=== PATIENT | female | born 1960 | race Caucasian/White ===

== ENCOUNTER → 2018-02-21 10:48 | Outpatient (CLI) | payer BC, SELFPAY ==
--- NOTE | 2018-02-21 10:53 | US_ITS ---
STUDY: THYROID ULTRASOUND REASON FOR EXAM: Female, 57 years old. Left neck lumps TECHNIQUE: Ultrasound evaluation of the thyroid was performed with real-time and static holly-scale imaging. COMPARISON: None. FINDINGS: RIGHT LOBE: The right lobe of the thyroid gland measures 4.9 x 1.8 x 1.2 cm. There is a homogeneous echotexture. There are 2 solid/cystic 4 mm nodules LEFT LOBE: The left lobe of the thyroid gland measures 4.6 x 1.8 x 1.0 cm. There is a homogeneous echotexture. There are multiple well-defined complex 3 mm nodules. ISTHMUS: The isthmus measures 2 mm. The regional lymph nodes are normal. The areas of the palpable lumps show a 2.6 x 2.4 x 1.2 cm well-defined homogeneous mass likely representing the parotid gland as it is just inferior to the left ear. There are 2 likely lymph nodes in the left jugular chain the larger measures 2.8 x 1.6 x 1.0 cm, the smaller 1.1 x 0.9 x 0.5 cm US/Thyroid IMPRESSION: Normal sized homogeneous thyroid gland with bilateral complex solid/cystic nodules all measuring less than 5 mm in size. Recommend 6 month follow-up to assure stability Likely jugular chain lymphadenopathy Likely enlarged parotid gland extending inferior to the left ear Electronically Signed: Raz Goetz MD at 15:09 EDT , Service support ,
== END ==
PROVIDERS: Family Provider Family Medicine; PCP Family Medicine; Visit Provider Family Medicine
DX: R59.0 Localized enlarged lymph nodes (principal)
CPT/HCPCS: 76536

== ENCOUNTER 2018-03-07 05:57 | Day surgery (SDC) | payer BC, SELFPAY ==
--- NOTE | 2018-03-07 | LYMN_PTH ---
PATIENT: SYLVAIN STALLINGS LOC: [facility] – [place] U#:[id number] AGE/SX: 57/F ROOM: RE03/07/[address]: Dr. Som Andre MD : 1960 BED: DIS: 03/07/2018 SPEC #: [id number] RECD: 03/07/18 08:06 STATUS: SERGIO REBrady #: [id number] CAMILA: 03/07/18 00:[address]: Som Andre DEPT: SURGICAL PATHOLOGY RECD BY: Svetlana Mason ENTERED: 03/07/18 08:54 SP TYPE: LYMPH NODE OTHR DR: Dr. Cara Stephens DO Tissues: Lymph node of neck, NOS Procedures: Frozen Section (charge) Surgery Specimen Level IV Diff Quik Stain (control) Frozen (no charge) H & E (control) HEADER OPERATION: Excision, biopsy left lymph node, deep open cervical node, frozen section PRE-OP DIAGNOSIS: Left cervical lymphadenopathy TISSUE SUBMITTED: Left posterior cervical lymph node FROZEN SECTION DIAGNOSIS Left posterior cervical lymph node, biopsy: Consistent with involvement by lymphoma. 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 See comment. Flow cytometry study from [facility] shows involvement by a B-cell lymphoproliferative disorder. The complete report is viewable in patient?s EMR. SJ:africa 03/10/18 COMMENT Immunohistochemistry ([id number]) supports the above diagnosis. This case has been reviewed in consultation with Dr. Landaverde who concurs with the above diagnosis. IDC:AM MICROSCOPIC DESCRIPTION Slides are reviewed. The specimen shows lymph node tissue with effacement of normal architecture and replaced by multiple follicles. These follicles comprise predominantly small cleaved lymphocytes. A few atypical large lymphocytes are also noted between 6 to 15 per high power field. Areas of necrosis or fibrosis are not seen. GROSS DESCRIPTION Received fresh for frozen section diagnosis labeled with the patient's name is a specimen designated left posterior cervical lymph node. The specimen consists of an ovoid piece of matson-pink soft tissue measuring 2.5 x 1.3 x 0.5 cm. The specimen is bisected and reveals flesh, cut surfaces. A section is submitted for frozen section diagnosis. A section is also submitted for flow cytometry studies. Four touch imprints are prepared (stained with Diff-Quick and two stained with H & E). The entire specimen is submitted in two cassettes as follows: 1 ? frozen section, 2 ? rest of the specimen. / SJ:rg 03/07/18 TC:0 [facility]: [id number] ADDENDUM ADDENDUM ADDENDUM ADDENDUM ADDENDUM ADDENDUM ADDENDUM ADDENDUM ADDENDUM ADDENDUM 09/22/2018 11:02 ADDENDUM 09/22/2018 11:02 ADDENDUM 09/22/2018 11:02 ADDENDUM 09/22/2018 11:02 ADDENDUM 09/22/2018 11:02 This addendum is added to incorporate an outside pathology consultation report. The case was examined at [facility] (#[id number]) and the following diagnosis was rendered. Left posterior cervical lymph node, biopsy: Follicular lymphoma, grade 1-2 of 3, predominantly follicular. Please see complete above mentioned consultation report in EMR
--- NOTE | 2018-03-07 | IMM_PTH ---
PATIENT: SYLVAIN STALLINGS LOC: [facility] – [place] U#:[id number] AGE/SX: 57/F ROOM: RE03/07/[address]: Dr. Som Andre MD : 1960 BED: DIS: 03/07/2018 SPEC #: [id number] RECD: 03/10/18 13:03 STATUS: SERGIO REQ #: [id number] CAMILA: 03/07/18 00:[address]: Som Andre DEPT: IMMUNOHISTOCHEMISTRY RECD BY: Svetlana Mason ENTERED: 03/10/18 13:06 SP TYPE: IMMUNO OTHR DR: Dr. Cara Stephens, DO Tissues: Lymph node of neck, NOS Procedures: BCL-2 (add) BCL-6 (add) CD10 (add) CD20 (add) CD23 (add) CD3 (add) CD30 (add) CD43 (add) CD45 (add) CD5 (add) CD79A (add) CK8 (add) CYCLIN (add) KI-67 (add) MUM1 (add) C-MYC (add) Pankeratin (initial) PHYSICIAN & [place] [id number] SPECIMEN INFORMATION: Tissue Source: Left posterior cervical lymph node biopsy Clinical Info: Left cervical lymphadenopathy Specimen Number: [id number] #2 CPT code: 43752, 18003 x16 METHODOLOGY: Deparaffinized sections of prefer/formalin-fixed tissue or PAP/DQ stained slides are incubated with monoclonal/polyclonal antibodies/oligonucleotide probes. Localization is made via biotin free immunoperoxidase method. Appropriate controls are performed and reacted as expected. Results on target cell population are indicated in the following table: RESULTS: ANTIBODY / CLONE RESULT Block 2 AE1-3 (AE1/AE3/PCK26) negative CK8 (27peasP29) negative CD3 (PS1) negative CD5 (SP10) negative CD20 (L26) positive CD43 (L60) negative CD45 (RP2/18) positive CD79a (11E3) positive CD10 (56C6) positive CD23 (1B12) positive CD30 (Philip-H2) negative BCL-2 (bcl-2/100/D5) positive BCL-6 (YB328I/A8) positive Cyclin D1/BCL-1 (SP4) negative MUM1 (MRQ-43) negative C-MYC (Y69) negative Ki-67 (30-9) positive, low to moderate These tests were developed and their performance characteristics determined by [facility]. They may not have been cleared or approved by the U.S. Food and Drug Administration. The FDA has determined that such clearance or approval is not necessary. INTERPRETATION: Left posterior cervical lymph node, biopsy: Consistent with involvement by non-Hodgkin B-cell follicular lymphoma. SJ:africa 03/11/18 Case has been reviewed in consultation with Dr. Landaverde who concurs with the above diagnosis. IDC:AM
[2018-03-07 06:19] VITALS: BP 112/76; PULSE 66; RESP 14; TEMP 36.5; O2SAT 97; BMI 25.1
[2018-03-07] MEDS: Bacitracin 500 UNITS/GM PACKET (08:07)
--- NOTE | 2018-03-07 08:16 | PCM.OPRPT ---
Problem List (1) Cervical lymphadenopathy Status: Chronic Report of Operation Date of Procedure: 03/07/18 Pre-Operative Diagnosis: Left posterior cervical lymphadenopathy Post-Operative Diagnosis: lymphoma Surgery/Procedure Performed:: Left deep cervical lymph node biopsy Description of Surgical Findings:: Maricarmen is a 57-year-old female presents with persistent left posterior cervical lymphadenopathy. This is failed to regress despite observation and no site of origin of malignant process was identified however given their size and persistence as well as the presence of some small thyroid nodules on ultrasound evaluation open biopsy for determine definitive evaluation was offered and she was eager to proceed. The risks, alternatives, potential benefits, and complications were discussed at length and any questions answered to the patient and/or caregiver's satisfaction. Witnessed informed consent was obtained in the office, and the patient and/or caregiver was agreeable to proceed. The patient was identified in the preoperative holding brought to the operating room where she is placed on the operative table and comfortably positioned. The planned left cervical operative site was then injected with 1% lidocaine with 100,000 epinephrine for a total of 3 cc and the site prepped and draped in usual sterile fashion. Using a 15 blade scalpel a 2 cm incision was then made along the midpoint of the trapezius where a large palpable lymph node was encountered by palpation. The skin and subcutaneous tissues were then dissected and medial to the trapezius muscle was found a large 1.5 x 3.0 cm enlarged lymph node which was then bluntly dissected from the surrounding capsule and the vascular pedicle cauterized with bipolar cautery. This was sent for pathologic evaluation which consistent with a diagnosis of lymphoma with taping pending further evaluation. The wound was then closed deeply with interrupted interrupted 3-0 Vicryl suture followed by running 5-0 Monocryl suture to the skin. Bacitracin ointment was then applied completing the procedure. Type of Anesthesia:: Local Anesthesiologist: none Special Medications: none Specimen's removed: left deep cervical lymph node Drains: none Estimated Blood Loss (mL): 0 mL Fluids Replaced: 0 mL - Complications none - Admit VTE Documentation VTE Present on Admission: No VTE Mechan Device Prophylaxis: None VTE Pharm Prophylaxis ordered?: No
--- NOTE | 2018-03-07 08:28 | DCINST_ITS ---
- Discharge Diagnoses Current Active Problems: Current Active and Chronic Problems Cervical lymphadenopathy (Chronic) You will use the following diet at home:: No restrictions Discharge Activity: Return to Normal Activity Call your doctor if your incision/area has: Increased Pain/ Swelling, Increased Redness, Swelling at the incision site Call your doctor if you observe: Fever of 101 or Higher, Uncontrolled pain Allergies/Adverse Reactions: Allergies barium sulfate Allergy (Verified 03/07/18 06:17) Hives guaifenesin [From Mucinex] Allergy (Verified 03/07/18 06:17) Hives JAILYN Inhibitors Adverse Reaction (Verified 03/07/18 06:17) Other Penicillins Adverse Reaction (Verified 03/07/18 06:17) Unknown Medications to take at Discharge Valsartan [Diovan] 160 mg PO DAILY 11/01/13 Cholecalciferol (Vitamin D3) [Vitamin D3] 5,000 unit PO DAILY 03/03/18 Primary Care Physician: Cara Stephens DO [Primary Care Provider] - Test Results: Test results from this visit will be discussed in further detail at your follow- up appointment, if applicable.
[2018-03-07 08:35] VITALS: BP 112/76; BP 121/71; PULSE 89; RESP 18; TEMP 37.2; O2SAT 96
[2018-03-07 08:42] VITALS: BP 112/76
== END 2018-03-07 08:45 | disposition home or self-care (01) ==
LOC: SDC 05:58 → AC 05:59
PROVIDERS: Family Provider Family Medicine; PCP Family Medicine; Visit Provider Otolaryngology
PROC: (CPT 38510; principal; 2018-03-07 07:15)
DX: C85.91 Non-Hodgkin lymphoma, unspecified, lymph nodes of head, face, and neck (principal)
CPT/HCPCS: 38510; 88305; 88331; 88341; 88342; J7120

== ENCOUNTER → 2018-03-17 14:02 | Outpatient (CLI) | payer BC, SELFPAY ==
--- NOTE | 2018-03-17 14:06 | CT_ITS ---
STUDY: CT ABDOMEN AND PELVIS WITH CONTRAST REASON FOR EXAM: Female, 57 years old. Newly diagnosed non-Hodgkin's lymphoma B-cell. History of kidney stones. RADIATION DOSAGE (If Supplied By Facility): CTDIvol = ( 14.48 ) mGy, DLP = ( 1530.05 ) mGycm TECHNIQUE: Transaxial images were obtained from the dome of the diaphragm to the symphysis pubis with oral contrast. 100 ml of Isovue 300 contrast was administered. Sagittal and coronal images were reconstructed. Individualized dose optimization techniques were used for this CT. COMPARISON: November 26, 2016. FINDINGS: The visualized lung bases are unremarkable. The visualized portions of the heart are within normal limits. Normal liver. Normal gallbladder and extrahepatic biliary system. Normal spleen. Normal pancreas. Normal bilateral adrenal glands. Bilateral renal simple cyst the largest in the midpole left kidney measuring 1.9 cm. Stable left superior pole nonobstructing 0.6 cm renal calculus. Stable 2 mm nonobstructing left midpole renal calculus. Renal parapelvic cysts. No ureteral stones. Normal visualized stomach. Normal small intestine. Normal colon. The appendix is well visualized and appears normal. No intra-abdominal free air. Normal abdominal aorta. Normal inferior vena cava. Small periaortic lymph nodes unchanged at the level of the crura of the right hemidiaphragm measuring 0.5 cm, below the level of the left renal artery measuring 1.2 cm and 1.0 cm, retroaortic measuring 1.1 cm, also at this level aorta caval measuring 0.7 cm, left external iliac measuring 0.9 cm Normal urinary bladder. Uterus grossly normal. No adnexal mass is seen. No pelvic sidewall lymphadenopathy. Normal abdominal wall. Disc space narrowing with marginal osteophytes L3-4 and L4-5. CT/Abdomen/Pelvis WITH Contrast IMPRESSION: No acute findings in the abdomen or pelvis. Scattered small abdominal and left-sided pelvic lymph nodes the largest measuring 1.2 cm. Stable nonobstructing left renal calculi. Bilateral renal cysts unchanged. Electronically Signed: Jesus Bae MD at 7:50 EDT , Service support ,
--- NOTE | 2018-03-17 14:06 | CT_ITS ---
STUDY: CT CHEST WITH CONTRAST REASON FOR EXAM: Female, 57 years old. There is a new diagnosis of non-Hodgkin's lymphoma. RADIATION DOSAGE (If Supplied By Facility): CTDIvol = ( 14.48 ) mGy, DLP = ( 1530.05 ) mGycm TECHNIQUE: Transaxial imaging was performed following intravenous administration of 100 ml of Isovue 300 contrast material. Coronal and sagittal 2-D MPR. Individualized dose optimization techniques were used for this CT. COMPARISON: CT neck, CT abdomen and pelvis same date. CT abdomen and pelvis 11/26/2016 and 08/31/2015 and 11/01/2013. FINDINGS: Supraclavicular: Several tiny lymph nodes are present supraclavicular bilateral, slightly more numerous on the right, not pathologically enlarged but conspicuous in number. The largest has a short axis dimension of approximately 6.8 mm. Normal thyroid. Thoracic body wall soft tissues: No acute process. No axillary lymphadenopathy. Upper abdomen: Please see dictation of CT abdomen and pelvis for details. Mediastinum: The proximal and distal esophagus appear normal. The middle 3rd of the esophagus is displaced by an apparent masslike process within the mediastinum. This masslike process likely represents confluent lymphadenopathy. It lies to the right of the descending aorta, posterior to the left atrium, beginning at the level of the alexx and extending downward approximately 9.2 cm, with a greatest transverse dimension of 5.4 cm and a greatest anterior-posterior dimension of 2.8 cm. A few small nodes are present in the superior mediastinum. Cardiovascular: Normal heart, aorta, central pulmonary arteries, inferior and superior vena cava. Lungs: Clear and normal right lung. Hyperdense partially calcified pulmonary nodule in the left upper lobe measuring 6.7 mm, benign features. CT/Chest WITH Contrast IMPRESSION: Mediastinal mass, likely composed of confluent enlarged lymph nodes. Concordant with a diagnosis of lymphoma. Electronically Signed: Royce Ceedno, at 11:48 EDT Tel , Service support ,
--- NOTE | 2018-03-17 14:07 | CT_ITS ---
STUDY: CT SOFT TISSUE NECK WITH CONTRAST REASON FOR EXAM: Female, 57 years old. New diagnosis of non-Hodgkin's lymphoma. Hypertension. RADIATION DOSAGE (If Supplied By Facility): CTDIvol = ( 14.48 ) mGy, DLP = ( 1530.05 ) mGycm TECHNIQUE: The patient was scanned in a multi-detector CT scanner. High resolution transaxial imaging was performed following intravenous administration of 100 ml of Isovue 300 contrast material. Sagittal and coronal images were reconstructed. Individualized dose optimization techniques were used for this CT. COMPARISON: CT chest, CT abdomen and pelvis same date. CT abdomen and pelvis 11/26/2016, 08/31/2015, 11/01/2013. FINDINGS: Apical lungs clear. A few small lymph nodes of the superior mediastinum, prevascular chain mildly enlarged lymph nodes in the AP window and paratracheal. Prominent multilevel cervical degenerative disc disease between C3 and T1, with uncovertebral joint hypertrophy and facet hypertrophy contributing to foraminal narrowing at multiple levels most severe at C4-C5, C5-C6 and C6-C7. Craniofacial osseous structures unremarkable. Paranasal sinuses, mastoid air cells and middle ear cavities clear. Superficial facial soft tissues including orbital contents are normal. Normal parotid glands. Normal submandibular glands. A few tiny lymph nodes submandibular. Several tiny lymph nodes in the cervical and jugulodigastric chains with no acute lymphadenopathy. No supraclavicular lymphadenopathy. There are multiple tiny lymph nodes scattered and supraclavicular region, none of which are pathologically enlarged. Somewhat conspicuous in number. Normal thyroid. Unremarkable vascular structures. CT/Soft Tissue Neck WITH Contrast IMPRESSION: There are small and borderline enlarged lymph nodes of the mediastinum. There are small numerous lymph nodes supraclavicular. There are a few shotty cervical lymph nodes bilaterally, not pathologically enlarged. Overall there is no princess lymphadenopathy. No other acute cervical soft tissue process. Prominent multilevel cervical spondylosis with stenosis. Correlate for any symptoms of cervical radiculopathy that may be tip presence of nerve impingement. Electronically Signed: Royce Cedeno, at 11:44 EDT Tel , Service support ,
[2018-03-17 14:31] LABS: CREATININE FINGERSTICK < 0.6 mg/dL (0.55-1.02); EGFR FINGERSTICK > 60.0000 mL/min (>60)
== END ==
PROVIDERS: Family Provider Family Medicine; PCP Family Medicine; Visit Provider Otolaryngology
DX: C85.91 Non-Hodgkin lymphoma, unspecified, lymph nodes of head, face, and neck (principal)
CPT/HCPCS: 70491; 71260; 74177

== ENCOUNTER → 2018-03-31 08:16 | Outpatient (CLI) | payer BC, SELFPAY | PROVIDERS: Family Provider Family Medicine; PCP Family Medicine; Visit Provider Internal Medicine Hematology & Oncology | DX: C82.91 Follicular lymphoma, unspecified, lymph nodes of head, face, and neck (principal) | CPT/HCPCS: 78815; A9552; A4216 ==

== ENCOUNTER → 2018-07-29 16:57 | Outpatient (CLI) | payer BC, SELFPAY ==
[2018-07-10 14:29] VITALS: BMI 25.5
--- NOTE | 2018-07-29 17:00 | CT_ITS ---
STUDY: CT SOFT TISSUE NECK WITH CONTRAST REASON FOR EXAM: Female, 58 years old. Follow-up lymphoma. RADIATION DOSAGE (If Supplied By Facility): CTDIvol = ( 11.74 ) mGy, DLP = ( 1289.59 ) mGycm TECHNIQUE: The patient was scanned in a multi-detector CT scanner. High resolution transaxial imaging was performed following intravenous administration of 100 ml of Isovue 300 contrast material. Sagittal and coronal images were reconstructed. Individualized dose optimization techniques were used for this CT. COMPARISON: Previous CT of the neck 03/17/2018, and PET scan 03/31/2018. FINDINGS: There is a subtle area slightly hyperdense mass in the posterior left neck, most consistent with an enlarged lymph node or possibly a metastatic positive lymphoma currently within a muscle bundle. It can best be seen on sagittal images 62-66. It showed FDG hyperactivity on the PET scan. It was present on the previous CT of the neck although not noticed or described. It has increased in size. Greatest craniocaudal dimension is now 4.4 cm versus 3 cm previously, in greatest front to back dimension is 2.5 cm versus 1.9 cm previously. There has also been a slight increase in size of a left scalene lymph node seen on axial image 39) measuring 1.5 cm greatest dimension, versus 1 cm previously, and it showed FDG hyperactivity on the PET scan. No other definite abnormalities. No other significant adenopathy. Normal bilateral parotid glands. Normal bilateral chain puller spaces. Normal bilateral parapharyngeal spaces. Normal bilateral carotid spaces. Normal bilateral sublingual and submandibular glands and spaces. Normal visualized nasopharynx. Normal retropharyngeal space. Normal perivertebral space. Normal visualized bilateral faucial tonsils. The visualized tongue, tongue base and oropharynx are normal. The visualized cervical lymph nodes (levels I-) are within normal size limits, and maintain normal morphology. Normal epiglottis, bilateral vallecula and hypopharynx. The pre-epiglottic and paraglottic adipose spaces are normal. Normal visualized bilateral piriform sinuses, aryepiglottic folds, vocal cords, and arytenoid-cricoid articulations. Normal subglottic trachea. Normal bilateral lobes of the thyroid gland. Normal visualized pulmonary apices. Normal visualized paranasal sinuses. There is multilevel degenerative changes of the cervical spine. CT/Soft Tissue Neck WITH Contrast IMPRESSION: Increasing size of a subtle, slightly hyperdense left posterior neck mass that was shown to be FDG avid and is consistent with active lymphoma. Slight increased size of a small left scalene lymph node. Electronically Signed: Tarun Malone MD at 23:24 EST , Service support ,
--- NOTE | 2018-07-29 17:00 | CT_ITS ---
STUDY: CT ABDOMEN AND PELVIS WITH CONTRAST REASON FOR EXAM: Female, 58 years old. Follow-up lymphoma. RADIATION DOSAGE (If Supplied By Facility): CTDIvol = ( 11.74 ) mGy, DLP = ( 1289.59 ) mGycm TECHNIQUE: Transaxial images were obtained from the dome of the diaphragm to the symphysis pubis without oral contrast. 100 ml of Isovue 300 contrast was administered. Sagittal and coronal images were reconstructed. Individualized dose optimization techniques were used for this CT. COMPARISON: CT scan 03/17/2018, PET scan 03/31/2018. FINDINGS: The visualized lung bases are unremarkable. The visualized portions of the heart are within normal limits. Stable tiny right retrocrural lymph node. Normal liver. Normal gallbladder and extrahepatic biliary system. Normal spleen. Normal pancreas. Normal bilateral adrenal glands. No acute abnormalities of the kidneys. Stable bilateral small cysts. Stable bilateral nonobstructing stones, most pronounced in the left upper pole where there is a stone measuring as much as 9 mm. No hydronephrosis on either side. Evaluation of the GI tract is limited by absence of oral contrast. Cannot exclude stomach wall thickening. No dilated loops of bowel or evidence for obstruction. Cannot exclude segmental thickening of the clemente of the small or large bowel. Cannot exclude enteritis or colitis. Moderate diffuse fecal retention. Diverticulosis without definite diverticulitis. Appendix within normal limits. Normal abdominal aorta. Normal inferior vena cava. Grossly stable retroperitoneal adenopathy. Enlarged lymph nodes are mostly on the left side of the aorta. Largest is at the level of the left renal hilum and measures 1.9 cm stable. This can be seen on axial image 47. Additional enlarged lymph nodes extend down to the level of the aortic bifurcation. At the level of the left common iliac artery there is an adjacent enlarged lymph node measuring 1.6 cm, stable since previous exam, seen on axial image 65. Stable small left external iliac lymph nodes are seen. At the level of the right acetabulum, there are 2 pelvic wall masses on either side of the external iliac vein and artery. These can be seen on axial images 83-97 and these have increased in size. As example, the more medial mass measures 3.7 cm on axial image 89, versus 3.4 cm previously, and the mass just inside the left inguinal ligament measures 3.2 cm greatest dimension, versus 2.9 cm previously. A small soft tissue mass in the left retroperitoneum lateral to the left psoas muscle on axial image 64 measures 8 mm versus 7 mm previously. Normal urinary bladder. Normal visualized uterus. Normal abdominal wall. There are diffuse degenerative changes of the visualized lumbar spine. CT/Abdomen/Pelvis W IV Cont ONLY IMPRESSION: Mild retroperitoneal adenopathy, grossly stable. Right pelvic adenopathy, increased in size since previous study. No other changes. Electronically Signed: Tarun Malone MD at 23:37 EST , Service support ,
--- NOTE | 2018-07-29 17:00 | CT_ITS ---
STUDY: CT CHEST WITH CONTRAST REASON FOR EXAM: Female, 58 years old. Follow-up non-Hodgkin's lymphoma. RADIATION DOSAGE (If Supplied By Facility): CTDIvol = ( 11.74 ) mGy, DLP = ( 1289.59 ) mGycm TECHNIQUE: Transaxial imaging was performed following intravenous administration of 100 ml of Isovue 300 contrast material. Individualized dose optimization techniques were used for this CT. COMPARISON: CT scan 03/17/2018, PET scan 03/31/2018. FINDINGS: Normal lung volumes. No focal infiltrates. No effusions. 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 Essentially stable appearance of confluent soft tissue density behind the mid mediastinum, beginning at the level of the alexx and extending anterior to the vertebral column, surrounding much of the aorta and esophagus, extending behind the left atrium, and terminating above the diaphragmatic hiatus. This is consistent with adenopathy, and this area showed increased FDG hyperactivity on PET scan. The size of the mass is similar to prior exam with a greatest craniocaudal dimension of approximately 10.5 cm on coronal images, the greatest [id number] dimension of 5.6 cm on coronal images, in greatest front to back dimension of 4.5 cm on sagittal images. Note that CT scan cannot differentiate active neoplasm from posttherapeutic fibrosis. Also stable is a small area of soft tissue density behind the sternum and anterior to the ascending aorta, with greatest cross-sectional dimension of 2 cm on axial image 43. No definite or significant thoracic inlet adenopathy or axillary adenopathy. Normal heart and pericardium. Normal enhanced pulmonary arteries. Normal aorta arch and descending thoracic aorta. Normal osseous structures. See separate report for CT of the abdomen and pelvis. CT/Chest WITH Contrast IMPRESSION: No definite change. Again seen is confluent adenopathy behind the mid mediastinum as described above. Electronically Signed: Tarun Malone MD at 23:16 EST , Service support ,
--- OUTSIDE RECORDS SUMMARY | 2018-10-31 05:34 | XMS RPT_ITS ---
:1960 Author Organization OHIP Support Name Relationship Address Phone CARLA BANK Unavailable [address] + [address] [place] [address] [place] Unavailable Unavailable + MCKENZIE, STEVE Unavailable [address] + [place] [address] CARLA BANK Unavailable [address] + [address] [place] [address] [place] Unavailable Unavailable + MCKENZIE, STEVE Unavailable [address] + [place] [address] CARLA BANK Unavailable [address] + [address] [place] [address] [place] Unavailable Unavailable + MCKENZIE, STEVE Unavailable [address] + [place] [address] [place] Unavailable Unavailable Unavailable MCKENZIE, STEVE Unavailable Unavailable Unavailable HAYLIESYLVAIN Unavailable Unavailable Unavailable [place] Unavailable Unavailable Unavailable MCKENZIE, STEVE Unavailable Unavailable Unavailable SYLVAIN STALLINGS Unavailable Unavailable Unavailable CARLA BANK Unavailable [address] + [address] [place] [address] [place] Unavailable Unavailable + MCKENZIE, STEVE Unavailable Unavailable + CARLA BANK Unavailable [address] + [address] [place] [address] [place] Unavailable Unavailable + MCKENZIE, STEVE Unavailable Unavailable + CARLA BANK Unavailable [address] + [address] [place] [address] [place] Unavailable Unavailable + STEVE MCKENZIE Unavailable Unavailable + [employer]LA INS[employer] Unavailable [address] + [address] [place] [address] [place] Unavailable Unavailable + STEVE MCKENZIE Unavailable Unavailable + [employer]LA [employer] Unavailable [address] + [address] [place] [address] MATT LA Unavailable [address] + [place] [address] [place] Unavailable Unavailable + [place] [address] [employer]LA [employer] Unavailable [address] + [address] [place] [address] MATT LA Unavailable [address] + [place] [address] [place] Unavailable Unavailable + [place] [address] [employer]LA [employer] Unavailable [address] + [address] [place] [address] [place] Unavailable [address] + [place] [address] [place](CALL Unavailable . + [place] [address] Care Team Providers Name Role Phone DARNELLPPAN, SABARISH R Attending Unavailable AYYAPPAN, SABARISH R Referring Unavailable AYYAPPAN, SABARISH R Attending Unavailable AYYAPPAN, SABARISH R Referring Unavailable AYYAPPAN, SABARISH R Attending Unavailable AYYAPPAN, SABARISH R Referring Unavailable AYYAPPAN, SABARISH R Attending Unavailable AYYAPPAN, SABARISH R Referring Unavailable AYYAPPAN, SABARISH R Attending Unavailable AYYAPPAN, SABARISH R Referring Unavailable AYYAPPAN, SABARISH R Referring Unavailable AYYAPPAN, SABARISH R Attending Unavailable SELF, SELF Referring Unavailable CARA STEPHENS Primary Care Unavailable LAKISHA PARRA Attending Unavailable NEYHART GARCIA, HEBERT Referring Unavailable WISWELL, ZONIA Attending Unavailable Isckarus, Mansour Attending Unavailable Isckarus, Mansour Referring Unavailable Malys, Cara Primary Care Unavailable Isckarus, Mansour Attending Unavailable Andre, Som Referring Unavailable Malys, Cara Primary Care Unavailable Isckarus, Mansour Consulting Unavailable Miedel, Mary Attending Unavailable Malys, Cara Primary Care Unavailable Andre, Som Attending Unavailable Andre, Som Referring Unavailable Malys, Cara Primary Care Unavailable Andre, Som Attending Unavailable Andre, Som Referring Unavailable Malys, Cara Primary Care Unavailable Isckarus, Mansour Attending Unavailable Andre, Som Referring Unavailable Malys, Cara Primary Care Unavailable Isckarus, Mansour Attending Unavailable Andre, Som Referring Unavailable Malys, Cara Primary Care Unavailable Isckarus, Mansour Consulting Unavailable Isckarus, Mansour Attending Unavailable Malys, Cara Primary Care Unavailable Isckarus, Mansour Attending Unavailable Andre, Som Referring Unavailable Malys, Cara Primary Care Unavailable Isckarus, Mansour Consulting Unavailable Isckarus, Mansour Attending Unavailable Andre, Som Referring Unavailable Malys, Cara Primary Care Unavailable Isckarus, Mansour Consulting Unavailable PROBLEMS PROBLEMS DATE TYPE CONDITION / CODE ATTENDING STATUS SOURCE 07/31/2018 Unknown C82.90 - Isckarus, Active [place] Follicular [facility] lymphoma, [facility] unspecified, Repository unspecified site / C82.90(ICD-10) 07/17/2018 Admitting New Patient / AYYAPPAN, Active [place] [facility] diagnosis [id number]() [facility] Repository 05/05/2018 Active Encounter for NA Active [facility] screening [place] mammogram for Repository malignant neoplasm of breast / Z12.31(ICD-10) 03/21/2018 Unknown D50.9 - Iron Isckarus, 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 [address] OFFICE VISIT Date of Service: 07/31/18 1523 MR#: [id number] Acct: [id number] Name: SYLVAIN STALLINGS Rep #: [id number] : 1960 From: Anum Greene MD Age/Sex: 58/F Location: OMD Status: Signed - Problem List (1) Follicular lymphoma Status: Chronic - Date of Service Date of Service:: 07/31/18 - Chief Complaint Lymphoma follow-up - History of Present Illness Patient is a 58-year-old female who presented with painless enlargement of lymph nodes in the left neck was first noted in the late spring 2017 and did not improve after a course of antibiotics and therefore was referred to who performed an excision biopsy of the left neck lymph node and ordered a CAT scan of the neck chest and abdomen Findings were: March 07, 2018 Left posterior cervical lymph node, biopsy: Consistent with involvement by non-Hodgkin B-cell follicular lymphoma, grade 2. March 17, 2018 CT neck: There are small and borderline enlarged lymph nodes of the mediastinum. There are small numerous lymph nodes supraclavicular. There are a few shotty cervical lymph nodes bilaterally, not pathologically enlarged. March 17, 2018 CT chest: Supraclavicular: Several tiny lymph nodes are present supraclavicular bilateral, slightly more numerous on the right, not pathologically enlarged but conspicuous in number. The largest has a short axis dimension of approximately 6.8 mm. Normal thyroid. Thoracic body wall soft tissues: No acute process. No axillary lymphadenopathy. Mediastinum: The proximal and distal esophagus appear normal. The middle 3rd of the esophagus is displaced by an apparent masslike process within the mediastinum. This masslike process likely represents confluent lymphadenopathy. It lies to the right of the descending aorta, posterior to the left atrium, beginning at the level of the alexx and extending downward approximately 9.2 cm, with a greatest transverse dimension of 5.4 cm and a greatest anterior-posterior dimension of 2.8 cm. A few small nodes are present in the superior mediastinum. Cardiovascular: Normal heart, aorta, central pulmonary arteries, inferior and superior vena cava. Lungs: Clear and normal right lung. Hyperdense partially calcified pulmonary nodule in the left upper lobe measuring 6.7 mm, benign features. IMPRESSION: Mediastinal mass, likely composed of confluent enlarged lymph nodes. Concordant with a diagnosis of lymphoma. March 17, 2018 CT abdomen and pelvis: IMPRESSION: No acute findings in the abdomen or pelvis. Scattered small abdominal and left-sided pelvic lymph nodes the largest measuring 1.2 cm. Stable nonobstructing left renal calculi. Bilateral renal cysts unchanged. PET/CT March 2018: MPRESSION: 1. ABNORMAL EXAMINATION INDICATIVE OF MALIGNANT VIABLE NEOPLASM. 2. Increased glucose concentration noted in the bilateral- lateral neck, right-left axillary regions fulfills quantitative criteria for viable neoplasm. 3. Mediastinal hypermetabolic abnormalities fulfill quantitative criteria for viable neoplasm. (Adonay et al, Journal of Clinical Oncology 16:2142, 1997). 4. The increase in FDG concentration noted in the bilateral hemipelvis and inguinal regions fulfills quantitative criteria for viable neoplasm. 5. Osseous skeletal hypermetabolic foci fulfill quantitative criteria for viable osseous neoplasm. (King, Clinical Nuclear Medicine 29:161, 2004). Patient has had no B symptoms and is unaware of any enlarged lymph nodes apart from those noted by her in the left neck. - Past Medical/Social History Past Medical History Cancer: Lymphoma Social History Social History: No changes Smoking Status Never smoker Review of Systems Constitutional:: Reports: Appetite change - I eat a lot my weight fluctuates within a few pounds. Denies: Fever, Sweats, Weight loss, Chills Cardiovascular:: Denies: Chest pain, Palpitations, Dyspnea on exertion, Orthopnea, PND, Shortness of breath Respiratory: Denies: Cough, Hemoptysis, Shortness of Breath, Wheezing Gastrointestinal:: Denies: Abdominal pain, Nausea, Vomiting, Diarrhea, Constipation, Hematochezia Genitourinary: Denies: Dysuria, Hematuria, 15, Flank pain Musculoskeletal:: Denies: Back pain, Myalgia, Arthralgia Skin: Denies: Rash, Skin Changes, Wounds Neurological:: Denies: Headache, Dizziness, Visual changes, Tinnitus, Hearing loss Psychiatric: Denies: Anxiety, Depression, Homicidal Ideations, Suicidal Ideations Vital Signs Height 5 ft 4 in Weight: 63.594 kg Weight in Pounds 140.2 lbs Pulse Ox 98 - Physical Exam General: Alert, Oriented x3, No apparent distress, - - ECOG 0 Psychiatric:: Anxious Laboratory Data: Reviewed in EMR Diagnostic Data: CT scans neck chest abdomen and pelvis July 2018 reviewed in EMR Assessment and Plan 58-year-old female with clinical stage ANN MARIE grade 2 follicular lymphoma presenting with generalized lymphadenopathy and abnormal bone/bone marrow on PET CT March 2018. FLIPI score 2 (for stage and more than 4 negro areas involved), intermediate risk group. Patients in this risk group have a 94% 2-year overall survival, 72% 2-year progression free survival and a median progression free survival of 70 months. She does not fulfill the GELF criteria for high tumor burden yet as of July 2018. Apart from the awareness of the enlarged lymph node first noted in the left neck patient is asymptomatic. She has a stable weight although she reports I am eating a lot. CT scans were done in follow-up of her lymphoma July 2018 and in comparison to initial studies of March 2018 overall the disease remains stable and if any slight worsening in the subtle enlargement of the lymph nodes in the neck. Follicular lymphoma is a second most common lymphoma in the [place] and [place], often presenting in middle age Caucasians with painless peripheral adenopathy which may wax and wane. Widespread disseminated disease is usually present at baseline and patients are typically asymptomatic aside from that her lymphadenopathy. Molecular genetics can confirm the diagnosis but they are not specific for follicular lymphoma (immunoglobulin gene rearrangement and t(14;18). Although the course of follicular lymphoma is quite variable many patients will have a waxing and waning course for years without therapy. Patient's was disseminated disease and rapid tumor growth are candidates for active treatment. Small subset of patients will undergo transformation to a more aggressive lymphoma in those patients will have a worse prognosis and require aggressive therapy. Plan: 1. I advise continued watchful expectancy, follow-up in 3 months. She was seen in June 2018 for a second opinion at [facility]. Final consultation report not received yet but to the patient's understanding watchful expectancy was felt to be a reasonable option. She was not interested in enrolling in a clinical trial. 2. A bone marrow biopsy will be deferred until when treatment is felt indicated. Impression and plan discussed with patient . Primary Care Provider: Cara Stephens DO Referring Provider: Som Andre MD 07/31/18 2904 <Electronically signed by Anum Greene MD> Date [facility] Greene [facility] Signature: Date (if applicable) CC: Som Andre MD; Cara Stephens DO CHEST WITH CONTRAST Observed: 07/29/2018 Status: F Source: [place] 5:00 PM [facility] REPOSITORY [facility] Imaging Services [address] [place] [address] Chest WITH Contrast MR#: [id number] Acct: [id number] Name: SYLVAIN STALLINGS Rep #: [id number] : 1960 F 58 From: Tarun Malone MD PCP: Cara Stephens DO Status: REG CLI Study: Chest WITH Contrast Date of Exam: 07/29/18 Exam# [id number] Ordering Dr: Anum Greene MD STUDY: CT CHEST WITH CONTRAST REASON FOR EXAM: Female, 58 years old. Follow-up non-Hodgkin's lymphoma. RADIATION DOSAGE (If Supplied By Facility): CTDIvol = ( 11.74 ) mGy, DLP = ( 1289.59 ) mGycm TECHNIQUE: Transaxial imaging was performed following intravenous administration of 100 ml of Isovue 300 contrast material. Individualized dose optimization techniques were used for this CT. COMPARISON: CT scan 03/17/2018, PET scan 03/31/2018. FINDINGS: Normal lung volumes. No focal infiltrates. No effusions. 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 Essentially stable appearance of confluent soft tissue density behind the mid mediastinum, beginning at the level of the alexx and extending anterior to the vertebral column, surrounding much of the aorta and esophagus, extending behind the left atrium, and terminating above the diaphragmatic hiatus. This is consistent with adenopathy, and this area showed increased FDG hyperactivity on PET scan. The size of the mass is similar to prior exam with a greatest craniocaudal dimension of approximately 10.5 cm on coronal images, the greatest [id number] dimension of 5.6 cm on coronal images, in greatest front to back dimension of 4.5 cm on sagittal images. Note that CT scan cannot differentiate active neoplasm from posttherapeutic fibrosis. Also stable is a small area of soft tissue density behind the sternum and anterior to the ascending aorta, with greatest cross-sectional dimension of 2 cm on axial image 43. No definite or significant thoracic inlet adenopathy or axillary adenopathy. Normal heart and pericardium. Normal enhanced pulmonary arteries. Normal aorta arch and descending thoracic aorta. Normal osseous structures. See separate report for CT of the abdomen and pelvis. CT/Chest WITH Contrast IMPRESSION: No definite change. Again seen is confluent adenopathy behind the mid mediastinum as described above. Electronically Signed: Tarun Malone MD at 23:16 EST , Service support , CC: Cara Stephens DO; Anum Greene MD Scheduling Assistant: Signed SOFT TISSUE NECK WITH Observed: 07/29/2018 Status: F Source: [place] CONTRAST 5:00 PM [facility] REPOSITORY [facility] Imaging Services [address] [place] [address] Soft Tissue Neck WITH Contrast MR#: [id number] Acct: [id number] Name: SYLVAIN STALLINGS Rep #: [id number] : 1960 F 58 From: Tarun Malone MD PCP: Cara Stephens DO Status: REG CLI Study: Soft Tissue Neck WITH Contrast Date of Exam: 07/29/18 Exam# [id number] Ordering Dr: Anum Greene MD STUDY: CT SOFT TISSUE NECK WITH CONTRAST REASON FOR EXAM: Female, 58 years old. Follow-up lymphoma. RADIATION DOSAGE (If Supplied By Facility): CTDIvol = ( 11.74 ) mGy, DLP = ( 1289.59 ) mGycm TECHNIQUE: The patient was scanned in a multi-detector CT scanner. High resolution transaxial imaging was performed following intravenous administration of 100 ml of Isovue 300 contrast material. Sagittal and coronal images were reconstructed. Individualized dose optimization techniques were used for this CT. COMPARISON: Previous CT of the neck 03/17/2018, and PET scan 03/31/2018. FINDINGS: There is a subtle area slightly hyperdense mass in the posterior left neck, most consistent with an enlarged lymph node or possibly a metastatic positive lymphoma currently within a muscle bundle. It can best be seen on sagittal images 62-66. It showed FDG hyperactivity on the PET scan. It was present on the previous CT of the neck although not noticed or described. It has increased in size. Greatest craniocaudal dimension is now 4.4 cm versus 3 cm previously, in greatest front to back dimension is 2.5 cm versus 1.9 cm previously. There has also been a slight increase in size of a left scalene lymph node seen on axial image 39) measuring 1.5 cm greatest dimension, versus 1 cm previously, and it showed FDG hyperactivity on the PET scan. No other definite abnormalities. No other significant adenopathy. Normal bilateral parotid glands. Normal bilateral wardrobe technician spaces. Normal bilateral parapharyngeal spaces. Normal bilateral carotid spaces. Normal bilateral sublingual and submandibular glands and spaces. Normal visualized nasopharynx. Normal retropharyngeal space. Normal perivertebral space. Normal visualized bilateral faucial tonsils. The visualized tongue, tongue base and oropharynx are normal. The visualized cervical lymph nodes (levels I-) are within normal size limits, and maintain normal morphology. Normal epiglottis, bilateral vallecula and hypopharynx. The pre-epiglottic and paraglottic adipose spaces are normal. Normal visualized bilateral piriform sinuses, aryepiglottic folds, vocal cords, and arytenoid-cricoid articulations. Normal subglottic trachea. Normal bilateral lobes of the thyroid gland. Normal visualized pulmonary apices. Normal visualized paranasal sinuses. There is multilevel degenerative changes of the cervical spine. CT/Soft Tissue Neck WITH Contrast IMPRESSION: Increasing size of a subtle, slightly hyperdense left posterior neck mass that was shown to be FDG avid and is consistent with active lymphoma. Slight increased size of a small left scalene lymph node. Electronically Signed: Tarun Malone MD at 23:24 EST , Service support , CC: Cara Stephens DO; Anum Greene MD Scheduling Assistant: Signed ABDOMEN/PELVIS W IV CONT Observed: 07/29/2018 Status: F Source: [place] ONLY 5:00 PM [facility] REPOSITORY [facility] Imaging Services [address] [place] [address] Abdomen/Pelvis W IV Cont ONLY MR#: [id number] Acct: [id number] Name: SYLVAIN STALLINGS Rep #: [id number] : 1960 F 58 From: Tarun Malone MD PCP: Cara Stephens DO Status: REG CLI Study: Abdomen/Pelvis W IV Cont ONLY Date of Exam: 07/29/18 Exam# [id number] Ordering Dr: Anum Greene MD STUDY: CT ABDOMEN AND PELVIS WITH CONTRAST REASON FOR EXAM: Female, 58 years old. Follow-up lymphoma. RADIATION DOSAGE (If Supplied By Facility): CTDIvol = ( 11.74 ) mGy, DLP = ( 1289.59 ) mGycm TECHNIQUE: Transaxial images were obtained from the dome of the diaphragm to the symphysis pubis without oral contrast. 100 ml of Isovue 300 contrast was administered. Sagittal and coronal images were reconstructed. Individualized dose optimization techniques were used for this CT. COMPARISON: CT scan 03/17/2018, PET scan 03/31/2018. FINDINGS: The visualized lung bases are unremarkable. The visualized portions of the heart are within normal limits. Stable tiny right retrocrural lymph node. Normal liver. Normal gallbladder and extrahepatic biliary system. Normal spleen. Normal pancreas. Normal bilateral adrenal glands. No acute abnormalities of the kidneys. Stable bilateral small cysts. Stable bilateral nonobstructing stones, most pronounced in the left upper pole where there is a stone measuring as much as 9 mm. No hydronephrosis on either side. Evaluation of the GI tract is limited by absence of oral contrast. Cannot exclude stomach wall thickening. No dilated loops of bowel or evidence for obstruction. Cannot exclude segmental thickening of the clemente of the small or large bowel. Cannot exclude enteritis or colitis. Moderate diffuse fecal retention. Diverticulosis without definite diverticulitis. Appendix within normal limits. Normal abdominal aorta. Normal inferior vena cava. Grossly stable retroperitoneal adenopathy. Enlarged lymph nodes are mostly on the left side of the aorta. Largest is at the level of the left renal hilum and measures 1.9 cm stable. This can be seen on axial image 47. Additional enlarged lymph nodes extend down to the level of the aortic bifurcation. At the level of the left common iliac artery there is an adjacent enlarged lymph node measuring 1.6 cm, stable since previous exam, seen on axial image 65. Stable small left external iliac lymph nodes are seen. At the level of the right acetabulum, there are 2 pelvic wall masses on either side of the external iliac vein and artery. These can be seen on axial images 83-97 and these have increased in size. As example, the more medial mass measures 3.7 cm on axial image 89, versus 3.4 cm previously, and the mass just inside the left inguinal ligament measures 3.2 cm greatest dimension, versus 2.9 cm previously. A small soft tissue mass in the left retroperitoneum lateral to the left psoas muscle on axial image 64 measures 8 mm versus 7 mm previously. Normal urinary bladder. Normal visualized uterus. Normal abdominal wall. There are diffuse degenerative changes of the visualized lumbar spine. CT/Abdomen/Pelvis W IV Cont ONLY IMPRESSION: Mild retroperitoneal adenopathy, grossly stable. Right pelvic adenopathy, increased in size since previous study. No other changes. Electronically Signed: Tarun Malone MD at 23:37 EST , Service support , CC: Cara Stephens DO; Anum Greene MD Scheduling Assistant: Signed CBC WITH DIFF AILEEN Collected: 07/17/2018 Status: F Source: [facility] 2:11 PM [facility] REPOSITORY TYPE CODE TESTS RESULT OUT OF REFERENCE UNITS RANGE LAB WBC 3.99-11.19 K/uL WBC Count 6.16 LAB RBC 3.91-5.04 M/uL RBC Count 4.57 LAB HGB 11.4-15.2 g/dL Hemoglobin 14.5 LAB HCT 34.9-44.3 % Hematocrit 42.2 LAB MCV 79.6-97.7 fL Mean Cell 92.3 Volume LAB MCH 25.9-33.9 pg Mean Cell 31.7 Hgb LAB MCHC 31.4-35.9 g/dL Mean Cell 34.4 Hgb Conc LAB RDW 10.8-14.9 % RBC 12.0 Distribution LAB PLT 150-393 K/uL Platelet 218 Count LAB MPV 8.5-12.2 fL Mean 10.5 Platelet Volume LAB NRBC 0.0-0.2 /100 WBC NUCLEATED 0.0 RBC LAB DTYPE Electronic DIFFERENTIAL TYPE Differential LAB IGRE % IMMATURE 0.2 GRANS % LAB SEGS % NEUTROPHIL 74.3 SEGMENTED LAB LYM % LYMPHOCYTE 15.4 % LAB MON % MONOCYTE % 7.6 LAB EOS % *EOSINOPHIL 1.9 % LAB BASO % BASOPHIL % 0.6 LAB IGABS 0.00-0.08 K/uL IMMATURE <0.04 GRANS ABSOLUTE LAB SBANS 1.64-7.28 K/uL SEGS + 4.57 Bands,Absolute LAB ALYM 1.16-3.51 K/uL Abs Lymph 0.95 Low LAB AMONO 0.22-0.87 K/uL Abs [place] 0.47 LAB AEOS 0.00-0.42 K/uL Abs Eos 0.12 LAB ABASO 0.00-0.15 K/uL Abs Baso 0.04 Performed By: #### CBCDFJ #### [facility]en [facility], [facility] [address] [place], [place] [address] #### B2M #### [facility] [address] [place] [address] [address] [facility] [address] [place] [id number] METABOLIC PANEL - CHRI Collected: 07/17/2018 Status: F Source: [facility] 2:11 PM [facility] REPOSITORY TYPE CODE TESTS RESULT OUT OF REFERENCE UNITS RANGE LAB NA 133-143 mmol/L Sodium 139 LAB K 3.5-5.0 mmol/L Potassium 4.1 LAB CL 98-108 mmol/L Chloride 102 LAB BUN 7-22 mg/dL BUN 19 LAB CREA 0.50-1.20 mg/dL Creatinine 0.66 LAB GLUC 70-99 mg/dL Glucose 88 LAB CA 8.6-10.5 mg/dL Calcium 9.9 LAB ALP 32-126 U/L Alkaline Phosphatase 76 LAB AST 14-40 U/L AST 24 LAB TP 6.4-8.3 g/dL Total Protein 7.0 LAB ALB 3.5-5.0 g/dL Albumin 4.1 LAB BILT <1.5 mg/dL Bilirubin Total 0.5 LAB CO2 22-30 mmol/L Carbon High Dioxide 31 LAB GAP 7-17 mmol/L Anion Gap 10 LAB ALT 9-48 U/L ALT 16 LAB GFR >60 mL/min/1.7 3sqM Est GFR,non >60 LAB GFRA >60 mL/min/1.7 3sqM Est GFR, >60 LAB OSMC 278-305 mOsm/kg Osmolality (Calc) 293 Performed By: #### CBCDFJ #### [facility] [address] [place], [place] [address] #### B2M #### [facility] [address] [place] [address] [address] [place] [id number] LD - CHRI Collected: 07/17/2018 Status: F Source: [facility] 2:11 PM [facility] REPOSITORY TYPE CODE TESTS RESULT OUT OF RANGE REFERENCE UNITS LAB LD 100-190 U/L LD Total 157 Performed By: #### CBCDFJ #### [facility] [address] [place] [address] #### B2M #### [facility] [address] [place] [address] [address] [place] [phone] URIC ACID - CHRI Collected: 07/17/2018 Status: F Source: [facility] 2:11 PM [facility] REPOSITORY TYPE CODE TESTS RESULT OUT OF RANGE REFERENCE UNITS LAB URIC 2.8-6.0 mg/dL Uric Acid 3.4 Performed By: #### CBCDFJ #### [facility]en [facility], [facility] [address] [place] [address] #### B2M #### [facility] [address] [place] [id number] [place] [address] [address] [place] [id number] TSH, HIGH SENSITIVITY - Collected: 07/17/2018 Status: F Source: [facility] CHRI 2:11 PM [facility] REPOSITORY TYPE CODE TESTS RESULT OUT OF REFERENCE UNITS RANGE LAB TSH 0.550-4.780 uIU/mL TSH, High Sensitivity 1.689 Performed By: #### CBCDFJ #### Aileen [facility], [facility] [address] [place] [address] #### B2M #### [facility] [address] [place] [address] [facility] [address] [place] [address] BETA 2 MICROGLOBULIN Collected: 07/17/2018 Status: F Source: [facility] 2:11 PM [facility] REPOSITORY TYPE CODE TESTS RESULT OUT OF REFERENCE UNITS RANGE LAB B2M 0.60-2.11 mg/L Beta 2 Microglobulin 1.7 Performed By: #### CBCDFJ #### [facility], [facility] [address] [place] [id number] #### B2M #### [facility] [address] [place] [address] [id number] [facility] [address] [place] [address] SURGICAL PATHOLOGY Observed: 07/11/2018 Status: F Source: [facility] 10:06 AM [facility] REPOSITORY Surgical Pathology Report Patient Name: SYLVAIN STALLINGS Med. Rec #: [id number] Submitting Physician: STAN JORGE --- Clinical History --- Outside review slides Follicular lymphoma. Pre-op Diagnosis: Left cervical lymphadenopathy. ---Final Pathologic Diagnosis--- Outside Slides: [id number] (03/07/2018) A. 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 --Ancillary Studies-- Flow cytometry: Per report, flow cytometric analysis demonstrates a kappa restricted B cell population (65% of events) expressing CD19, CD20 dim, CD10 dim, CD23, FMC-7 dim and CD38 dim with dim surface immunoglobulin expression. Molecular studies: Not performed Special stains: Not performed Immunohistochemistry (IHC)/in situ hybridization (CIARA): Neoplastic cells are positive for: Ki67 (10-15%), CD20, CD79a, CD10, Bcl-6, Bcl-2, CD45, CD23 Neoplastic cells are negative for: CD3, CD5, CD30, MUM-1, C-MYC, CD43, Cyclin D1, Pankeratin, CK8 Comment: The findings are consistent with a follicular lymphoma, grade 1-2 of 3. No evidence of diffuse large B cell lymphoma is identified in the sections examined. Ki67 proliferation index is determined by manual quantification of Ki67 positivity. The above synoptic report complies, in slightly modified form, with the guidelines of the [employer] for the reporting of cancer specimens. Lymphoid neoplasms are classified according to DARCIE Ramirez et al. (Eds.). (2017) WHO Classification of Tumours of Haematopoietic and Lymphoid Tissue (revised 4th edition). Hicks, Teresita: International Agency for Research on Cancer. ac/AYS:07/16/2018 Electronically Signed By Janina Jane MD 07/16/2018 21:03:05 Professional Interpretation performed at location: [address] [place] [phone] ---SPECIMEN(S) RECEIVED:--- LESLIE A: 2nd opinion consultation, 1 case ---SLIDE/BLOCK DESCRIPTION:--- The following material(s) are received from [facility], [facility] [place] [address], with an identifying surgical pathology report:3 H&E slide(s), 19 non-H&E slide(s), labeled [id number]. Outside materials are returned in sixty (60) days under separate cover with our number recorded on them. Performed By: #### SURGP #### [facility] [address] [place] [address] [address] [place] [address] ONCOLOGY VISIT REPORT Observed: 07/10/2018 Status: F Source: [place] 2:48 PM [facility] REPOSITORY [facility] [address] [place] [id number] OFFICE VISIT Date of Service: 07/10/18 1424 MR#: [id number] Acct: [id number] Name: SYLVAIN STALLINGS Chadd Rep #: [id number] : 1960 From: Anum Greene MD Age/Sex: 58/F Location: OMD Status: Signed - Problem List (1) Follicular lymphoma Status: Chronic - Date of Service Date of Service:: 07/10/18 - Chief Complaint Lymphoma follow-up - History of Present Illness Patient is a 58-year-old female who presented with painless enlargement of lymph nodes in the left neck was first noted in the late spring 2017 and did not improve after a course of antibiotics and therefore was referred to who performed an excision biopsy of the left neck lymph node and ordered a CAT scan of the neck chest and abdomen Findings were: March 07, 2018 Left posterior cervical lymph node, biopsy: Consistent with involvement by non-Hodgkin B-cell follicular lymphoma, grade 2. March 17, 2018 CT neck: There are small and borderline enlarged lymph nodes of the mediastinum. There are small numerous lymph nodes supraclavicular. There are a few shotty cervical lymph nodes bilaterally, not pathologically enlarged. March 17, 2018 CT chest: Supraclavicular: Several tiny lymph nodes are present supraclavicular bilateral, slightly more numerous on the right, not pathologically enlarged but conspicuous in number. The largest has a short axis dimension of approximately 6.8 mm. Normal thyroid. Thoracic body wall soft tissues: No acute process. No axillary lymphadenopathy. Mediastinum: The proximal and distal esophagus appear normal. The middle 3rd of the esophagus is displaced by an apparent masslike process within the mediastinum. This masslike process likely represents confluent lymphadenopathy. It lies to the right of the descending aorta, posterior to the left atrium, beginning at the level of the alexx and extending downward approximately 9.2 cm, with a greatest transverse dimension of 5.4 cm and a greatest anterior-posterior dimension of 2.8 cm. A few small nodes are present in the superior mediastinum. Cardiovascular: Normal heart, aorta, central pulmonary arteries, inferior and superior vena cava. Lungs: Clear and normal right lung. Hyperdense partially calcified pulmonary nodule in the left upper lobe measuring 6.7 mm, benign features. IMPRESSION: Mediastinal mass, likely composed of confluent enlarged lymph nodes. Concordant with a diagnosis of lymphoma. March 17, 2018 CT abdomen and pelvis: IMPRESSION: No acute findings in the abdomen or pelvis. Scattered small abdominal and left-sided pelvic lymph nodes the largest measuring 1.2 cm. Stable nonobstructing left renal calculi. Bilateral renal cysts unchanged. PET/CT March 2018: MPRESSION: 1. ABNORMAL EXAMINATION INDICATIVE OF MALIGNANT VIABLE NEOPLASM. 2. Increased glucose concentration noted in the bilateral- lateral neck, right-left axillary regions fulfills quantitative criteria for viable neoplasm. 3. Mediastinal hypermetabolic abnormalities fulfill quantitative criteria for viable neoplasm. (Adonay et al, Journal of Clinical Oncology 16:2142, 1998). 4. The increase in FDG concentration noted in the bilateral hemipelvis and inguinal regions fulfills quantitative criteria for viable neoplasm. 5. Osseous skeletal hypermetabolic foci fulfill quantitative criteria for viable osseous neoplasm. (Porfirio et al, Clinical Nuclear Medicine 29:161, 2004). Patient has had no B symptoms and is unaware of any enlarged lymph nodes apart from those noted by her in the left neck. - Past Medical/Social History Past Medical History Cancer: Lymphoma Social History Social History: No changes Smoking Status Never smoker Review of Systems Constitutional:: Denies: Fever, Sweats, Weight loss, Appetite change, Chills Cardiovascular:: Denies: Chest pain, Palpitations, Dyspnea on exertion, Orthopnea, PND, Shortness of breath Respiratory: Denies: Cough, Hemoptysis, Shortness of Breath, Wheezing Gastrointestinal:: Denies: Abdominal pain, Nausea, Vomiting, Diarrhea, Constipation, Hematochezia Genitourinary: Denies: Dysuria, Hematuria, 15, Flank pain Musculoskeletal:: Denies: Back pain, Myalgia, Arthralgia Skin: Denies: Rash, Skin Changes, Wounds Neurological:: Denies: Headache, Dizziness, Visual changes, Tinnitus, Hearing loss Psychiatric: Denies: Anxiety, Depression, Homicidal Ideations, Suicidal Ideations Comment: Aware of painless enlargement of lymph nodes in the neck, no appreciable change in size Vital Signs Height 5 ft 4 in Weight: 63.866 kg Weight in Pounds 140.8 lbs Pulse Ox 96 - Physical Exam General: Alert, Oriented x3, No apparent distress, - - ECOG 0 HEENT: Atraumatic, PERRLA, EOMI, Normocephalic Oropharynx:: Dry mucosa Neck:: Supple, Trachea midline. Negative for: JVD, bilateral Cardiac:: Regular rate, Regular rhythm, Normal S1, Normal S2. Negative for: Murmur Lungs: Clear to auscultation, Excusion symmetrical. Negative for: Rhonchi, Wheezes Abdomen:: Bowel sounds x 4, Soft, Non-tender, Non-distended. Negative for: Hepatosplenomegaly Extremities:: Negative for: Cyanosis, Edema Neurological: Neuro grossly intact Skin:: Negative for: Lesions, Rash, Petechiae, Ecchymosis Psychiatric:: Appropriate affect, Euthymic Lymphatics:: Cervical lymphadenopathy, Axillary lymphadenopathy, Inguinal lymphadenopathy, - - Generalized 1-2 cm lymph nodes. Negative for: Supraclavicular lymphadenopathy Laboratory Data: CBC, CMP reviewed in EMR LDH not elevated. Assessment and Plan 58-year-old female with clinical stage ANN MARIE grade 2 follicular lymphoma presenting with generalized lymphadenopathy and abnormal bone/bone marrow on PET CT March 2018. FLIPI score 2 (for stage and more than 4 negro areas involved), intermediate risk group. Patients in this risk group have a 94% 2-year overall survival, 72% 2-year progression free survival and a median progression free survival of 70 months. She does not fulfill the GELF criteria for high tumor burden. Apart from the awareness of the enlarged lymph node first noted in the left neck patient is asymptomatic. Follicular lymphoma is a second most common lymphoma in the [place] and [place], often presenting in middle age Caucasians with painless peripheral adenopathy which may wax and wane. Widespread disseminated disease is usually present at baseline and patients are typically asymptomatic aside from that her lymphadenopathy. Molecular genetics can confirm the diagnosis but they are not specific for follicular lymphoma (immunoglobulin gene rearrangement and t(14;18). Although the course of follicular lymphoma is quite variable many patients will have a waxing and waning course for years without therapy. Patient's was disseminated disease and rapid tumor growth are candidates for active treatment. Small subset of patients will undergo transformation to a more aggressive lymphoma in those patients will have a worse prognosis and require aggressive therapy. Plan: 1. Watchful expectancy, follow-up in [address] scans with next visit. 2. A bone marrow biopsy will be deferred until when treatment is felt indicated. Impression and plan discussed with patient . Primary Care Provider: Cara Stephens DO Referring Provider: Som Andre MD 07/10/18 1448 <Electronically signed by Anum Greene MD> Date Anum Greene MD Cosigner Signature: Date (if applicable) CC: Cara Stephens DO CBC W/DIFF, AUTOMATED Collected: 07/07/2018 Status: F Source: [place] 11:34 AM [facility] REPOSITORY Order Comment: Reason for Laboratory Test . TYPE CODE TESTS RESULT OUT OF RANGE REFERENCE UNITS LAB L100.1000 4.4-11.0 K/mm3 Normal WBC 5.9 LAB L100.1200 4.2-5.4 M/mm3 Normal RBC 4.84 LAB L100.1300 12.0-15.0 g/dl High HGB 15.4 LAB L100.1400 37-47 % Normal HCT 45.0 LAB L100.1500 81-99 fL Normal MCV 93.0 LAB L100.1600 27.0-32.0 pg Normal MCH 31.8 LAB L100.1700 32-36 g/gl Normal MCHC 34.2 LAB L100.1810 11.6-14.6 % Normal RDW CV 12.6 LAB L100.1820 35.1-43.9 fl Normal RDW SD 42.8 LAB L100.1900 150-450 K/mm3 Normal PLT 231 LAB L100.2000 6.2-12.0 fl Normal MPV 10.1 LAB L100.2100 47-70 % Normal NEUT% 69.6 LAB L100.2200 19-41 % Normal LY% 19.3 LAB L100.2300 0-10 % Normal MONO% 8.9 LAB L100.2400 0-5 % Normal EO% 2.0 LAB L100.2500 0-1 % Normal BASO% 0.2 LAB L100.2550 0.0-0.9 % Normal IM GRAN % 0.000 Result Comment: IG% - Immature Granulocytes (promyelocytes, myelocytes and metamyelocytes) > 1% indicates that a LEFT SHIFT is Present. LAB L100.2620 2.0-7.7 X10 3/uL Normal Absolute Neut 4.1 LAB L100.2720 0.83-4.51 X10 3/ul Normal Absolute Lymph 1.13 Performed By: #### L100.0100 #### [facility] [address] [place], [place], [address] COMPREHENSIVE METABOLIC Collected: 07/07/2018 Status: F Source: [place] 11:34 AM [facility] REPOSITORY Order Comment: Reason for Laboratory Test . Serial Specimen #1, #2 or #3? 1 TYPE CODE TESTS RESULT OUT OF RANGE REFERENCE UNITS LAB L501.0100 74-106 mg/dL Normal GLU 101 Result Comment: Fasting Glucose result from 100 to 125 mg/dL suggests IMPAIRED HOMEOSTASIS per A.D.A. criteria. Please note revised GLUCOSE reference range effective 2017. LAB L501.1000 7-18 mg/dL Normal BUN 13 LAB L501.1100 0.55-1.02 mg/dL Normal CREAT,SERUM 0.68 Result Comment: The validity of the calculated GFR AND GFRAA in patients over 70 years has not been determined. Clinical correlation is essential. LAB L501.1110 >60 mL/min Normal EST GFR 94 Result Comment: Non- GFR Calc LAB L501.1115 >60 mL/min Normal EST GFR - AA 114 Result Comment: GFR Calc LAB L501.1255 ml/min Normal Estimated CRCL 78.82 LAB L501.1300 10-20 RATIO Normal BUN/CRE 19.0 LAB L501.1500 6.4-8. g/dL Normal 2 T PROT 7.9 LAB L501.1800 3.2-5. g/dL Normal 0 ALB 3.9 LAB L501.1950 2.2-4. g/dL Normal 2 GLOB 4.0 LAB L501.2000 0.9-2. RATIO Normal 4 A/G 1.0 LAB L501.2200 8.5-10 mg/dL Normal .1 CA 9.3 LAB L501.4100 15-37 U/L Normal AST 22 LAB L501.4305 45-117 U/L Normal ALK P 102 LAB L501.4405 13-56 U/L Normal ALT 31 LAB L501.4600 0.20-1 mg/dL Normal .00 T BILI 0.50 LAB L501.5300 136-14 mmol/L Normal 5 NA 137 LAB L501.5600 3.5-5. mmol/L Normal 1 K 3.9 LAB L501.5900 98-107 mmol/L Normal CL 104 LAB L501.6100 21.0-3 mmol/L Normal 2.0 CO2 31.0 LAB L501.6200 5-15 Low GAP 2 Performed By: #### L500.4050, L504.2610 #### [facility] [address] [facility]. [place], [place], [address] LDH Collected: 07/07/2018 Status: F Source: [place] 11:34 AM [facility] REPOSITORY Order Comment: Reason for Laboratory Test . Serial Specimen #1, #2 or #3? 1 TYPE CODE TESTS RESULT OUT OF RANGE REFERENCE UNITS LAB L504.2610 84-246 U/L Normal LDH 199 Performed By: #### L500.4050, L504.2610 #### [facility] [address] [facility] [place], [address] PROGRESS Observed: 05/14/2018 Status: COMPLETED Source: [place] 2:31 PM [facility] REPOSITORY HNO ID: [id number] Author: Nasra Spangler Service: (none) Author Type: (none) Type: Progress Notes Filed: 05/14/2018 2:31 PM Note Text: Pap logged and normal pap letter sent to patient. Nasra Spangler CYTOLOGY Observed: 05/05/2018 Status: F Source: [place] 3:47 PM [facility] REPOSITORY Specimen originated from [facility] Specimen #: [id number] Submitting Physician: LALA TUBBS SPECIMEN SUBMITTED A: CERVICAL, SCREENING, FLUID FINAL DIAGNOSIS A. CERVICAL, SCREENING, FLUID Satisfactory for interpretation. No endocervical component. Negative for intraepithelial lesion or malignancy. This specimen has been analyzed by the ThinPrep Imaging System, an automated imaging and review system, which assists the laboratory in evaluating cells on ThinPrep Pap tests. Following automated imaging, selected brown from every slide are reviewed by a inbound ingredient logistics specialist. LUPE Garcia(ASCP) (Electronic Signature) CLINICAL DATA ROUTINE EXAM, HPV Testing: Yes, Reflex HPV for ASCUS Date of Last Menstrual Period: 12/24/12 Menstrual History: Post-Menopausal STAINS A: CERVICAL, SCREENING, FLUID THIN PREP SPRINKLER REPAIR TECHNICIAN Susan Mtz M.D., [place] Date of Report: 05/14/2018 Date of Procedure: 05/05/2018 Date of Receipt: 05/07/2018 Submitted by: LALA TUBBS Location: [facility] Diagnostic interpretation performed at [facility], [address] [place] [address]. The Pap Smear is a screening test for cervical cancer. False negative results occur with all screening tests, emphasizing the need for rescreening at recommended intervals, and clinical correlation. CNOV Observed: 05/05/2018 Status: COMPLETED Source: [place] 2:45 PM [facility] [place] REPOSITORY Office Visit (WOOB) SYLVAIN STALLINGS ([id number]) 1960 F Date Time Provider Department 05/05/18 2:45 PM LALA TUBBS (OBSERVATORY DIRECTOR) WOOB During your visit today, we recorded the following information about you: Blood pressure Weight Height 90/62 62.1 kg 1.626 m Lala Tubbs APRN.CNP 05/05/2018 3:48 PM Signed Sylvain Stallings is a 58 year old who presents for her annual gynecologic exam without complaints. Postmenopausal: Yes HRT use: No. Last Pap: 2014 normal HPV: 2014 negative History of abnormal pap: Yes Last mammogram: 2018 pending History of abnormal mammogram: Yes benign Sexually active: Yes Pain with intercourse: Yes Postcoital bleeding: No Hot flashes: No Night sweats: No Vaginal dryness: Yes Obstetric History T0 L0 SAB0 TAB0 Ectopic0 Multiple0 Live Births0 PAST MEDICAL HISTORY Diagnosis Date - Degeneration of intervertebral disc, site unspecified - Frozen shoulder left shoulder - Hypertension - Kidney stones - Lymph node enlargement - Renal cyst, acquired, left 12/20/2011 PAST SURGICAL HISTORY Procedure Laterality Date - EGD - ROTATOR CUFF REPAIR 01/08/2014 Left shoulder FAMILY HISTORY Problem Relation Age of Onset - Cancer Father from bladder cancer - Hypertension Mother - Lipids Mother - Hypertension Maternal Grandmother - Breast Cancer Maternal Grandmother - Diabetes Paternal Grandmother - Stroke Paternal Grandfather - Arthritis Sister - Arthritis Brother SOCIAL HISTORY Social History Substance Use Topics - Smoking status: Never Smoker - Smokeless tobacco: Never Used - Alcohol use Yes Comment: Socially REVIEW OF SYSTEMS Abdomen: No abdominal pain, nausea, vomiting, diarrhea, or constipation. No bloating, early satiety, indigestion, or increased flatulence. Bladder: No dysuria, gross hematuria, urinary frequency, urinary urgency, or incontinence Breast: No breast lumps, nipple d/c, overlying skin changes, redness or skin retraction Allergies and current medication updated:Yes EXAM: LMP 12/24/2012 GENERAL: pleasant, female in no apparent distress HEENT: Normocephalic, atraumatic, mucus membranes moist and no lesions NECK: Supple, full range of motion, no adenopathy and thyroid normal DERMATOLOGY: Normal, without lesions, non-icteric and non-hirsute BREAST: soft, non-tender, symmetric, no dominant mass, normal nipple-areolar complex, no lymphadenopathy and no nipple discharge CHEST: Normal inspiratory effort ABDOMEN: soft, non-tender and no masses PELVIC: external genitalia normal, normal Bartholin's glands, urethra, [place]'s glands, no vulvar lesions, no cervical lesions, good vaginal support, physiologic discharge present, normal appearing perineal body and perianal region BIMANUAL: uterus normal size, shape and consistency, no adnexal masses, non-tender and no cervical motion tenderness RECTOVAGINAL: deferred. NEURO: alert and oriented x3,exam grossly non-focal EXTREMITIES: normal ASSESSMENT/PLAN: 1) Health maintenance: Pap done with HPV. Mammogram up to date Nutrition, exercise and routine health maintenance exams reviewed. Calcium/Vitamin D supplementation information provided. 2) Follow up one year or sooner as needed MD Nasra Ornelas 05/14/2018 2:31 PM Signed Pap logged and normal pap letter sent to patient. Nasra Spangler Referring Provider: SELF [[id number]] Allergies As of Date: 05/05/2018 Noted Allergy Reaction JAILYN INHIBITORS 11/17/2010 14 - Other: See Comments Comments: Coughing and Choking BARIUM SULFATE 09/26/2009 4 - Hives MUCINEX (GUAIFENESIN) 08/07/2013 4 - Hives PENICILLINS 10/30/2005 2 - Rash Comments: ? SHELLFISH 10/30/2005 4 - Hives Comments: kayce de jesus Date Reviewed: 05/05/2018 Reviewed by: [facility] [place] - Fully Assessed Reason for Visit: Well Woman [1463] Primary Visit Diagnosis:Encounter for gynecological examination (general) (routine) without abnormal findings [Z01.419] Other Visit Diagnoses:Visit for screening mammogram [Z12.31] Encounter for screening for human papillomavirus (HPV) [Z11.51] Pap smear for cervical cancer screening [Z12.4] Order(s):DWAYNE SCREENING [[id number]] Order #: [id number] FUTURE PAP FLUID CERVICAL SCREENING [[id number]] Order #: [id number] #[id number] Prescriptions as of 05/05/2018 Sig: CALCIUM CARBONATE-VITAMIN D3 * Take 1 tablet by mouth once d* ASCORBIC ACID (VITAMIN C) 1,0* Take 1,000 mg by mouth once d* DIOVAN HCT 160 MG-12.5 MG TAB* Take one(1) tablet daily. NAPROSYN 500 MG TABLET Take one(1) tablet twice leilani* VITAMIN D-3 ORAL Take by mouth. Problem List As Of Date 05/05/2018 Noted Resolved Degeneration of intervertebral disc, site unspe*INVALID FOR* Chronic low back pain [M54.5, G89.29] INVALID FOR* Renal cyst, acquired, left [N28.1] INVALID FOR* Breast hypertrophy in female [N62] INVALID FOR* Hypermetropia - Both Eyes [H52.00] INVALID FOR* Presbyopia - Both Eyes [H52.4] INVALID FOR* Vitreous floaters of both eyes [H43.393] INVALID FOR* Open angle with borderline findings, low risk -*INVALID FOR* Screening breast examination [Z12.31] INVALID FOR* Cortical senile cataract of both eyes [H25.013] INVALID FOR* Disposition: Return in 1 year (on 05/05/2019) for Annual Exam. Follow-up and Disposition History Recorded Letter Text Lala Tubbs CNP [facility] [address] [place], [place] [address] Sylvain Stallings [address] [facility] [address] 05/14/2018 [facility]: [id number] Dear Sylvain, We are pleased to inform you that your recent Pap Test was within normal limits. Because Pap tests are so effective in the early detection of cervical cancer, you are encouraged to continue having the test at regular intervals. You will be due for a 1 year Gynecological Exam after this date 05/05/2019. If you have any questions regarding the above information, do not hesitate to call our office at between the hours of 8:00 a.m. and 5:00 p.m. Sincerely, Lala Tubbs CNP Encounter Status:Closed by LALA TUBBS on 05/05/18 CNCO Observed: 05/05/2018 Status: COMPLETED Source: [place] 2:43 PM [facility] [place] REPOSITORY HNO ID: [id number] Author: Mammography Coordinator Service: (none) Author Type: Physician Type: Letter Filed: 05/06/2018 11:32 PM Note Text: May 05, 2018 PID: [id number] Sylvain Stallings [address] [place] [address] Dear Ms. Stallings, We are pleased to inform you that the results of your recent breast imaging exam on 05/05/2018 are normal. Early detection of cancer is very important. We also understand recommendations regarding breast cancer screening are controversial. Please discuss with your primary care provider which strategy is best for you and whether a mammogram is right for you. Your imaging studies and report will be kept on file at [facility] as part of your permanent medical record and are available for your continuing care. Thank you for allowing us to help in meeting your health care needs. Sincerely, Dr. San Interpreting Radiologist [facility] (Normal over 40) PROGRESS Observed: 05/05/2018 Status: COMPLETED Source: [place] 2:11 PM [facility] REPOSITORY HNO ID: [id number] Author: Lala Tubbs Service: (none) Author Type: Nurse Practitioner Type: Progress Notes Filed: 05/05/2018 3:48 PM Note Text: Sylvain Stallings is a 58 year old who presents for her annual gynecologic exam without complaints. Postmenopausal: Yes HRT use: No. Last Pap: 2014 normal HPV: 2014 negative History of abnormal pap: Yes Last mammogram: 2018 pending History of abnormal mammogram: Yes benign Sexually active: Yes Pain with intercourse: Yes Postcoital bleeding: No Hot flashes: No Night sweats: No Vaginal dryness: Yes Obstetric History T0 L0 SAB0 TAB0 Ectopic0 Multiple0 Live Births0 PAST MEDICAL HISTORY Diagnosis Date - Degeneration of intervertebral disc, site unspecified - Frozen shoulder left shoulder - Hypertension - Kidney stones - Lymph node enlargement - Renal cyst, acquired, left 12/20/2011 PAST SURGICAL HISTORY Procedure Laterality Date - EGD - ROTATOR CUFF REPAIR 01/08/2014 Left shoulder FAMILY HISTORY Problem Relation Age of Onset - Cancer Father from bladder cancer - Hypertension Mother - Lipids Mother - Hypertension Maternal Grandmother - Breast Cancer Maternal Grandmother - Diabetes Paternal Grandmother - Stroke Paternal Grandfather - Arthritis Sister - Arthritis Brother SOCIAL HISTORY Social History Substance Use Topics - Smoking status: Never Smoker - Smokeless tobacco: Never Used - Alcohol use Yes Comment: Socially REVIEW OF SYSTEMS Abdomen: No abdominal pain, nausea, vomiting, diarrhea, or constipation. No bloating, early satiety, indigestion, or increased flatulence. Bladder: No dysuria, gross hematuria, urinary frequency, urinary urgency, or incontinence Breast: No breast lumps, nipple d/c, overlying skin changes, redness or skin retraction Allergies and current medication updated:Yes EXAM: LMP 12/24/2012 GENERAL: pleasant, female in no apparent distress HEENT: Normocephalic, atraumatic, mucus membranes moist and no lesions NECK: Supple, full range of motion, no adenopathy and thyroid normal DERMATOLOGY: Normal, without lesions, non-icteric and non-hirsute BREAST: soft, non-tender, symmetric, no dominant mass, normal nipple-areolar complex, no lymphadenopathy and no nipple discharge CHEST: Normal inspiratory effort ABDOMEN: soft, non-tender and no masses PELVIC: external genitalia normal, normal Bartholin's glands, urethra, [place]'s glands, no vulvar lesions, no cervical lesions, good vaginal support, physiologic discharge present, normal appearing perineal body and perianal region BIMANUAL: uterus normal size, shape and consistency, no adnexal masses, non-tender and no cervical motion tenderness RECTOVAGINAL: deferred. NEURO: alert and oriented x3,exam grossly non-focal EXTREMITIES: normal ASSESSMENT/PLAN: 1) Health maintenance: Pap done with HPV. Mammogram up to date Nutrition, exercise and routine health maintenance exams reviewed. Calcium/Vitamin D supplementation information provided. 2) Follow up one year or sooner as needed Zonia Hamilton MD [facility] SCREENING Observed: 05/05/2018 Status: F Source: [place] 2:00 PM [facility] REPOSITORY * * *Final Report* * * DATE OF EXAM: May 05 2018 2:00PM WOW [id number] - [facility] SCREENING / PROCEDURE REASON: Encounter for screening mammogram for malignant neoplasm of breast * * * * Physician Interpretation * * * * RESULT: #[id number] - [facility] SCREENING BILATERAL DIGITAL SCREENING MAMMOGRAM WITH CAD: 05/05/2018 HISTORY: Encounter For Screening Mammogram For Malignant Neoplasm Of Breast /Screening Mammogram - patient reports NO breast symptoms /Priors available for comparison. RESULT: TECHNIQUE: The study was acquired using full field digital technology and interpreted from soft copy. Current study was also evaluated with a Computer Aided Detection (CAD). Comparison is made to exams dated: 05/01/2017 mammogram, 02/09/2016 mammogram, 08/07/2013 mammogram, and 09/27/2014 mammogram - [facility]. There are scattered fibroglandular elements in both breasts. No significant masses, calcifications, or other findings are seen in either breast. There has been no significant interval change. IMPRESSION: NEGATIVE There is no mammographic evidence of malignancy. A 1 year screening mammogram is recommended. Kiersten barrow/john:05/05/2018 14:43:03 Char Belt Operator: Juanita BOJORQUEZ(Nasima)(Ochoa), [facility] letter sent: Normal over 40 Mammogram BI-RADS: 1 Negative Multiple national specialty organizations have released breast cancer screening guidelines for women at average risk for developing breast cancer - guidelines that are based on both evidence and opinion, yet differ on when to start and how often to screen for breast cancer. With representation from Breast Imaging, Internal Medicine, Women's Health, Family Medicine, and Medical/Surgical Oncology, the [facility] has carefully reviewed the data and reached the following consensus: 1) All women should engage in shared decision-making with their providers to decide when to start and how often to screen; 2) All women should have the opportunity to start screening mammography at age 40; 3) For women ages 45-55, we recommend annual screening mammograms; 4) For women ages 55 and over, we support both the transition from an annual to a biennial interval if this aligns more with patient's values and preferences, or continuation with annual screening; 5) All women should discuss with their providers when to stop screening mammograms. Scheduling Assistant: John Transcribe Date/Time: May 05 2018 2:00P Dictated by: KIERSTEN SAN MD This examination was interpreted and the report reviewed and electronically signed by: KIERSTEN SAN MD on May 05 2018 2:43PM EST [id number] ONCOLOGY VISIT REPORT Observed: 04/03/2018 Status: F Source: [place] 3:05 PM [facility] REPOSITORY [facility] [place] [address] OFFICE VISIT Date of Service: 04/03/18 1418 MR#: [id number] Acct: [id number] Name: SYLVAIN STALLINGS Rep #: [id number] : 1960 From: Anum Greene MD Age/Sex: 58/F Location: OMD Status: Signed - Problem List (1) Follicular lymphoma Status: Chronic - Date of Service Date of Service:: 04/03/18 - Chief Complaint Lymphoma follow-up - History of Present Illness Patient is a 58-year-old female who presented with painless enlargement of lymph nodes in the left neck was first noted in the late spring 2017 and did not improve after a course of antibiotics and therefore was referred to who performed an excision biopsy of the left neck lymph node and ordered a CAT scan of the neck chest and abdomen Findings were: March 07, 2018 Left posterior cervical lymph node, biopsy: Consistent with involvement by non-Hodgkin B-cell follicular lymphoma, grade 2. March 17, 2018 CT neck: There are small and borderline enlarged lymph nodes of the mediastinum. There are small numerous lymph nodes supraclavicular. There are a few shotty cervical lymph nodes bilaterally, not pathologically enlarged. March 17, 2018 CT chest: Supraclavicular: Several tiny lymph nodes are present supraclavicular bilateral, slightly more numerous on the right, not pathologically enlarged but conspicuous in number. The largest has a short axis dimension of approximately 6.8 mm. Normal thyroid. Thoracic body wall soft tissues: No acute process. No axillary lymphadenopathy. Mediastinum: The proximal and distal esophagus appear normal. The middle 3rd of the esophagus is displaced by an apparent masslike process within the mediastinum. This masslike process likely represents confluent lymphadenopathy. It lies to the right of the descending aorta, posterior to the left atrium, beginning at the level of the alexx and extending downward approximately 9.2 cm, with a greatest transverse dimension of 5.4 cm and a greatest anterior-posterior dimension of 2.8 cm. A few small nodes are present in the superior mediastinum. Cardiovascular: Normal heart, aorta, central pulmonary arteries, inferior and superior vena cava. Lungs: Clear and normal right lung. Hyperdense partially calcified pulmonary nodule in the left upper lobe measuring 6.7 mm, benign features. IMPRESSION: Mediastinal mass, likely composed of confluent enlarged lymph nodes. Concordant with a diagnosis of lymphoma. March 17, 2018 CT abdomen and pelvis: IMPRESSION: No acute findings in the abdomen or pelvis. Scattered small abdominal and left-sided pelvic lymph nodes the largest measuring 1.2 cm. Stable nonobstructing left renal calculi. Bilateral renal cysts unchanged. PET/CT March 2018: MPRESSION: 1. ABNORMAL EXAMINATION INDICATIVE OF MALIGNANT VIABLE NEOPLASM. 2. Increased glucose concentration noted in the bilateral- lateral neck, right-left axillary regions fulfills quantitative criteria for viable neoplasm. 3. Mediastinal hypermetabolic abnormalities fulfill quantitative criteria for viable neoplasm. (Adonay et al, Journal of Clinical Oncology 16:2142, 1998). 4. The increase in FDG concentration noted in the bilateral hemipelvis and inguinal regions fulfills quantitative criteria for viable neoplasm. 5. Osseous skeletal hypermetabolic foci fulfill quantitative criteria for viable osseous neoplasm. (Porfirio et al, Clinical Nuclear Medicine 29:161, 2004). Patient has had no B symptoms and is unaware of any enlarged lymph nodes apart from those noted by her in the left neck. - Past Medical/Social History Past Medical History Cancer: Lymphoma Social History Smoking Status Never smoker Review of Systems Comment: Change from March 21, 2018 Vital Signs Height 5 ft 4 in Weight: 64.501 kg Weight in Pounds 142.2 lbs Pulse Ox 97 - Physical Exam General: Alert, Oriented x3, No apparent distress, - - For full exam please see my consult of March 21, 2018 Laboratory Data: Laboratory Tests WBC 5.0 Hgb 15.7 H Hct 47.4 H Plt Count 238 Lactate Dehydrogenase 194 Hep Bs Antigen Negative Hep Bs Antibody Non Reactive Diagnostic Data: PET/CT reviewed images and report with patient and her significant other and summarized in HPI Assessment and Plan 58-year-old female with clinical stage ANN MARIE grade 2 follicular lymphoma presenting with generalized lymphadenopathy and abnormal bone/bone marrow on PET CT March 2018. FLIPI score 2 for stage and more than 4 negro areas involved, intermediate risk group. Patients in this risk group have a 94% 2-year overall survival, 72% 2-year progression free survival and a median progression free survival of 70 months. Apart from the awareness of the enlarged lymph node first noted in the left neck patient is asymptomatic. Follicular lymphoma is a second most common lymphoma in the [place] and [place], often presenting in middle age Caucasians with painless peripheral adenopathy which may wax and wane. Widespread disseminated disease is usually present at baseline and patients are typically asymptomatic aside from that her lymphadenopathy. Molecular genetics can confirm the diagnosis but they are not specific for follicular lymphoma (immunoglobulin gene rearrangement and t(14;18). Although the course of follicular lymphoma is quite variable many patients will have a waxing and waning course for years without therapy. Patient's was disseminated disease and rapid tumor growth are candidates for active treatment. Small subset of patients will undergo transformation to a more aggressive lymphoma in those patients will have a worse prognosis and require aggressive therapy. Plan: 1. Watchful expectancy, follow-up in 3 months. 2. A bone marrow biopsy will be deferred until when treatment is felt indicated. Impression and plan discussed with patient and significant other. Primary Care Provider: Cara Stephens DO Referring Provider: Som Andre MD 04/03/18 0245 <Electronically signed by Anum Greene MD> Date Anum Greene MD Cosigner Signature: Date (if applicable) CC: Som Andre MD; Cara Stephens DO PET/CT TUMOR BASE Observed: 03/31/2018 Status: F Source: [place] -[place] 5:39 AM [facility] REPOSITORY [facility] Imaging Services [address] [place] [id number] PET/CT Tumor Base -Thigh Init MR#: [id number] Acct: [id number] Name: SYLVAIN STALLINGS Rep #: [id number] : 1960 F 58 From: Royce Calvin DO PCP: Cara Stephens DO Status: REG CLI Study: PET/CT Tumor Base -Thigh Init Date of Exam: 03/31/18 Exam# [id number] Ordering Dr: Anum Greene MD EXAMINATION: FDG PET CT INDICATIONS: A 58-year-old female with history of lymphoma presenting for initial staging examination. COMPARISON EXAMINATION: CT of the neck, chest, abdomen and pelvis reports dated 03/17/18. INDEX LESION SUV LUGANO SCORE SUV INTERPRETATION Bilateral-lateral neck, axillary regions 14.2 mm x 20.0 mm largest (frame 241) 5 6.2 (max) Fulfills quantitative criteria for viable neoplasm Anterior-posterior mediastinal structures 43.0 mm x 26.9 mm largest (frame 174) 5 8.3 (max) Fulfills quantitative criteria for viable neoplasm Bilateral hemipelvis, bilateral inguinal regions 21.2 mm x 40.5 mm largest (frame 54) 5 9.6 (max) Fulfills quantitative criteria for viable neoplasm Appendicular, axial skeletal structures 5 5.8 (max) Fulfills quantitative criteria for viable neoplasm TECHNIQUE: Following the intravenous administration of 14.05 mCi of F-18 deoxyglucose via the right antecubital fossa, multiplanar image acquisitions of the neck, chest, abdomen and pelvis to level of mid thigh, obtained at one hour post radiopharmaceutical administration contemporaneously interpreted with the current CT of the neck, chest, abdomen and pelvis to level of mid thigh, dated 04/01/[address] of the neck, chest, abdomen and pelvis reports dated 03/17/18 reveal: SERUM GLUCOSE LEVEL: 78 mg/dl. HEIGHT: 64 inches. WEIGHT: 138 lbs. FINDINGS: 1. There is increased glucose concentration observed in the left lateral neck involving level V A, right axilla with several additional foci noted in the bilateral lower lateral neck and axillary regions. The calculated maximum standard uptake value is 6.2. The Lugano-Deauville score is 5. The maximal axial diameter of the largest, most conspicuous metabolic, morphologic abnormality on review of CT of the neck dated 03/31/18 is 14.2 mm (transverse) x 21.0 mm (AP). 2. Multiple foci of increased glucose concentration defined in the pre-subcarinal anterior and posterior mediastinum rendering a calculated maximum standard uptake value of 8.3. The Lugano-Deauville score is 5. The maximal axial diameter of the largest metabolic abnormality partially encases the descending thoracic aorta and noted to be 43.0 mm (transverse) x 26.9 mm (AP). 3. Enhanced glucose concentration is demonstrated in the bilateral upper and right lower pelvic mesentery, the bilateral inguinal regions generating a calculated maximum standard uptake value of 9.6. The Lugano-Deauville score is 5. The maximal axial diameter of the largest individual hypermetabolic soft tissue density on review of CT of the pelvis dated 03/31/18 is 21.2 mm (transverse) x 40.5 mm (AP). 4. There are multiple foci of increased glucose concentration demonstrated in the appendicular and axial skeletal structures to include the proximal sternum, the right acetabulum, bilateral proximal humeral metaphyses, the left posterior ilium and the eleventh-twelfth thoracic and first lumbar vertebrae generating a calculated maximum standard uptake value of 5.8. The Lugano-Deauville score is 5. 5. Normal physiologic distribution of the radiopharmaceutical is apparent in the hepatic (2.3) and splenic parenchyma, both renal units, bladder and visualized intestinal tract. There is uniform distribution of the radiopharmaceutical concentration defined in the visualized cerebellar hemispheres and cerebral cortical structures.? Diffuse intestinal tract activity is noted throughout all four quadrants of the abdominal-pelvic retroperitoneum, mesentery consistent with normal physiologic distribution of the radiopharmaceutical. Pertinent CT findings are as follows. CHEST: Atherosclerotic calcification is defined in the thoracic aorta without evidence of dilatation, aneurysm formation. There are no parenchymal densities-nodules noted in the right-left hemithorax demonstrating discernible increased glucose metabolism. A calcified parenchymal density noted in the left mid posterior lung field, left lower lobe is non-glucose avid. Scattered subcentimeter mediastinal, as well as right-left axillary soft tissue densities demonstrate no evidence of increased glucose avidity. ABDOMEN AND PELVIS: Atherosclerotic calcification is defined in the abdominal aorta without evidence of dilatation, aneurysm formation. Calcification is defined in both kidneys. Colonic diverticulosis is demonstrated. SKELETAL: Degenerative changes defined in the cervical, thoracic and lumbar spine demonstrate no evidence for glucose hypermetabolism. PET/PET/CT Tumor Base -Thigh Init IMPRESSION: 1. ABNORMAL EXAMINATION INDICATIVE OF MALIGNANT VIABLE NEOPLASM. 2. Increased glucose concentration noted in the bilateral- lateral neck, right-left axillary regions fulfills quantitative criteria for viable neoplasm. 3. Mediastinal hypermetabolic abnormalities fulfill quantitative criteria for viable neoplasm. (Adonay adams al, Journal of Clinical Oncology 16:2142, 1998). 4. The increase in FDG concentration noted in the bilateral hemipelvis and inguinal regions fulfills quantitative criteria for viable neoplasm. 5. Osseous skeletal hypermetabolic foci fulfill quantitative criteria for viable osseous neoplasm. (King, Clinical Nuclear Medicine 29:161, 2004). Electronic Signature Royce Calvin D.O. Electronically Signed: Royce Calvin DO at 21:39 EDT Tel , Service support , CC: Cara Stephens DO; Anum Greene MD Scheduling Assistant: Signed ONCOLOGY VISIT REPORT Observed: 03/21/2018 Status: F Source: [place] 2:08 PM [facility] REPOSITORY [facility] [address] [place] [id number] OFFICE VISIT Date of Service: 03/21/18 1138 MR#: [id number] Acct: [id number] Name: SYLVAIN STALLINGS Rep #: [id number] : 1960 From: Anum Greene MD Age/Sex: 58/F Location: OMD Status: Signed - Problem List (1) Follicular lymphoma Status: Chronic - Date of Service Date of Service:: 03/21/18 - Chief Complaint Enlarged lymph node, lymphoma - History of Present Illness Patient is a 58-year-old female who presented with painless enlargement of lymph nodes in the left neck was first noted in the late spring 2017 and did not improve after a course of antibiotics and therefore was referred to who performed an excision biopsy of the left neck lymph node and ordered a CAT scan of the neck chest and abdomen Findings were: March 07, 2018 Left posterior cervical lymph node, biopsy: Consistent with involvement by non-Hodgkin B-cell follicular lymphoma, grade 2. March 17, 2018 CT neck: There are small and borderline enlarged lymph nodes of the mediastinum. There are small numerous lymph nodes supraclavicular. There are a few shotty cervical lymph nodes bilaterally, not pathologically enlarged. March 17, 2018 CT chest: Supraclavicular: Several tiny lymph nodes are present supraclavicular bilateral, slightly more numerous on the right, not pathologically enlarged but conspicuous in number. The largest has a short axis dimension of approximately 6.8 mm. Normal thyroid. Thoracic body wall soft tissues: No acute process. No axillary lymphadenopathy. Mediastinum: The proximal and distal esophagus appear normal. The middle 3rd of the esophagus is displaced by an apparent masslike process within the mediastinum. This masslike process likely represents confluent lymphadenopathy. It lies to the right of the descending aorta, posterior to the left atrium, beginning at the level of the alexx and extending downward approximately 9.2 cm, with a greatest transverse dimension of 5.4 cm and a greatest anterior-posterior dimension of 2.8 cm. A few small nodes are present in the superior mediastinum. Cardiovascular: Normal heart, aorta, central pulmonary arteries, inferior and superior vena cava. Lungs: Clear and normal right lung. Hyperdense partially calcified pulmonary nodule in the left upper lobe measuring 6.7 mm, benign features. IMPRESSION: Mediastinal mass, likely composed of confluent enlarged lymph nodes. Concordant with a diagnosis of lymphoma. March 17, 2018 CT abdomen and pelvis: IMPRESSION: No acute findings in the abdomen or pelvis. Scattered small abdominal and left-sided pelvic lymph nodes the largest measuring 1.2 cm. Stable nonobstructing left renal calculi. Bilateral renal cysts unchanged. Patient has had no B symptoms and is unaware of any enlarged lymph nodes apart from those noted by her in the left neck. - Past Medical/Social History Past Medical History Cancer: Lymphoma Social History Smoking Status Never smoker Review of Systems Constitutional:: Reports: Weight loss - She has actively lost weight the course of the past year through diet and exercise. Denies: Fever, Sweats, Appetite change, Chills Cardiovascular:: Denies: Chest pain, Palpitations, Dyspnea on exertion, Orthopnea, PND, Shortness of breath Respiratory: Denies: Cough, Hemoptysis, Shortness of Breath, Wheezing Gastrointestinal:: Denies: Abdominal pain, Nausea, Vomiting, Diarrhea, Constipation, Hematochezia Genitourinary: Denies: Dysuria, Hematuria, 15, Flank pain Musculoskeletal:: Reports: Back pain - Chronic neck and back pain unchanged. Denies: Myalgia, Arthralgia Skin: Denies: Rash, Skin Changes, Wounds Neurological:: Denies: Headache, Dizziness, Visual changes, Tinnitus, Hearing loss Psychiatric: Denies: Anxiety, Depression, Homicidal Ideations, Suicidal Ideations Vital Signs Height 5 ft 4 in Weight: 64.501 kg Weight in Pounds 142.2 lbs Pulse Ox 97 - Physical Exam General: Alert, Oriented x3, No apparent distress, - - ECOG 0 HEENT: Atraumatic, PERRLA, EOMI, Normocephalic Oropharynx:: Dry mucosa Neck:: Supple, Trachea midline, - - Scar on the left side of the neck from recent lymph node biopsy healed well. Negative for: JVD, bilateral Cardiac:: Regular rate, Regular rhythm, Normal S1, Normal S2. Negative for: Murmur Lungs: Clear to auscultation, Excusion symmetrical. Negative for: Rhonchi, Wheezes Abdomen:: Soft, Non-tender, Non-distended. Negative for: Hepatosplenomegaly Extremities:: Negative for: Cyanosis, Edema Neurological: Neuro grossly intact Skin:: Negative for: Lesions, Rash, Petechiae, Ecchymosis Psychiatric:: Appropriate affect, Euthymic Lymphatics:: Cervical lymphadenopathy, Supraclavicular lymphadenopathy, Axillary lymphadenopathy, - - She has subtle 1-2 cm generalized lymph node enlargement Diagnostic Data: I personally reviewed patient's recent CT images and concur with the report Assessment and Plan 58-year-old female with at least stage IIIA grade 2 follicular lymphoma presenting with generalized lymphadenopathy above and below the diaphragm. Apart from the awareness of the enlarged lymph node first noted in the left neck patient is asymptomatic. Follicular lymphoma is a second most common lymphoma in the [place] and [place], often presenting in middle age Caucasians with painless peripheral adenopathy which may wax and wane. Widespread disseminated disease is usually present at baseline and patients are typically asymptomatic aside from that her lymphadenopathy. Molecular genetics can confirm the diagnosis but they are not specific for follicular lymphoma (immunoglobulin gene rearrangement and t(14;18). Although the course of follicular lymphoma is quite variable many patients will have a waxing and waning course for years without therapy. Patient's was disseminated disease and rapid tumor growth are candidates for active treatment. Small subset of patients will undergo transformation to a more aggressive lymphoma in those patients will have a worse prognosis and require aggressive therapy. Plan: 1. PET/CT for a baseline assessment of extent of adenopathy and rule out any areas that may appear suspicious for an aggressive transformation. 2. Update baseline CBC, CMP, LDH, hepatitis virus serologies. 3. A bone marrow biopsy may be indicated if and when treatment is felt indicated. A baseline bone marrow at this time would be only of academic interest if the patient is not a candidate for active treatment. Impression and plan discussed with patient she will be seen after her imaging studies Primary Care Provider: Cara Stephens DO Referring Provider: Som Andre MD 03/21/18 1400 <Electronically signed by Anum Greene MD> Date Anum Greene MD Cosigner Signature: Date (if applicable) CC: Som Andre MD; Cara Stephens DO CBC W/DIFF, AUTOMATED Collected: 03/21/2018 Status: F Source: [facility] 11:57 AM [facility] REPOSITORY Order Comment: Reason for Laboratory Test . TYPE CODE TESTS RESULT OUT OF RANGE REFERENCE UNITS LAB L100.1000 4.4-11.0 K/mm3 Normal WBC 5.0 LAB L100.1200 4.2-5.4 M/mm3 Normal RBC 5.09 LAB L100.1300 12.0-15.0 g/dl High HGB 15.7 LAB L100.1400 37-47 % High HCT 47.4 LAB L100.1500 81-99 fL Normal MCV 93.1 LAB L100.1600 27.0-32.0 pg Normal MCH 30.8 LAB L100.1700 32-36 g/gl Normal MCHC 33.1 LAB L100.1810 11.6-14.6 % Normal RDW CV 12.9 LAB L100.1820 35.1-43.9 fl Normal RDW SD 43.9 LAB L100.1900 150-450 K/mm3 Normal PLT 238 LAB L100.2000 6.2-12.0 fl Normal MPV 11.3 LAB L100.2100 47-70 % Normal NEUT% 68.6 LAB L100.2200 19-41 % Low LY% 17.9 LAB L100.2300 0-10 % Normal MONO% 8.9 LAB L100.2400 0-5 % Normal EO% 3.8 LAB L100.2500 0-1 % Normal BASO% 0.6 LAB L100.2550 0.0-0.9 % Normal IM GRAN % 0.200 Result Comment: IG% - Immature Granulocytes (promyelocytes, myelocytes and metamyelocytes) > 1% indicates that a LEFT SHIFT is Present. LAB L100.2620 2.0-7.7 X10 3/uL Normal Absolute Neut 3.4 LAB L100.2720 0.83-4.51 X10 3/ul Normal Absolute Lymph 0.89 Performed By: #### L100.0100, L500.4050, L504.2610 #### [facility] [address] [place], [address] COMPREHENSIVE METABOLIC Collected: 03/21/2018 Status: F Source: [facility] 11:57 AM [facility] REPOSITORY Order Comment: Reason for Laboratory Test . Serial Specimen #1, #2 or #3? 1 TYPE CODE TESTS RESULT OUT OF RANGE REFERENCE UNITS LAB L501.0100 74-106 mg/dL Normal GLU 90 Result Comment: Please note revised GLUCOSE reference range effective 2017. LAB L501.1000 7-18 mg/dL Normal BUN 12 LAB L501.1100 0.55-1.02 mg/dL Normal CREAT,SERUM 0.77 Result Comment: The validity of the calculated GFR AND GFRAA in patients over 70 years has not been determined. Clinical correlation is essential. LAB L501.1110 >60 mL/min Normal EST GFR 82 Result Comment: Non- GFR Calc LAB L501.1115 >60 mL/min Normal EST GFR - AA 99 Result Comment: GFR Calc LAB L501.1255 ml/min Normal Estimated CRCL 69.61 LAB L501.1300 10-20 RATIO Normal BUN/CRE 15.6 LAB L501.1500 6.4-8. g/dL Normal 2 T PROT 8.1 LAB L501.1800 3.2-5. g/dL Normal 0 ALB 4.0 LAB L501.1950 2.2-4. g/dL Normal 2 GLOB 4.1 LAB L501.2000 0.9-2. RATIO Normal 4 A/G 1.0 LAB L501.2200 8.5-10 mg/dL Normal .1 CA 9.5 LAB L501.4100 15-37 U/L Normal AST 22 LAB L501.4305 45-117 U/L Normal ALK P 93 LAB L501.4405 13-56 U/L Normal ALT 25 LAB L501.4600 0.20-1 mg/dL Normal .00 T BILI 0.50 LAB L501.5300 136-14 mmol/L Normal 5 NA 140 LAB L501.5600 3.5-5. mmol/L Normal 1 K 4.6 LAB L501.5900 98-107 mmol/L Normal CL 104 LAB L501.6100 21.0-3 mmol/L Normal 2.0 CO2 32.0 LAB L501.6200 5-15 Low GAP 4 Performed By: #### L100.0100, L500.4050, L504.2610 #### [facility] [address] [place], [place], [id number] LDH Collected: 03/21/2018 Status: F Source: [place] 11:57 AM [facility] REPOSITORY Order Comment: Reason for Laboratory Test . Serial Specimen #1, #2 or #3? 1 TYPE CODE TESTS RESULT OUT OF RANGE REFERENCE UNITS LAB L504.2610 84-246 U/L Normal LDH 194 Performed By: #### L100.0100, L500.4050, L504.2610 #### [facility] [address] [place], [place], [address] HEPATITIS B/C PROFILE Collected: 03/21/2018 Status: F Source: [facility] 11:57 AM [facility] REPOSITORY Order Comment: Reason for Laboratory Test . TYPE CODE TESTS RESULT OUT OF RANGE REFERENCE UNITS LAB L3100.0400 Negative Normal HB Negative SURF AG LAB L3100.0420 Negative Normal HEP Negative Be AG 6619 LAB L3100.0440 Negative Normal HB Negative CORE [id number] LAB L3100.0460 Negative Normal HEP B Negative CORE,TOT LAB L3100.0480 Negative Normal HEP Negative Be Ab 6635 LAB L3100.0528 . Normal Hep B Non Reactive Alex AB Result Comment: Non Reactive: Inconsistent with immunity, less than 10 mIU/mL Reactive: Consistent with immunity, greater than 9.9 mIU/mL LAB L3100.0750 0.0-0.9 s/co ratio Normal HCV Ab 0.2 LAB L3100.0765 . Normal COMMENT Comment Result Comment: Non reactive HCV antibody screen is consistent with no HCV infection, unless recent infection is suspected or other evidence exists to indicate HCV infection. Performed at: - [facility] [address] [id number] Prenatal Teacher: Cr Olsen PhD, Phone: [phone] Performed By: #### L3000.0800 #### [facility] (refer to report for specific site) refer to report for address and phone number CREATININE FINGERSTICK Collected: 03/17/2018 Status: F Source: [place] 2:27 PM [facility] REPOSITORY TYPE CODE TESTS RESULT OUT OF RANGE REFERENCE UNITS LAB L9100.0210 0.55-1.02 mg/dL Normal CREATININE WB < 0.6 LAB L9100.0220 >60 mL/min EGFR WB Normal > 60.0000 Performed By: #### L9100.0200 #### [facility] Point of Care [address] [facility] [place] [address] ABDOMEN/PELVIS WITH Observed: 03/17/2018 Status: F Source: [place] CONTRAST 2:08 PM [facility] REPOSITORY [facility] Imaging Services [address] [place] [address] Abdomen/Pelvis WITH Contrast MR#: [id number] Acct: [id number] Name: STALLINGSSYLVAIN Rep #: [id number] : 1960 F 57 From: Jesus Bae PCP: Cara Stephens DO Status: REG CLI Study: Abdomen/Pelvis WITH Contrast Date of Exam: 03/17/18 Exam# [id number] Ordering Dr: Som Andre MD STUDY: CT ABDOMEN AND PELVIS WITH CONTRAST REASON FOR EXAM: Female, 57 years old. Newly diagnosed non-Hodgkin's lymphoma B-cell. History of kidney stones. RADIATION DOSAGE (If Supplied By Facility): CTDIvol = ( 14.48 ) mGy, DLP = ( 1530.05 ) mGycm TECHNIQUE: Transaxial images were obtained from the dome of the diaphragm to the symphysis pubis with oral contrast. 100 ml of Isovue 300 contrast was administered. Sagittal and coronal images were reconstructed. Individualized dose optimization techniques were used for this CT. COMPARISON: November 26, 2016. FINDINGS: The visualized lung bases are unremarkable. The visualized portions of the heart are within normal limits. Normal liver. Normal gallbladder and extrahepatic biliary system. Normal spleen. Normal pancreas. Normal bilateral adrenal glands. Bilateral renal simple cyst the largest in the midpole left kidney measuring 1.9 cm. Stable left superior pole nonobstructing 0.6 cm renal calculus. Stable 2 mm nonobstructing left midpole renal calculus. Renal parapelvic cysts. No ureteral stones. Normal visualized stomach. Normal small intestine. Normal colon. The appendix is well visualized and appears normal. No intra- abdominal free air. Normal abdominal aorta. Normal inferior vena cava. Small periaortic lymph nodes unchanged at the level of the crura of the right hemidiaphragm measuring 0.5 cm, below the level of the left renal artery measuring 1.2 cm and 1.0 cm, retroaortic measuring 1.1 cm, also at this level aorta caval measuring 0.7 cm, left external iliac measuring 0.9 cm Normal urinary bladder. Uterus grossly normal. No adnexal mass is seen. No pelvic sidewall lymphadenopathy. Normal abdominal wall. Disc space narrowing with marginal osteophytes L3-4 and L4-5. CT/Abdomen/Pelvis WITH Contrast IMPRESSION: No acute findings in the abdomen or pelvis. Scattered small abdominal and left-sided pelvic lymph nodes the largest measuring 1.2 cm. Stable nonobstructing left renal calculi. Bilateral renal cysts unchanged. Electronically Signed: Jesus Bae MD at 7:50 EDT , Service support , CC: Som Andre MD; Cara Stephens DO Scheduling Assistant: Signed SOFT TISSUE NECK WITH Observed: 03/17/2018 Status: F Source: [place] CONTRAST 2:08 PM [facility] REPOSITORY [facility] Imaging Services [address] [place] [address] Soft Tissue Neck WITH Contrast MR#: [id number] Acct: [id number] Name: SYLVAIN STALLINGS Rep #: [id number] : 1960 F 57 From: Royce Cedeno MD PCP: Cara Stephens DO Status: REG CLI Study: Soft Tissue Neck WITH Contrast Date of Exam: 03/17/18 Exam# [id number] Ordering Dr: Som Andre MD STUDY: CT SOFT TISSUE NECK WITH CONTRAST REASON FOR EXAM: Female, 57 years old. New diagnosis of non-Hodgkin's lymphoma. Hypertension. RADIATION DOSAGE (If Supplied By Facility): CTDIvol = ( 14.48 ) mGy, DLP = ( 1530.05 ) mGycm TECHNIQUE: The patient was scanned in a multi-detector CT scanner. High resolution transaxial imaging was performed following intravenous administration of 100 ml of Isovue 300 contrast material. Sagittal and coronal images were reconstructed. Individualized dose optimization techniques were used for this CT. COMPARISON: CT chest, CT abdomen and pelvis same date. CT abdomen and pelvis 11/26/2016, 08/31/2015, 11/01/2013. FINDINGS: Apical lungs clear. A few small lymph nodes of the superior mediastinum, prevascular chain mildly enlarged lymph nodes in the AP window and paratracheal. Prominent multilevel cervical degenerative disc disease between C3 and T1, with uncovertebral joint hypertrophy and facet hypertrophy contributing to foraminal narrowing at multiple levels most severe at C4-C5, C5-C6 and C6-C7. Craniofacial osseous structures unremarkable. Paranasal sinuses, mastoid air cells and middle ear cavities clear. Superficial facial soft tissues including orbital contents are normal. Normal parotid glands. Normal submandibular glands. A few tiny lymph nodes submandibular. Several tiny lymph nodes in the cervical and jugulodigastric chains with no acute lymphadenopathy. No supraclavicular lymphadenopathy. There are multiple tiny lymph nodes scattered and supraclavicular region, none of which are pathologically enlarged. Somewhat conspicuous in number. Normal thyroid. Unremarkable vascular structures. CT/Soft Tissue Neck WITH Contrast IMPRESSION: There are small and borderline enlarged lymph nodes of the mediastinum. There are small numerous lymph nodes supraclavicular. There are a few shotty cervical lymph nodes bilaterally, not pathologically enlarged. Overall there is no princess lymphadenopathy. No other acute cervical soft tissue process. Prominent multilevel cervical spondylosis with stenosis. Correlate for any symptoms of cervical radiculopathy that may be tip presence of nerve impingement. Electronically Signed: Royce Cedeno, at 11:44 EDT Tel , Service support , CC: Som Andre MD; Cara Stephens DO Scheduling Assistant: Signed CHEST WITH CONTRAST Observed: 03/17/2018 Status: F Source: [place] 2:08 PM [facility] REPOSITORY [facility] Imaging Services [address] [place] [address] Chest WITH Contrast MR#: [id number] Acct: [id number] Name: SYLVAIN STALLINGS Rep #: [id number] : 1960 F 57 From: Royce Cedeno MD PCP: Cara Stephens DO Status: REG CLI Study: Chest WITH Contrast Date of Exam: 03/17/18 Exam# [id number] Ordering Dr: Som Andre MD STUDY: CT CHEST WITH CONTRAST REASON FOR EXAM: Female, 57 years old. There is a new diagnosis of non-Hodgkin's lymphoma. RADIATION DOSAGE (If Supplied By Facility): CTDIvol = ( 14.48 ) mGy, DLP = ( 1530.05 ) mGycm TECHNIQUE: Transaxial imaging was performed following intravenous administration of 100 ml of Isovue 300 contrast material. Coronal and sagittal 2-D MPR. Individualized dose optimization techniques were used for this CT. COMPARISON: CT neck, CT abdomen and pelvis same date. CT abdomen and pelvis 11/26/2016 and 08/31/2015 and 11/01/2013. FINDINGS: Supraclavicular: Several tiny lymph nodes are present supraclavicular bilateral, slightly more numerous on the right, not pathologically enlarged but conspicuous in number. The largest has a short axis dimension of approximately 6.8 mm. Normal thyroid. Thoracic body wall soft tissues: No acute process. No axillary lymphadenopathy. Upper abdomen: Please see dictation of CT abdomen and pelvis for details. Mediastinum: The proximal and distal esophagus appear normal. The middle 3rd of the esophagus is displaced by an apparent masslike process within the mediastinum. This masslike process likely represents confluent lymphadenopathy. It lies to the right of the descending aorta, posterior to the left atrium, beginning at the level of the alexx and extending downward approximately 9.2 cm, with a greatest transverse dimension of 5.4 cm and a greatest anterior-posterior dimension of 2.8 cm. A few small nodes are present in the superior mediastinum. Cardiovascular: Normal heart, aorta, central pulmonary arteries, inferior and superior vena cava. Lungs: Clear and normal right lung. Hyperdense partially calcified pulmonary nodule in the left upper lobe measuring 6.7 mm, benign features. CT/Chest WITH Contrast IMPRESSION: Mediastinal mass, likely composed of confluent enlarged lymph nodes. Concordant with a diagnosis of lymphoma. Electronically Signed: Royce Cedeno, at 11:48 EDT Tel , Service support , CC: Som Andre MD; Cara Stephens DO Scheduling Assistant: Signed OPERATIVE REPORT Observed: 03/07/2018 Status: F Source: [facility] 12:39 PM [facility] Medical Records Department [address] [place] [address] Operative Report 03/07/18 0816 MR#: [id number] Acct: [id number] Name: SYLAVIN STALLINGS Rep #: [id number] : 1960 57 From: Som Andre MD PCP: Cara Stephens DO Status: [place] [facility] [place] [facility] [place] List (1) Cervical lymphadenopathy Status: Chronic Report of Operation Date of Procedure: 03/07/18 Pre-Operative Diagnosis: Left posterior cervical lymphadenopathy Post-Operative Diagnosis: lymphoma Surgery/Procedure Performed:: Left deep cervical lymph node biopsy Description of Surgical Findings:: Maricarmen is a 57-year-old female presents with persistent left posterior cervical lymphadenopathy. This is failed to regress despite observation and no site of origin of malignant process was identified however given their size and persistence as well as the presence of some small thyroid nodules on ultrasound evaluation open biopsy for determine definitive evaluation was offered and she was eager to proceed. The risks, alternatives, potential benefits, and complications were discussed at length and any questions answered to the patient and/or caregiver's satisfaction. Witnessed informed consent was obtained in the office, and the patient and/or caregiver was agreeable to proceed. The patient was identified in the preoperative holding brought to the operating room where she is placed on the operative table and comfortably positioned. The planned left cervical operative site was then injected with 1% lidocaine with 100,000 epinephrine for a total of 3 cc and the site prepped and draped in usual sterile fashion. Using a 15 blade scalpel a 2 cm incision was then made along the midpoint of the trapezius where a large palpable lymph node was encountered by palpation. The skin and subcutaneous tissues were then dissected and medial to the trapezius muscle was found a large 1.5 x 3.0 cm enlarged lymph node which was then bluntly dissected from the surrounding capsule and the vascular pedicle cauterized with bipolar cautery. This was sent for pathologic evaluation which consistent with a diagnosis of lymphoma with taping pending further evaluation. The wound was then closed deeply with interrupted interrupted 3-0 Vicryl suture followed by running 5-0 Monocryl suture to the skin. Bacitracin ointment was then applied completing the procedure. Type of Anesthesia:: Local Anesthesiologist: none Special Medications: none Specimen's removed: left deep cervical lymph node Drains: none Estimated Blood Loss (mL): 0 mL Fluids Replaced: 0 mL - Complications none - Admit VTE Documentation VTE Present on Admission: No VTE Mechan Device Prophylaxis: None VTE Pharm Prophylaxis ordered?: No 03/07/18824 <Electronically signed by Som Andre MD> Date Som Andre MD CC: Som Andre MD; Cara Stephens DO Signed DISCHARGE INSTRUCTION Observed: 03/07/2018 Status: F Source: [place] 12:39 PM [facility] REPOSITORY [facility] Medical Records Department [address] [place] [address] Instructions for Home/Discharge Instructions 03/07/18825 MR#: [id number] Acct: [id number] Name: SYLVAIN STALLINGS Rep #: [id number] : 1960 57 From: Som Andre MD PCP: Cara Stephens DO Status: DEP SDC - Discharge Diagnoses Current Active Problems: Current Active and Chronic Problems Cervical lymphadenopathy (Chronic) You will use the following diet at home:: No restrictions Discharge Activity: Return to Normal Activity Call your doctor if your incision/area has: Increased Pain/ Swelling, Increased Redness, Swelling at the incision site Call your doctor if you observe: Fever of 101 or Higher, Uncontrolled pain Allergies/Adverse Reactions: Allergies barium sulfate Allergy (Verified 03/07/18 06:17) Hives guaifenesin [From Mucinex] Allergy (Verified 03/07/18 06:17) Hives JAILYN Inhibitors Adverse Reaction (Verified 03/07/18 06:17) Other Penicillins Adverse Reaction (Verified 03/07/18 06:17) Unknown Medications to take at Discharge Valsartan [Diovan] 160 mg PO DAILY 11/01/13 Cholecalciferol (Vitamin D3) [Vitamin D3] 5,000 unit PO DAILY 03/03/18 Primary Care Physician: Cara Stephens DO [Primary Care Provider] - Test Results: Test results from this visit will be discussed in further detail at your follow-up appointment, if applicable. 03/07/18 0828 <Electronically signed by Som Andre MD> Date Som Andre MD CC: Cara Stephens DO LYMPH NODE BIOPSY Observed: 03/07/2018 Status: F Source: [place] 12:00 AM [facility] REPOSITORY Patient: SYLVAIN STALLINGS : 1960 (57/F) Acct Num: [id number] Phys: Som Andre MD Unit Num: [id number] [place] [facility] [place] Specimen: [id number] Received: 03/07/18805 Spec Type: LYMPH NODE TISSUES TISSUES: Lymph node of neck, NOS COMMENT Immunohistochemistry ([id number]) supports the above diagnosis. This case has been reviewed in consultation with Dr. Landaverde who concurs with the above diagnosis. IDC:AM FROZEN SECTION DIAGNOSIS Left posterior cervical lymph node, biopsy: Consistent with involvement by lymphoma. SJ:africa 03/07/18 GROSS DESCRIPTION Received fresh for frozen section diagnosis labeled with the patient's name is a specimen designated left posterior cervical lymph node. The specimen consists of an ovoid piece of matson-pink soft tissue measuring 2.5 x 1.3 x 0.5 cm. The specimen is bisected and reveals flesh, cut surfaces. A section is submitted for frozen section diagnosis. A section is also submitted for flow cytometry studies. Four touch imprints are prepared (stained with Diff- Quick and two stained with H AND E). The entire specimen is submitted in two cassettes as follows: 1 frozen section, 2 rest of the specimen. / MIRIAM:africa 03/07/18 TC:0 CPT: 83136, 16670 HEADER OPERATION: Excision, biopsy left lymph node, deep open cervical node, frozen section PRE-OP DIAGNOSIS: Left cervical lymphadenopathy TISSUE SUBMITTED: Left posterior cervical lymph node MICROSCOPIC DESCRIPTION Slides are reviewed. The specimen shows lymph node tissue with effacement of normal architecture and replaced by multiple follicles. These follicles comprise predominantly small cleaved lymphocytes. A few atypical large lymphocytes are also noted between 6 to 15 per high power field. Areas of necrosis or fibrosis are not seen. 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 See comment. Flow cytometry study from [facility] shows involvement by a B-cell lymphoproliferative disorder. The complete report is viewable in patient s EMR. SJ:africa 03/10/18 Signed Donavon Finch 03/11/18 <signature on file> Performed By: #### PLYMN #### [facility] [address] [place], [address] IMMUNOHISTOCHEMISTRY Observed: 03/07/2018 Status: F Source: [place] 12:00 AM [facility] REPOSITORY Patient: SYLVAIN STALLINGS : 1960 (57/F) Acct Num: [id number] Phys: Som Andre MD Unit Num: [id number] [place] [facility] [place] Specimen: [id number] Received: 03/10/18 - 1303 Spec Type: IMMUNO TISSUES TISSUES: Lymph node of neck, NOS - 2 SPECIMEN INFORMATION: Tissue Source: Left posterior cervical lymph node biopsy Clinical Info: Left cervical lymphadenopathy Specimen Number: [id number] #2 CPT code: 18897, 43244 x16 METHODOLOGY: Deparaffinized sections of prefer/formalin-fixed tissue or PAP/DQ stained slides are incubated with monoclonal/polyclonal antibodies/oligonucleotide probes. Localization is made via biotin free immunoperoxidase method. Appropriate controls are performed and reacted as expected. Results on target cell population are indicated in the following table: RESULTS: ANTIBODY / CLONE RESULT Block 2 AE1-3 (AE1/AE3/PCK26) negative CK8 (37xicwC08) negative CD3 (PS1) negative CD5 (SP10) negative CD20 (L26) positive CD43 (L60) negative CD45 (RP2/18) positive CD79a (11E3) positive CD10 (56C6) positive CD23 (1B12) positive CD30 (Philip-H2) negative BCL-2 (bcl-2/100/D5) positive BCL-6 (YH897D/A8) positive Cyclin D1/BCL-1 (SP4) negative MUM1 (MRQ-43) negative C-MYC (Y69) negative Ki-67 (30-9) positive, low to moderate These tests were developed and their performance characteristics determined by [facility]. They may not have been cleared or approved by the U.S. Food and Drug Administration. The FDA has determined that such clearance or approval is not necessary. INTERPRETATION: Left posterior cervical lymph node, biopsy: Consistent with involvement by non- Hodgkin B-cell follicular lymphoma. SJ:africa 03/11/18 Case has been reviewed in consultation with Dr. Landaverde who concurs with the above diagnosis. IDC:AM PHYSICIAN AND INSTITUTION [facility] [address] [place], [place] [id number] Signed Donavon Finch 03/11/18 <signature on file> Performed By: #### PIMM #### [facility] [address] [place] [address]. [place], [address] THYROID Observed: 02/21/2018 Status: F Source: [place] 10:53 [facility] REPOSITORY [facility] Imaging Services [address] [place] [address] Thyroid MR#: [id number] Acct: [id number] Name: SYLVAIN STALLINGS Rep #: [id number] : 1960 F 57 From: Connor Goetz MD PCP: Cara Stephens DO Status: REG CLI Study: Thyroid Date of Exam: 02/21/18 Exam# [id number] Ordering Dr: Mary Ohara MD STUDY: THYROID ULTRASOUND REASON FOR EXAM: Female, 57 years old. Left neck lumps TECHNIQUE: Ultrasound evaluation of the thyroid was performed with real-time and static holly-scale imaging. COMPARISON: None. FINDINGS: RIGHT LOBE: The right lobe of the thyroid gland measures 4.9 x 1.8 x 1.2 cm. There is a homogeneous echotexture. There are 2 solid/cystic 4 mm nodules LEFT LOBE: The left lobe of the thyroid gland measures 4.6 x 1.8 x 1.0 cm. There is a homogeneous echotexture. There are multiple well-defined complex 3 mm nodules. ISTHMUS: The isthmus measures 2 mm. The regional lymph nodes are normal. The areas of the palpable lumps show a 2.6 x 2.4 x 1.2 cm well-defined homogeneous mass likely representing the parotid gland as it is just inferior to the left ear. There are 2 likely lymph nodes in the left jugular chain the larger measures 2.8 x 1.6 x 1.0 cm, the smaller 1.1 x 0.9 x 0.5 cm US/Thyroid IMPRESSION: Normal sized homogeneous thyroid gland with bilateral complex solid/cystic nodules all measuring less than 5 mm in size. Recommend 6 month follow-up to assure stability Likely jugular chain lymphadenopathy Likely enlarged parotid gland extending inferior to the left ear Electronically Signed: Raz Goetz MD at 15:09 EDT , Service support , CC: Mary Ohara MD; Cara Stephens DO Scheduling Assistant: Signed PROGRESS Observed: 02/03/2018 Status: COMPLETED Source: [place] 4:21 PM [facility] REPOSITORY HNO ID: [id number] Author: Lakisha Parra Service: (none) Author Type: DRIFTMAN Type: Progress Notes Filed: 02/03/2018 4:25 PM Note Text: ASSESSMENT/PLAN: 1. Hypermetropia of both eyes - ICD9: 367.0, ICD10: H52.03 (primary diagnosis) 2. Presbyopia - Both Eyes - ICD9: 367.4, ICD10: H52.4 Continue to wear her correction as desired. Discussed trying her previous lenses to compare vision with the power of her new prescripton. 3. Cortical senile cataract of both eyes - ICD9: 366.15, ICD10: H25.013 Mild cataract in both eyes. Well tolerated at this time. Discussed possible future affect on daily activities to watch for. Monitor as instructed. 4. Vitreous floaters of both eyes - ICD9: 379.24, ICD10: H43.393 Vitreal floaters stable both eyes. Retinas flat and intact with no apparent retinal tear or traction. Discussed symptoms of retinal tear/detachment and if seen patient will return to clinic without delay. Recommended yearly exams Lakisha Parra, OD The documentation recorded by the scribe accurately reflects the service I personally performed and the decisions made by me. I have confirmed and edited as necessary the relevant ophthalmic history, ROS, and the neuro exam findings as obtained by others. I have seen and examined Sylvain Stallings. I also have reviewed and agree with the assessment and plan as stated above and agree with all of its relevant components. ALLERGIES ALLERGIES DATE TYPE / CODE NAME / CODE REACTION SEVERITY SOURCE 07/31/2018 Drug JAILYN Other [place] Allergy/416 Inhibitors/[id number] Formerly [facility] 063294([address]) Repository 07/31/2018 Drug Penicillins/X32498 Unknown [place] Allergy/416 0476(RXNORM) Formerly [facility] 264610([facility] ED CT) Repository 07/31/2018 Drug guaifenesin/T00217 Hives [place] Allergy/416 0724(RXNORM) Formerly [facility] 032581([facility] ED CT) Repository 07/31/2018 Drug barium Hives [place] Allergy/416 sulfate/[id number] Formerly [facility] 457574([facility]) Repository 08/07/2013 DRUG GUAIFENESIN HIVES [facility] INGREDI/[address] [place] 285462(SNOM Repository ED CT) 11/17/2010 Drug JAILYN INHIBITORS OTHER: SEE C [facility] Class/86225 [address] [place] 1003(SNOMED Repository CT) 09/26/2009 DRUG BARIUM SULFATE HIVES [facility] INGREDI/[address] [place] 042519(SNOM Repository ED CT) 10/30/2005 Drug PENICILLINS RASH [facility] Class/78698 [address] [place] 1003(SNOMED Repository CT) 10/30/2005 Food/587734 SHELLFISH HIVES [facility] [address] [place] [facility] Repository ENCOUNTERS ENCOUNTERS ADMIT/DISCHARGE ACCOUNT NUMBER ADMITTING ENCOUNTER LOCATION SOURCE CLASS 07/31/2018 [id number] Ambulatory BMSBuilding: [place] BMS.CF.WMO Formerly [facility] Repository 07/31/2018 [id number] Ambulatory [facility] ding:OMD Repository 07/29/2018 [id number] Ambulatory [facility] ding:CT Repository 07/17/2018 [id number] Ambulatory Building:CT5 [facility] Repository 07/11/2018 [id number] Ambulatory Building:[facility] Repository 07/10/2018 [id number] Ambulatory BMSBuilding: [place] BMS.CF.[facility] Hospital Repository 05/05/2018/05/06/20 [id number] Ambulatory [address] Repository 05/05/2018/05/05/20 [id number] Ambulatory [address] Repository 04/03/2018 [id number] Ambulatory BMSBuilding: [place] BMS.CF.[facility] Hospital Repository 03/31/2018 [id number] Ambulatory Building:[facility] Repository 03/31/2018 [id number] Ambulatory [facility] ding:ONC Repository 03/21/2018 [id number] Ambulatory BMSBuilding: [place] BMS.CF.[facility] Hospital Repository 03/17/2018 [id number] Ambulatory [facility] ding:CT Repository 03/17/2018 [id number] Ambulatory Building:[facility] Repository 03/17/2018 [id number] Ambulatory Building:[facility] Repository 03/17/2018 [id number] Ambulatory Building:[facility] Repository 03/07/2018/03/07/20 [id number] Ambulatory [address] ding:SDCRoom Repository : AC01 02/21/2018 [id number] Ambulatory [facility] ding:OPUS Repository 02/21/2018 [id number] Ambulatory Building:[facility] Repository 02/07/2018/02/11/20 [id number] Ambulatory [address] Repository 02/03/2018/02/05/[id number] Repository PAYERS PAYERS ENCOUNTER GUARANTOR PAYER SUBSCRIBER SOURCE 07/31/2018 SYLVAIN J Primary SYLVAIN J [place] [id number] Insurance:ANTHEMPolic WEBERDOB: [facility] y Number: [id number] [id number] Repository 31886Hxb: 330) Date:9651-01-16ID [phone] () [id number] [place] [address] 21969JC: 07/31/2018 Secondary NOT GIVENUNK [place] Insurance:SELF PAY [facility] Number: Effective Repository Date:2018-07-31 07/31/2018 SYLVAIN J Primary SYLVAIN J [place] [id number] Insurance:ANTHEMPolic WEBERDOB: [facility] Number: [id number] [place] [id number] Repository [address]Oyf: ([phone]) Date:3582-06-68PF [phone] () 275757FTMZSJT, [place] [address]IE: 07/31/2018 Secondary NOT GIVENUNK [place] Insurance:SELF PAY [facility] Number: Effective Repository Date:2018-03-10 07/29/2018 SYLVAIN J Primary SYLVAIN J [place] [id number] Insurance:ANTHEMPolic WEBERDOB: [facility] Number: [id number] [place] [id number] Repository 46[address]Bsz: (330) Date:0244-00-98IB [phone] () [id number], [place] [address]EU: 07/29/2018 Secondary NOT GIVENUNK [place] Insurance:SELF PAY [facility] Number: Effective Repository Date:2018-07-22 07/17/2018 SYLVAIN J Primary SYLVAIN J [facility] WEBERDOB: Insurance:ANTHEM O WEBERDOB: [place] O POSPolicy Number: [id number] [facility] [id number] 2 [place], [place] Date:9181-03-58Uvqa [place], [place] Repository [address]Cso: [phone]) Name:MANAGED CARE [id number]: (HP) [phone] () 07/11/2018 SYLVAIN WEBERDOB: Primary SYLVAIN WEBERDOB: [facility] Insurance:ANTHEM O [id number] [facility] POSPolicy Number: 2 [place], [place] [id number] [place], [place] Center [address] Date:5987-59-96Alun [address] Repository Name:MANAGED CARE 07/10/2018 SYLVAIN J Primary SYLVAIN J [place] [id number] Insurance:ANTHEMPolic WEBERDOB: [facility] Number: [id number] [id number] Repository 1948[address]Cbj: ([phone]) Date:8641-60-49NE [phone] () [id number] [place] [address] 64379GO: 07/10/2018 Secondary NOT GIVENUNK [place] Insurance:SELF PAY [facility] Number: Effective Repository Date:2018-07-10 04/03/2018 Sylvain J Primary Sylvain J [place] [id number] Insurance:ANTHEMPolic WeberDOB: [facility] Number: [id number] [id number] Repository 214[address]Qex: ([phone]) Date:7641-68-73BH [phone] () 357673WXEASKX, [place] [address]XC: 04/03/2018 Secondary NOT GIVENUNK [place] Insurance:SELF PAY [facility] Number: Effective Repository Date:2018-04-03 03/31/2018 Sylvain J Primary Sylvain J [place] [id number] Insurance:ANTHEMPolic WeberDOB: [facility] Number: [id number] [place] [id number] Repository [address]Qoe: [phone]) Date:2460-64-65KH [phone] () [id number], [place] [address]KH: 03/31/2018 Secondary NOT GIVENUNK [place] Insurance:SELF PAY [facility] Number: Effective Repository Date:2018-03-28 03/21/2018 Sylvain J Primary Sylvain J [place] [id number] Insurance:ANTHEMPolic WeberDOB: [facility] [place] y Number: [id number] [place] [id number] Repository [address]Dum: ([phone]) Date:3626-53-94VH [phone] () [id number], [place] [address]GB: 03/21/2018 Secondary NOT GIVENUNK [place] Insurance:SELF PAY [facility] Number: Effective Repository Date:2018-03-21 03/17/2018 Sylvain J Primary Sylvain J [place] [id number] Insurance:ANTHEMPolic WeberDOB: [facility] [place] y Number: [id number] [id number] Repository [address]Wak: (330) Date:4027-52-76IJ [phone] () 488338FBJMRDO, [place] [address]RR: 03/17/2018 Secondary NOT GIVENUNK [place] Insurance:SELF PAY [facility] Number: Effective Repository Date:2018-03-13 03/07/2018 Sylvain J Primary Sylvain J [place] [id number] Insurance:ANTHEMPolic WeberDOB: [facility] [place] y Number: [id number], [place] [id number] Repository [address]Cai: ([phone]) Date:0117-01-79BW [phone] () [id number], [place] [address]DL: 03/07/2018 Secondary NOT GIVENUNK [place] Insurance:SELF PAY [facility] Number: Effective Repository Date:2018-02-27 02/21/2018 Sylvain J Primary Sylvain J [place] [id number] Insurance:ANTHEMPolic WeberDOB: [facility] [place] y Number: [id number]. Dan C[facility] Trigg [facility] [place] [id number] Repository [address]Ogx: ([phone]) Date:0552-43-28KB [phone] () [id number], [place] [address]BP: 02/21/2018 Secondary NOT GIVENUNK [place] Insurance:SELF PAY [facility]: Effective Repository Date:2018-02-19
== END ==
PROVIDERS: Family Provider Family Medicine; PCP Family Medicine; Referring Provider Internal Medicine Hematology & Oncology; Visit Provider Internal Medicine Hematology & Oncology
DX: C82.91 Follicular lymphoma, unspecified, lymph nodes of head, face, and neck (principal)
CPT/HCPCS: 70491; 71260; 74177; Q9967

== ENCOUNTER → 2019-01-26 | Outpatient (CLI) | payer BC, SELFPAY ==
[2018-11-06 13:36] VITALS: BMI 23.7
[2019-01-26 17:22] LABS: Absolute Lymphocyte Count 1.09 X10^3/ul (0.83-4.51); Absolute Neutrophil Count 3.4 X10^3/uL (2.0-7.7); Basophil# 0.04 X10^3/uL; Basophil% 0.7 % (0-1); Eosinophil# 0.13 X10^3/uL; Eosinophils% 2.4 % (0-5); Hematocrit 43.7 % (37-47); Hemoglobin 14.9 g/dl (12.0-15.0); Lymphocyte # 1.09 X10^3/ul (4.0); Lymphocyte % 20.3 % (19-41); Mean Corp Hgb Conc 34.1 g/gl (32-36); Mean Corpuscular Hgb 31.7 pg (27.0-32.0); Mean Platelet Vol. 10.4 fl (6.2-12.0); Monocyte# 0.73 X10^3/uL; Monocyte% 13.6 % (0-10); Neutrophil # 3.37 X10^3/uL (2.7-7.7); Neutrophil % 62.8 % (47-70); Platelet Count 220 K/mm3 (150-450); RBC Distribution Width CV 12.2 % (11.6-14.6); RBC Distribution Width SD 41.5 fl (35.1-43.9); White Blood Count 5.4 K/mm3 (4.4-11.0)
[2019-01-26 17:27] LABS: POSITIVE COUNT NO; POSITIVE DIFFERENTIAL NO; POSITIVE MORPHOLOGY NO
--- NOTE | 2019-01-26 17:30 | CT_ITS ---
STUDY: CT SOFT TISSUE NECK WITH CONTRAST REASON FOR EXAM: Female, 58 years old. Follicular lymphoma RADIATION DOSAGE (If Supplied By Facility): CTDIvol = ( 11.3 ) mGy, DLP = ( 1240.26 ) mGycm TECHNIQUE: The patient was scanned in a multi-detector CT scanner. High resolution transaxial imaging was performed following intravenous administration of 100 IV Isovue 370. Sagittal and coronal images were reconstructed. Individualized dose optimization techniques were used for this CT. COMPARISON: 07/29/2018 FINDINGS: Normal bilateral parotid glands. Normal bilateral building rental manager spaces. Normal bilateral parapharyngeal spaces. Normal bilateral carotid spaces. Normal bilateral sublingual and submandibular glands and spaces. Normal visualized nasopharynx. Normal retropharyngeal space. Normal perivertebral space. Normal visualized bilateral faucial tonsils. The visualized tongue, tongue base and oropharynx are normal. Interval enlargement of a pathologic left level 5 node, now measuring 2.0 x 1.1 cm on image 28 of series 3. The previously described mass in the left posterior neck musculature is grossly stable, measuring 3.0 x 1.9 cm on image 52 of series 3. There is no abnormal contrast enhancement. Normal epiglottis, bilateral vallecula and hypopharynx. The pre-epiglottic and paraglottic adipose spaces are normal. Normal visualized bilateral piriform sinuses, aryepiglottic folds, vocal cords, and arytenoid-cricoid articulations. Normal subglottic trachea. Multiple stable indeterminate subcentimeter thyroid nodules. Normal visualized pulmonary apices. Normal visualized paranasal sinuses. There is multilevel degenerative changes of the cervical spine. CT/Soft Tissue Neck WITH Contrast IMPRESSION: The previously described mass in the left posterior neck musculature is stable. Progressing left level 5 neck adenopathy. Multiple stable indeterminate subcentimeter thyroid nodules. Electronically Signed: Aj Chavez MD at 8:31 EDT Tel , Service support ,
--- NOTE | 2019-01-26 17:30 | CT_ITS ---
STUDY: CT ABDOMEN AND PELVIS WITHOUT CONTRAST REASON FOR EXAM: Female, 58 years old. Follicular lymphoma for follow-up. RADIATION DOSAGE (If Supplied By Facility): CTDIvol = ( 11.3 ) mGy, DLP = ( 1240.26 ) mGycm TECHNIQUE: Transaxial images were obtained from the dome of the diaphragm to the symphysis pubis without oral contrast, and without intravenous contrast. Sagittal and coronal images were reconstructed. Individualized dose optimization techniques were used for this CT. COMPARISON: CT abdomen and pelvis July 29, 2018. CT chest January 26, 2019. FINDINGS: The visualized lung bases are unremarkable. The visualized portions of the heart are within normal limits. Normal liver. Normal gallbladder and extrahepatic biliary system. Subcentimeter cyst or hemangioma in the spleen too small to accurately characterize. Normal pancreas. Normal bilateral adrenal glands. No hydronephrosis. Bilateral renal cysts unchanged. Bilateral nonobstructive renal calculi on the right measuring 3 mm and the left 7 mm x 5 mm. Right paraesophageal lymphadenopathy which represents the inferior extent of mediastinal lymphadenopathy best seen on the CT chest and unchanged, axial image 1 series 4. Abdominal and pelvic lymphadenopathy not significantly changed. Multiple small left para-aortic lymph nodes largest measuring 0.7 cm. 4.8 x 4.1 cm mass at the bifurcation of the right common iliac vein axial image 83. 2.2 x 1.8 cm mass anterior right pelvic sidewall at the level of the acetabulum axial image 90. 1.1cm lymph node adjacent to the left common iliac artery, axial image 65. 1 cm lymph node adjacent to the bifurcation of the left common iliac artery axial image 68. Stable 1.5 x 1.0 cm lymph node adjacent to the left common iliac vein axial image 86. Bilateral inguinal lymph nodes on the right measuring 1.3 cm in length 1.6 cm unchanged. Small mass lateral to the left psoas muscle has resolved axial image 61. Normal visualized stomach. Normal small intestine. Normal colon. Normal appendix. Normal abdominal aorta. Normal inferior vena cava. Normal retroperitoneum. No intra-abdominal free air. Normal urinary bladder. Uterus grossly normal. No adnexal masses seen. Normal abdominal wall. Multilevel degenerative changes of the lower thoracic and lumbar spine. CT/Abdomen/Pelvis W IV Cont ONLY IMPRESSION: Aside from resolution of a small nodule lateral to the left psoas muscle, no significant change in abdominal and pelvic lymphadenopathy since July 2018. Small bilateral nonobstructing renal calculi. Subcentimeter low-attenuation splenic lesion unchanged too small to accurately characterize. Stable bilateral renal cysts. Electronically Signed: Jesus Bae MD at 6:00 EDT , Service support ,
--- NOTE | 2019-01-26 17:30 | CT_ITS ---
STUDY: CT CHEST WITH CONTRAST REASON FOR EXAM: Female, 58 years old. Follicular lymphoma RADIATION DOSAGE (If Supplied By Facility): CTDIvol = ( 11.3 ) mGy, DLP = ( 1240.26 ) mGycm TECHNIQUE: Transaxial imaging was performed following intravenous administration of 100 IV Isovue 370. Individualized dose optimization techniques were used for this CT. COMPARISON: 07/29/2018 FINDINGS: When compared to prior study, the extent of a well-defined posterior mediastinal mass has slightly progressed. The lesion now measures 6.7 x 4.5 cm in the transverse plane, as measured on image 72 of series 2. It measures approximately 9 cm craniocaudal. The lesion completely encases the descending thoracic aorta, but no aortic narrowing is seen. The lesion displaces the heart and mediastinum anteriorly. No new mediastinal masses or adenopathy. Incompletely imaged left renal calculus. Left rotator cuff repair. Stable calcified granulomas in the left lower lobe. No new suspicious lung lesions are seen. Stable minimal left lower lobe alveolitis. No destructive osseous lesions are seen. CT/Chest WITH Contrast IMPRESSION: Interval progression of a posterior mediastinal mass as described. Stable minimal left lower lobe alveolitis. Electronically Signed: Aj Chavez MD at 8:44 EDT Tel , Service support ,
[2019-01-26 17:56] LABS: CREATININE FINGERSTICK 0.8 mg/dL (0.55-1.02)
[2019-01-26 18:04] LABS: ALB/GLOB Ratio 0.9 RATIO (0.9-2.4); AST(SGOT) 28 U/L (15-37); Alanine Aminotransfer ALT/SGPT 33 U/L (13-56); Albumin, Serum 3.7 g/dL (3.2-5.0); Alkaline Phosphatase 90 U/L (45-117); Anion Gap 6 (5-15); BUN 13 mg/dL (7-18); BUN/Creat Ratio 21.3 RATIO (10-20); Calcium,Total 9.6 mg/dL (8.5-10.1); Chloride 104 mmol/L (98-107); Creatinine, Serum 0.61 mg/dL (0.55-1.02); EST Glomerular Filtration Rate 107 mL/min (>60); Est Glom Filt Rate - Afr Amer 130 mL/min (>60); Globulin 3.9 g/dL (2.2-4.2); Glucose 85 mg/dL (74-106); LDH 204 U/L (84-246); Potassium 4.9 mmol/L (3.5-5.1); Protein, Total 7.6 g/dL (6.4-8.2); Sodium Level 141 mmol/L (136-145)
== END | disposition home or self-care (01) ==
PROVIDERS: Family Provider Family Medicine; PCP Family Medicine; Referring Provider Internal Medicine Hematology & Oncology; Visit Provider Internal Medicine Hematology & Oncology
DX: R22.1 Localized swelling, mass and lump, neck (principal); C82.90 Follicular lymphoma, unspecified, unspecified site; D50.9 Iron deficiency anemia, unspecified
CPT/HCPCS: 36415; 70491; 71260; 74177; 80053; 83615; 85025; Q9967

== ENCOUNTER 2019-03-18 09:27 | Day surgery (SDC) | payer BC, SELFPAY ==
--- NOTE | 2019-03-09 01:40 | HP_ITS ---
Intake Vital Signs 03/09/19 Body Mass Index (BMI) 23.6 03/09/19 Height 5 ft 4 in 03/09/19 Weight: 138 lb 03/09/19 Body Mass Index (BMI) 23.6 03/09/19 Blood Pressure 147/83 H 03/09/19 Blood Pressure Location Rt brachial 03/09/19 Blood Pressure Position Sitting 03/09/19 Respiratory Rate 16 03/09/19 Pulse Rate 75 Intake Visit Reasons: Port Placement Consult Chief Complaint: Chemotherapy Education- Bendamustine/Rituxan Grounds Worker Required: No Is patient in pain?: No Allergies JAILYN Inhibitors Adverse Reaction (Intermediate, Verified 03/09/19 13:15) Other barium sulfate Adverse Reaction (Intermediate, Verified 03/09/19 13:15) Hives guaifenesin [From Mucinex] Adverse Reaction (Intermediate, Verified 03/09/19 13:15) Hives Penicillins Adverse Reaction (Intermediate, Verified 03/09/19 13:15) Unknown Medications Valsartan [Diovan] 80 mg PO DAILY 11/01/13 [History Confirmed 03/09/19] Cholecalciferol (Vitamin D3) [Vitamin D3] 5,000 unit PO DAILY 03/03/18 [History Confirmed 03/09/19] Lidocaine/Prilocaine [Lidocaine-Prilocaine Cream] 1 applicatio TP DAILY PRN PRN 30 Days #1 tube 02/10/19 [Rx Confirmed 03/09/19] Ondansetron [Ondansetron Odt] 8 mg PO Q8H PRN PRN 10 Days #30 tab.rapdis 02/10/19 [Rx Confirmed 03/09/19] Prochlorperazine Maleate 10 mg PO Q8H PRN PRN 10 Days #30 tab 02/10/19 [Rx Confirmed 03/09/19] PFSH Medical History GERD (gastroesophageal reflux disease) (Acute) Iron deficiency anemia (Acute) Kidney stone (Acute) Neck mass (Acute) Hypertension (Chronic) Surgical History (Updated 03/09/19 @ 13:12 by Radha Peguero) No history of previous surgery (Acute) ORAL SURGERY PROCEDURE (Acute) SHOULDER JOINT SURGERY (Acute) Family History (Updated 03/09/19 @ 13:13 by Radha Peguero) Father Bladder cancer Grandmother Diabetes Sister CAD (coronary artery disease) Mother Hypertension CAD (coronary artery disease) Social History (Updated 03/09/19 @ 14:24 by Keyla Plaza MD) Smoking Status: Never smoker HPI HPI HPI: SYLVAIN STALLINGS, is a 58 F who presents to the office today for HPI HPI Surgical H&P: Yes HPI: SYLVAIN STALLINGS, is a 58 F who presents to the office today for port placement for follicular lymphoma. Patient denies any abdominal pain with this is only notices some enlarged nodes in the posterior cervical area. Patient denies any nausea/vomiting and has regular bowel movements. ROS General General: Yes fatigue; no weight change Gastro Gastrointestinal: No abdominal pain, No nausea or vomiting, No diarrhea, No constipation, No blood in stool, Yes acid reflux (Controlled with diet), No hemorrhoids, No ulcers, No gallbladder problem, No black,tarry stools Exam Const General: cooperative, comfortable, no acute distress Chest Other: Inspection and palpation of upper chest bilaterally normal Resp Effort & Inspection: normal respiratory effort Cardio Rate: regular rate GI Inspection: non-distended Palpation: soft, no guarding, nontender Assessment & Plan Problems 1. Encounter for adjustment or management of vascular access device Z45.2 2. Follicular lymphoma C82.90 Plan I have discussed above with the patient- Port-a-Cath placement. Right IJ, possible left IJ Patient has been counseled as to the risks/benefits of the procedure. I have explained the risks of the surgery, including but not limited to: infection, bleeding, injury to any blood vessels/nerves, injury to lungs (such as pneumothorax or hemothorax and need for chest tube), not having any access, nonfunctioning of port due to thrombosis, infection of port, etc. the patient understands and agrees to proceed. I have answered all the patient's questions to the patient?s satisfaction and the patient has no further questions. Keyla Plaza M.D. Pager: [phone] [facility] [address] [place] [address], [address] [place] [address] Office: [phone] Plan Detail Follow Up We will schedule port placement Coding Level of Care Code Off vis,new,level 3 Diagnoses Encounter for adjustment or management of vascular access device Z45.2 Follicular lymphoma C82.90 ??Follicular lymphoma type: other follicular type 03/09/19 1424 <Electronically signed by Keyla Ocasio am, MD> Date _ Keyla Plaza MD I have re-examined the patient. There are no clinical changes since date of exam.
[2019-03-09 13:16] VITALS: BMI 23.6
[2019-03-18 09:43] VITALS: BP 133/67; PULSE 71; RESP 16; TEMP 36.4; O2SAT 100; BMI 23.5
[2019-03-18] MEDS: Bupivacaine 0.25% 30 ML Vial (11:00)
--- NOTE | 2019-03-18 11:16 | PCM.OPRPT ---
Report of Operation Date of Procedure: 03/18/19 Pre-Operative Diagnosis: z45.2, follicular lymphoma Post-Operative Diagnosis: Same Surgery/Procedure Performed:: 1. Placement right IJ Port-A-Cath. 2. Use of ultrasound. 3. Use of fluoroscopy Type of Anesthesia:: MAC/Supplemental/Local Anesthesiologist: Phil Winters Special Medications: Clindamycin 900 mg IV x1 Specimen's removed: None Estimated Blood Loss (mL): < 5 cc Fluids Replaced: 500 cc Description of Procedure: After informed consent was given, the patient was brought to the operating room and placed in the supine position. Appropriate time out protocol was followed. He was then given IV conscious sedation for anesthesia. The patient's bilateral upper chest and neck were then prepped with a surgical skin preparation and sterile surgical drapes were placed. After proper landmarks were ascertained, the skin at the upper right chest area was then infiltrated with 1:1 mixture of 1% lidocaine with epinephrine and 0.5% maricaine. A needle trocar was then inserted into the right internal jugular vein with ultrasound guidance-multiple vessels were viewed with u/s and the right IJ was chosen-- and there was good aspiration of venous blood. A wire was then threaded into the needle trocar and this was visualized under fluoroscopy to ensure that the wire was in the superior vena cava. Once this was done, then the needle trocar was removed. A small skin jaycob was made with an 11 blade knife at the wire entrance site. The dilator with the introducer sheath attached was then placed over the wire into the right internal jugular vein via the Seldinger technique and this was visualized under fluoroscopy. The dilator and sheath were in proper position as visualized by fluoroscopy. A subcutaneous pocket was then created caudad to the catheter insertion site. A transverse skin incision was made after the skin and subcutaneous tissues were infiltrated with local anesthetic. Blunt dissection was then used to create a space large enough for placement of the subcutaneous port. The catheter was then tunneled into the subcutaneous pocket. The wire and dilator were then removed. The catheter was then threaded into the introducer sheath and was positioned with its tip at the junction of the superior vena cava and the right atrium as visualized under fluoroscopy. The excess catheter was transected. The catheter was then attached to the subcutaneous port using manufacturers guidelines. The catheter was flushed with a heparin saline mixture prior to placement. Hemostasis was carefully controlled with electrocautery. The port was sutured to the subcutaneous fascia using 2-0 Vicryl suture at two sites. The port was then placed in the subcutaneous pocket and the sutures were ligated. The incision were reapproximated with interrupted subdermal 3-0 vicryl sutures. The skin was reapproximated with 3-0 nylon suture in a interrupted fashion. Steristrips were used for reinforcement of the skin closure at IJ insertion site and a sterile opsite dressings were applied. The patient tolerated the procedure well. Implants Used: [employer] PowerPort isp M.R.I. 6Fr Lot [id number] ref [id number] Grafts/Implants Used: [employer] PowerPort isp M.R.[employer]. 6Fr Lot [id number] ref [id number] - Complications None
--- NOTE | 2019-03-18 11:19 | DCINST_ITS ---
Discharge Diet: No Restrictions May shower in (days): 5 - Keep port site clean dry for 5 days okay to lower shower and upper sponge bath or okay to taper off the port site with a Ziploc bag and tape at the edges. Okay to keep OpSite on for 2 to 3 days at a time. Lifting Restrictions: No lifting greater than 15 pounds with the right arm x1 week Call your doctor if your incision/area has: Continuous Slow Oozing, Sudden Increased Bleeding, Increased Pain/ Swelling, Increased Redness, Foul Smelling Discharge, Swelling at the incision site Call your doctor if you observe: Fever of 101 or Higher Remove Dressing in (days):: 3 Allergies/Adverse Reactions: Allergies barium sulfate Allergy (Intermediate, Verified 03/18/19 09:37) Hives guaifenesin [From Mucinex] Allergy (Intermediate, Verified 03/18/19 09:37) Hives JAILYN Inhibitors Adverse Reaction (Intermediate, Verified 03/18/19 09:37) Other COUGHING Penicillins Adverse Reaction (Intermediate, Verified 03/18/19 09:37) Unknown Medications to take at Discharge Valsartan [Diovan] 80 mg PO DAILY 11/01/13 Cholecalciferol (Vitamin D3) [Vitamin D3] 5,000 unit PO DAILY 03/03/18 Primary Care Physician: Cara Stephens DO [Primary Care Provider] - Test Results: Test results from this visit will be discussed in further detail at your follow- up appointment, if applicable. Please Follow Up With: Keyla Plaza MD - After 5 PM/weekends call [phone] with any concerns When: Call the office for a follow-up appointment in 10 days for suture removal. Proposed Discharge Date: 03/18/19
[2019-03-18 11:21] VITALS: BP 101/59; BP 133/67; PULSE 73; RESP 16; TEMP 36.1; O2SAT 100
[2019-03-18 11:25] VITALS: BP 103/65; BP 133/67; PULSE 70; RESP 16; O2SAT 100
--- NOTE | 2019-03-18 11:25 | RAD_ITS ---
STUDY: X-RAY CHEST REASON FOR EXAM: Female, 58 years old. Port placement. TECHNIQUE: Single AP portable view of the chest. COMPARISON: None. FINDINGS: A right-sided portacatheter is in place. The tip is in the right atrium. There is a 7.3 mm nodule in the left upper lobe. There is no demonstrated pleural abnormality. Normal size heart. Soft tissue prominence along the left side of the spinal region. Normal visualized pulmonary arteries. There is atherosclerotic tortuosity of the aortic arch and descending thoracic aorta. Normal visualized thoracic spine. Normal visualized ribs, clavicles, and shoulders. There is no demonstrated abnormality of the visualized soft tissue structures of the upper abdomen. RAD/CXR for Line Placement IMPRESSION: The tip of the right-sided portacatheter is in the right atrium. The seventh of a 7.3 mm nodule in the left upper lobe. Electronically Signed: Satnam Kowalski, at 12:00 EDT , Service support ,
[2019-03-18 11:31] VITALS: BP 101/75; BP 133/67; PULSE 72; RESP 16; O2SAT 99
[2019-03-18 11:35] VITALS: BP 103/75; BP 133/67; PULSE 70; RESP 16; O2SAT 99
[2019-03-18 12:15] VITALS: BP 133/67
== END 2019-03-18 12:17 | disposition home or self-care (01) ==
LOC: SDC 09:28 → AC 09:30
PROVIDERS: Family Provider Family Medicine; PCP Family Medicine; Referring Provider Surgery; Visit Provider Surgery
PROC: (CPT 36561; principal; 2019-03-18 10:45)
DX: Z45.2 Encounter for adjustment and management of vascular access device (principal); C82.90 Follicular lymphoma, unspecified, unspecified site; K21.9 Gastro-esophageal reflux disease without esophagitis; D50.9 Iron deficiency anemia, unspecified; I10 Essential (primary) hypertension; Z79.899 Other long term (current) drug therapy
CPT/HCPCS: 00532; 36561; 71045; 77001; J7120

== ENCOUNTER → 2019-06-10 16:01 | Outpatient (CLI) | payer BC, OTHER, SELFPAY ==
[2019-05-18 08:57] VITALS: BMI 24.3
[2019-06-01 08:24] VITALS: BMI 24.7
--- NOTE | 2019-06-10 16:05 | CT_ITS ---
STUDY: CT CHEST WITH CONTRAST REASON FOR EXAM: Female, 59 years old. Follow-up treatment of follicular lymphoma. RADIATION DOSAGE (If Supplied By Facility): CTDIvol = ( 13.03 ) mGy, DLP = ( 1674.72 ) mGycm TECHNIQUE: Transaxial imaging was performed following intravenous administration of IV Isovue 370 100ml. Multiplanar coronal and sagittal images were reformatted. Individualized dose optimization techniques were used for this CT. COMPARISON: Prior chest CT exam January 26, 2019 FINDINGS: Stable, calcified granuloma of the left upper lobe. There is no demonstrated pleural abnormality. Normal heart and pericardium. The ill-defined soft tissue mass of the posterior mediastinum which extends from approximately the level of the alexx to the lower chest has diminished substantially in size and continues to partially surround the aorta. At its widest point where it was measured on the prior exam the density now measures 3.7 x 2.1 cm, prior measurement at this level 6.7 x 4.5 cm. There is no invasion or occlusion of the adjacent arteries or veins. Normal enhanced pulmonary arteries. Minimal plaque and mild elongation of the thoracic aorta. Negative for other mediastinal or axillary adenopathy. Normal osseous structures. CT/Chest WITH Contrast IMPRESSION: Substantial decrease in the ill-defined soft tissue mass of the posterior mediastinum which partially surrounds the aorta. A relative mid level measurements demonstrates a 3.7 x 2.1 cm compared to a prior measurement of 6.7 x 4.5 cm. Negative for any substantial compression or invasion of regional arteries or veins. No additional substantial adenopathy of the mediastinum or axillary areas. No acute pulmonary findings or changes. Stable granuloma of the left upper lobe. Electronically Signed: Brunilda Coffman MD at 23:45 EDT , Service support ,
--- NOTE | 2019-06-10 16:05 | CT_ITS ---
STUDY: CT ABDOMEN AND PELVIS WITHOUT CONTRAST REASON FOR EXAM: Female, 59 years old. Follow-up to treatment of follicular lymphoma. RADIATION DOSAGE (If Supplied By Facility): CTDIvol = ( 13.03 ) mGy, DLP = ( 1674.72 ) mGycm TECHNIQUE: Transaxial images were obtained from the dome of the diaphragm to the symphysis pubis without oral contrast, and without intravenous contrast. Sagittal and coronal images were reconstructed. Individualized dose optimization techniques were used for this CT. COMPARISON: Prior abdomen and pelvic CT exam of January 26, 2019 FINDINGS: The visualized lung bases are unremarkable. The prior mediastinal mass of the chest is reduced in length and size. Normal liver. Normal gallbladder and extrahepatic biliary system. Subcentimeter lesion of the spleen remains unchanged. Normal pancreas. Normal bilateral adrenal glands. Subcentimeter cysts of the right kidney are unchanged. 3 mm nonobstructing stone in the lower pole of the right kidney. 2 1 mm nonobstructing stones in the upper pole. No hydronephrosis or ureteral stones. Normal size of the left kidney. Stable 1.5 cm cyst in the midpole of the right kidney. Additional subcentimeter upper pole cysts. A previously nonobstructing upper pole cyst now has moved into the central renal pelvis and measures 5 x 7 mm. There is an additional 3 mm stone remaining unchanged in the upper pole of the left kidney. A left central renal pelvis is slightly more distended than on the prior exam the ureter is nondistended and there are no additional left renal stones. Normal visualized stomach. Nondistended small bowel. Normal colon. The appendix is visualized and appears normal. Normal abdominal aorta. Normal inferior vena cava. Small periaortic lymph nodes are slightly reduced or are unchanged. Right iliac adenopathy and the right psoas muscle are markedly diminished in size. The mass juxtaposed to the psoas muscle is now just a ill-defined density. Decreased left iliac adenopathy now an ill-defined smudge-like density. Minimal subcentimeter inguinal lymph nodes decreased in size from prior exam. Normal urinary bladder. Small fibroids of the uterus. Negative for other pelvic mass or free fluid of the pelvis. Normal abdominal wall. There are diffuse degenerative changes of the visualized lumbar spine. CT/Abdomen/Pelvis W IV Cont ONLY IMPRESSION: Substantial reduction in the right so as possible mass and right iliac adenopathy. Decreased left iliac adenopathy. Minimal subcentimeter inguinal lymph nodes decreased in size from prior exam. Minimal periaortic lymph nodes similar to or decreased from the prior exam. No change in the right kidney. Simple renal cysts and 1 mm nonobstructing stones in the upper pole and a 3 mm nonobstructing stone in the lower pole. In the lower pole without hydronephrosis or ureteral stones. Within the left kidney, a 5.7 mm stone which was formerly in the upper pole has now moved into a lower midpole position in the central collecting system. The renal pelvis appears to be slightly more distended than on the prior exam suggesting that the stone may, on occasion fall into the renal pelvis and causes intermittent episodes of obstruction. Currently nonobstructed. An additional 3 mm nonobstructing stone remains in the upper pole. Stable simple cysts of the left kidney. Stable subcentimeter low-density lesion of the spine are seen. Unremarkable liver and a nondistended gallbladder. Unremarkable pancreas. No acute bowel related findings. Negative for hemorrhage, hematoma or mass density. Electronically Signed: Brunilda Coffman MD at 0:08 EDT , Service support ,
--- NOTE | 2019-06-10 16:05 | CT_ITS ---
STUDY: CT SOFT TISSUE NECK WITH CONTRAST REASON FOR EXAM: Female, 59 years old. Follow-up treatment of follicular lymphoma. RADIATION DOSAGE (If Supplied By Facility): CTDIvol = ( 13.03 ) mGy, DLP = ( 1674.72 ) mGycm TECHNIQUE: The patient was scanned in a multi-detector CT scanner. High resolution transaxial imaging was performed following intravenous administration of IV 100mL Isovue-370 100ML. Sagittal and coronal images were reconstructed. Individualized dose optimization techniques were used for this CT. COMPARISON: Prior neck CT exam of January 26, 2019 FINDINGS: Normal bilateral parotid glands. Normal bilateral coke still cleaner spaces. Normal bilateral parapharyngeal spaces. Normal bilateral carotid spaces. Normal bilateral sublingual and submandibular glands and spaces. Normal visualized nasopharynx. Normal retropharyngeal space. Normal perivertebral space. Normal visualized bilateral faucial tonsils. The visualized tongue, tongue base and oropharynx are normal. The prior enlarged pathologic lymph node on the left, level 5 node with a previous measurement of 2.0 x 1.1 cm has completely resolved. The muscular mass on the left located deep to the posterior edge of the sternocleidomastoid and confluent with the splenius capitis muscle and levator scapula muscle has dramatically decreased in size now with only slight enlargement of the lateral edge of the splenius capitis muscle compared to the right side. Normal epiglottis, bilateral vallecula and hypopharynx. The pre-epiglottic and paraglottic adipose spaces are normal. Normal visualized bilateral piriform sinuses, aryepiglottic folds, vocal cords, and arytenoid-cricoid articulations. Normal subglottic trachea. Stable tiny thyroid nodules on the left. Normal visualized pulmonary apices. Normal visualized paranasal sinuses. Stable degenerative changes of the cervical spine. CT/Soft Tissue Neck WITH Contrast IMPRESSION: The left cervical level 5 enlarged lymph node on the prior examination has completely resolved. Marked decrease in the size of the mass of the left posterior neck musculature. Now the density is an indistinct slight enlargement of the lateral border of the left splenius capitis muscle. No additional untoward findings since the prior examination. Electronically Signed: Brunilda Coffman MD at 20:48 EDT , Service support ,
== END ==
PROVIDERS: Family Provider Family Medicine; PCP Family Medicine; Referring Provider Internal Medicine Hematology & Oncology; Visit Provider Internal Medicine Hematology & Oncology
DX: C82.90 Follicular lymphoma, unspecified, unspecified site (principal); R22.1 Localized swelling, mass and lump, neck
CPT/HCPCS: 70491; 71260; 74177; Q9967; A4216

== ENCOUNTER → 2020-03-14 07:42 | Outpatient (CLI) | payer BC, SELFPAY ==
[2020-01-25 09:29] VITALS: BMI 23.6
--- NOTE | 2020-03-14 07:43 | CT_ITS ---
STUDY: CT SOFT TISSUE NECK WITH CONTRAST REASON FOR EXAM: Female, 59 years old. RESPONSE TO TREATMENT, NHL, LYMPH NODE REMOVED FROM LT SIDE OF NECK RADIATION DOSAGE (If Supplied By Facility): CTDIvol = ( 9.59 ) mGy, DLP = ( 600.67 ) mGycm TECHNIQUE: The patient was scanned in a multi-detector CT scanner. High resolution transaxial imaging was performed following intravenous administration of IV 100mL Isovue-300. Sagittal and coronal images were reconstructed. Individualized dose optimization techniques were used for this CT. COMPARISON: Comparison is made with prior examination dated 06/10/2019. FINDINGS: A right-sided portacatheter is seen with the tip in the superior vena cava. Normal bilateral parotid glands. Normal bilateral pulmonary disease specialist spaces. Normal bilateral parapharyngeal spaces. Normal bilateral carotid spaces. Normal bilateral sublingual and submandibular glands and spaces. Normal visualized nasopharynx. Normal retropharyngeal space. Normal perivertebral space. Normal visualized bilateral faucial tonsils. The visualized tongue, tongue base and oropharynx are normal. The visualized cervical lymph nodes (levels I-) are within normal size limits, and maintain normal morphology. There is no demonstrated solid or cystic mass lesion. There is no abnormal contrast enhancement. Normal epiglottis, bilateral vallecula and hypopharynx. The pre-epiglottic and paraglottic adipose spaces are normal. Normal visualized bilateral piriform sinuses, aryepiglottic folds, vocal cords, and arytenoid-cricoid articulations. Normal subglottic trachea. Normal bilateral lobes of the thyroid gland. Normal visualized pulmonary apices. Normal visualized paranasal sinuses. There is multilevel degenerative changes of the cervical spine. There is loss of the normal cervical lordosis. CT/Soft Tissue Neck WITH Contrast IMPRESSION: The previously seen left level 5 lymph node has cleared. The previously seen muscular mass in the left deep posterior sternocleidomastoid muscle is not present. Electronically Signed: Satnam Kowalski, at 10:32 EDT , Service support ,
--- NOTE | 2020-03-14 07:43 | CT_ITS ---
STUDY: CT CHEST WITH CONTRAST REASON FOR EXAM: Female, 59 years old. RESPONSE TO TREATMENT, NHL, LYMPH NODE REMOVED FROM LT SIDE OF NECK RADIATION DOSAGE (If Supplied By Facility): CTDIvol = ( 9.59 ) mGy, DLP = ( 600.67 ) mGycm TECHNIQUE: Transaxial imaging was performed following intravenous administration of IV 100mL Isovue-300. Multiplanar coronal and sagittal images were reformatted. Individualized dose optimization techniques were used for this CT. COMPARISON: Comparison is made with prior study dated 06/10/2019. FINDINGS: A right-sided portacatheter is seen with the tip in the superior vena cava. Stable calcified 7.3 mm granuloma in the lateral aspect of the posterior left upper lobe. There is no demonstrated pleural abnormality. Normal heart and pericardium. Soft tissue prominence persists from the level of the alexx inferiorly surrounding the posterior mediastinum and medial aspect of the aorta. This is essentially unchanged. Normal hilar regions. Normal enhanced pulmonary arteries. There is atherosclerotic calcification of the aortic arch with tortuosity and elongation of the aortic arch and descending thoracic aorta. There are multi-level degenerative changes of the thoracic spine. There is no demonstrated abnormality of the visualized upper abdomen. CT/Chest WITH Contrast IMPRESSION: Stable examination. Electronically Signed: Satnam Kowalski, at 10:38 EDT , Service support ,
--- NOTE | 2020-03-14 07:43 | CT_ITS ---
STUDY: CT ABDOMEN AND PELVIS WITH CONTRAST REASON FOR EXAM: Female, 59 years old. RESPONSE TO TREATMENT, NHL, LYMPH NODE REMOVED FROM LT SIDE OF NECK RADIATION DOSAGE (If Supplied By Facility): CTDIvol = ( 9.59 ) mGy, DLP = ( 313980 ) mGycm TECHNIQUE: Transaxial images were obtained from the dome of the diaphragm to the symphysis pubis without oral contrast. IV 100mL Isovue-300 was administered. Sagittal and coronal images were reconstructed. Individualized dose optimization techniques were used for this CT. COMPARISON: Comparison is made with prior study dated 06/10/2019. FINDINGS: The visualized lung bases are unremarkable. The visualized portions of the heart are within normal limits. Normal liver. Normal gallbladder and extrahepatic biliary system. Normal spleen. Normal pancreas. There is a small, circumscribed, smooth, low attenuation left adrenal mass, consistent with an adrenal adenoma. This measures 1.4 cm. Normal right adrenal gland. Stable subcentimeter cysts in the right kidney. Stable 2.1 mm nonobstructive calculus in the lower pole calyx of the right kidney. Stable 1.6 cm cyst in the midportion of the left kidney. Stable 2.1 mm nonobstructive calculus in the upper pole of the left kidney. There is evidence of a 6.1 mm calculus in the left renal pelvis causing a mild degree of the left hydronephrosis. Normal visualized stomach. Normal small intestine. Normal colon. The appendix is visualized and appears normal. Normal abdominal aorta. Normal inferior vena cava. Normal retroperitoneum. Normal urinary bladder. Normal abdominal wall. There are diffuse degenerative changes of the visualized lumbar spine. CT/Abdomen/Pelvis W IV Cont ONLY IMPRESSION: Stable examination except for a 6.1 mm calculus in the left renal pelvis causing mild degree of left hydronephrosis. Electronically Signed: Satnam Kowalski, at 10:36 EDT , Service support ,
[2020-03-14 07:56] LABS: CREATININE FINGERSTICK 0.6 mg/dL (0.55-1.02); EGFR FINGERSTICK > 60.0000 mL/min (>60)
[2020-03-14] MEDS: 0.9% Saline Lock 10 ML Syringe IV (08:14)
== END ==
LOC: CT 07:43 → ONC 03-21 09:50
PROVIDERS: PCP Family Medicine; Referring Provider Internal Medicine Hematology & Oncology; Visit Provider Internal Medicine Hematology & Oncology
DX: C82.90 Follicular lymphoma, unspecified, unspecified site (principal)
CPT/HCPCS: 70491; 71260; 74177; Q9967; A4216

== ENCOUNTER 2020-04-08 09:45 | Day surgery (SDC) | payer BC, SELFPAY ==
[2020-03-21 09:21] VITALS: BMI 24.1
--- NOTE | 2020-04-08 09:45 | RAD_ITS ---
STUDY: X-RAY - ABDOMEN/PELVIS REASON FOR EXAM: Female, 60 years old. Preop left kidney stone, also has a right kidney stone. TECHNIQUE: Single AP view of the abdomen / pelvis. COMPARISON: None. FINDINGS: Elevation of the right hemidiaphragm. The lungs are clear. There is a moderate amount of colonic fecal material. The visualized liver, spleen and kidneys are grossly normal in size and morphology. Normal soft tissue structures. There are diffuse degenerative changes of the visualized lumbar spine. RAD/Abdomen Single View IMPRESSION: Moderate amount of fecal material is seen in the colon. Electronically Signed: Satnam Kowalski, at 12:40 EDT , Service support ,
[2020-04-08 10:15] VITALS: BP 127/73; PULSE 93; RESP 15; TEMP 37.1; O2SAT 97; BMI 23.6
[2020-04-08] MEDS: Lactated Ringers 1,000 ML 100 ML IV (10:32)
[2020-04-08] MEDS: Cefazolin 2 GM in 0.9% Normal Saline 100 ML IV (11:46)
--- NOTE | 2020-04-08 11:57 | PCM.DC.URO ---
Discharge Diet: Light diet - advance as tolerated Discharge Activity: May not drive while taking narcotic pain medications. Instructions: Shock Wave Lithotripsy Allergies/Adverse Reactions: Allergies JAILYN Inhibitors Adverse Reaction (Intermediate, Verified 04/08/20 10:14) Other COUGHING barium sulfate Adverse Reaction (Intermediate, Verified 04/08/20 10:14) Hives guaifenesin [From Mucinex] Adverse Reaction (Intermediate, Verified 04/08/20 10:14) Hives Penicillins Adverse Reaction (Intermediate, Verified 04/08/20 10:14) Unknown Medications to take at Discharge Valsartan [Diovan] 80 mg PO DAILY 11/01/13 Cholecalciferol (Vitamin D3) [Vitamin D3] 5,000 unit PO DAILY 03/03/18 Acyclovir [Zovirax] 400 mg PO BID #60 tab 03/19/19 Smz/Tmp Ds [Bactrim Ds] 1 tab PO MOWEFR 03/30/20 Ciprofloxacin [Cipro] 500 mg PO BID #6 tab 04/08/20 Hydrocodone/Acetaminophen [[place] 5-325 Tablet] 1 each PO Q4H PRN PRN 5 Days #14 tablet 04/08/20 The following prescriptions were given: Ciprofloxacin [Cipro] 500 mg PO BID #6 tab Transmission Status: Pending to [id number] Hydrocodone/Acetaminophen [[place] 5-325 Tablet] 1 each PO Q4H PRN PRN 5 Days #14 tablet PRN Reason: Pain Score 1-10/10 Transmission Status: Received by [id number] Orders to be completed after discharge: Abdomen Single View [RAD] Time Frame: 04/08/20, Facility: [facility], Location: [facility] Primary Care Physician: Cara Stephens DO [Primary Care Provider] - Test Results: Test results from this visit will be discussed in further detail at your follow-up appointment, if applicable. Please Follow Up With: Paul Alfred MD When: please call to make an appointment.
--- NOTE | 2020-04-08 11:58 | PCM.HP.STD ---
History of Present Illness Date of Admission: 04/08/20 Chief Complaint: Left renal calculi The patient is a 60 year old female with a stone in the left renal pelvis today plan to proceed with shockwave lithotripsy possible stent placement Past Medical History Past Medical History (Chronic Problems): Chronic Problems (Last Reviewed 03/21/20 @ 09:20 by Zena Salgado) Follicular lymphoma (Chronic) Medical History: Medical History (Last Reviewed 03/21/20 @ 09:20 by Zena Salgado) Follicular lymphoma C82.90 GERD (gastroesophageal reflux disease) K21.9 acid reflux Iron deficiency anemia D50.9 Kidney stone N20.0 Neck mass R22.1 neck pain Hypertension I10 Allergies JAILYN Inhibitors Adverse Reaction (Intermediate, Verified 04/08/20 10:14) Other COUGHING barium sulfate Adverse Reaction (Intermediate, Verified 04/08/20 10:14) Hives guaifenesin [From Mucinex] Adverse Reaction (Intermediate, Verified 04/08/20 10:14) Hives Penicillins Adverse Reaction (Intermediate, Verified 04/08/20 10:14) Unknown Home Medications: Ambulatory Orders Medication Instructions Recorded Valsartan [Diovan] 80 mg PO DAILY 11/01/13 Cholecalciferol (Vitamin D3) 5,000 unit PO DAILY 03/03/18 [Vitamin D3] Acyclovir [Zovirax] 400 mg PO BID #60 tab 03/19/19 Smz/Tmp Ds [Bactrim Ds] 1 tab PO MOWEFR 03/30/20 Ciprofloxacin [Cipro] 500 mg PO BID #6 tab 04/08/20 Hydrocodone/Acetaminophen [[place] 1 each PO Q4H PRN PRN 5 Days #14 04/08/20 5-325 Tablet] tablet Surgical History: Surgical History (Last Reviewed 03/21/20 @ 09:20 by Zena Salgado) ORAL SURGERY PROCEDURE SHOULDER JOINT SURGERY s/p port placement Onset Date: ~03/18/19 Surgical History: no surgical history Smoking Status: Never smoker Tobacco Use: Non-smoker Review of Systems Constitutional: Denies: Chills, Fever, Weight Change HEENT: Denies: Head Aches, Sinus Congestion, Sinus Drainage Cardiovascular: Denies: Chest Pain, Palpitations Respiratory: Denies: Cough, Shortness of breath at rest, Sputum production Gastrointestinal: Denies: Abdominal Pain, Nausea, Vomiting Genitourinary: Denies: Dysuria Musculoskeletal: Denies: Joint Pain, Joint Tenderness Skin: Denies: Rash, Wounds Neurological: Denies: Numbness, Tingling, Focal weakness Psychiatric: Denies: Anxiety, Depression, Homicidal Ideations, Suicidal Ideations Hematologic/ Lymphatic: Denies: Easy Bruising, Easy Bleeding VTE Information - Inpt Only VTE Present on Admission: No - Physical Exam Vitals/I&O's: Vital Signs Temp Pulse Resp BP Pulse Ox 98.8 F 93 15 127/73 H 97 04/08/20 10:15 04/08/20 10:15 04/08/20 10:15 04/08/20 10:15 04/08/20 10:15 Oxygen Delivery Method Room Air Weight: 62.4 kg Body Mass Index (BMI) 23.6 General: Alert, Oriented x3, Cooperative HEENT: Atraumatic, PERRLA, EOMI, Normocephalic Neck: Supple, No JVD, Negative Carotid Bruits Lungs: Clear to auscultation, Normal air movement Cardiovascular: Regular rate, No murmurs Abdomen: Bowel Sounds Present, Soft, Non Tender Extremities: No edema, Capillary Refill Less than 3 Seconds Skin: No rashes, No breakdown Musculoskeletal: No Tenderness to Palpation of Joints or Extremities Neurological: Cranial nerves II-XII grossly intact Psych/Mental Status: Normal Affect, Appropriate Current Medications Cefazolin Sodium 2 gm/ Sodium (Chloride) 110 mls @ 150 mls/hr IV PREOP ONE Stop: 04/08/20 14:58 Lactated Ringer's () 1,000 mls @ 100 mls/hr IV .Q10H KEISHA Last Admin: 04/08/20 10:32 Dose: 100 mls/hr Documented by: Assessment/Plan All Active Problems (Last Reviewed 03/21/20 @ 09:20 by Zena Salgado) Oral candidiasis (Resolved) Fatigue (Acute) Chemotherapy management, encounter for (Acute) Encounter for education (Acute) 60-year-old female plan to treat the left kidney stone with shockwave lithotripsy possible to place a stent.
--- NOTE | 2020-04-08 12:38 | PCM.OPRPT ---
Report of Operation Date of Procedure: 04/08/20 Pre-Operative Diagnosis: Left renal calculi Post-Operative Diagnosis: Same Surgery/Procedure Performed:: Left extracorporeal shockwave lithotripsy Description of Surgical Findings:: 60-year-old female taken back to the operating room at the smooth induction of general anesthesia she was placed supine on the lithotripter table we identified the stone in the left kidney using fluoroscopy and triangulation technique with saw the stone and then we placed the stone in the F2 focal point of the lithotripter. Proceeded with shockwave lithotripsy and delivered a total of 3000 shockwaves to the stone at a rate of 90/min power between 5 to 7 kV. At the end of the treatment cycle the stone it broken up really well tiny fragments could still be seen but very small so at this point decided not to leave a stent and will see if she can pass the stones fragments on her own she will be given pain medicine and instructions to push fluids and I can see her back in a few weeks with an x-ray. She was reversed from anesthesia and taken the PACU in good condition. Type of Anesthesia:: General Drains: none - Admit VTE Documentation VTE Present on Admission: No
[2020-04-08 12:42] VITALS: BP 127/73; BP 143/79; PULSE 70; RESP 16; TEMP 36.3; O2SAT 99
[2020-04-08 12:45] VITALS: BP 127/73; BP 135/76; PULSE 75; RESP 16; O2SAT 99
[2020-04-08 13:00] VITALS: BP 127/73; BP 131/79; PULSE 67; RESP 16; O2SAT 100
[2020-04-08 13:15] VITALS: BP 127/73; BP 140/72; PULSE 66; RESP 16; TEMP 36.5; O2SAT 100
[2020-04-08 14:30] VITALS: BP 127/73; BP 136/76; PULSE 68; RESP 16; TEMP 36.7; O2SAT 100
== END 2020-04-08 14:30 | disposition home or self-care (01) ==
LOC: SDC 09:45 → AC 09:48
PROVIDERS: Anesthesiology; PCP Family Medicine; Referring Provider Urology; Visit Provider Urology
PROC: (CPT 50590; principal; 2020-04-08 12:30)
DX: N20.0 Calculus of kidney (principal); Z11.59 Encounter for screening for other viral diseases; I10 Essential (primary) hypertension; K21.9 Gastro-esophageal reflux disease without esophagitis; D50.9 Iron deficiency anemia, unspecified; C82.90 Follicular lymphoma, unspecified, unspecified site; Z79.899 Other long term (current) drug therapy; Z87.442 Personal history of urinary calculi
CPT/HCPCS: 00872; 50590; 74018; 87635; 94799; J7120; A4216; J2405; U0003

== ENCOUNTER → 2020-04-28 14:07 | Outpatient (CLI) | payer BC, SELFPAY ==
[2020-04-08 10:15] VITALS: BMI 23.6
--- NOTE | 2020-04-28 14:12 | RAD_ITS ---
STUDY: X-RAY - ABDOMEN/PELVIS REASON FOR EXAM: Female, 60 years old. LEFT SIDE KIDNEY STONE, RECENT SURGERY TECHNIQUE: Single AP view of the abdomen / pelvis. COMPARISON: Comparison is made with prior examination dated 04/08/2020. FINDINGS: There is an abundance of fecal material throughout the colon. Findings suggestive of a 2.3 mm calculus in the lower pole calyx of the right kidney. Normal soft tissue structures. There are diffuse degenerative changes of the visualized lumbar spine. RAD/Abdomen Single View IMPRESSION: Findings suggestive of a 2.3 mm calculus in the lower pole calyx of the right kidney. Electronically Signed: Satnam Kowalski, at 15:38 EDT , Service support ,
== END ==
PROVIDERS: PCP Family Medicine; Referring Provider Urology; Visit Provider Urology
DX: N20.0 Calculus of kidney (principal)
CPT/HCPCS: 74018

== ENCOUNTER 2020-10-25 08:47 | Outpatient (RCR) | payer BC, SELFPAY ==
[2020-07-11 10:03] VITALS: BMI 25.2
[2020-10-25] MEDS: COVID-19 VACC, MRNA(PFIZER)/PF 30 MCG/0.3 ML SYRINGE IM (17:51)
[2020-11-15] MEDS: COVID-19 VACC, MRNA(PFIZER)/PF 30 MCG/0.3 ML SYRINGE IM (17:23)
== END 2020-10-25 23:59 ==
LOC: IMMUN 08:47
PROVIDERS: PCP Family Medicine; Visit Provider Family Medicine
DX: Z23 Encounter for immunization (principal)
CPT/HCPCS: 0001A; 0002A; 91300

== ENCOUNTER → 2021-05-08 09:36 | Outpatient (CLI) | payer BC, SELFPAY ==
--- NOTE | 2021-05-08 09:45 | RAD_ITS ---
STUDY: X-RAY - ABDOMEN/PELVIS REASON FOR EXAM: Female, 61 years old. CALCULUS OF KIDNEY TECHNIQUE: Single AP view of the abdomen / pelvis. COMPARISON: Comparison is made with prior study dated 04/28/2020. FINDINGS: There is an unremarkable bowel gas pattern. There is a 3.6 mm calcification overlying the lower pole calyx of the right kidney. Normal soft tissue structures. There are diffuse degenerative changes of the visualized lumbar spine. RAD/Abdomen Single View IMPRESSION: 3.6 mm calculus overlying the lower pole calyx of the right kidney. Electronically Signed: Satnam Kowalski MD at 12:51 EDT , Service support ,
== END ==
PROVIDERS: PCP Family Medicine; Referring Provider Urology; Visit Provider Urology
DX: N20.0 Calculus of kidney (principal)
CPT/HCPCS: 74018

== ENCOUNTER → 2021-05-26 06:21 | Outpatient (CLI) | payer BC, SELFPAY ==
[2021-05-26 07:56] LABS: Absolute Lymphocyte Count 0.89 X10^3/uL (0.83-4.51); Absolute Neutrophil Count 2.2 X10^3/uL (2.0-7.7); Basophil# 0.04 X10^3/uL; Basophil% 1.1 % (0-1); Eosinophil# 0.09 X10^3/uL; Eosinophils% 2.5 % (0-5); Hematocrit 41.1 % (37-47); Hemoglobin 13.9 g/dL (12.0-15.0); Lymphocyte # 0.89 X10^3/ul (0.83-4.51); Lymphocyte % 24.5 % (19-41); Mean Corp Hgb Conc 33.8 g/dL (32-36); Mean Corpuscular Hgb 32.6 pg (27.0-32.0); Mean Corpuscular Volume 96.3 fL (81-99); Mean Platelet Vol. 10.3 fl (6.2-12.0); NRBC Flagged by Analyzer 0 % (0-5); Neutrophil # 2.19 X10^3/uL (2.7-7.7); Neutrophil % 60.3 % (47-70); Platelet Count 216 K/mm3 (150-450); RBC Distribution Width CV 11.5 % (11.6-14.6); RBC Distribution Width SD 40.4 fl (35.1-43.9); Red Blood Count 4.27 M/mm3 (4.2-5.4); White Blood Count 3.6 K/mm3 (4.4-11.0)
[2021-05-26 08:23] LABS: ALB/GLOB Ratio 0.9 RATIO (0.9-2.4); AST(SGOT) 22 U/L (15-37); Alanine Aminotransfer ALT/SGPT 32 U/L (13-56); Albumin, Serum 3.5 g/dL (3.2-5.0); Alkaline Phosphatase 88 U/L (45-117); Anion Gap 2 (5-15); BUN 13 mg/dL (7-18); BUN/Creat Ratio 19.4 RATIO (10-20); Calcium,Total 9.3 mg/dL (8.5-10.1); Chloride 106 mmol/L (98-107); Cholesterol 220 mg/dL (200); Creatinine, Serum 0.67 mg/dL (0.55-1.02); EST Glomerular Filtration Rate 95 mL/min (>60); Est Glom Filt Rate - Afr Amer 115 mL/min (>60); Globulin 3.7 g/dL (2.2-4.2); Glucose 99 mg/dL (74-106); High Density Lipoprotein 73 mg/dL; Potassium 3.9 mmol/L (3.5-5.1); Protein, Total 7.2 g/dL (6.4-8.2); Sodium Level 139 mmol/L (136-145); Triglycerides 116 mg/dL; Very Low Density Lipoprotein 23 mg/dL (5-40)
== END ==
PROVIDERS: PCP Family Medicine; Referring Provider Family Medicine; Visit Provider Family Medicine
DX: Z00.00 Encounter for general adult medical examination without abnormal findings (principal); Z51.81 Encounter for therapeutic drug level monitoring
CPT/HCPCS: 36415; 80053; 80061; 85025

== ENCOUNTER → 2021-08-07 06:57 | Outpatient (CLI) | payer BC, SELFPAY ==
--- NOTE | 2021-08-07 06:59 | CT_ITS ---
INDICATION: F/U LYMPHOMA RESPONSE TO TREATMENT EXAMINATION: CT CHEST, ABDOMEN AND PELVIS WITH CONTRAST - CT Chest Abdomen And Pelvis W/ Contrast Injection TECHNIQUE: Helically acquired images were obtained of the chest, abdomen, and pelvis following IV contrast. CTA protocol with 3D reformats were performed. A radiation dose optimization technique was used for this scan. IV Contrast dosage and agent: 100 mL of ISOVUE-370. Oral contrast: None. COMPARISON: PET scan report dated 10/25/2020.. FINDINGS: CHEST: LUNGS, PLEURA AND LARGE AIRWAYS: A 1.1 cm subpleural calcified granulomas visualized in the superior segment of the left upper lobe. Otherwise no evidence of parenchymal lung masses is seen. The bronchovascular interstitial lung markings unremarkable, no evidence of infiltrate or consolidation. No evidence of pneumothorax or pleural effusion is seen. HEART AND PERICARDIUM: Heart size is normal. No pericardial effusion. VESSELS: Thoracic aorta is not dilated. No aortic dissection. No obvious central pulmonary embolism although this study was not performed with the pulmonary embolism protocol. MEDIASTINUM AND TRACEE: No mediastinal or hilar adenopathy. Esophagus is unremarkable. No hiatal hernia. BONES: No suspicious lytic or blastic abnormality. ABDOMEN/PELVIS: LIVER: Homogeneous. No focal mass. GALLBLADDER AND BILIARY TREE: No calcified gallstones. No gallbladder distension or wall edema. No intra- or extrahepatic biliary ductal dilation. PANCREAS: No focal cystic or solid mass. SPLEEN: Normal size without focal cystic or solid mass. ADRENAL GLANDS: No nodules. KIDNEYS AND URETERS: Normal renal size and position. No hydronephrosis. Multiple cysts visualized in bilateral kidneys, the largest of which is a 1.6 cm cortical cyst visualized in the lateral aspect of the left kidney. PERITONEUM: No ascites or free air. No other fluid collection. BOWEL: Stomach is unremarkable. The visualized small bowel loops are unremarkable. The appendix is visualized and is unremarkable. Abundance of stool is visualized in the large bowel. No stomach or bowel distension. No focal inflammatory change. LYMPH NODES: No enlarged mesenteric or retroperitoneal lymph nodes. VESSELS: Aorta is non-dilated. URINARY BLADDER: Unremarkable. REPRODUCTIVE ORGANS: Lobulations visualized in the fundus of the uterus suggestive of a fibroids Physicians calcified. ABDOMINAL WALL: No discrete abdominal or pelvic wall hernia. BONES: Degenerative bone changes visualized most prominent at the L4-L5. No lytic or blastic abnormality. CT/CT Chest, Abd, Pel w/Contrast IMPRESSION: Negative Contrast-enhanced CT of the Chest, Abdomen, and Pelvis. Electronically Signed: Mahin Dowd MD at 10:17 EST Tel , Service support ,
--- NOTE | 2021-08-07 06:59 | CT_ITS ---
INDICATION: F/U LYMPHOMA RESPONSE TO TREATMENT EXAMINATION: CT NECK WITH CONTRAST - CT Soft Tissue Neck W/ Contrast Injection TECHNIQUE: Helically acquired images were obtained of the neck following IV contrast. A radiation dose optimization technique was used for this scan. IV Contrast dosage and agent: COMPARISON: None. FINDINGS: NASOPHARYNX: Unremarkable. SUPRAHYOID NECK: Unremarkable oropharynx, oral cavity, parapharyngeal space, and retropharyngeal space. INFRAHYOID NECK: Unremarkable larynx, hypopharynx, and supraglottis. THYROID: No focal lesions. SALIVARY GLANDS: Unremarkable. LYMPH NODES: No cervical or supraclavicular lymphadenopathy. VASCULAR STRUCTURES: Unremarkable. VISUALIZED PORTIONS OF THE ORBITS, PARANASAL SINUSES, MASTOID AIR CELLS AND SKULL BASE: Unremarkable. BONES: Degenerative bone changes, multilevel degenerative disc osteophyte complex, uncovertebral disease and hypertrophic changes in the facet joints is visualized with narrowing of the spinal canal and neural foramina visualized most prominent at C5-C6, C4-C5 andC6-C7. THORACIC INLET: Clear lung apices. CT/Soft Tissue Neck WITH Contrast IMPRESSION: Negative CT Neck with contrast. Electronically Signed: Mahin Dowd MD at 10:05 EST Tel , Service support ,
[2021-08-07 07:30] LABS: CREATININE FINGERSTICK < 0.6 mg/dL (0.55-1.02); EGFR FINGERSTICK > 60.0000 mL/min (>60)
[2021-08-07] MEDS: 0.9% Saline Lock 10 ML Syringe IV (07:45)
== END ==
PROVIDERS: PCP Family Medicine; Referring Provider Internal Medicine Hematology & Oncology; Visit Provider Internal Medicine Hematology & Oncology
DX: C82.98 Follicular lymphoma, unspecified, lymph nodes of multiple sites (principal)
CPT/HCPCS: 70491; 71260; 74177; Q9967; A4216

== ENCOUNTER 2021-11-06 08:11 | Outpatient (CLI) | payer BC, SELFPAY ==
--- NOTE | 2021-11-06 08:12 | CT_ITS ---
STUDY: CT CHEST, ABDOMEN T PELVIS WITH CONTRAST REASON FOR EXAM: Female, 61 years old. Follow-up examination for non-Hodgkin''s lymphoma following chemotherapy and immunotherapy. RADIATION DOSAGE (If Supplied By Facility): CTDIvol = ( 10.08 ) mGy, DLP = ( 16924.78 ) mGycm TECHNIQUE: Transaxial imaging was performed following intravenous administration of IV 75mL Isovue-300. Individualized dose optimization techniques were used for this CT. COMPARISON: Comparison is made with prior examination of 08/07/2021. FINDINGS: A right-sided oscar catheter seen with the tip in the superior vena cava. CHEST Stable partially calcified 1.1 cm pleural-based nodule in the superior segment of the left lower lobe infiltrate with a calcifying granuloma. There is no demonstrated pleural abnormality. Normal heart and pericardium. Normal mediastinum. Normal hilar regions. Normal unenhanced pulmonary arteries. Normal aorta arch and descending thoracic aorta. There are multi-level degenerative changes of the thoracic spine. ABDOMEN Normal liver. Normal gallbladder and extrahepatic biliary system. Normal spleen. Normal pancreas. Normal bilateral adrenal glands. Normal right kidney. Stable 1.5 cm cyst in the lateral midpole of the left kidney. Normal visualized stomach. Normal small intestine. Normal colon. The appendix is visualized and appears normal. Normal abdominal aorta. Normal inferior vena cava. Normal retroperitoneum. Normal abdominal wall. PELVIS Normal urinary bladder. Findings suggestive of a focal fibroid in the fundal portion of the uterus. There is no pelvic fluid. There is no pelvic lymphadenopathy or mass lesion. Normal visualized pelvic arteries. Normal abdominal wall. There are degenerative changes of the visualized lumbar spine. CT/CT Chest, Abd, Pel w/Contrast IMPRESSION: Stable examination. Electronically Signed: Satnam Kowalski MD at 15:24 EDT ,
--- NOTE | 2021-11-06 08:12 | CT_ITS ---
STUDY: CT SOFT TISSUE NECK WITH CONTRAST REASON FOR EXAM: Female, 61 years old. Follow-up for non-Hodgkin''s lymphoma following chemotherapy and immunotherapy. RADIATION DOSAGE (If Supplied By Facility): CTDIvol = ( 10.08 ) mGy, DLP = ( 1289.78 ) mGycm TECHNIQUE: The patient was scanned in a multi-detector CT scanner. High resolution transaxial imaging was performed following intravenous administration of IV 75mL Isovue-300. Sagittal and coronal images were reconstructed. Individualized dose optimization techniques were used for this CT. COMPARISON: Comparison is made with prior examination of 08/07/2021. FINDINGS: A right-sided portacatheter is seen. There is atherosclerotic plaque calcification of the aortic arch. Normal bilateral parotid glands. Normal bilateral dirt contractor spaces. Normal bilateral parapharyngeal spaces. Normal bilateral carotid spaces. Normal bilateral sublingual and submandibular glands and spaces. Normal visualized nasopharynx. Normal retropharyngeal space. Normal perivertebral space. Normal visualized bilateral faucial tonsils. The visualized tongue, tongue base and oropharynx are normal. The visualized cervical lymph nodes (levels I-) are within normal size limits, and maintain normal morphology. There is no demonstrated solid or cystic mass lesion. There is no abnormal contrast enhancement. Normal epiglottis, bilateral vallecula and hypopharynx. The pre-epiglottic and paraglottic adipose spaces are normal. Normal visualized bilateral piriform sinuses, aryepiglottic folds, vocal cords, and arytenoid-cricoid articulations. Normal subglottic trachea. Normal bilateral lobes of the thyroid gland. Normal visualized pulmonary apices. Normal visualized paranasal sinuses. There is multilevel degenerative changes of the cervical spine. CT/Soft Tissue Neck WITH Contrast IMPRESSION: Stable examination. No acute abnormality is seen. Electronically Signed: Satnam Kowalski MD at 15:27 EDT ,
[2021-11-06 08:26] LABS: CREATININE FINGERSTICK 0.7 mg/dL (0.55-1.02); EGFR FINGERSTICK > 60.0000 mL/min (>60)
[2021-11-06] MEDS: 0.9% Saline Lock 10 ML Syringe IV (08:40)
[2021-11-06 08:54] LABS: Absolute Lymphocyte Count 1.06 X10^3/uL (0.83-4.51); Absolute Neutrophil Count 1.9 X10^3/uL (2.0-7.7); Basophil# 0.04 X10^3/uL; Basophil% 1.1 % (0-1); Eosinophil# 0.06 X10^3/uL; Eosinophils% 1.7 % (0-5); Hemoglobin 15.2 g/dL (12.0-15.0); Lymphocyte # 1.06 X10^3/ul (0.83-4.51); Lymphocyte % 29.9 % (19-41); Mean Corp Hgb Conc 36.2 g/dL (32-36); Mean Corpuscular Hgb 33.5 pg (27.0-32.0); Mean Corpuscular Volume 92.5 fL (81-99); Mean Platelet Vol. 10.3 fl (6.2-12.0); Monocyte# 0.45 X10^3/uL; Monocyte% 12.7 % (0-10); NRBC Flagged by Analyzer 0 % (0-5); Neutrophil # 1.93 X10^3/uL (2.7-7.7); Neutrophil % 54.3 % (47-70); Platelet Count 203 K/mm3 (150-450); RBC Distribution Width CV 11.2 % (11.6-14.6); RBC Distribution Width SD 38.3 fl (35.1-43.9); Red Blood Count 4.54 M/mm3 (4.2-5.4); White Blood Count 3.6 K/mm3 (4.4-11.0)
[2021-11-06 09:12] LABS: ALB/GLOB Ratio 1.1 RATIO (0.9-2.4); AST(SGOT) 18 U/L (15-37); Alanine Aminotransfer ALT/SGPT 24 U/L (13-56); Albumin, Serum 3.8 g/dL (3.2-5.0); Alkaline Phosphatase 82 U/L (45-117); Anion Gap 5 (5-15); BUN 10 mg/dL (7-18); BUN/Creat Ratio 14.9 RATIO (10-20); Calcium,Total 9.3 mg/dL (8.5-10.1); Chloride 105 mmol/L (98-107); Creatinine, Serum 0.67 mg/dL (0.55-1.02); EST Glomerular Filtration Rate 95 mL/min (>60); Est Glom Filt Rate - Afr Amer 115 mL/min (>60); Globulin 3.4 g/dL (2.2-4.2); Glucose 106 mg/dL (74-106); LDH 146 U/L (84-246); Potassium 3.8 mmol/L (3.5-5.1); Protein, Total 7.2 g/dL (6.4-8.2); Sodium Level 140 mmol/L (136-145)
== END 2021-11-06 23:59 | disposition home or self-care (01) ==
LOC: CT 08:11
PROVIDERS: PCP Family Medicine; Referring Provider Internal Medicine Hematology & Oncology; Visit Provider Internal Medicine Hematology & Oncology
DX: C82.98 Follicular lymphoma, unspecified, lymph nodes of multiple sites (principal)
CPT/HCPCS: 70491; 71260; 74177; 80053; 83615; 85025; Q9967; A4216

== ENCOUNTER → 2022-05-10 | Outpatient (CLI) | payer BC, SELFPAY ==
--- NOTE | 2022-05-10 06:49 | CT_ITS ---
EXAM: CT CHEST, ABDOMEN AND PELVIS WITH INTRAVENOUS CONTRAST CLINICAL INDICATION: F/U LYMPHOMA TECHNIQUE: Helically acquired images were obtained of the chest, abdomen and pelvis with intravenous contrast. This CT exam was performed using one or more of the following dose reduction techniques: automated exposure control, adjustment of the mA and/or kV according to patient size, and/or use of iterative reconstruction technique. This report was created using [employer] report generation technology. CONTRAST: IV 100mL Isovue-370 COMPARISON: CT Chest Abdomen Pelvis dated 11/06/2021 FINDINGS: CHEST: LUNGS AND PLEURAL SPACES: Calcified nodule within the superior segment of the left lower lobe again noted. Lungs are otherwise clear. No pleural effusion or thickening. No pneumothorax. HEART: Normal. Heart size is normal. No pericardial effusion. MEDIASTINUM: Normal. No mediastinal or hilar adenopathy. Esophagus is unremarkable. No hiatal hernia. THYROID: Normal. No thyroid lesions. ABDOMEN: LIVER: Normal. Homogeneous. No focal mass. GALLBLADDER AND BILE DUCTS: Normal. No calcified gallstones. No gallbladder distention or wall edema. No intra- or extrahepatic biliary ductal dilation. PANCREAS: Normal. No focal cystic or solid mass. SPLEEN: Normal. Normal size without focal cystic or solid mass. ADRENALS: Normal. No nodules. KIDNEYS AND URETERS: Stable bilateral renal cysts. Normal renal size and position. No hydronephrosis. STOMACH AND BOWEL: Normal. No bowel obstruction or ileus. No focal inflammatory change. PELVIS: APPENDIX: Appendix is visualized and normal in appearance. BLADDER: Normal. REPRODUCTIVE: Unremarkable as visualized. No mass. CHEST, ABDOMEN and PELVIS: INTRAPERITONEAL SPACE: Normal. No ascites or other fluid collection. No free air. BONES/JOINTS: Normal. No suspicious lytic or blastic abnormality. SOFT TISSUES: Normal. No discrete abdominal or pelvic wall hernia. VASCULATURE: Normal. Aorta is non-dilated. No aortic dissection. No obvious central pulmonary embolism although this study was not performed with the pulmonary embolism protocol. LYMPH NODES: Normal. No enlarged lymph nodes. TUBES, LINES AND DEVICES: Right IJ infusion catheter tip remains within the right atrium. CT/CT Chest, Abd, Pel w/Contrast IMPRESSION: 1. No acute abnormality. 2. No evidence of lymphadenopathy within the chest, abdomen and pelvis. 3. No interval change. Electronically Signed: Kun Link MD at 8:21 EDT ,
--- NOTE | 2022-05-10 06:49 | CT_ITS ---
EXAM: CT NECK WITH INTRAVENOUS CONTRAST CLINICAL INDICATION: F/U LYMPHOMA TECHNIQUE: Helically acquired images were obtained of the neck with intravenous contrast. This CT exam was performed using one or more of the following dose reduction techniques: automated exposure control, adjustment of the mA and/or kV according to patient size, and/or use of iterative reconstruction technique. This report was created using [employer] report [employer] technology. CONTRAST: IV 100mL Isovue-370 COMPARISON: November 06, 2021. FINDINGS: NASOPHARYNX: Normal. SUPRAHYOID NECK: Normal. Oropharynx, oral cavity, parapharyngeal space and retropharyngeal space are unremarkable. INFRAHYOID NECK: Normal. The larynx, hypopharynx and supraglottis are unremarkable. SUBMANDIBULAR/PAROTID GLANDS: Normal. Glands are normal in size. THYROID: Normal. No enlarged or calcified nodules. SINUSES: Mucosal thickening of the paranasal sinuses noted. BONES/JOINTS: No acute fracture. SOFT TISSUES: Normal. VASCULATURE: No acute findings. LYMPH NODES: No cervical lymphadenopathy. LUNG APICES: Unremarkable as visualized. TUBES, LINES AND DEVICES: Right IJ infusion catheter extends into the superior vena cava. CT/Soft Tissue Neck WITH Contrast IMPRESSION: No evidence of cervical lymphadenopathy. Electronically Signed: Kun Link MD at 7:58 EDT ,
[2022-05-10] MEDS: 0.9% Saline Lock 10 ML Syringe IV (07:25)
[2022-05-10 07:29] LABS: Absolute Lymphocyte Count 0.93 X10^3/uL (0.83-4.51); Basophil# 0.01 X10^3/uL; Basophil% 0.3 % (0-1); Eosinophil# 0.07 X10^3/uL; Hematocrit 36.2 % (37-47); Hemoglobin 12.5 g/dL (12.0-15.0); Lymphocyte # 0.93 X10^3/ul (0.83-4.51); Mean Corp Hgb Conc 34.5 g/dL (32-36); Mean Corpuscular Hgb 32.1 pg (27.0-32.0); Mean Corpuscular Volume 92.8 fL (81-99); Monocyte# 0.48 X10^3/uL; Monocyte% 13.9 % (0-10); NRBC Flagged by Analyzer 0 % (0-5); Neutrophil # 1.95 X10^3/uL (2.7-7.7); Neutrophil % 56.5 % (47-70); Platelet Count 176 K/mm3 (150-450); RBC Distribution Width CV 11.5 % (11.6-14.6); RBC Distribution Width SD 38.9 fl (35.1-43.9); White Blood Count 3.5 K/mm3 (4.4-11.0)
[2022-05-10 07:30] LABS: CREATININE FINGERSTICK < 0.9 mg/dL (0.55-1.02); EGFR FINGERSTICK > 60.0000 mL/min (>60)
[2022-05-10 07:45] LABS: AST(SGOT) 14 U/L (15-37); Alanine Aminotransfer ALT/SGPT 22 U/L (13-56); Albumin, Serum 2.9 g/dL (3.2-5.0); Alkaline Phosphatase 64 U/L (45-117); Anion Gap 7 (5-15); BUN 13 mg/dL (7-18); BUN/Creat Ratio 20.6 RATIO (10-20); Calcium,Total 8.1 mg/dL (8.5-10.1); Chloride 101 mmol/L (98-107); Creatinine, Serum 0.63 mg/dL (0.55-1.02); EST Glomerular Filtration Rate 102 mL/min (>60); Est Glom Filt Rate - Afr Amer 123 mL/min (>60); Glucose 106 mg/dL (74-106); LDH 121 U/L (84-246); Potassium 3.5 mmol/L (3.5-5.1); Protein, Total 5.9 g/dL (6.4-8.2); Sodium Level 135 mmol/L (136-145)
== END | disposition home or self-care (01) ==
LOC: CT 06:47
PROVIDERS: PCP Family Medicine; Referring Provider Internal Medicine Hematology & Oncology; Visit Provider Internal Medicine Hematology & Oncology
DX: C82.90 Follicular lymphoma, unspecified, unspecified site (principal)
CPT/HCPCS: 70491; 71260; 74177; 80053; 83615; 85025; Q9967; A4216

== ENCOUNTER 2022-05-25 03:01 | Emergency (ER) | payer BC, SELFPAY ==
[2022-05-25 03:02] VITALS: BP 161/79; PULSE 87; RESP 15; TEMP 36.3; O2SAT 99; BMI 25.7
[2022-05-25 03:04] VITALS: BP 161/79; PULSE 87; RESP 15; TEMP 36.3; O2SAT 99
[2022-05-25 03:05] VITALS: O2SAT 99
--- NOTE | 2022-05-25 03:16 | CT_ITS ---
EXAM: CT ANGIOGRAPHY CHEST WITHOUT AND WITH INTRAVENOUS CONTRAST CLINICAL INDICATION: sob . History of recent Covid infection and lymphoma. TECHNIQUE: Helically acquired angiography images were obtained of the chest without and with intravenous contrast. This CT exam was performed using one or more of the following dose reduction techniques: automated exposure control, adjustment of the mA and/or kV according to patient size, and/or use of iterative reconstruction technique. This report was created using [employer] report generation technology. MIP reconstructed images were created and reviewed. RADIATION DOSE: CTDIvol = 11.34 mGy, DLP = 362.82 mGy-cmContrast: IV 75mL Isovue-370 COMPARISON: Oldest CT of chest with contrast June 10, 2019. August 07, 2021, May 10, 2022. FINDINGS: PULMONARY ARTERIES: Unremarkable. Normal in caliber. No evidence of pulmonary embolism. AORTA: Unremarkable. Normal in caliber. No evidence of dissection. GREAT VESSELS OF AORTIC ARCH: Unremarkable. Normal in caliber. No evidence of dissection. LUNGS AND PLEURAL SPACES: There is a mild increased rim of soft tissue density around prominent calcified granuloma in the superior segment of the left lower lobe, overall size 1.5 cm x 1.3 cm. It is unchanged from last month. Similar small band of linear atelectasis or scarring medial to the nodule.. No infiltrates, new nodules or effusions. No pneumothorax. HEART: Unremarkable. Heart size is normal. No pericardial effusion. No signs of right heart strain, ratio of right ventricle to left ventricle measures less than 1. MEDIASTINUM: Slight fluid in the superior pericardial recesses, no mediastinal or hilar adenopathy. Esophagus is unremarkable. No hiatal hernia. THYROID: Unremarkable. No thyroid lesions. BONES/JOINTS: Postoperative change of the left humeral head. No suspicious lytic or blastic abnormality. LYMPH NODES: Stable upper abdomen. No evidence of adenopathy or suspicious organ lesion. CT/CTA Chest W/WO Contrast IMPRESSION: Stable chest. No PE or aortic aneurysm or dissection. Similar centrally calcified nodule in the left lung. [id number] catheter. No significant infiltrates or effusions. Electronically Signed: Yas Woods MD at 4:38 EDT ,
--- NOTE | 2022-05-25 03:17 | EKG12_ITS ---
Test Reason : SOB Blood Pressure : / mmHG Vent. Rate : 080 BPM Atrial Rate : 080 BPM P-R Int : 164 ms QRS Dur : 082 ms QT Int : 354 ms P-R-T Axes : 068 043 030 degrees QTc Int : 408 ms Sinus rhythm with occasional Premature ventricular complexes Otherwise normal ECG Confirmed by GERBER CASTILLO, GORDON ([id number]), slot editor KAT MUNGUIA ([id number]) on 05/28/2022 10:10:41 AM Referred By: Confirmed By:DALE MAYES MD
--- NOTE | 2022-05-25 03:18 | EX.ED.DYSGE1 ---
HPI History of Present Illness Chief Complaint: Shortness of Breath Informant: patient Onset/Context/Timing Onset: Yesterday Context: Gradual Onset Current Severity: Mild Maximum Severity: Moderate Narrative Narrative: Patient presents secondary to shortness of breath, cough, congestion. She was diagnosed with COVID on May 06. She states she was pretty well over that infection and tested negative a week and a half ago. Last evening she started to get head congestion with cough. She woke from sleep with difficulty breathing. She denies fever. No chest pain. [facility] Medical History COVID Follicular lymphoma GERD (gastroesophageal reflux disease) Hypertension Iron deficiency anemia Kidney stone Neck mass Home Medications valsartan 160 mg tablet 80 mg PO DAILY 11/01/13 [History Last Taken 04/08/20 06:30] cholecalciferol (vitamin D3) 125 mcg (5,000 unit) capsule 5,000 unit PO DAILY 03/03/18 [History Last Taken Unknown] sulfamethoxazole 800 mg-trimethoprim 160 mg tablet 1 tab PO MOWEFR #24 tabs 06/28/21 [Rx Last Taken Unknown] acyclovir 400 mg tablet 400 mg PO BID 30 days #60 tabs 09/20/21 [Rx Last Taken Unknown] Allergy/AdvReac Type Severity Reaction Status Date / Time JAILYN Inhibitors AdvReac Intermediate Other Verified 05/25/22 03:02 barium sulfate AdvReac Intermediate Hives Verified 05/25/22 03:02 guaifenesin [From Mucinex] AdvReac Intermediate Hives Verified 05/25/22 03:02 Penicillins AdvReac Intermediate Unknown Verified 05/25/22 03:02 Family History Father Bladder cancer Grandmother Diabetes Sister CAD (coronary artery disease) Mother Hypertension CAD (coronary artery disease) Surgical History ORAL SURGERY PROCEDURE s/p port placement (~03/18/19) SHOULDER JOINT SURGERY Status post laser lithotripsy of ureteral calculus (~03/28/20) Social History Smoking Status: Never smoker second hand exposure: No details: OCCASIONALLY substance use type: does not use diet: Weight Watchers caffeine: Yes Type: coffee Number of servings: 3 frequency: 1-2 times per week duration: 15-30 minutes/day seatbelt use: always do you feel safe at home: Yes ROS ROS ED Constitutional Constitutional ED: Denies chills or fever(s) Eyes Eyes: Denies change in vision or discharge from eye(s) ENT ENT ED: Reports other Details: Congestion ; Denies discharge from eye(s), rhinorrhea or sore throat Cardiovascular Cardiovascular: Denies chest pain or palpitations Respiratory/Chest Respiratory/Chest: Reports cough and dyspnea Gastrointestinal Gastrointestinal: Denies abdominal pain, diarrhea, nausea or vomiting Genitourinary Genitourinary ED: Denies difficulty urinating or dysuria Musculoskeletal Musculoskeletal: Denies back pain or extremity pain Integumentary Denies Abrasions or rash Neurologic Neurologic: Denies headache(s) or weakness Psychiatric Psychiatric: Denies anxiety or depression Allergic/Immunologic Allergic/Immunologic ED: Denies lip swelling or urticaria EXAM Physical Exam Const Vital Signs: 05/25/22 03:02 05/25/22 03:04 05/25/22 03:05 Temperature 97.4 F L 97.4 F L Temperature Source Temporal Temporal Pulse Rate 87 87 Respiratory Rate 15 15 Respiratory Effort Normal Non-Labored Respiratory Depth Normal Respiratory Pattern Normal Blood Pressure 161/79 H 161/79 H Blood Pressure Mean 106 106 Pulse Ox 99 99 Oxygen Delivery Method Room Air Room Air Room Air 05/25/22 03:45 Temperature Temperature Source Pulse Rate 81 Respiratory Rate Respiratory Effort Respiratory Depth Respiratory Pattern Blood Pressure Blood Pressure Mean Pulse Ox Oxygen Delivery Method Positive well nourished and well developed General Appearance ED: well developed HEENT Reports normocephalic and head/scalp atraumatic Eyes PERRL and EOMs intact bilaterally Neck supple Chest Wall inspection of chest normal and palpation of chest normal Resp normal respiratory effort and clear to auscultation bilaterally Cardio regular rate and regular rhythm GI normal to inspection, nondistended, normoactive bowel sounds Palpation: soft Back/Spine no CVA tenderness Extremity normal to inspection Neuro oriented x3 and no sensory deficits noted Sensorium / Orientation: alert Motor Exam: strength 5/5 throughout Psych mental status grossly normal Skin no rashes or lesions noted MDM MDM MDM Narrative Medical decision making narrative: Patient placed on wood planer. EKG and lab work obtained. CTA of the chest ordered given her symptomatology, recent COVID, lymphoma history. Lab Data Attestation: I reviewed the patient's lab results. Labs: Laboratory Results - last 24 hr 05/25/22 05/25/22 03:36 03:36 WBC 7.8 RBC 4.32 Hgb 14.0 Hct 40.7 MCV 94.2 MCH 32.4 H MCHC 34.4 RDW Std Deviation 40.0 RDW Coeff of Taras 11.6 Plt Count 195 MPV 9.9 Immature Gran % (Auto) 0.500 Neut % (Auto) 78.2 H Lymph % (Auto) 11.4 L [place] % (Auto) 8.0 Eos % (Auto) 1.3 Baso % (Auto) 0.6 Absolute Neuts (auto) 6.1 Absolute Lymphs (auto) 0.89 Nucleated RBC % 0 Sodium 142 Potassium 3.9 Chloride 108 H Carbon Dioxide 27.0 Anion Gap 7 BUN 12 Creatinine 0.63 Estim Creat Clear Calc 80.98 Est GFR (MDRD) Af Amer 123 Est GFR (MDRD) Non-Af 102 BUN/Creatinine Ratio 19.0 Glucose 113 H Calcium 9.4 Troponin I High Sens 5 Radiography Diagnostic Testing: Clinical Impression(s) from Imaging Studies Chest CTA 05/25/22 03:16 IMPRESSION: Stable chest. No PE or aortic aneurysm or dissection. Similar centrally calcified nodule in the left lung. [id number] catheter. No significant infiltrates or effusions. Electronically Signed: Yas Woods MD at 4:38 EDT , EKG Initial EKG: Attestation: I personally reviewed and interpreted this EKG as follows: Interpretation: Sinus Rhythm (Sinus at 80 bpm with PVC noted. No acute ischemia.) Treatment and Re-Evaluation Narrative: On repeat evaluation patient resting back in the bed more comfortably. Test results discussed with patient and spouse at bedside. EKG reveals no ischemia. Lab work unremarkable with normal troponin. CTA of the chest reveals no evidence of PE, infiltrate, or pericardial effusion. Patient is reassured with these findings. I will give her a dose of Afrin here to help dry up the head congestion. She will continue her Claritin at home. Return instructions provided. Discharge Plan Triage Chief Complaint: Shortness of Breath ED Provider: Susan Alvarez Dx/Rx/DC Orders Clinical Impression: Dyspnea, URI (upper respiratory infection) Instructions: ED Dyspnea, ED URI, Viral, No Abx (Adult) Prescriptions: No Action valsartan 160 MG tablet 80 mg PO DAILY Label Comments: TAKE 1 TABLET BY MOUTH ONCE DAILY cholecalciferol (vitamin D3) 5,000 UNIT capsule 5,000 unit PO DAILY sulfamethoxazole-trimethoprim 800-160 mg tablet 1 tab PO MOWEFR Qty: 24 3RF Rx Instructions: Take 1 tablet on Mondays, Wednesdays, and Fridays starting March 30, 2019 until instructed to stop acyclovir 400 mg tablet 400 mg PO BID 30 Days Qty: 60 3RF Primary Care Provider: Cara Stephens Referrals: Cara Stephens DO [Primary Care Provider] - 1 Week if not improving Disposition Disposition: Home, Self Care
[2022-05-25 03:40] LABS: Absolute Lymphocyte Count 0.89 X10^3/uL (0.83-4.51); Absolute Neutrophil Count 6.1 X10^3/uL (2.0-7.7); Basophil# 0.05 X10^3/uL; Basophil% 0.6 % (0-1); Eosinophils% 1.3 % (0-5); Hematocrit 40.7 % (37-47); Lymphocyte # 0.89 X10^3/ul (0.83-4.51); Lymphocyte % 11.4 % (19-41); Mean Corp Hgb Conc 34.4 g/dL (32-36); Mean Corpuscular Hgb 32.4 pg (27.0-32.0); Mean Corpuscular Volume 94.2 fL (81-99); Mean Platelet Vol. 9.9 fl (6.2-12.0); Monocyte# 0.62 X10^3/uL; NRBC Flagged by Analyzer 0 % (0-5); Neutrophil # 6.09 X10^3/uL (2.7-7.7); Neutrophil % 78.2 % (47-70); Platelet Count 195 K/mm3 (150-450); RBC Distribution Width CV 11.6 % (11.6-14.6); Red Blood Count 4.32 M/mm3 (4.2-5.4); White Blood Count 7.8 K/mm3 (4.4-11.0)
[2022-05-25 03:45] VITALS: PULSE 81
[2022-05-25 04:02] LABS: Anion Gap 7 (5-15); BUN 12 mg/dL (7-18); Calcium,Total 9.4 mg/dL (8.5-10.1); Chloride 108 mmol/L (98-107); Creatinine, Serum 0.63 mg/dL (0.55-1.02); EST Glomerular Filtration Rate 102 mL/min (>60); Est Glom Filt Rate - Afr Amer 123 mL/min (>60); Estimated Creatinine Clearance 80.98 ml/min; Glucose 113 mg/dL (74-106); Potassium 3.9 mmol/L (3.5-5.1); Sodium Level 142 mmol/L (136-145); Troponin-I HS 5 pg/mL (3.0-54.0)
[2022-05-25] MEDS: Oxymetazoline 0.05% 1 SPRAY SPRAY.BTL NASAL (04:51)
[2022-05-25 04:58] VITALS: BP 124/77; PULSE 89; RESP 18; O2SAT 97
== END 2022-05-25 05:00 | disposition home or self-care (01) ==
PROVIDERS: Emergency Provider Emergency Medicine; PCP Family Medicine; Visit Provider Emergency Medicine
DX: R06.00 Dyspnea, unspecified (principal); J06.9 Acute upper respiratory infection, unspecified; Z86.16 Personal history of COVID-19
CPT/HCPCS: 36591; 71275; 80048; 84484; 85025; 93005; 99285; Q9967; A4216

== ENCOUNTER 2022-09-26 07:13 | Day surgery (SDC) | payer BC, SELFPAY ==
--- NOTE | 2022-09-26 07:27 | PCM.HP.STD ---
[facility] - General General Date of Admission: 09/26/22 Date of Service: 09/26/22 Chief Complaint: Screening colonoscopy HPI Narrative SYLVAIN STALLINGS, is a 62 F who presents today for screening colonoscopy. She had a colonoscopy approximately 11 years ago. There were no abnormalities found on that colonoscopy. She is not having abdominal pain. She did not have any nausea, vomiting or diarrhea. She does have family history of adenomatous polyps but no colon cancer. [facility] Medical History (Updated 09/20/22 @ 14:46 by Kimberly Cisneros) Arthritis Back pain COVID Easy bruising Excessive bleeding Follicular lymphoma Gastric reflux GERD (gastroesophageal reflux disease) History of hiatal hernia History of leukemia Hypertension Injury of head and neck Iron deficiency anemia Kidney stone Leg cramps Neck mass Post-menopausal Wears glasses Home Medications valsartan 160 mg tablet 80 mg PO DAILY 11/01/13 [History Last Taken 04/08/20 06:30] cholecalciferol (vitamin D3) 125 mcg (5,000 unit) capsule 5,000 unit PO DAILY 03/03/18 [History Last Taken Unknown] Allergy/AdvReac Type Severity Reaction Status Date / Time shellfish derived Allergy Hives Verified 09/20/22 14:33 JAILYN Inhibitors AdvReac Intermediate Other Verified 09/20/22 14:30 barium sulfate AdvReac Intermediate Hives Verified 09/20/22 14:30 guaifenesin [From Mucinex] AdvReac Intermediate Hives Verified 09/20/22 14:30 Penicillins AdvReac Intermediate Unknown Verified 09/20/22 14:30 adhesive AdvReac Rash, Welts Verified 09/20/22 14:30 CRUSTACEAN Allergy Hives Uncoded 09/20/22 14:33 Family History (Updated 09/05/22 @ 08:58 by Dang Castaneda) Father Bladder cancer Grandmother Diabetes Sister CAD (coronary artery disease) Adenomatous colon polyp Mother Hypertension CAD (coronary artery disease) Surgical History (Updated 09/20/22 @ 14:46 by Kimberly Cisneros) History of colonoscopy Hx of cystoscopy ORAL SURGERY PROCEDURE s/p port placement (~03/18/19) SHOULDER JOINT SURGERY Status post laser lithotripsy of ureteral calculus (~03/28/20) Social History Smoking Status: Never smoker second hand exposure: No details: OCCASIONALLY substance use type: does not use diet: Weight Watchers caffeine: Yes Type: coffee Number of servings: 3 frequency: 1-2 times per week duration: 15-30 minutes/day seatbelt use: always do you feel safe at home: Yes ROS Constitutional Constitutional: Reports systems reviewed and no addt'l complaints, except as documented; Denies fatigue, fever(s) or weight loss Eyes Eyes: Reports systems reviewed and no addt'l complaints, except as documented ENT HEENT: Reports systems reviewed and no addt'l complaints, except as documented; Denies headache(s) Cardiovascular Cardiovascular: Reports systems reviewed and no addt'l complaints, except as documented; Denies chest pain with activity or edema Respiratory/Chest Respiratory/Chest: Reports systems reviewed and no addt'l complaints, except as documented; Denies cough or dyspnea on exertion Gastrointestinal Gastrointestinal: Reports systems reviewed and no addt'l complaints, except as documented; Denies change in bowel habits, hematochezia, melena or nausea Genitourinary Genitourinary: Reports systems reviewed and no addt'l complaints, except as documented; Denies dysuria or hematuria Musculoskeletal Musculoskeletal: Reports systems reviewed and no addt'l complaints, except as documented; Denies back pain Integumentary Integumentary: Reports systems reviewed and no addt'l complaints, except as documented Neurologic Neurologic: Reports systems reviewed and no addt'l complaints, except as documented, dizziness and other Details: Dizzy spells every few months, chronic unexplained ; Denies focal weakness, headache(s) or syncope Psychiatric Psychiatric: Reports systems reviewed and no addt'l complaints, except as documented Endocrine Endocrinology: Reports systems reviewed and no addt'l complaints, except as documented Hematologic/Lymphatic Hematologic/Lymphatic: Reports systems reviewed and no addt'l complaints, except as documented; Denies easy bleeding, easy bruising or lymphadenopathy Allergic/Immunologic Allergic/Immunologic: Reports systems reviewed and no addt'l complaints, except as documented Physical Exam Narrative ECOG 0 Const alert, oriented x3 and no apparent distress General Appearance: cooperative and comfortable HEENT normocephalic Head and Scalp: normal to inspection Face and Sinus: normal facial exam Mouth: oral and palatal mucosa normal Eyes General Eye: normal appearance of both eyes Conjunctiva: conjunctiva normal Sclera: sclera normal Neck no lymphadenopathy and no JVD Lymph Lymphatic: no lymphadenopathy noted Chest Chest: symmetrical chest wall rise and vascular access Resp normal respiratory effort, normal air movement and clear to auscultation bilaterally Cardio regular rate and regular rhythm Jugular Venous Distention: Negative for JVD GI soft to palpation, non-tender and non-distended; Negative for hepatosplenomegaly no CVA tenderness Back/Spine no thoracic nor lumbar tenderness Extremity no clubbing, cyanosis or edema Skin no rashes or lesions noted Neuro oriented x3, CN's II-XII intact bilaterally and no focal motor deficits Coordination / Balance: uqknyc-[id number]-[id number] test normal Speech: speech normal Gait (Neuro): normal gait Psych mental status grossly normal, thought process normal, cooperative and affect normal Assessment & Plan Assessment/Plan (1) Encounter for screening for malignant neoplasm of colon: PLAN: She will undergo screening colonoscopy. She was explained alternatives, risk, benefits including not withstanding bleeding, infection, sepsis, perforation, need for emergent surgery and . She will have an ASA of 1.
[2022-09-26] MEDS: Lactated Ringers 1,000 ML 15 ML IV (07:55)
[2022-09-26 07:59] VITALS: BP 125/83; PULSE 94; RESP 18; TEMP 36.9; O2SAT 99; BMI 25.3
[2022-09-26 08:34] VITALS: BP 105/62; BP 125/83; PULSE 84; RESP 16; TEMP 37.5; O2SAT 100
--- NOTE | 2022-09-26 08:34 | OP.COLON_ITS ---
Patient Name: Tamiko Law Procedure Date: 09/26/2022 8:00 AM Date of : 1960 Age: 62 Procedure: Colonoscopy Indications: Screening for colorectal malignant neoplasm Providers: Morgan Zuniga DO Medicines: Monitored Anesthesia Care Patient Profile: This is a 62 year old female. Refer to note in patient chart for documentation of history and physical. Last Colonoscopy: more than 10 years ago. Complications: No immediate complications. Procedure: Pre-Anesthesia Assessment: - Prior to the procedure, a History and Physical was performed, and patient medications and allergies were reviewed. The risks and benefits of the procedure and the sedation options and risks were discussed with the patient. All questions were answered and informed consent was obtained. Patient identification and proposed procedure were verified by the physician. Mental Status Examination: normal. Prophylactic Antibiotics: The patient does not require prophylactic antibiotics. Prior Anticoagulants: The patient has taken no previous anticoagulant or antiplatelet agents. ASA Grade Assessment: II - A patient with mild systemic disease. After reviewing the risks and benefits, the patient was deemed in satisfactory condition to undergo the procedure. The anesthesia plan was to use monitored anesthesia care (MAC). Immediately prior to administration of medications, the patient was re-assessed for adequacy to receive sedatives. The heart rate, respiratory rate, oxygen saturations, blood pressure, adequacy of pulmonary ventilation, and response to care were monitored throughout the procedure. The physical status of the patient was re-assessed after the procedure. After I obtained informed consent, the scope was passed under direct vision. Throughout the procedure, the patient's blood pressure, pulse, and oxygen saturations were monitored continuously. The colonoscope was introduced through the anus and advanced to the cecum, identified by appendiceal orifice and ileocecal valve. The colonoscopy was performed without difficulty. The patient tolerated the procedure well. The quality of the bowel preparation was good. Scope In: 8:16:16 AM Scope Withdrawal Time 0 hours 8 minutes 30 seconds Scope Out: 8:27:56 AM Total Procedure Duration Time 0 hours 11 minutes 40 seconds Findings: The perianal and digital rectal examinations were normal. The entire examined colon appeared normal on direct and retroflexion views. Impression: - The entire examined colon is normal on direct and retroflexion views. - No specimens collected. Recommendation: - Discharge patient to home. - Resume previous diet. - Continue present medications. - Repeat colonoscopy in 10 years for screening purposes. Procedure Code(s): --- Professional --- G0121, Colorectal cancer screening; colonoscopy on individual not meeting criteria for high risk CPT copyright 2017 [employer]. All rights reserved. The codes documented in this report are preliminary and upon lead radiation therapist review may be revised to meet current compliance requirements. Morgan Zuniga DO 09/26/2022 8:33:56 AM This report has been signed electronically. Number of Addenda: 0 Note Initiated On: 09/26/2022 8:00 AM
--- NOTE | 2022-09-26 08:35 | OP.CCLET_ITS ---
09/26/2022 Cara Stephens [address] [place] [address] Re : Colonoscopy procedure for Tamiko Law Dear Dr. Stephens This procedure was performed on Monday, September 26, 2022. My impressions and recommendations are as follows: Impressions : - The entire examined colon is normal on direct and retroflexion views. - No specimens collected. Recommendations : - Discharge patient to home. - Resume previous diet. - Continue present medications. - Repeat colonoscopy in 10 years for screening purposes. My findings are described in the full procedure note, which is enclosed. If I can be of further assistance, please feel free to contact me at . Sincerely, Morgan Zuniga, 09/26/2022 8:33:56 AM This report has been signed electronically.
[2022-09-26 08:40] VITALS: BP 108/71; BP 125/83; PULSE 82; RESP 16; O2SAT 97
[2022-09-26 08:45] VITALS: BP 125/83; BP 99/66; PULSE 80; RESP 16; O2SAT 100
[2022-09-26 08:49] VITALS: BP 112/79; BP 125/83; PULSE 75; RESP 16; TEMP 37.1; O2SAT 99
[2022-09-26 09:05] VITALS: BP 125/83
[2022-09-26] MEDS: 0.9% Saline Lock 10 ML Syringe IV (09:08)
== END 2022-09-26 09:18 | disposition home or self-care (01) ==
LOC: EN 07:17 → AC 07:17
PROVIDERS: PCP Family Medicine; Referring Provider Family Medicine; Visit Provider Internal Medicine Gastroenterology
PROC: 0DJD8ZZ Inspection of Lower Intestinal Tract, Via Natural or Artificial Opening Endoscopic (ICD-10-PCS; CPT 45378; principal; 2022-09-26 08:25)
DX: Z12.11 Encounter for screening for malignant neoplasm of colon (principal); I10 Essential (primary) hypertension; Z86.16 Personal history of COVID-19
CPT/HCPCS: 45378; J7120; A4216

== ENCOUNTER → 2022-11-19 | Outpatient (CLI) | payer BC, SELFPAY ==
--- NOTE | 2022-11-19 07:48 | CT_ITS ---
INDICATION: F/U LYMPHOMA IV CONTRAST ONLY EXAMINATION: CT NECK WITH CONTRAST - CT Soft Tissue Neck W/ Contrast Injection TECHNIQUE: Helically acquired images were obtained of the neck following IV contrast. A radiation dose optimization technique was used for this scan. IV Contrast dosage and agent: 100 cc of Isovue-300 RADIATION DOSAGE (If Supplied By Facility): CTDIvol = ( 7.91 ) mGy, DLP = ( 870.27 ) mGycm COMPARISON: 05/10/2022 FINDINGS: NASOPHARYNX: Unremarkable. SUPRAHYOID NECK: Unremarkable oropharynx, oral cavity, parapharyngeal space, and retropharyngeal space. INFRAHYOID NECK: Unremarkable larynx, hypopharynx, and supraglottis. THYROID: No focal lesions. SALIVARY GLANDS: Unremarkable. LYMPH NODES: No cervical or supraclavicular lymphadenopathy. VASCULAR STRUCTURES: Unremarkable. VISUALIZED PORTIONS OF THE ORBITS, PARANASAL SINUSES, MASTOID AIR CELLS AND SKULL BASE: Unremarkable. BONES: Unremarkable. THORACIC INLET: Clear lung apices. CT/Soft Tissue Neck WITH Contrast IMPRESSION: Negative CT Neck with contrast. No cervical lymphadenopathy. Electronically Signed: Adin Aggarwal MD at 10:07 EDT ,
--- NOTE | 2022-11-19 07:48 | CT_ITS ---
STUDY: CT CHEST, ABDOMEN T PELVIS WITH CONTRAST REASON FOR EXAM: Female, 62 years old. Lymphoma RADIATION DOSAGE (If Supplied By Facility): CTDIvol = ( 7.91 ) mGy, DLP = ( 870.27 ) mGycm TECHNIQUE: Transaxial imaging was performed following intravenous administration of IV 100mL Isovue-300. Multiplanar coronal and sagittal images were reformatted. Individualized dose optimization techniques were used for this CT. COMPARISON: 05/10/2022 FINDINGS: There is a right-sided port with its tip in the superior vena cava. There are no pulmonary infiltrates or pleural effusions. There is a stable calcified granuloma in the superior segment of the left lower lobe. There are no new or suspicious pulmonary nodules. There is no pneumothorax. The heart and pericardium are within normal limits. There is no thoracic lymphadenopathy. There is no evidence of thoracic aortic aneurysm. There are no calcified gallstones present. The liver is within normal limits. There are no suspicious hepatic lesions. The spleen is normal in size. The pancreas is within normal limits. The adrenal glands are within normal limits. There are no renal or ureteral stones. There is no hydronephrosis. There are stable simple cysts in the kidneys. Normal visualized stomach. There is no bowel obstruction or inflammation. The appendix is visualized and appears normal. The abdominal aorta is normal in caliber. There is no abdominal or pelvic free air, free fluid, fluid collection or lymphadenopathy. There are no destructive osseous lesions. CT/CT Chest, Abd, Pel w/Contrast IMPRESSION: No lymphadenopathy in the chest, abdomen or pelvis. No acute chest, abdominal or pelvic pathology. Electronically Signed: Adin Aggarwal MD at 10:06 EDT ,
[2022-11-19] MEDS: 0.9% Saline Lock 10 ML Syringe IV (08:12)
[2022-11-19 08:20] LABS: CREATININE FINGERSTICK < 0.9 mg/dL (0.55-1.02); EGFR FINGERSTICK > 60.0000 mL/min (>60)
== END | disposition home or self-care (01) ==
LOC: CT 07:48
PROVIDERS: PCP Family Medicine; Referring Provider Internal Medicine Hematology & Oncology; Visit Provider Internal Medicine Hematology & Oncology
DX: C82.90 Follicular lymphoma, unspecified, unspecified site (principal)
CPT/HCPCS: 70491; 71260; 74177; Q9967; A4216

== ENCOUNTER → 2023-02-08 | Outpatient (CLI) | payer BC, SELFPAY | END | disposition home or self-care (01) | PROVIDERS: PCP Family Medicine; Visit Provider Family Medicine | DX: J02.9 Acute pharyngitis, unspecified (principal) | CPT/HCPCS: 87070 ==

== ENCOUNTER → 2023-07-15 | Outpatient (CLI) | payer BC, SELFPAY ==
--- NOTE | 2023-07-15 08:00 | CT_ITS ---
STUDY: CT SOFT TISSUE NECK WITH CONTRAST REASON FOR EXAM: Female, 63 years old. F/U LYMPHOMA IV CONTRAST ONLY. Chemotherapy. RADIATION DOSAGE (If Supplied By Facility): CTDIvol = ( 12.88 ) mGy, DLP = ( 1322.93 ) mGycm TECHNIQUE: The patient was scanned in a multi-detector CT scanner. High resolution transaxial imaging was performed following intravenous administration of IV 100mL Isovue-300. Sagittal and coronal images were reconstructed. Individualized dose optimization techniques were used for this CT. COMPARISON: Comparison is made with prior study dated November 19, 2022. FINDINGS: A right-sided portacatheter is seen with the tip in the superior vena cava. Normal bilateral parotid glands. Normal bilateral char filter tank tender spaces. Normal bilateral parapharyngeal spaces. Normal bilateral carotid spaces. Normal bilateral sublingual and submandibular glands and spaces. Normal visualized nasopharynx. Normal retropharyngeal space. Normal perivertebral space. Normal visualized bilateral faucial tonsils. The visualized tongue, tongue base and oropharynx are normal. There are small lymph nodes of the neck, with preservation of normal negro architecture, consistent with a reactive lymph hyperplasia. There is no demonstrated solid or cystic mass lesion. There is no abnormal contrast enhancement. Normal epiglottis, bilateral vallecula and hypopharynx. The pre-epiglottic and paraglottic adipose spaces are normal. Normal visualized bilateral piriform sinuses, aryepiglottic folds, vocal cords, and arytenoid-cricoid articulations. Normal subglottic trachea. Normal bilateral lobes of the thyroid gland. Normal visualized pulmonary apices. Normal visualized paranasal sinuses. There is multilevel degenerative changes of the cervical spine. CT/Soft Tissue Neck WITH Contrast IMPRESSION: No significant abnormality is seen. Stable examination. Electronically Signed: Satnam Kowalski MD at 9:26 EST ,
--- NOTE | 2023-07-15 08:00 | CT_ITS ---
STUDY: CT CHEST, ABDOMEN T PELVIS WITH CONTRAST REASON FOR EXAM: Female, 63 years old. F/U LYMPHOMA IV CONTRAST ONLY RADIATION DOSAGE (If Supplied By Facility): CTDIvol = ( 12.88 ) mGy, DLP = ( 1322.93 ) mGycm TECHNIQUE: Transaxial imaging was performed following intravenous administration of IV 100mL Isovue-300. Multiplanar coronal and sagittal images were reformatted. Individualized dose optimization techniques were used for this CT. COMPARISON: Comparison is made with prior study dated November 19, 2022. FINDINGS: CHEST A right-sided portacatheter is seen with the tip in the superior vena cava. Stable calcified granuloma in the peripheral aspect of the left upper lobe. There is no demonstrated pleural abnormality. Normal heart and pericardium. Normal mediastinum. Normal hilar regions. Normal unenhanced pulmonary arteries. Normal aorta arch and descending thoracic aorta. There is demineralization of the thoracic spine. ABDOMEN Normal liver. Normal gallbladder and extrahepatic biliary system. Normal spleen. Normal pancreas. Mild enlargement of the left adrenal gland suggestive of hyperplasia. Stable small bilateral renal cysts. 2 mm nonobstructive calculus in the lower pole calyx of the right kidney. Normal visualized stomach. Normal small intestine. Normal colon. The appendix is visualized and appears normal. Normal abdominal aorta. Normal inferior vena cava. Normal retroperitoneum. Normal abdominal wall. There are degenerative changes of the visualized lumbar spine. PELVIS Normal urinary bladder. There is no pelvic fluid. There is no pelvic lymphadenopathy or mass lesion. Normal visualized pelvic arteries. CT/CT Chest, Abd, Pel w/Contrast IMPRESSION: Stable examination. No acute abnormality is seen. Electronically Signed: Satnam Kowalski MD at 11:04 EST ,
[2023-07-15] MEDS: 0.9 % NaCl (Sterile) Posiflush 10 mL IV (08:05)
[2023-07-15 08:29] LABS: CREATININE FINGERSTICK < 1.0 mg/dL (0.55-1.02); EGFR FINGERSTICK > 60.0000 mL/min (>60)
== END | disposition home or self-care (01) ==
LOC: CT 07:59
PROVIDERS: PCP Family Medicine; Referring Provider Internal Medicine Hematology & Oncology; Visit Provider Internal Medicine Hematology & Oncology
DX: C82.90 Follicular lymphoma, unspecified, unspecified site (principal)
CPT/HCPCS: 70491; 71260; 74177; Q9967; A4216

== ENCOUNTER → 2023-10-17 | Outpatient (CLI) | payer BC, SELFPAY ==
--- NOTE | 2023-10-17 | LES_PTH ---
PATHOLOGY RESULTS PATIENT: SYLVAIN STALLINGS LOC: [facility] U#:[id number] AGE/SX: 63/F ROOM: RE10/17/[address]: Dr. 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 Solar elastosis. Negative for fungal organisms. See comment. AM:[place] 10/18/2023 COMMENT GMS stain with matched control was used in the evaluation of this case. MICROSCOPIC DESCRIPTION Slides are reviewed. GROSS DESCRIPTION Received is one container labeled with the patient's name and not further designated. The specimen consists of a matson-white skin ellipse measuring 1.8 x 1.0 cm and up to 0.5 cm in thickness. The specimen is inked, serially sectioned and submitted entirely in one cassette. / SJ:[place] 10/17/2023 TC:3 CPT: 99077, [id number]
== END | disposition home or self-care (01) ==
PROVIDERS: PCP Family Medicine; Visit Provider Family Medicine
DX: R69 Illness, unspecified (principal)
CPT/HCPCS: 88305; 88312

== ENCOUNTER → 2024-01-27 | Outpatient (CLI) | payer BC, SELFPAY ==
--- NOTE | 2024-01-27 07:56 | CT_ITS ---
STUDY: CT CHEST, ABDOMEN T PELVIS WITH CONTRAST REASON FOR EXAM: Female, 63 years old. F/U LYMPHOMA IV CONTRAST ONLY. History of non-Hodgkin''s lymphoma. RADIATION DOSAGE (If Supplied By Facility): CTDIvol = ( 11.65 ) mGy, DLP = ( 1332.55 ) mGycm TECHNIQUE: Transaxial imaging was performed following intravenous administration of IV 100mL Isovue-300. Multiplanar coronal and sagittal images were reformatted. Individualized dose optimization techniques were used for this CT. COMPARISON: Comparison is made with prior study dated July 15, 2023. FINDINGS: CHEST A right-sided portacatheter is seen with the tip in the superior vena cava. There is a 1.4 cm calcified granuloma in the peripheral aspect of the left upper lobe. There is no demonstrated pleural abnormality. Normal heart and pericardium. No significant coronary artery calcification is seen. Normal mediastinum. Normal hilar regions. Normal unenhanced pulmonary arteries. Normal aorta arch and descending thoracic aorta. There are mild degenerative changes of the thoracic spine. Fatty infiltration of the liver. ABDOMEN There is decreased attenuation of the liver consistent with steatosis. Normal gallbladder and extrahepatic biliary system. Normal spleen. Normal pancreas. Normal bilateral adrenal glands. Small right renal cyst. Nonobstructive 3 mm calculus in the lower pole calyx of the right kidney. 1.3 cm cyst in the lateral aspect of the left kidney. Normal visualized stomach. Normal small intestine. Normal colon. The appendix is visualized and appears normal. Normal abdominal aorta. Normal inferior vena cava. Normal retroperitoneum. Normal abdominal wall. There degenerative changes of the visualized lumbar spine. PELVIS Normal urinary bladder. There is no pelvic fluid. There is no pelvic lymphadenopathy or mass lesion. Normal visualized pelvic arteries. CT/CT Chest, Abd, Pel w/Contrast IMPRESSION: Stable examination. Electronically Signed: Satnam Kowalski MD at 13:34 EDT ,
--- NOTE | 2024-01-27 07:56 | CT_ITS ---
STUDY: CT SOFT TISSUE NECK WITH CONTRAST REASON FOR EXAM: Female, 63 years old. F/U LYMPHOMA -- IV CONTRAST ONLY RADIATION DOSAGE (If Supplied By Facility): CTDIvol = ( 11.65 ) mGy, DLP = ( 1332.55 ) mGycm TECHNIQUE: The patient was scanned in a multi-detector CT scanner. High resolution transaxial imaging was performed following intravenous administration of IV 100mL Isovue-300. Sagittal and coronal images were reconstructed. Individualized dose optimization techniques were used for this CT. COMPARISON: Comparison is made with prior study dated July 15, 2023. FINDINGS: A right-sided portacatheter is seen with the tip in the superior vena cava. Normal bilateral parotid glands. Normal bilateral [employer] spaces. Normal bilateral parapharyngeal spaces. Normal bilateral carotid spaces. Normal bilateral sublingual and submandibular glands and spaces. Normal visualized nasopharynx. Normal retropharyngeal space. Normal perivertebral space. Normal visualized bilateral faucial tonsils. The visualized tongue, tongue base and oropharynx are normal. There are small lymph nodes of the neck, with preservation of normal negro architecture, consistent with a reactive lymph hyperplasia. There is no demonstrated solid or cystic mass lesion. There is no abnormal contrast enhancement. Normal epiglottis, bilateral vallecula and hypopharynx. The pre-epiglottic and paraglottic adipose spaces are normal. Normal visualized bilateral piriform sinuses, aryepiglottic folds, vocal cords, and arytenoid-cricoid articulations. Normal subglottic trachea. Normal bilateral lobes of the thyroid gland. Normal visualized pulmonary apices. Normal visualized paranasal sinuses. There is degenerative changes of the cervical spine. CT/Soft Tissue Neck WITH Contrast IMPRESSION: Stable examination. No acute abnormality is seen. Electronically Signed: Satnam Kowalski MD at 13:52 EDT ,
[2024-01-27] MEDS: 0.9% Saline Lock 10 ML Syringe IV (08:23)
[2024-01-27 08:30] LABS: CREATININE FINGERSTICK < 1.0 mg/dL (0.55-1.02); EGFR FINGERSTICK > 60.0000 mL/min (>60)
== END | disposition home or self-care (01) ==
LOC: CT 07:56
PROVIDERS: PCP Family Medicine; Referring Provider Internal Medicine Hematology & Oncology; Visit Provider Internal Medicine Hematology & Oncology
DX: Z01.812 Encounter for preprocedural laboratory examination (principal); C82.90 Follicular lymphoma, unspecified, unspecified site
CPT/HCPCS: 70491; 71260; 74177; Q9967; A4216

== ENCOUNTER → 2024-07-20 | Outpatient (CLI) | payer BC, SELFPAY ==
--- NOTE | 2024-07-20 06:47 | CT_ITS ---
STUDY: CT SOFT TISSUE NECK WITH CONTRAST REASON FOR EXAM: Female, 64 years old. [place] LYMPHOMA IV CONTRAST RADIATION DOSAGE (If Supplied By Facility): CTDIvol = ( 14 ) mGy, DLP = ( 1621.71 ) mGycm TECHNIQUE: The patient was scanned in a multi-detector CT scanner. High resolution transaxial imaging was performed following intravenous administration of IV 100mL Isovue-370. Sagittal and coronal images were reconstructed. Individualized dose optimization techniques were used for this CT. COMPARISON: Comparison made with prior study dated January 27, 2024 FINDINGS: A right-sided Port-A-Cath is seen with the tip in the superior vena cava. Normal bilateral parotid glands. Normal bilateral airline dispatcher spaces. Normal bilateral parapharyngeal spaces. Normal bilateral carotid spaces. Normal bilateral sublingual and submandibular glands and spaces. Normal visualized nasopharynx. Normal retropharyngeal space. Normal perivertebral space. Normal visualized bilateral faucial tonsils. The visualized tongue, tongue base and oropharynx are normal. The visualized cervical lymph nodes (levels I-) are within normal size limits, and maintain normal morphology. There is no demonstrated solid or cystic mass lesion. There is no abnormal contrast enhancement. Normal epiglottis, bilateral vallecula and hypopharynx. The pre-epiglottic and paraglottic adipose spaces are normal. Normal visualized bilateral piriform sinuses, aryepiglottic folds, vocal cords, and arytenoid-cricoid articulations. Normal subglottic trachea. Normal bilateral lobes of the thyroid gland. Normal visualized pulmonary apices. Normal visualized paranasal sinuses. There is degenerative changes of the cervical spine. CT/Soft Tissue Neck WITH Contrast IMPRESSION: Stable examination. No acute abnormality is seen. Electronically Signed: Satnam Kowalski MD at 11:11 EST ,
--- NOTE | 2024-07-20 06:47 | CT_ITS ---
STUDY: CT CHEST, ABDOMEN T PELVIS WITH CONTRAST REASON FOR EXAM: Female, 64 years old. [place] LYMPHOMA, IV CONTRAST RADIATION DOSAGE (If Supplied By Facility): CTDIvol = ( 14 ) mGy, DLP = ( 1621.71 ) mGycm TECHNIQUE: Transaxial imaging was performed following intravenous administration of IV 100mL Isovue-370. Multiplanar coronal and sagittal images were reformatted. Individualized dose optimization techniques were used for this CT. COMPARISON: Comparison is made with prior study dated January 27, 2024. FINDINGS: CHEST A right-sided oscar catheter seen with the tip in the superior vena cava. Stable 1.4 cm partially calcified granuloma in the peripheral aspect of the left upper lobe. There is no demonstrated pleural abnormality. Normal heart and pericardium. No coronary artery calcification is seen. Normal mediastinum. Normal hilar regions. Normal unenhanced pulmonary arteries. Normal aorta arch and descending thoracic aorta. There are mild degenerative changes of the thoracic spine. Diffuse fatty infiltration of the liver. ABDOMEN There is decreased attenuation of the liver consistent with steatosis. Normal gallbladder and extrahepatic biliary system. Normal spleen. Normal pancreas. Normal bilateral adrenal glands. Stable small bilateral renal cysts. Normal visualized stomach. Normal small intestine. There are scattered colonic diverticula consistent with diverticulosis. The appendix is visualized and appears normal. There is scattered atherosclerotic calcification of the abdominal aorta, without a demonstrated aneurysm. Normal inferior vena cava. Normal retroperitoneum. Normal abdominal wall. There are degenerative changes of the visualized lumbar spine. PELVIS Normal urinary bladder. There is no pelvic fluid. There is no pelvic lymphadenopathy or mass lesion. Normal visualized pelvic arteries. CT/CT Chest, Abd, Pel w/Contrast IMPRESSION: Stable examination. Electronically Signed: Satnam Kowalski MD at 11:09 EST ,
[2024-07-20] MEDS: 0.9 % NaCl (Sterile) Posiflush 10 mL IV (07:06)
[2024-07-20] MEDS: 0.9% Saline Lock 10 ML Syringe IV (07:26)
[2024-07-20 07:34] LABS: CREATININE FINGERSTICK < 1.0 mg/dL (0.55-1.02); EGFR FINGERSTICK > 60.0000 mL/min (>60)
[2024-07-20 07:36] LABS: Absolute Lymphocyte Count 1.22 X10^3/uL (0.83-4.51); Absolute Neutrophil Count 2.5 X10^3/uL (2.0-7.7); Basophil# 0.05 X10^3/uL; Basophil% 1.2 % (0-1); Eosinophil# 0.12 X10^3/uL; Eosinophils% 2.8 % (0-5); Hematocrit 41.7 % (37-47); Hemoglobin 14.4 g/dL (12.0-15.0); Lymphocyte # 1.22 X10^3/ul (0.83-4.51); Lymphocyte % 28.6 % (19-41); Mean Corp Hgb Conc 34.5 g/dL (32-36); Mean Corpuscular Hgb 31.7 pg (27.0-32.0); Mean Corpuscular Volume 91.9 fL (81-99); Mean Platelet Vol. 9.8 fl (6.2-12.0); Monocyte# 0.38 X10^3/uL; Monocyte% 8.9 % (0-10); NRBC Flagged by Analyzer 0 % (0-5); Neutrophil # 2.48 X10^3/uL (2.7-7.7); Neutrophil % 58.3 % (47-70); Platelet Count 192 K/mm3 (150-450); RBC Distribution Width CV 11.6 % (11.6-14.6); RBC Distribution Width SD 39.2 fl (35.1-43.9); Red Blood Count 4.54 M/mm3 (4.2-5.4); White Blood Count 4.3 K/mm3 (4.4-11.0)
[2024-07-20 07:56] LABS: ALB/GLOB Ratio 1.3 RATIO (0.9-2.4); AST(SGOT) 19 U/L (15-37); Alanine Aminotransfer ALT/SGPT 21 U/L (13-56); Albumin, Serum 3.8 g/dL (3.2-5.0); Alkaline Phosphatase 79 U/L (45-117); Anion Gap 3 (5-15); BUN 13 mg/dL (7-18); BUN/Creat Ratio 24.2 RATIO (10-20); Calcium,Total 9.3 mg/dL (8.5-10.1); Chloride 107 mmol/L (98-107); Creatinine, Serum 0.54 mg/dL (0.55-1.02); EST Glomerular Filtration Rate 122 mL/min (>60); Est Glom Filt Rate - Afr Amer 147 mL/min (>60); Glucose 110 mg/dL (74-106); LDH 172 U/L (84-246); Potassium 3.7 mmol/L (3.5-5.1); Protein, Total 6.8 g/dL (6.4-8.2); Sodium Level 141 mmol/L (136-145)
== END | disposition home or self-care (01) ==
PROVIDERS: PCP Family Medicine; Referring Provider Internal Medicine Hematology & Oncology; Visit Provider Internal Medicine Hematology & Oncology
DX: C82.98 Follicular lymphoma, unspecified, lymph nodes of multiple sites (principal)
CPT/HCPCS: 70491; 71260; 74177; 80053; 83615; 85025; Q9967; A4216

== ENCOUNTER → 2024-10-07 | Outpatient (CLI) | payer BC, SELFPAY ==
--- NOTE | 2024-10-07 11:30 | RAD_ITS ---
PROCEDURE: CERV SPINE 4 OR 5 VIEWS REASON FOR EXAM: Cervical pain. Spasms in the right upper extremity. TECHNIQUE: 5 views of the cervical spine including oblique views.. COMPARISON: None. FINDINGS: Normal vertebral body heights. No visible fracture. Multilevel disc space narrowing and spondylosis worse at the C4-C5, C5-C6 and C6-C7 levels. Findings suggestive of right neural foraminal stenosis. Normal alignment. Prevertebral soft tissues are unremarkable. RAD/Cerv Spine 4 or 5 Views IMPRESSION: MODERATE CERVICAL DEGENERATIVE CHANGES. Findings suggestive of right neural foraminal stenosis. Reading Location: [facility]
== END | disposition home or self-care (01) ==
LOC: MTRAD 11:29
PROVIDERS: PCP Family Medicine; Referring Provider Nurse Practitioner Family; Visit Provider Nurse Practitioner Family
DX: M54.2 Cervicalgia (principal)
CPT/HCPCS: 72050

== ENCOUNTER → 2025-02-08 | Outpatient (CLI) | payer BC, SELFPAY ==
--- NOTE | 2025-02-08 06:56 | CT_ITS ---
PROCEDURE: CT of the chest abdomen and pelvis with IV contrast. 02/08/2025 REASON FOR EXAM: F/U NHL TECHNIQUE: Chest, abdomen and pelvis CT with intravenous contrast. Coronal and Sagittal reconstruction series were provided. One or more dose reduction techniques were used (e.g., Automated exposure control, adjustment of the mA and/or kV according to patient size, use of iterative reconstruction technique. PATIENT PREPARATION: Per protocol ORAL CONTRAST TYPE: None. CONTRAST: Isovue 370 VOLUME: 100mL RADIATION DOSE SUMMARY: CTDlvol: 29.9 mGy DLP: 1007.05 mGycm COMPARISON: CT chest abdomen and pelvis with contrast, 07/20/2020. FINDINGS: CT CHEST: Lower neck: The thyroid gland is normal. There is no supraclavicular lymphadenopathy. Lymph nodes: There is no hilar or mediastinal lymphadenopathy. Heart and Vasculature: The heart size is normal. There is no pericardial effusion. There is no calcific vascular disease of the coronary arteries evident. There is minimal calcific vascular disease of the thoracic aorta. Lungs and Airways: There is a benign calcified granuloma in the lower lobe of the left lung. There is no significant interstitial or alveolar lung disease. There are no pleural effusions. Chest wall: There is a chemotherapy port in the right upper chest wall with the tip in the superior vena cava via the right internal jugular vein. There are no significant bony abnormalities of the chest.. CT ABDOMEN/PELVIS: Liver: Normal. Gallbladder: Normal. Spleen: There is a 3 mm splenic cyst. Pancreas: Normal. Adrenals: Normal. Kidneys: There are bilateral renal cortical cysts. There is bilateral nephrolithiasis. Bladder: The urinary bladder has a normal unenhanced appearance. Reproductive Organs: The uterus and ovaries are unremarkable. There is no free fluid in the pelvis. There is no inguinal lymphadenopathy. Bowel: The gastrointestinal tract appears unremarkable. Appendix: There is a normal appendix demonstrated. Lymph nodes: There is no retroperitoneal, mesenteric or pelvic lymphadenopathy. Vasculature: There is minimal calcific vascular disease of the abdominal aorta. The inferior vena cava and portal venous system are normal. Peritoneum / Retroperitoneum: There are no abnormal intra or retroperitoneal masses or fluid collections. There are no abdominal wall defects. Bones: There is multilevel degenerative disc disease of the lower thoracic and lumbar spine most severe at the L3-4 and L4-5 levels. There is mild levoscoliosis of the lumbar spine. CT/CT Chest, Abd, Pel w/Contrast IMPRESSION: 1. There is no significant lymphadenopathy identified in the chest abdomen or pelvis. 2. Bilateral nephrolithiasis not significantly changed. 3. Other findings as noted, not significantly changed. Reading Location: [id number]
--- OUTSIDE RECORDS SUMMARY | 2025-02-08 06:59 | XMS RPT_ITS | CCD ---
Author Organization [facility] Care Team Providers Care Gis Analyst Developer Name Role Phone Unavailable Unavailable Unavailable Anum Greene Unavailable Som Andre Unavailable Dr. Cara Stephens Primary Care Provider Dr. Cara Stephens Referring Provider Dr. Anum Greene Attending Provider Cara Stephens DO Primary Care Provider [phone] Dr. Cara Stephens Primary Care Provider Dr. Cara Stephens Referring Provider Dr. Anum Greene Attending Provider [phone] Cara Stephens DO Primary Care Provider Dr. Cara Stephens Primary Care Provider Dr. Cara Stephens Referring Provider Dr. Anum Greene Attending Provider Dang Castaneda Attending Provider Unavailable Friend, Dr. Mora Attending Provider Friend, Dr. Mora Other Provider Dr. Cara Stephens Primary Care Provider Dr. Cara Stephens Referring Provider Dr. Anum Greene Attending Provider Dr. Cara Stephens Primary Care Provider Dr. Cara Stephens Referring Provider Dr. Anum Greene Attending Provider Kat PARRA, Cara A Primary Care Provider KAT, CARA A Primary Care Unavailable NEYHART GARCIA, MIKAYLA Attending Unavail able NEYHART GARCIA, MIKAYLA Referring Unavail able MALYS, CARA A Primary Care Unavailable NEYHART GARCIA, MIKAYLA Referring Unavail able MALYS, CARA A Primary Care Unavailable LAKISHA PANDYA Attending Unavailabl e SELF Referring Unavailable Kat PARRA, Dr. Marroquin Primary Care Provider [phone] Ramona CASTILLO, Dr. Rowan Attending Provider [phone] Ramona CASTILLO, Dr. Rowan Referring Provider Dr. Cara Stephens DO Referring Provider [phone] Smith LOGISTICS LOSS PREVENTION MANAGER-C, Stella Attending Provider Smith LOGISTICS LOSS PREVENTION MANAGER-C, Stella Referring Provider [phone] Cara Stephens DO Primary Care Provider Valente CASTILLO, Dr. Summers Attending Provider Dr. Cara Stephens DO Referring Provider [phone] Anum Greene MD Attending Provider Ramona CASTILLO, Dr. Rowan Referring Provider [phone] Malys, Cara Primary Care Unavailable Isckarus, Mansour Referring Unavailable Isckarus, Mansour Attending Unavailable Malys, Cara Primary Care Unavailable Smith, Stella Attending Unavailable Smith, Stella Referring Unavailable Isckarus, Anum Referring Unavailable Isckarus, Anum Attending Unavailable Malys, Cara Primary Care Unavailable Malys, Cara Primary Care Unavailable Kristopher Victor Attending Unavailable Isckarus, Clayour Referring Unavailable Isckarus, Anum Attending Unavailable Malys, Cara Primary Care Unavailable Malys, Cara Referring Unavailable Malys, Cara Primary Care Unavailable Isckarus, Anum Attending Unavailable Malys, Cara Primary Care Unavailable Malys, Cara Referring Unavailable Isckarus, Clayour Attending Unavailable Cara Stephens Primary Care Unavailable Cara Stephens Referring Unavailable Anum Greene Attending Unavailable Allergies Allergy Classification Reported Allergen(s) Allergy Type Date of Onset Reaction(s) Facility (17 sources) Angiotensin Converting Enzyme (Jailyn) Inhibitors; Translations: [JAILYN INHIBITORS] Propensity to adverse reactions 1 Other: See Comments [facility] Work Phone: Comment on above: COUGHING (16 sources) Barium Sulfate; Translations: [BARIUM SULFATE] Drug Allergy 0 [facility] Work Phone: (16 sources) guaiFENesin; Translations: [GUAIFENESIN] Drug Allergy 3 [facility] (17 sources) Penicillins; Translations: [PENICILLINS] Propensity to adverse reactions 6 Rash [facility] Work Phone: (8 sources) diphenhydrAMINE ; Translations: [DIPHENHYDRAMIN E] Drug Allergy 2 Other: See Comments [facility] (8 sources) Shellfish; Translations: [SHELLFISH] Propensity to adverse reactions 6 [facility] Work Phone: (6 sources) Adhesive agent; Translations: [adhesive] Propensity to adverse reactions 3 Damon Patel [facility] (6 sources) Shellfish; Translations: [shellfish derived] Allergy to substance 3 [facility] Comment on above: crustacean (1 source) CRUSTACEAN Allergy to substance 3 [facility] (1 source) Barium sulfate Drug allergy (disorder) 5 [facility] (1 source) guaiFENesin Drug Allergy 5 [facility] Medications Current Medications Medication Drug Class(es) Dates Sig (Normalized) Sig (Original) cholecalciferol 0.125 mg oral capsule (11 sources) Vitamin D Start: 03-03-2018 take 1 capsule by mouth once daily Cholecalciferol (Vitamin D3) 5,000 UNIT capsule Active 5000 U PO DAILY March 03, 2018 12:00am tropicamide 10 mg/ml ophthalmic solution (2 sources) Anticholinergic Start: 05-19-2024 End: 05-20-2024 tropicamide 1 % 1 Drop (MYDRIACYL) Start: 04-30-2022 End: 04-30-2022 tropicamide 1 % 1 Drop (MYDR IACYL) valsartan 80 mg oral tablet (15 sources) Angiotensin 2 Receptor Yazan Start: 03-16-2022 take 1 tablet by mouth once daily valsartan (DIOVAN) 80 mg tablet Take 80 mg by mouth once daily. 03/16/2022 Active Start: 11-01-2013 Valsartan 160 MG tablet Active 80 mg PO DAILY November 01, 2013 12:00am Start: 11-01-2013 take 80 mg by mouth once daily Valsartan Active 80 MG PO DAILY November 01, 2013 12:00am Comment on above: Take 80 mg by mouth once daily. Completed/Discontinued Medications Medication Drug Class(es) Dates Sig (Normalized) Sig (Original) acetaminophen 325 mg / HYDROcodone bitartrate 5 mg oral tablet (8 sources) Opioid Agonist Start: 04-08-2020 End: 04-13-2020 Hydrocodone-Acetami nophen 1 EACH tablet Discontinued 1 NMA PO EVERY 4 HOURS NEEDED as needed for Pain Score 1-10/10 14 April 08, 2020 April 12, 2020 12:00am April 13, 2020 12:02am Start: 04-08-2020 End: 04-13-2020 Hydrocodone-Acetaminophen Di scontinued 1 EACH PO EVERY 4 HOURS NEEDED 14 April 08, 2020 April 13, 2020 12:02am acyclovir 400 mg oral tablet (20 sources) Herpesvirus Nucleoside Analog DNA Polymerase Inhibitor, Herpes Simplex Virus Nucleoside Analog DNA Polymerase Inhibitor, Herpes Zoster Virus Nucleoside Analog DNA Polymerase Inhibitor Start: 03-19-2019 End: 07-20-2022 take 1 tablet by mouth twice daily Acyclovir 400 mg tablet Discontinued 400 mg PO TWICE A DAY 60 June 28, 2021 12:43pm September 20, 2021 9:52am Comment on above: TAKE 1 TABLET TWICE DAILY STARTING MARCH 30, 2019 UNTIL INSTRUCTED TO STOP allopurinol 300 mg oral tablet (16 sources) Xanthine Oxidase Inhibitor Start: 03-19-2019 End: 03-28-2019 Allopurinol 300 MG tablet Discontinued 300 mg PO DAILY 7 March 19, 2019 12:00am March 25, 2019 12:00am March 28, 2019 12:07am Take 1 tablet daily for 1 week starting day prior to starting cycle 1 of chemotherapy Start: 02-10-2019 End: 02-22-2019 take 1 tablet by mouth once daily Allopurinol 300 MG tablet Discontinued 300 mg PO DAILY 7 February 10, 2019 12:00am February 16, 2019 12:00am February 22, 2019 12:09am Take one tablet PO daily, starting the day prior to chemotherapy ascorbic acid 1000 mg oral tablet (3 sources) Vitamin C End: 07-20-2022 take 1 tablet by mouth once daily Ascorbic Acid 1,000 mg tablet Take 1,000 mg by mouth once daily. 0 07/20/2022 Discontinued Comment on above: Take 1,000 mg by bridgett th once daily. Calcium Carbonate / vitamin D3 (3 sources) End: 07-20-2022 CALCIUM CARBONATE/VITAMIN D3 (VITAMIN D-3 ORAL) Take by mouth. 0 07/20/2022 Discontinued CALCIUM CARBONAT E/VITAMIN D3 (VITAMIN D-3 ORAL) Take by mouth. 0 Active Comment on above: Take by mouth. erythromycin 0.005 mg/mg ophthalmic ointment (4 sources) Macrolide, Macrolide Antimicrobial Start: End: erythromycin (ROMYCIN) 5 mg/gram (0.5 %) ophthalmic ointment Use 1 application in the left eye daily at bedtime. 05/27/2023 08/24/2024 Discontinued Comment on above: Use 1 application in the left eye daily at bedtime. hydroCHLOROthiazide 12.5 mg / valsartan 160 mg oral tablet (3 sources) Thiazide Diuretic, Angiotensin 2 Receptor Yazan Start: End: Valsartan-Hydrochlo rothiazide (DIOVAN HCT) 160-12.5 mg ORAL Tab Take 80 tablets by mouth. Taking 80 mg daily 0 04/03/2007 07/20/2022 Discontinued Comment on above: Take 80 tablets by m outh. Taking 80 mg daily naproxen 500 mg oral tablet (3 sources) Nonsteroidal Anti-inflammatory Drug Start: End: take 1 tablet by mouth twice daily as needed for pain naproxen (NAPROSYN) 500 mg ORAL Tab Take one(1) tablet twice daily as needed for pain, with food. 0 04/03/2007 07/20/2022 Discontinued Comment on above: Take one(1) tablet t wice daily as needed for pain, with food. nystatin [id number] unt/ml oral suspension (8 sources) Polyene Antifungal Start: End: take 1 mL by mouth four times daily Nystatin 500,000 UNIT/5 ML suspension Discontinued 5 mL PO 4 TIMES DAILY 300 June 01, 2019 12:00am June 14, 2019 12:00am June 21, 2019 1:09am Start: 06-01-2019 End: 06-21-2019 take 1 mL by mouth four times daily Nystatin Discontinued 5 ML PO 4 TIMES DAILY 300 June 01, 2019 12:00am June 21, 2019 1:09am sulfamethoxazole 800 mg / trimethoprim 160 mg oral tablet (20 sources) Dihydrofolate Reductase Inhibitor Antibacterial, Sulfonamide Antimicrobial Start: 03-30-2020 End: 06-28-2021 Sulfamethoxazole-Trimethopri m 1 TABLET tablet Discontinued 1 {tbl} PO MOWEFR May 16, 2020 10:51am June 28, 2021 12:43pm Take 1 tablet on Mondays, Wednesdays, and Fridays starting March 30, 2019 until instructed to stop Start: 03-30-2020 End: 06-28-2021 Sulfamethoxazole-Trimethopri m Discontinued 1 TABLET PO MOWEFR May 16, 2020 10:51am June 28, 2021 12:43pm Take 1 tablet on Mondays, Wednesdays, and Fridays starting March 30, 2019 until instructed to stop Start: 03-19-2019 End: 07-20-2022 sulfamethoxazole-trimethopri m (BACTRIM DS,SEPTRA DS) 800-160 mg per tablet TAKE 1 TABLET ON MONDAYS, WEDNESDAYS, AND FRIDAYS STARTING MAR 30 UNTIL INSTRUCTED TO STOP 3 03/19/2019 07/20/2022 Discontinued Start: 03-19-2019 End: 03-30-2020 take 1 tablet by mouth once daily Sulfamethoxazole-Trimethoprim 1 TABLET t ablet Discontinued 1 {tbl} PO DAILY 50 March 19, 2019 12:00am March 30, 2020 2:25pm Take 1 tablet on Mondays, Wednesdays, and Fridays starting March 30, 2019 until instructed to stop Start: 03-19-2019 End: 03-30-2020 take 1 tablet by mouth once daily Sulfamethoxazole-Trimethoprim Discontinu ed 1 TABLET PO DAILY 50 March 19, 2019 12:00am March 30, 2020 2:25pm Take 1 tablet on Mondays, Wednesdays, and Fridays starting March 30, 2019 until instructed to stop Comment on above: TAKE 1 TABLET ON Sat, WEDNESDAYS, AND FRIDAYS STARTING MAR 30 UNTIL INSTRUCTED TO STOP Problems Active Problems Problem Classification Problem Date Documented Date Episodic/Chronic Administrative/social admission (20 sources) Patient encounter status; Translations: [Counseling, unspecified] Onset: 09-10-2014 Episodic Cataract (7 sources) Bilateral cortical age-related cataract eyes; Translations: [Cortical age-related cataract, bilateral] Onset: 02-03-2018 02-03-2018 Chronic Diverticulosis and diverticulitis (2 sources) Diverticular disease; Translations: [Diverticulosis of intestine, part unspecified, without perforation or abscess without bleeding] 07-27-2024 Chronic Glaucoma (7 sources) Open angle with borderline findings, low risk, unspecified eye; Translations: [Open angle with borderline findings, low risk] Onset: 07-12-2014 07-12-2014 Chronic Maintenance chemotherapy; radiotherapy (16 sources) Patient encounter status; Translations: [Encounter for antineoplastic chemotherapy] Chronic Malaise and fatigue (16 sources) Fatigue; Translations: [Other fatigue] Episodic Mycoses (16 sources) Candidiasis of mouth; Translations: [Candidal stomatitis] Episodic Non-Hodgkin`s lymphoma (20 sources) Follicular non-Hodgkin's lymphoma; Translations: [Follicular lymphoma, unspecified, unspecified site] Onset: 01-11-2025 Chronic Other aftercare (1 source) Encounter for adjustment and management of vascular access device; Translations: [Encounter for adjustment and management of vascular access device] Onset: 01-11-2025 Episodic Other eye disorders (7 sources) Bilateral vitreous floaters; Translations: [Other vitreous opacities, bilateral] Onset: 07-12-2014 07-18-2015 Chronic Other lower respiratory disease (6 sources) Dyspnea; Translations: [Dyspnea, unspecified] 06-02-2022 Episodic Other screening for suspected conditions (not mental disorders or infectious disease) (2 sources) Encounter for screening for malignant neoplasm of colon; Translations: [Special screening for malignant neoplasms of colon] Onset: 08-24-2024 09-26-2022 Episodic Other upper respiratory infections (6 sources) Upper respiratory infection; Translations: [Acute upper respiratory infection, unspecified] 06-02-2022 Episodic Spondylosis; intervertebral disc disorders; other back problems (7 sources) Degeneration of intervertebral disc; Translations: [Degeneration of intervertebral disc, site unspecified] Onset: 11-20-2010 11-20-2010 Chronic Past or Other Problems Problem Classification Problem Date Documented Da te Episodic/Chronic Blindness and vision defects (18 sources) Bilateral hyperopia of eyes; Translations: [Hypermetropia, bilateral] Onset: 07-12-2014 Episodic Nonmalignant breast conditions (7 sources) Hypertrophy of breast; Translations: [Hypertrophy of breast] Onset: 08-07-2013 08-07-2013 Episodic Other diseases of kidney and ureters (7 sources) Acquired renal cystic disease; Translations: [Cyst of kidney, acquired] Onset: 12-20-2011 12-20-2011 Episodic Spondylosis; intervertebral disc disorders; other back problems (8 sources) Chronic low back pain; Translations: [Chronic low back pain] Onset: 11-20-2010 11-20-2010 Episodic Unclassified (7 sources) ORAL SURGERY PROCEDURE 03-08-2022 Unclassified (7 sources) SHOULDER JOINT SURGERY 03-08-2022 Unclassified (7 sources) s/p port placement Onset: 03-12-2019 03-08-2022 Results Test Name Value Interpretation Reference Range Facility Absolute lymphocyte countOrd ered By: Anum Greene on 01-11-2025 Lymphocytes Auto (Unsp spec) [#/Vol] 1.51 10*3/uL 0.83-4.51 [facility] Absolute neutrophil countOrd ered By: Anum Greene on 01-11-2025 Neutrophils (Bld) [#/Vol] 4.3 10*3/uL 2.0-7.7 [facility] Anion gap in Serum or Plasma Ordered By: Anum Greene on 01-11-2025 Anion gap [Moles/Vol] 12 mmol/L 5-15 [facility] Automated lymphocyte count a s percentage of total leukocytesOrdered By: Anum Greene on 01-11-2025 Lymphocytes/100 WBC Auto (Unsp spec) 23.3 % 19-41 [facility] BUN/creatinine ratioOrdered By: Anum Greene on 01-11-2025 Urea nitrogen/Creatinine [Mass ratio] 17.4 mg/mg 10-20 [facility] Basophil percentageOrdered B y: Anum Verduzcobimal on 01-11-2025 Basophils/100 WBC (Bld) 0.8 % 0-1 [facility] Bilirubin, totalOrdered By: Anum Flanagan on 01-11-2025 Bilirubin [Mass/Vol] 0.48 mg/dL 0.00-1.30 [facility] CBC W/Diff, Automatedon Absolute Lymph 1.51 X10 3/uL Normal 0.83-4.51 [facility] Comment on above: Performed By: #### L 100.0100, L504.2610, [id number] ####[facility] [address] [place], [address] Absolute Neut 4.3 X10 3/uL Normal 2.0-7.7 [facility] Comment on above: Performed By: #### L 100.0100, L504.2610, [id number] ####[facility] [address] [place], [address] Basophils/100 WBC (Bld) 0.8 % Normal 0-1 [facility] Comment on above: Performed By: #### L 100.0100, L504.2610, [id number] ####[facility] [address] [place], [address] Eosinophils/100 WBC (Bld) 1.4 % Normal 0-5 [facility] Comment on above: Performed By: #### L 100.0100, L504.2610, [id number] ####[facility] [address] [place], [address] Erythrocyte distribution width (RBC) [Ratio] 11.7 % Normal 11.6-14.6 [facility] Comment on above: Performed By: #### L 100.0100, [id number], [id number] ####[facility] [address] [place], [address] Hematocrit (Bld) [Volume fraction] 44.0 % Normal 37-47 [facility] Comment on above: Performed By: #### L 100.0100, [id number], [id number] ####[facility] [address] [place], [address] Hemoglobin (Bld) [Mass/Vol] 15.3 g/dL High 12.0-15.0 [facility] Comment on above: Performed By: #### L 100.0100, L504.2610, [id number] ####[facility] [address] [place], [address] IG% 0.200 Normal 0.0-0.9 [facility] Comment on above: Result Comment: IG% - Immature Granulocytes (promyelocytes, myelocytes and metamyelocytes) > 1% indicates that a LEFT SHIFT is Present. Performed By: #### L 100.0100, L504.2610, [id number] ####[facility] [address] [place], [address] Lymphocytes/100 WBC (Bld) 23.3 % Normal 19-41 [facility] Comment on above: Performed By: #### L 100.0100, L504.2610, [id number] ####[facility] [address] [place], [address] MCH (RBC) [Entitic mass] 32.6 pg High 27.0-32.0 [facility] Comment on above: Performed By: #### L 100.0100, [id number], [id number] ####[facility] [address] [place], [address] MCHC (RBC) [Mass/Vol] 34.8 g/dL Normal 32-36 [facility] Comment on above: Performed By: #### L 100.0100, [id number], [id number] ####[facility] [address] [place], [address] MCV (RBC) [Entitic vol] 93.6 fL Normal 81-99 [facility] Comment on above: Performed By: #### L 100.0100, [id number], [id number] ####[facility] [address] [place], [address] Monocytes/100 WBC (Bld) 7.9 % Normal 0-10 [facility] Comment on above: Performed By: #### L 100.0100, [id number], [id number] ####[facility] [address] [place], [address] Neutrophils/100 WBC (Bld) 66.4 % Normal 47-70 [facility] Comment on above: Performed By: #### L 100.0100, L504.2610, [id number] ####[facility] [address] [place], [address] Nucleated RBC (Bld) [#/Vol] 0 10*3/uL Normal 0-5 [facility] Comment on above: Performed By: #### L 100.0100, L504.2610, [id number] ####[facility] [address] [place], [address] Platelet mean volume (Bld) [Entitic vol] 10.3 fL Normal 6.2-12.0 [facility] Comment on above: Performed By: #### L 100.0100, L504.2610, [id number] ####[facility] [address] [place], [address] Platelets (Bld) [#/Vol] 240 10*3/uL Normal 150-450 [facility] Comment on above: Performed By: #### L 100.0100, L504.2610, [id number] ####[facility] [address] [place], [address] RBC (Bld) [#/Vol] 4.70 10*6/uL Normal 4.2-5.4 [facility] Comment on above: Performed By: #### L 100.0100, L504.2610, [id number] ####[facility] [address] [place], [address] RDW SD 40.4 fl Normal 35.1-43.9 [facility] Comment on above: Performed By: #### L 100.0100, [id number], [id number] ####[facility] [address] [place], [address] WBC (Bld) [#/Vol] 6.5 10*3/uL Normal 4.4-11.0 [facility] Comment on above: Performed By: #### L 100.0100, L504.2610, [id number] ####[facility] [address] [place], [address] Carbon dioxide, total [Moles /volume] in Central venous bloodOrdered By: Anum Greene on 01-11-2025 CO2 [Moles/Vol] 24.0 mmol/L 21.0-32.0 [facility] Chloride assayOrdered By: Cipriano Greene on 01-11-2025 Chloride [Moles/Vol] 103 mmol/L 98-108 [facility] Comprehensive Metabolic Prof ilon 01-11-2025 Albumin [Mass/Vol] 4.5 g/dL Normal 3.4-4.8 [facility] Comment on above: Performed By: #### L 100.0100, L504.2610, [id number] ####[facility] [address] [place], [address] Albumin/Globulin [Mass ratio] 1.7 {ratio} Normal 0.9-2.4 [facility] Comment on above: Performed By: #### L 100.0100, L504.2610, [id number] ####[facility] [address] [place], [address] ALK PHOS 86 U/L Normal 35-104 [facility] Comment on above: Performed By: #### L 100.0100, L504.2610, [id number] ####[facility] [address] [place], [address] ALT [Catalytic activity/Vol] 29 U/L Normal <=34 [facility] Comment on above: Performed By: #### L 100.0100, L504.2610, [id number] ####[facility] [address] [place], [address] AST [Catalytic activity/Vol] 29 U/L Normal <=31 [facility] Comment on above: Performed By: #### L 100.0100, L504.2610, [id number] ####[facility] [address] [place], [address] Bilirubin [Mass/Vol] 0.48 mg/dL Normal 0.00-1.30 [facility] Comment on above: Performed By: #### L 100.0100, L504.2610, [id number] ####[facility] [address] [place], [address] BUN/CRE 17.4 RATIO Normal 10-20 [facility] Comment on above: Performed By: #### L 100.0100, L504.2610, [id number] ####[facility] [address] [place], [address] Calcium [Mass/Vol] 9.7 mg/dL Normal 7.6-11.0 [facility] Comment on above: Performed By: #### L 100.0100, [id number], [id number] ####[facility] [address] [place], [address] Chloride [Moles/Vol] 103 mmol/L Normal 98-108 [facility] Comment on above: Performed By: #### L 100.0100, [id number], [id number] ####[facility] [address] [place], [address] CO2 [Moles/Vol] 24.0 mmol/L Normal 21.0-32.0 [facility] Comment on above: Performed By: #### L 100.0100, L504.2610, [id number] ####[facility] [address] [place], [address] Creatinine [Mass/Vol] 0.57 mg/dL Low 0.70-1.20 [facility] Comment on above: Performed By: #### L 100.0100, L504.2610, [id number] ####[facility] [address] [place], [address] ECRCL 98.20 ml/min Normal 50-250 [facility] Comment on above: Performed By: #### L 100.0100, L504.2610, [id number] ####[facility] [address] [place], [address] GAP 12 Normal 5-15 [facility] Comment on above: Performed By: #### L 100.0100, [id number], [id number] ####[facility] [address] [place], [address] GFR/1.73 sq M.predicted among non-blacks MDRD (S/P/Bld) [Vol rate/Area] 102 mL/min/{1.73_m2} Normal >60 [facility] Comment on above: Result Comment: mL/m in/1.73m2 CKD-EPI Creatinine Equation (2020) Performed By: #### L 100.0100, L504.2610, [id number] ####[facility] [address] [place], [address] Globulin (S) [Mass/Vol] 2.7 g/dL Normal 2.2-4.2 [facility] Comment on above: Performed By: #### L 100.0100, L504.2610, [id number] ####[facility] [address] [place], [address] Glucose [Mass/Vol] 101 mg/dL High 70-99 [facility] Comment on above: Performed By: #### L 100.0100, L504.2610, [id number] ####[facility] [address] [place], [address] Potassium [Moles/Vol] 3.7 mmol/L Normal 3.3-5.1 [facility] Comment on above: Performed By: #### L 100.0100, L504.2610, [id number] ####[facility] [address] [place], [address] Sodium [Moles/Vol] 138 mmol/L Normal 133-145 [facility] Comment on above: Performed By: #### L 100.0100, [id number], [id number] ####[facility] [address] [place], [address] T PROT 7.1 g/dL Normal 5.9-8.4 [facility] Comment on above: Performed By: #### L 100.0100, L504.2610, [id number] ####[facility] [address] [place], [address] Urea nitrogen [Mass/Vol] 10 mg/dL Normal 4-19 [facility] Comment on above: Performed By: #### L 100.0100, [id number], [id number] ####[facility] [address] [place], [address] Eosinophil percentageOrdered By: Anum Greene on 01-11-2025 Eosinophils/100 WBC (Bld) 1.4 % 0-5 [facility] Erythrocyte distribution wid th ratioOrdered By: [facility] on 01-11-2025 Erythrocyte distribution width (RBC) [Ratio] 11.7 % 11.6-14.6 [facility] Erythrocyte distribution wid th standard deviationOrdered By: [facility] Hospital[facility] Greene on 01-11-2025 Erythrocyte distribution width (RBC) [Ratio] 40.4 fl 35.1-43.9 [facility] Glomerular filtration rate ( GFR) estimation/1.73 sq m using serum, plasma, or whole bOrdered By: Anum Greene on 01-11-2025 GFR/1.73 sq M.predicted among non-blacks MDRD (S/P/Bld) [Vol rate/Area] 102 mL/min/{1.73_m2} >60 [facility] Comment on above: mL/min/1.73m2 CKD-EP I Creatinine Equation (2020) Hematocrit Auto (Bld) [Volum e fraction]Ordered By: [facility] on 01-11-2025 Hematocrit (Bld) [Volume fraction] 44.0 % 37-47 [facility] Hemoglobin measurementOrdere d By: Anum Greene on 01-11-2025 Hemoglobin (Bld) [Mass/Vol] 15.3 g/dL High 12.0-15.0 [facility] Immature granulocytes/100 WB C Auto (Bld)Ordered By: Anum Greene on 01-11-2025 Immature granulocytes/100 WBC (Bld) 0.200 % 0.0-0.9 [facility] Comment on above: IG% - Immature Granu locytes (promyelocytes, myelocytes and metamyelocytes) > 1% indicates that a LEFT SHIFT is Present. LDHon 01-11-2025 LDH 187 U/L Normal 84-246 [facility] Comment on above: Order Comment: 1 Performed By: #### L 100.0100, L504.2610, L500.4050 ####[facility] [address] [place], [address] Laboratory - Chemistry and C hemistry - challengeOrdered By: Anum Greene on 01-11-2025 AST [Catalytic activity/Vol] 29 U/L <32 [facility] Lactate dehydrogenase (LDH) measurementOrdered By: Anum Greene on 01-11-2025 LDH [Catalytic activity/Vol] 187 U/L 84-246 [facility] MCV (mean corpuscular volume ) determinationOrdered By: Anum Greene on 01-11-2025 MCV (RBC) [Entitic vol] 93.6 fL 81-99 [facility] Mean corpuscular hemoglobin (MCH) determinationOrdered By: Anum Greene on 01-11-2025 MCH (RBC) [Entitic mass] 32.6 pg High 27.0-32.0 [facility] Mean corpuscular hemoglobin concentration (MCHC) determinationOrdered By: Anum Greene on 01-11-2025 MCHC (RBC) [Mass/Vol] 34.8 g/dL 32-36 [facility] Mean platelet volume determi nationOrdered By: Anum Greene on 01-11-2025 Platelet mean volume (Bld) [Entitic vol] 10.3 fL 6.2-12.0 [facility] Monocyte percentageOrdered B y: Anum Greene on 01-11-2025 Monocytes/100 WBC (Bld) 7.9 % 0-10 [facility] Neutrophil percentageOrdered By: [facility] Ramona on 01-11-2025 Neutrophils/100 WBC (Bld) 66.4 % 47-70 [facility] Nucleated red blood cell per centageOrdered By: Anum Greene on 01-11-2025 Nucleated RBC/100 WBC (Bld) [Ratio] 0 % 0-5 [facility] Oncology Visit Reporton 06-0 Oncology Visit Report [facility] [address] [place] [address] OFFICE VISIT Date of Service: 01/11/25 1332 MR#: [id number] Acct: [id number] Name: SYLVAIN LAW Rep #: [id number] : 1960 From: Anum Greene MD Age/Sex: 64/F Location: [facility] [place] [facility] Status: Signed HPI Subjective Date of Service 01/11/25 Chief Complaint Lymphoma follow-up History of Present Illness Patient is a 64-year-old female who presented with painless enlargement of lymph nodes in the left neck was first noted in the late spring 2017 and did not improve after a course of antibiotics and therefore was referred to Dr. Andre who performed an excision biopsy of the [...] 2. Increased glucose concentration noted in the bilateral-lateral neck, right-left axillary regions fulfills quantitative criteria [...] et al, Clinical Nuclear Medicine 29:161, 2004). She was placed on watchful expectancy. CT scans January 26, 2019; Neck: IMPRESSION: The previously described mass in the left posterior neck musculature is stable. Progressing left level 5 neck adenopathy. Multiple stable indeterminate subcentimeter thyroid nodules. Chest: FINDINGS: When compared to prior study, the extent of a well-defined posterior mediastinal mass has slightly progressed. The lesion now measures 6.7 x 4.5 cm in the transverse plane, as measured on image 72 of series 2. It measures approximately 9 cm craniocaudal. The lesion completely encases the descending thoracic aorta, but no aortic narrowing is seen. The lesion displaces the heart and mediastinum anteriorly. No new mediastinal masses or adenopathy. Incompletely imaged left renal calculus. Left rotator cuff repair. Stable calcified granulomas in the left lower lobe. No new suspicious lung lesions are seen. Stable minimal left lower lobe alveolitis. No destructive osseous lesions are seen. IMPRESSION: Interval progression of a posterior mediastinal mass as described. Stable minimal left lower lobe alveolitis. Abdomen and pelvis: FINDINGS: The visualized lung bases are unremarkable. The visualized portions of the heart are within normal limits. Normal liver. Normal gallbladder and extrahepatic biliary system. Subcentimeter cyst or hemangioma in the spleen too small to accurately (more content not included)... Normal [facility] Platelet countOrdered By: Cipriano Greene on 01-11-2025 Platelets (Bld) [#/Vol] 240 10*3/uL 150-450 [facility] Potassium measurement (mass/ volume)Ordered By: Anum Greene on 01-11-2025 Potassium (Unsp spec) [Mass/Vol] 3.7 mmol/L 3.3-5.1 [facility] RBC Auto (Bld) [#/Vol]Ordere d By: Anum Greene on 01-11-2025 RBC (Bld) [#/Vol] 4.70 10*6/uL 4.2-5.4 [facility] Serum creatinine measurement (mass/volume)Ordered By: Anum Greene on 01-11-2025 Creatinine [Mass/Vol] 0.57 mg/dL Low 0.70-1.20 [facility] Serum globulin measurementOr dered By: Anum Greene on 01-11-2025 Globulin (S) [Mass/Vol] 2.7 g/dL 2.2-4.2 [facility] Serum glucose measurement (m ass/volume)Ordered By: Anum Greene on 01-11-2025 Glucose [Mass/Vol] 101 mg/dL High 70-99 [facility] Serum or plasma alanine buregr otransferase (ALT) measurementOrdered By: Anum Greene on 01-11-2025 ALT [Catalytic activity/Vol] 29 U/L <35 [facility] Serum or plasma albumin dana urement (mass/volume)Ordered By: Anum Greene on 01-11-2025 Albumin [Mass/Vol] 4.5 g/dL 3.4-4.8 [facility] Serum or plasma albumin/glob ulin mass ratioOrdered By: Anum Greene on 01-11-2025 Albumin/Globulin [Mass ratio] 1.7 {ratio} 0.9-2.4 [facility] Serum or plasma alkaline mike sphatase measurementOrdered By: Anum Greene on 01-11-2025 ALP [Catalytic activity/Vol] 86 U/L 35-104 [facility] Serum or plasma calcium dana urement (mass/volume)Ordered By: Anum Greene on 01-11-2025 Calcium [Mass/Vol] 9.7 mg/dL 7.6-11.0 [facility] Serum or plasma urea nitroge n measurement (mass/volume)Ordered By: Anum Ramona on 01-11-2025 Urea nitrogen [Mass/Vol] 10 mg/dL 4-19 [facility] Sodium levelOrdered By: Clay glover Ramona on 01-11-2025 Sodium [Moles/Vol] 138 mmol/L 133-145 [facility] Total proteinOrdered By: Mniisterio oseguera Ramona on 01-11-2025 Protein [Mass/Vol] 7.1 g/dL 5.9-8.4 [facility] White blood cell (WBC) count Ordered By: Anum Ramona on 01-11-2025 WBC (Bld) [#/Vol] 6.5 10*3/uL 4.4-11.0 [facility] L/S Spine Comp/w Bending Vie wson 12-31-2024 L/S Spine Comp/w Bending Views [facility] [address] [place], [place] [address] L/S Spine Comp/w Bending Views MR#: [id number] Acct: [id number] Name: SYLVAIN LAW Rep #: [id number] : 1960 F 64 From: Doc Olguin MD PCP: Dr. Cara Stephens, DO Status: DEP AMB Study: L/S Spine Comp/w Bending Views Date of Exam: 0 12/31/24 Exam# [id number] Ordering Dr: Torrey Masters MD EXAM: XR Lumbosacral Spine, 4 or 5 Views CLINICAL INDICATION: CHRONIC PAIN TECHNIQUE: Frontal, lateral and bilateral oblique views of the lumbar spine. COMPARISON: No relevant prior studies available. FINDINGS: VERTEBRAE: Degenerative facet arthropathy throughout the lumbar spine, most prominent in the lower lumbar spine. Grade 1 retrolisthesis of L2 over L3 and L3 over L4. No acute fracture or significant dynamic instability. SACRUM/COCCYX: Unremarkable as visualized. No acute fracture. DISC SPACES: Degenerative disc disease throughout the lumbar spine. SOFT TISSUES: Unremarkable. RAD/L/S Spine Comp/w Bending Views IMPRESSION: Degenerative changes lumbar spine as described. Reading Location: [facility] CC: Dr. Torrey Masters MD; Dr. Cara Stephens DO Skull Chopper: Signed Normal [facility] Thoracic Spine 3 Viewson Thoracic Spine 3 Views [facility] [address] [place] [address] Thoracic Spine 3 Views MR#: [id number] Acct: [id number] Name: SYLVAIN LAW Rep #: [id number] : 1960 F 64 From: Basil Chauhan MD PCP: Dr. Cara Stephens DO Status: DEP AMB Study: Thoracic Spine 3 Views Date of Exam: 12/31/24 Exam# [id number] Ordering Dr: Torrey Masters MD PROCEDURE: THORACIC SPINE 3 VIEWS 12/31/2024 REASON FOR EXAM: CHRONIC PAIN TECHNIQUE: Three views of the thoracic spine COMPARISON: None FINDINGS: There is a proximally 25% anterior compression deformity at T11, T12, and L1, age-indeterminate. There is degenerative disc disease throughout the thoracic region. Osteopenia is noted. There is no spondylolisthesis. Suture anchors are noted at the shoulder on the lateral view. There is a central access port on the right with its tip centrally located. RAD/Thoracic Spine 3 Views IMPRESSION: There is a proximally 25% anterior compression deformity at T11, T12, and L1, age-indeterminate. MRI or bone scan could be helpful to determine chronicity if clinically indicated. Reading Location: [facility] CC: Dr. Torrey Masters MD; Dr. Cara Stephens DO Skull Chopper: Signed Normal [facility] Cerv Spine 4 or 5 Viewson Cerv Spine 4 or 5 Views [facility] Services [address] [place], [place] [id number] Cerv Spine 4 or 5 Views MR#: [id number] Acct: [id number] Name: SYLVAIN LAW Rep #: [id number] : 1960 F 64 From: Satnam samuel MD PCP: Dr. Cara Stephens DO Status: REG CLI Study: Cerv Spine 4 or 5 Views Date of Exam: 10/07/24 Exam# [id number] Ordering Dr: Stella Mtz PROCEDURE: CERV SPINE 4 OR 5 VIEWS REASON FOR EXAM: Cervical pain. Spasms in the right upper extremity. TECHNIQUE: 5 views of the cervical spine including oblique views.. COMPARISON: None. FINDINGS: Normal vertebral body heights. No visible fracture. Multilevel disc space narrowing and spondylosis worse at the C4-C5, C5-C6 and C6-C7 levels. Findings suggestive of right neural foraminal stenosis. Normal alignment. Prevertebral soft tissues are unremarkable. RAD/Cerv Spine 4 or 5 Views IMPRESSION: MODERATE CERVICAL DEGENERATIVE CHANGES. Findings suggestive of right neural foraminal stenosis. Reading Location: [facility] CC: LOGISTICS LOSS PREVENTION MANAGER-Coleman Mtz; Dr. Cara Stephens DO Skull Chopper: Signed Normal [facility] CNOVon 08-24-2024 CNOV Office Visit (OBGYWM) ---- SYLVAIN LAW ([id number]) 1960 F Date Time Provider Department 08/24/24 4:00 PM MIKAYLA MICHELLE OBGYWM During your visit today, we recorded the following information about you: Blood pressure Weight Height 104/64 73.9 kg 1.626 m Mikayla Michelle MD 08/24/2024 4:42 PM Signed Cellular Biologist offered: Patient declines. Sylvain is a 64 year old who presents for an annual gynecologic exam without complaints. Postmenopausal: Yes HRT use: No. Contraception: Vasectomy Last pap smear: 2022 History of abnormal pap: No Last mammogram: 2024 pending History of abnormal mammogram: No Sexually active: Yes Pain with intercourse: Yes Postcoital bleeding: No Pain only if not using lubrication. OB History T0 L0 SAB0 IAB0 Ectopic0 Multiple0 Live Births0 Direct Support Staff History LMP: 12/24/2012, Postmenopausal Age at Menarche: Age at First : Age at Menopause: Direct Support Staff History Comments: Sexual Activity: Not Asked; Male; Not asked Contraception: Vasectomy PAST MEDICAL HISTORY Diagnosis Date Degeneration of intervertebral disc, site unspecified Follicular non-Hodgkin's lymphoma (HCC) 2018 Frozen shoulder left shoulder Hypertension Kidney stones Lymph node enlargement Renal cyst, acquired, left 12/20/2011 PAST SURGICAL HISTORY Procedure Laterality Date EGD LYMPH NODE BIOPSY (SPECIFY LOCATION) HX 03/2018 Removed from neck PORT ROTATOR CUFF REPAIR 01/08/2014 Left shoulder SKIN BX, 1 LESION 2023 FAMILY HISTORY Problem Relation Age of Onset Cancer Father from bladder cancer Hypertension Mother Lipids Mother Hypertension Maternal Grandmother Breast Cancer Maternal Grandmother Diabetes Paternal Grandmother Stroke Paternal Grandfather Arthritis Sister Arthritis Brother SOCIAL HISTORY Social History Tobacco Use Smoking status: Never Smokeless tobacco: Never Vaping Use Vaping status: Never Used Substance Use Topics Alcohol use: Not Currently Comment: rarely Drug use: No REVIEW OF SYSTEMS Abdomen: No abdominal pain, nausea, vomiting, diarrhea, or constipation. No bloating, early satiety, indigestion, or increased flatulence. Bladder: No dysuria, gross hematuria, urinary frequency, urinary urgency, or incontinence Breast: No breast lumps, nipple d/c, overlying skin changes, redness or skin retraction Allergies and current medication updated:Yes SENSITIVE EXAM: The sensitive examination was discussed with the Patient or Patient's Authorized Health And Safety Specialist. As applicable, any other physician, advance practice provider, medical student, or other health professional student that will be observing or involved in the sensitive examination for educational or training purposes was discussed with the Patient or Authorized Health And Safety Specialist. The Patient or Authorized Health And Safety Specialist has agreed to proceed with the sensitive examination. (Sensitive examination includes inspection and/or palpation of the breasts, pelvis, prostate and anorectal regions). EXAM: BP 104/64 Ht 5' 4 (1.63m) Wt 163 lb (73.9kg) LMP 12/24/2012 BMI 27.97 kg/(m2). GENERAL: pleasant, female in no apparent distress HEENT: Normocephalic, atraumatic, mucus membranes moist, and no lesions NECK: Supple, full range of motion, no adenopathy, and thyroid normal DERMATOLOGY: Normal, without lesions, non-icteric, and non-hirsute BREAST: soft, non-tender, symmetric, no dominant mass, normal nipple-areolar complex, no lymphadenopathy, and no nipple discharge CHEST: Normal inspiratory effort ABDOMEN: soft, non-tender, and no masses PELVIC: external genitalia normal, normal Bartholin's glands, urethra, Pinopolis's glands, no vulvar lesions, no cervical lesions, good vaginal support, physiologic discharge present, normal appearing perineal body and perianal region BIMANUAL: uterus normal size, shape and consistency, no adnexal masses, and non-tender RECTOVAGINAL: deferred. NEURO: alert and oriented x3,exam grossly non-focal EXTREMITIES: normal ASSESSMENT/PLAN: 1) Health maintenance: Pap/HPV up to date. Nutrition, exercise and routine health maintenance exams reviewed. Calcium/Vitamin D supplementation information provided. Colon cancer screening: up to date with screening BMD: N/A 2) Follow up one year or sooner as needed Mikayla Tom MD Referring Provider: MIKAYLA MICHELLE [[id number]] Allergies As of Date: 08/24/2024 Noted Allergy Reaction JAILYN INHIBITORS 11/17/2010 14 - Other: See Comments Comments: Coughing and Choking BARIUM SULFATE 09/26/2009 4 - Hives BENEDRYL (DIPHENHYDRAMINE) 04/30/2022 14 - Other: See Comments Comments: Trouble swallowing and communicating- IV admin. Benedryl MUCINEX (GUAIFENESIN) 08/07/2013 4 - Hives PENICILLINS 10/30/2005 2 - Rash Comments: ? SHELLFISH (more content not included)... Normal [facility] DWAYNE SCREENING W TOMOon 08-24 DWAYNE SCREENING W ANDRZEJ * * *Final Report* * * DATE OF EXAM: Aug 24 2024 2:50PM [id number] [id number] - DWAYNE SCREENING W ANDRZEJ / PROCEDURE REASON: multiple diagnoses * * * * Physician Interpretation * * * * RESULT: [place] [address] #[id number] - DWAYNE SCREENING W ANDRZEJ HISTORY: Patient is 64 years old and is seen for screening and is asymptomatic in both breasts. The patient has a history of Non Hodgkin's Lymphoma in 2018. COMPARISON STUDIES: The present examination has been compared to prior imaging studies dated 05/05/2018 (mammogram), 06/08/2019 (mammogram), 07/01/2020 (mammogram), 07/03/2021 (mammogram) and 07/20/2022 (mammogram). MAMMOGRAM TECHNIQUE: The study was acquired using full field digital technology and interpreted from soft copy. Digital Breast Tomosynthesis (DBT) images were obtained and used to assist in the interpretation of this examination. Computer-aided detection was utilized by the radiologist in the interpretation of this examination. MAMMOGRAM FINDINGS: There are scattered areas of fibroglandular density. There is a stable low density, oval mass with circumscribed margins in the left breast. No suspicious masses, calcifications or other abnormalities are seen in either breast. IMPRESSION: There is no mammographic evidence of malignancy. Routine screening mammogram is recommended. Annual mammogram will be due in 1 year. BI-RADS Category 2: Benign RISK: Based on the Tyrer-Cuzick (TC) risk assessment model, this patient has a 9.3% lifetime risk of developing breast cancer, meaning they are at average risk for developing breast cancer. However, this is only an estimate based on available history provided on the patient's questionnaire. We encourage all patients to talk with their providers about these results, further recommendations for managing breast health, and appropriate supplemental screening options if the patient has dense breast tissue. Interpreting Radiologist: Lili Smith M.D. FACR, FSBI Electronically signed on: 08/25/2024 Skull Chopper: QUIRINO Transcribe Date/Time: Aug 24 2024 2:23P Dictated by: LILI SMITH MD This examination was interpreted and the report reviewed and electronically signed by: LILI SMITH MD on Aug 25 2024 12:12PM EST [id number] Normal [facility] Oncology Visit Reporton - Oncology Visit Report [facility] [address] [place] [address] OFFICE VISIT Date of Service: 07/27/24 1057 MR#: [id number] Acct: [id number] Name: SYLVAIN LAW Rep #: [id number] : 1960 From: Anum Greene MD Age/Sex: 64/F Location: [facility] [place] [facility] Status: Signed HPI Subjective Date of Service 07/27/24 Chief Complaint Lymphoma follow-up History of Present Illness Patient is a 63-year-old female who presented with painless enlargement of lymph nodes in the left neck was first noted in the late spring 2017 and did not improve after a course of antibiotics and therefore was referred to Dr. Andre who performed an excision biopsy of the [...] 2. Increased glucose concentration noted in the bilateral-lateral neck, right-left axillary regions fulfills quantitative criteria [...] et al, Clinical Nuclear Medicine 29:161, 2004). She was placed on watchful expectancy. CT scans January 26, 2019; Neck: IMPRESSION: The previously described mass in the left posterior neck musculature is stable. Progressing left level 5 neck adenopathy. Multiple stable indeterminate subcentimeter thyroid nodules. Chest: FINDINGS: When compared to prior study, the extent of a well-defined posterior mediastinal mass has slightly progressed. The lesion now measures 6.7 x 4.5 cm in the transverse plane, as measured on image 72 of series 2. It measures approximately 9 cm craniocaudal. The lesion completely encases the descending thoracic aorta, but no aortic narrowing is seen. The lesion displaces the heart and mediastinum anteriorly. No new mediastinal masses or adenopathy. Incompletely imaged left renal calculus. Left rotator cuff repair. Stable calcified granulomas in the left lower lobe. No new suspicious lung lesions are seen. Stable minimal left lower lobe alveolitis. No destructive osseous lesions are seen. IMPRESSION: Interval progression of a posterior mediastinal mass as described. Stable minimal left lower lobe alveolitis. Abdomen and pelvis: FINDINGS: The visualized lung bases are unremarkable. The visualized portions of the heart are within normal limits. Normal liver. Normal gallbladder and extrahepatic biliary system. Subcentimeter cyst or hemangioma in the spleen too small to accurately (more content not included)... Normal [facility] Absolute neutrophil countOrd ered By: Mansadalberto Greene on 07-20-2024 Neutrophils (Bld) [#/Vol] 2.5 10*3/uL 2.0-7.7 [facility] Albumin to globulin ratioOrd ered By: Clayadalberto Greene on 07-20-2024 Albumin/Globulin [Mass ratio] 1.3 {ratio} 0.9-2.4 [facility] Basophil percentageOrdered B y: Anum Greene on 07-20-2024 Basophils/100 WBC (Bld) 1.2 % High 0-1 [facility] Bilirubin, totalOrdered By: Clayadalberto Greene on 07-20-2024 Bilirubin [Mass/Vol] 0.50 mg/dL 0.20-1.00 [facility] Comment on above: For patients on eltr ombopag therapy, use of Dimension [place] TBIL is not recommended. Blood urea nitrogen (BUN)/cr eatinine ratioOrdered By: Anum Greene on 07-20-2024 Urea nitrogen/Creatinine [Mass ratio] 24.2 mg/mg High 10-20 [facility] CBC W/Diff, Automatedon 12-0 Absolute Lymph 1.22 X10 3/uL Normal 0.83-4.51 [facility] Comment on above: Performed By: #### L 504.2610, L500.4050, L100.0100 #### [facility] [address] [place], [address] Absolute Neut 2.5 X10 3/uL Normal 2.0-7.7 [facility] Comment on above: Performed By: #### L 504.2610, L500.4050, L100.0100 #### [facility] [address] [place], [address] Basophils/100 WBC (Bld) 1.2 % High 0-1 [facility] Comment on above: Performed By: #### L 504.2610, L500.4050, L100.0100 #### [facility] [address] [place], [address] Eosinophils/100 WBC (Bld) 2.8 % Normal 0-5 [facility] Comment on above: Performed By: #### L 504.2610, L500.4050, L100.0100 #### [facility] [address] [place], [address] Erythrocyte distribution width (RBC) [Ratio] 11.6 % Normal 11.6-14.6 [facility] Comment on above: Performed By: #### L 504.2610, L500.4050, L100.0100 #### [facility] [address] [place], [address] Hematocrit (Bld) [Volume fraction] 41.7 % Normal 37-47 [facility] Comment on above: Performed By: #### L 504.2610, L500.4050, L100.0100 #### [facility] [address] [place], [address] Hemoglobin (Bld) [Mass/Vol] 14.4 g/dL Normal 12.0-15.0 [facility] Comment on above: Performed By: #### L 504.2610, L500.4050, L100.0100 #### [facility] [address] [place], [address] IG% 0.200 Normal 0.0-0.9 [facility] Comment on above: Result Comment: IG% - Immature Granulocytes (promyelocytes, myelocytes and metamyelocytes) > 1% indicates that a LEFT SHIFT is Present. Performed By: #### L 504.2610, L500.4050, L100.0100 #### [facility] [address] [place], [address] Lymphocytes/100 WBC (Bld) 28.6 % Normal 19-41 [facility] Comment on above: Performed By: #### L 504.2610, L500.4050, L100.0100 #### [facility] [address] [place], [address] MCH (RBC) [Entitic mass] 31.7 pg Normal 27.0-32.0 [facility] Comment on above: Performed By: #### L 504.2610, L500.4050, L100.0100 #### [facility] [address] [place], [address] MCHC (RBC) [Mass/Vol] 34.5 g/dL Normal 32-36 [facility] Comment on above: Performed By: #### L 504.2610, L500.4050, L100.0100 #### [facility] [address] [place], [address] MCV (RBC) [Entitic vol] 91.9 fL Normal 81-99 [facility] Comment on above: Performed By: #### L 504.2610, L500.4050, L100.0100 #### [facility] [address] [place], [address] Monocytes/100 WBC (Bld) 8.9 % Normal 0-10 [facility] Comment on above: Performed By: #### L 504.2610, L500.4050, L100.0100 #### [facility] [address] [place], [address] Neutrophils/100 WBC (Bld) 58.3 % Normal 47-70 [facility] Comment on above: Performed By: #### L 504.2610, L500.4050, L100.0100 #### [facility] [address] [place], [address] Nucleated RBC (Bld) [#/Vol] 0 10*3/uL Normal 0-5 [facility] Comment on above: Performed By: #### L 504.2610, L500.4050, L100.0100 #### [facility] [address] [place], [address] Platelet mean volume (Bld) [Entitic vol] 9.8 fL Normal 6.2-12.0 [facility] Comment on above: Performed By: #### L 504.2610, L500.4050, L100.0100 #### [facility] [address] [place], [address] Platelets (Bld) [#/Vol] 192 10*3/uL Normal 150-450 [facility] Comment on above: Performed By: #### L 504.2610, L500.4050, L100.0100 #### [facility] [address] [place], [address] RBC (Bld) [#/Vol] 4.54 10*6/uL Normal 4.2-5.4 [facility] Comment on above: Performed By: #### L 504.2610, L500.4050, L100.0100 #### [facility] [address] [place], [address] RDW SD 39.2 fl Normal 35.1-43.9 [facility] Comment on above: Performed By: #### L 504.2610, L500.4050, L100.0100 #### [facility] [address] [place], [address] WBC (Bld) [#/Vol] 4.3 10*3/uL Low 4.4-11.0 [facility] Comment on above: Performed By: #### L 504.2610, L500.4050, L100.0100 #### [facility] [address] [place], [address] CREATININE FINGERSTICKon CREATININE WB < 1.0 Normal 0.55-1.02 [facility] Comment on above: Performed By: #### L 9100.0200 ####[facility] [address] [place], [place], [address] EGFR WB > 60.0000 Normal >60 [facility] Comment on above: Performed By: #### L 9100.0200 ####[facility] [address] [place], [place], [address] CT Chest, Abd, Pel w/Contras ton 07-20-2024 CT Chest, Abd, Pel w/Contrast [facility] [address] [place], [place] [address] CT Chest, Abd, Pel w/Contrast MR#: [id number] Acct: [id number] Name: SYLVAIN LAW Rep #: [id number] : 1960 F 64 From: Satnam samuel MD PCP: Dr. Cara Stephens, DO Status: [facility] Study: CT Chest, Abd, Pel w/Contrast Date of Exam: Exam# [id number] Ordering Dr: Anum Greene MD -[id number] STUDY: CT CHEST, ABDOMEN T PELVIS WITH CONTRAST REASON FOR EXAM: Female, 64 years old. [place] LYMPHOMA, IV CONTRAST RADIATION DOSAGE (If Supplied By Facility): CTDIvol = ( 14 ) mGy, DLP = ( 1621.71 ) mGycm TECHNIQUE: Transaxial imaging was performed following intravenous administration of IV 100mL Isovue-370. Multiplanar coronal and sagittal images were reformatted. Individualized dose optimization techniques were used for this CT. COMPARISON: Comparison is made with prior study dated January 27, 2024. FINDINGS: CHEST A right-sided oscar catheter seen with the tip in the superior vena cava. Stable 1.4 cm partially calcified granuloma in the peripheral aspect of the left upper lobe. There is no demonstrated pleural abnormality. Normal heart and pericardium. No coronary artery calcification is seen. Normal mediastinum. Normal hilar regions. Normal unenhanced pulmonary arteries. Normal aorta arch and descending thoracic aorta. There are mild degenerative changes of the thoracic spine. Diffuse fatty infiltration of the liver. ABDOMEN There is decreased attenuation of the liver consistent with steatosis. Normal gallbladder and extrahepatic biliary system. Normal spleen. Normal pancreas. Normal bilateral adrenal glands. Stable small bilateral renal cysts. Normal visualized stomach. Normal small intestine. There are scattered colonic diverticula consistent with diverticulosis. The appendix is visualized and appears normal. There is scattered atherosclerotic calcification of the abdominal aorta, without a demonstrated aneurysm. Normal inferior vena cava. Normal retroperitoneum. Normal abdominal wall. There are degenerative changes of the visualized lumbar spine. PELVIS Normal urinary bladder. There is no pelvic fluid. There is no pelvic lymphadenopathy or mass lesion. Normal visualized pelvic arteries. CT/CT Chest, Abd, Pel w/Contrast IMPRESSION: Stable examination. Electronically Signed: Satnam Kowalski MD at 11:09 EST , CC: Dr. Cara Stephens DO; Dr. Anum Greene MD Skull Chopper: Signed Normal [facility] Carbon dioxide measurementOr dered By: Anum Greene on 07-20-2024 CO2 [Moles/Vol] 30.0 mmol/L 21.0-32.0 [facility] Chloride measurementOrdered By: Anum Greene on 07-20-2024 Chloride [Moles/Vol] 107 mmol/L 98-107 [facility] Comprehensive Metabolic Prof ilon 07-20-2024 Albumin [Mass/Vol] 3.8 g/dL Normal 3.2-5.0 [facility] Comment on above: Order Comment: 1 Performed By: #### L 504.0150, L500.4050, L100.0100 #### [facility] [address] [place], [address] Albumin/Globulin [Mass ratio] 1.3 {ratio} Normal 0.9-2.4 [facility] Comment on above: Order Comment: 1 Performed By: #### L 504.2610, L500.4050, L100.0100 #### [facility] [address] [place], [address] ALK P 79 U/L Normal 45-117 [facility] Comment on above: Order Comment: 1 Performed By: #### L 504.2610, L500.4050, L100.0100 #### [facility] [address] [place], [address] ALT [Catalytic activity/Vol] 21 U/L Normal 13-56 [facility] Comment on above: Order Comment: 1 Performed By: #### L 504.2610, L500.4050, L100.0100 #### [facility] [address] [place], [address] AST [Catalytic activity/Vol] 19 U/L Normal 15-37 [facility] Comment on above: Order Comment: 1 Performed By: #### L 504.2610, L500.4050, L100.0100 #### [facility] [address] [place], [address] Bilirubin [Mass/Vol] 0.50 mg/dL Normal 0.20-1.00 [facility] Comment on above: Order Comment: 1 Result Comment: For patients on eltrombopag therapy, use of Dimension Homer TBIL is not recommended. Performed By: #### L 504.2610, L500.4050, L100.0100 #### [facility] [address] [place], [address] BUN/CRE 24.2 RATIO High 10-20 [facility] Comment on above: Order Comment: 1 Performed By: #### L 504.2610, L500.4050, L100.0100 #### [facility] [address] [place], [address] CA,Total 9.3 mg/dL Normal 8.5-10.1 [facility] Comment on above: Order Comment: 1 Performed By: #### L 504.2610, L500.4050, L100.0100 #### [facility] [address] [place], [address] Chloride [Moles/Vol] 107 mmol/L Normal 98-107 [facility] Comment on above: Order Comment: 1 Performed By: #### L 504.2610, L500.4050, L100.0100 #### [facility] [address] [place], [address] CO2 [Moles/Vol] 30.0 mmol/L Normal 21.0-32.0 [facility] Comment on above: Order Comment: 1 Performed By: #### L 504.2610, L500.4050, L100.0100 #### [facility] [address] [place], [address] Creatinine [Mass/Vol] 0.54 mg/dL Low 0.55-1.02 [facility] Comment on above: Order Comment: 1 Result Comment: The validity of the calculated GFR GFRAA in patients over 70 years has not been determined. Clinical correlation is essential. Performed By: #### L 504.2610, L500.4050, L100.0100 #### [facility] [address] [place], [address] EST GFR - AA 147 mL/min Normal >60 [facility] Comment on above: Order Comment: 1 Result Comment: Afri can Egyptian GFR Calc Performed By: #### L 504.2610, L500.4050, L100.0100 #### [facility] [address] [place], [address] GAP 3 Low 5-15 [facility] Comment on above: Order Comment: 1 Performed By: #### L 504.2610, L500.4050, L100.0100 #### [facility] [address] [place], [address] GFR/1.73 sq M.predicted among non-blacks MDRD (S/P/Bld) [Vol rate/Area] 122 mL/min/{1.73_m2} Normal >60 [facility] Comment on above: Order Comment: 1 Result Comment: Non- GFR Calc Performed By: #### L 504.2610, L500.4050, L100.0100 #### [facility] [address] [place], [address] Globulin (S) [Mass/Vol] 3.0 g/dL Normal 2.2-4.2 [facility] Comment on above: Order Comment: 1 Performed By: #### L 504.2610, L500.4050, L100.0100 #### [facility] [address] [place], [address] Glucose [Mass/Vol] 110 mg/dL High 74-106 [facility] Comment on above: Order Comment: 1 Result Comment: Fast ing Glucose result from 100 to 125 mg/dL suggests IMPAIRED HOMEOSTASIS per A.D.A. criteria. Performed By: #### L 504.2610, L500.4050, L100.0100 #### [facility] [address] [place], [address] Potassium [Moles/Vol] 3.7 mmol/L Normal 3.5-5.1 [facility] Comment on above: Order Comment: 1 Performed By: #### L 504.2610, L500.4050, L100.0100 #### [facility] [address] [place], [address] Sodium [Moles/Vol] 141 mmol/L Normal 136-145 [facility] Comment on above: Order Comment: 1 Performed By: #### L 504.2610, L500.4050, L100.0100 #### [facility] [address] [place], [address] T PROT 6.8 g/dL Normal 6.4-8.2 [facility] Comment on above: Order Comment: 1 Performed By: #### L 504.2610, L500.4050, L100.0100 #### [facility] [address] [place], [address] Urea nitrogen [Mass/Vol] 13 mg/dL Normal 7-18 [facility] Comment on above: Order Comment: 1 Performed By: #### L 504.2610, L500.4050, L100.0100 #### [facility] [address] [place], [address] Creatinine measurement at be dsideOrdered By: Anum Greene on 07-20-2024 Bedside Creatinine < 1.0 mg/dL 0.55-1.02 [facility] EGFROrdered By: nAum rivera on 07-20-2024 Bedside Estimated GFR (eGFR) > 60.0000 mL/min >60 [facility] Eosinophil percentageOrdered By: Anum Greene on 07-20-2024 Eosinophils/100 WBC (Bld) 2.8 % 0-5 [facility] Erythrocyte distribution wid th ratioOrdered By: Anum Greene on 07-20-2024 Erythrocyte distribution width (RBC) [Ratio] 11.6 % 11.6-14.6 [facility] Erythrocyte distribution wid th standard deviationOrdered By: Anum Greene on 07-20-2024 Erythrocyte distribution width (RBC) [Entitic vol] 39.2 fL 35.1-43.9 [facility] Estimated glomerular filtrat ion rate (GFR) AmericanOrdered By: Anum Greene on 07-20-2024 Estimated GFR (MDRD) Amer 147 mL/min >60 [facility] Comment on above: GFR Calc Glomerular filtration rate ( GFR) estimationOrdered By: Anum Greene on 07-20-2024 Estimated GFR (MDRD) Non-Af Amer 122 mL/min >60 [facility] Comment on above: Non- GFR Calc Glucose measurementOrdered B y: Anum Greene on 07-20-2024 Glucose [Mass/Vol] 110 mg/dL High 74-106 [facility] Comment on above: Fasting Glucose resu lt from 100 to 125 mg/dL suggests IMPAIRED HOMEOSTASIS per A.D.A. criteria. Hematocrit Auto (Bld) [Volum e fraction]Ordered By: Anum Greene on 07-20-2024 Hematocrit (Bld) [Volume fraction] 41.7 % 37-47 [facility] Hemoglobin measurementOrdere d By: Anum Greene on 07-20-2024 Hemoglobin (Bld) [Mass/Vol] 14.4 g/dL 12.0-15.0 [facility] Immature granulocytes/100 WB C Auto (Bld)[facility]24 Immature granulocytes/100 WBC (Bld) 0.200 % 0.0-0.9 [facility] Comment on above: IG% - Immature Granu locytes (promyelocytes, myelocytes and metamyelocytes) > 1% indicates that a LEFT SHIFT is Present. LDHon 07-20-2024 LDH 172 U/L Normal 84-246 [facility] Comment on above: Order Comment: 1 Performed By: #### L 504.2610, L500.4050, L100.0100 #### [facility] [address] [place], [address] Laboratory - Chemistry and C hemistry - challengeOrdered By: Anum Greene on 07-20-2024 AST [Catalytic activity/Vol] 19 U/L 15-37 [facility] Lactate dehydrogenase (LDH) measurementOrdered By: [facility] on 07-20-2024 LDH [Catalytic activity/Vol] 172 U/L 84-246 [facility] Lymphocytes Auto (Unsp spec) [#/Vol]Ordered By: Anum Greene on 07-20-2024 Lymphocytes (Bld) [#/Vol] 1.22 10*3/uL 0.83-4.51 [facility] Lymphocytes/100 WBC Auto (Un sp spec)Ordered By: Anum Greene on 07-20-2024 Lymphocytes/100 WBC (Bld) 28.6 % 19-41 [facility] MCV (mean corpuscular volume ) determinationOrdered By: Anum Greene on 07-20-2024 MCV (RBC) [Entitic vol] 91.9 fL 81-99 [facility] Mean corpuscular hemoglobin (MCH) determinationOrdered By: Anum Greene on 07-20-2024 MCH (RBC) [Entitic mass] 31.7 pg 27.0-32.0 [facility] Mean corpuscular hemoglobin concentration (MCHC) determinationOrdered By: Anum Greene on 07-20-2024 MCHC (RBC) [Mass/Vol] 34.5 g/dL 32-36 [facility] Mean platelet volume determi nationOrdered By: Anum Greene on 07-20-2024 Platelet mean volume (Bld) [Entitic vol] 9.8 fL 6.2-12.0 [facility] Monocyte percentageOrdered B y: Anum Greene on 07-20-2024 Monocytes/100 WBC (Bld) 8.9 % 0-10 [facility] Neutrophil percentageOrdered By: Anum Greene on 07-20-2024 Neutrophils/100 WBC (Bld) 58.3 % 47-70 [facility] Nucleated red blood cell per centageOrdered By: Anum Greene on 07-20-2024 Nucleated RBC/100 WBC (Bld) [Ratio] 0 % 0-5 [facility] Platelet countOrdered By: Cipriano Greene on 07-20-2024 Platelets (Bld) [#/Vol] 192 10*3/uL 150-450 [facility] Potassium measurementOrdered By: Anum Greene on 07-20-2024 Potassium [Moles/Vol] 3.7 mmol/L 3.5-5.1 [facility] RBC Auto (Bld) [#/Vol]Ordere d By: Anum Greene on 07-20-2024 RBC (Bld) [#/Vol] 4.54 10*6/uL 4.2-5.4 [facility] Serum anion gap measurementO rdered By: Anum Greene on 07-20-2024 Anion gap [Moles/Vol] 3 mmol/L Low 5-15 [facility] Serum globulin measurementOr dered By: Anum Greene on 07-20-2024 Globulin (S) [Mass/Vol] 3.0 g/dL 2.2-4.2 [facility] Serum or plasma alanine burger otransferase (ALT) measurementOrdered By: Anum Greene on 07-20-2024 ALT [Catalytic activity/Vol] 21 U/L 13-56 [facility] Serum or plasma albumin dana urement (mass/volume)Ordered By: Anum Greene on 07-20-2024 Albumin [Mass/Vol] 3.8 g/dL 3.2-5.0 [facility] Serum or plasma alkaline mike sphatase measurementOrdered By: Anum Greene on 07-20-2024 ALP [Catalytic activity/Vol] 79 U/L 45-117 [facility] Serum or plasma calcium dana urement (mass/volume)Ordered By: Anum Greene on 07-20-2024 Calcium [Mass/Vol] 9.3 mg/dL 8.5-10.1 [facility] Serum or plasma creatinine m easurement (mass/volume)Ordered By: Anum Greene on 07-20-2024 Creatinine [Mass/Vol] 0.54 mg/dL Low 0.55-1.02 [facility] Comment on above: The validity of the calculated GFR & GFRAA in patients over 70 years has not been determined. Clinical correlation is essential. Serum or plasma urea nitroge n measurement (mass/volume)Ordered By: Anum Greene on 07-20-2024 Urea nitrogen [Mass/Vol] 13 mg/dL 7-18 [facility] Sodium levelOrdered By: Clay Greene on 07-20-2024 Sodium [Moles/Vol] 141 mmol/L 136-145 [facility] Soft Tissue Neck WITH Contra ston 07-20-2024 Soft Tissue Neck WITH Contrast [facility] [address] [place] [address] Soft Tissue Neck WITH Contrast MR#: [id number] Acct: [id number] Name: SYLVAIN LAW Rep #: [id number] : 1960 F 64 From: Satnam samuel MD PCP: Dr. Cara Stephens, DO Status: REG CLI Study: Soft Tissue Neck WITH Contrast Date of Exam: 09/20/23 Exam# [id number] Ordering Dr: Anum Greene MD -[id number] STUDY: CT SOFT TISSUE NECK WITH CONTRAST REASON FOR EXAM: Female, 64 years old. [place] LYMPHOMA IV CONTRAST RADIATION DOSAGE (If Supplied By Facility): CTDIvol = ( 14 ) mGy, DLP = ( 1621.71 ) mGycm TECHNIQUE: The patient was scanned in a multi-detector CT scanner. High resolution transaxial imaging was performed following intravenous administration of IV 100mL Isovue-370. Sagittal and coronal images were reconstructed. Individualized dose optimization techniques were used for this CT. COMPARISON: Comparison made with prior study dated January 27, 2024 FINDINGS: A right-sided Port-A-Cath is seen with the tip in the superior vena cava. Normal bilateral parotid glands. 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 Normal bilateral parapharyngeal spaces. Normal bilateral carotid spaces. Normal bilateral sublingual and submandibular glands and spaces. Normal visualized nasopharynx. Normal retropharyngeal space. Normal perivertebral space. Normal visualized bilateral faucial tonsils. The visualized tongue, tongue base and oropharynx are normal. The visualized cervical lymph nodes (levels I-) are within normal size limits, and maintain normal morphology. There is no demonstrated solid or cystic mass lesion. There is no abnormal contrast enhancement. Normal epiglottis, bilateral vallecula and hypopharynx. The pre-epiglottic and paraglottic adipose spaces are normal. Normal visualized bilateral piriform sinuses, aryepiglottic folds, vocal cords, and arytenoid-cricoid articulations. Normal subglottic trachea. Normal bilateral lobes of the thyroid gland. Normal visualized pulmonary apices. Normal visualized paranasal sinuses. There is degenerative changes of the cervical spine. CT/Soft Tissue Neck WITH Contrast IMPRESSION: Stable examination. No acute abnormality is seen. Electronically Signed: Satnam Kowalski MD at 11:11 EST , CC: Dr. Cara Stephens DO; Dr. Anum Greene MD Skull Chopper: Signed Normal [facility] Total proteinOrdered By: Ministerio Greene on 07-20-2024 Protein [Mass/Vol] 6.8 g/dL 6.4-8.2 [facility] White blood cell (WBC) count Ordered By: Anum Greene on 07-20-2024 WBC (Bld) [#/Vol] 4.3 10*3/uL Low 4.4-11.0 [facility] Absolute neutrophil countOrd ered By: Anum Greene on 04-27-2024 Neutrophils (Bld) [#/Vol] 3.6 10*3/uL 2.0-7.7 [facility] Alanine aminotransferase (AL T) assayOrdered By: Anum Greene on 04-27-2024 ALT [Catalytic activity/Vol] 33 U/L 13-56 [facility] Albumin to globulin ratioOrd ered By: Anum Greene on 04-27-2024 Albumin/Globulin [Mass ratio] 1.1 {ratio} 0.9-2.4 [facility] Alkaline phosphataseOrdered By: Anum Greene on 04-27-2024 ALP [Catalytic activity/Vol] 86 U/L 45-117 [facility] Basophil percentageOrdered B y: Anum Greene on 04-27-2024 Basophils/100 WBC (Bld) 0.8 % 0-1 [facility] Bilirubin, totalOrdered By: Anum Greene on 04-27-2024 Bilirubin [Mass/Vol] 0.40 mg/dL 0.20-1.00 [facility] Comment on above: For patients on eltr ombopag therapy, use of Dimension Homer TBIL is not recommended. Blood urea nitrogen (BUN)/cr eatinine ratioOrdered By: Anum Greene on 04-27-2024 Urea nitrogen/Creatinine [Mass ratio] 23.3 mg/mg High 10-20 [facility] CBC W/Diff, Automatedon 04-12 Absolute Lymph 1.63 X10 3/uL Normal 0.83-4.51 [facility] Comment on above: Performed By: #### L 500.4050, L504.2610, L100.0100 #### [facility] [address] [place], [address] Absolute Neut 3.6 X10 3/uL Normal 2.0-7.7 [facility] Comment on above: Performed By: #### L 500.4050, L504.2610, L100.0100 #### [facility] [address] [place], [address] Basophils/100 WBC (Bld) 0.8 % Normal 0-1 [facility] Comment on above: Performed By: #### L 500.4050, L504.2610, L100.0100 #### [facility] [address] [place], [address] Eosinophils/100 WBC (Bld) 2.7 % Normal 0-5 [facility] Comment on above: Performed By: #### L 500.4050, L504.2610, L100.0100 #### [facility] [address] [place], [address] Erythrocyte distribution width (RBC) [Ratio] 12.2 % Normal 11.6-14.6 [facility] Comment on above: Performed By: #### L 500.4050, L504.2610, L100.0100 #### [facility] [address] [place], [address] Hematocrit (Bld) [Volume fraction] 41.1 % Normal 37-47 [facility] Comment on above: Performed By: #### L 500.4050, L504.2610, L100.0100 #### [facility] [address] [place], [address] Hemoglobin (Bld) [Mass/Vol] 13.6 g/dL Normal 12.0-15.0 [facility] Comment on above: Performed By: #### L 500.4050, L504.2610, L100.0100 #### [facility] [address] [place], [address] IG% 0.200 Normal 0.0-0.9 [facility] Comment on above: Result Comment: IG% - Immature Granulocytes (promyelocytes, myelocytes and metamyelocytes) > 1% indicates that a LEFT SHIFT is Present. Performed By: #### L 500.4050, L504.2610, L100.0100 #### [facility] [address] [place], [address] Lymphocytes/100 WBC (Bld) 27.2 % Normal 19-41 [facility] Comment on above: Performed By: #### L 500.4050, L504.2610, L100.0100 #### [facility] [address] [place], [address] MCH (RBC) [Entitic mass] 31.1 pg Normal 27.0-32.0 [facility] Comment on above: Performed By: #### L 500.4050, L504.2610, L100.0100 #### [facility] [address] [place], [address] MCHC (RBC) [Mass/Vol] 33.1 g/dL Normal 32-36 [facility] Comment on above: Performed By: #### L 500.4050, L504.2610, L100.0100 #### [facility] [address] [place], [address] MCV (RBC) [Entitic vol] 93.8 fL Normal 81-99 [facility] Comment on above: Performed By: #### L 500.4050, L504.2610, L100.0100 #### [facility] [address] [place], [address] Monocytes/100 WBC (Bld) 9.7 % Normal 0-10 [facility] Comment on above: Performed By: #### L 500.4050, L504.2610, L100.0100 #### [facility] [address] [place], [address] Neutrophils/100 WBC (Bld) 59.4 % Normal 47-70 [facility] Comment on above: Performed By: #### L 500.4050, L504.2610, L100.0100 #### [facility] [address] [place], [address] Nucleated RBC (Bld) [#/Vol] 0 10*3/uL Normal 0-5 [facility] Comment on above: Performed By: #### L 500.4050, L504.2610, L100.0100 #### [facility] [address] [place], [address] Platelet mean volume (Bld) [Entitic vol] 9.9 fL Normal 6.2-12.0 [facility] Comment on above: Performed By: #### L 500.4050, L504.2610, L100.0100 #### [facility] [address] [place], [address] Platelets (Bld) [#/Vol] 216 10*3/uL Normal 150-450 [facility] Comment on above: Performed By: #### L 500.4050, L504.2610, L100.0100 #### [facility] [address] [place], [address] RBC (Bld) [#/Vol] 4.38 10*6/uL Normal 4.2-5.4 [facility] Comment on above: Performed By: #### L 500.4050, L504.2610, L100.0100 #### [facility] [address] [place], [address] RDW SD 42.8 fl Normal 35.1-43.9 [facility] Comment on above: Performed By: #### L 500.4050, L504.2610, L100.0100 #### [facility] [address] [place], [address] WBC (Bld) [#/Vol] 6.0 10*3/uL Normal 4.4-11.0 [facility] Comment on above: Performed By: #### L 500.4050, L504.2610, L100.0100 #### [facility] [address] [place], [address] Carbon dioxide measurementOr dered By: Anum Greene on 04-27-2024 CO2 [Moles/Vol] 28.0 mmol/L 21.0-32.0 [facility] Chloride measurementOrdered By: Anum Greene on 04-27-2024 Chloride [Moles/Vol] 106 mmol/L 98-107 [facility] Comprehensive Metabolic Prof ilon 04-27-2024 Albumin [Mass/Vol] 3.6 g/dL Normal 3.2-5.0 [facility] Comment on above: Order Comment: 1 Performed By: #### L 500.4050, L504.2610, L100.0100 #### [facility] [address] [place], [address] Albumin/Globulin [Mass ratio] 1.1 {ratio} Normal 0.9-2.4 [facility] Comment on above: Order Comment: 1 Performed By: #### L 500.4050, L504.2610, L100.0100 #### [facility] [address] [place], [address] ALK P 86 U/L Normal 45-117 [facility] Comment on above: Order Comment: 1 Performed By: #### L [id number], L504.2610, L100.0100 #### [facility] [address] [place], [address] ALT [Catalytic activity/Vol] 33 U/L Normal 13-56 [facility] Comment on above: Order Comment: 1 Performed By: #### L [id number], [id number], L100.0100 #### [facility] [address] [place], [address] AST [Catalytic activity/Vol] 29 U/L Normal 15-37 [facility] Comment on above: Order Comment: 1 Performed By: #### L [id number], [id number], L100.0100 #### [facility] [address] [place], [address] Bilirubin [Mass/Vol] 0.40 mg/dL Normal 0.20-1.00 [facility] Comment on above: Order Comment: 1 Result Comment: For patients on eltrombopag therapy, use of Dimension Homer TBIL is not recommended. Performed By: #### L [id number], L504.2610, L100.0100 #### [facility] [address] [place], [address] BUN/CRE 23.3 RATIO High 10-20 [facility] Comment on above: Order Comment: 1 Performed By: #### L [id number], [id number], L100.0100 #### [facility] [address] [place], [address] CA,Total 9.3 mg/dL Normal 8.5-10.1 [facility] Comment on above: Order Comment: 1 Performed By: #### L [id number], [id number], L100.0100 #### [facility] [address] [place], [address] Chloride [Moles/Vol] 106 mmol/L Normal 98-107 [facility] Comment on above: Order Comment: 1 Performed By: #### L [id number], [id number], L100.0100 #### [facility] [address] [place], [address] CO2 [Moles/Vol] 28.0 mmol/L Normal 21.0-32.0 [facility] Comment on above: Order Comment: 1 Performed By: #### L [id number], [id number], L100.0100 #### [facility] [address] [place], [address] Creatinine [Mass/Vol] 0.56 mg/dL Normal 0.55-1.02 [facility] Comment on above: Order Comment: 1 Result Comment: The validity of the calculated GFR GFRAA in patients over 70 years has not been determined. Clinical correlation is essential. Performed By: #### L [id number], L504.2610, L100.0100 #### [facility] [address] [place], [address] ECRCL 100.47 ml/min Normal [facility] Comment on above: Order Comment: 1 Performed By: #### L [id number], [id number], L100.0100 #### [facility] [address] [place], [address] EST GFR - AA 141 mL/min Normal >60 [facility] Comment on above: Order Comment: 1 Result Comment: Afri can Egyptian GFR Calc Performed By: #### L [id number], [id number], L100.0100 #### [facility] [address] [place], [address] GAP 6 Normal 5-15 [facility] Comment on above: Order Comment: 1 Performed By: #### L [id number], [id number], L100.0100 #### [facility] [address] [place], [address] GFR/1.73 sq M.predicted among non-blacks MDRD (S/P/Bld) [Vol rate/Area] 117 mL/min/{1.73_m2} Normal >60 [facility] Comment on above: Order Comment: 1 Result Comment: Non- GFR Calc Performed By: #### L [id number], L504.2610, L100.0100 #### [facility] [address] [place], [address] Globulin (S) [Mass/Vol] 3.2 g/dL Normal 2.2-4.2 [facility] Comment on above: Order Comment: 1 Performed By: #### L [id number], [id number], L100.0100 #### [facility] [address] [place], [address] Glucose [Mass/Vol] 92 mg/dL Normal 74-106 [facility] Comment on above: Order Comment: 1 Performed By: #### L [id number], [id number], L100.0100 #### [facility] [address] [place], [address] Potassium [Moles/Vol] 3.7 mmol/L Normal 3.5-5.1 [facility] Comment on above: Order Comment: 1 Performed By: #### L [id number], [id number], L100.0100 #### [facility] [address] [place], [address] Sodium [Moles/Vol] 140 mmol/L Normal 136-145 [facility] Comment on above: Order Comment: 1 Performed By: #### L [id number], [id number], L100.0100 #### [facility] [address] [place], [address] T PROT 6.8 g/dL Normal 6.4-8.2 [facility] Comment on above: Order Comment: 1 Performed By: #### L [id number], [id number], [id number] #### [facility] [address] [place], [address] Urea nitrogen [Mass/Vol] 13 mg/dL Normal 7-18 [facility] Comment on above: Order Comment: 1 Performed By: #### L [id number], [id number], L100.0100 #### [facility] [address] [place], [address] Eosinophil percentageOrdered By: Anum Greene on 04-27-2024 Eosinophils/100 WBC (Bld) 2.7 % 0-5 [facility] Erythrocyte distribution wid th ratioOrdered By: Anum Greene on 04-27-2024 Erythrocyte distribution width (RBC) [Ratio] 12.2 % 11.6-14.6 [facility] Erythrocyte distribution wid th standard deviationOrdered By: Anum Greene on 04-27-2024 Erythrocyte distribution width (RBC) [Entitic vol] 42.8 fL 35.1-43.9 [facility] Estimated glomerular filtrat ion rate (GFR) AmericanOrdered By: Anum Greene on 04-27-2024 Estimated GFR (MDRD) Amer 141 mL/min >60 [facility] Comment on above: GFR Calc Estimation of creatinine ninoska aranceOrdered By: Anum Greene on 04-27-2024 Estimated Creatinine Clearance Calc 100.47 ml/min [facility] Glomerular filtration rate ( GFR) estimationOrdered By: Anum Greene on 04-27-2024 Estimated GFR (MDRD) Non-Af Amer 117 mL/min >60 [facility] Comment on above: Non- GFR Calc Glucose measurementOrdered B y: Anum Greene on 04-27-2024 Glucose [Mass/Vol] 92 mg/dL 74-106 [facility] Hematocrit Auto (Bld) [Volum e fraction]Ordered By: Anum Greene on 04-27-2024 Hematocrit (Bld) [Volume fraction] 41.1 % 37-47 [facility] Hemoglobin measurementOrdere d By: Anum Greene on 04-27-2024 Hemoglobin (Bld) [Mass/Vol] 13.6 g/dL 12.0-15.0 [facility] Immature granulocytes/100 WB C Auto (Bld)Ordered By: Anum Greene on 04-27-2024 Immature granulocytes/100 WBC (Bld) 0.200 % 0.0-0.9 [facility] Comment on above: IG% - Immature Granu locytes (promyelocytes, myelocytes and metamyelocytes) > 1% indicates that a LEFT SHIFT is Present. LDHon 04-27-2024 LDH 191 U/L Normal 84-246 [facility] Comment on above: Order Comment: 1 Performed By: #### L [id number], [id number], L100.0100 #### [facility] [address] [place], [place], [address] Laboratory - Chemistry and C hemistry - challengeOrdered By: [facility] 04-27-[facility]24 AST [Catalytic activity/Vol] 29 U/L 15-37 [facility] Lactate dehydrogenase (LDH) measurementOrdered By: Anum Greene on 04-27-2024 LDH [Catalytic activity/Vol] 191 U/L 84-246 [facility] Lymphocytes Auto (Unsp spec) [#/Vol]Ordered By: Anum Greene on 04-27-2024 Lymphocytes (Bld) [#/Vol] 1.63 10*3/uL 0.83-4.51 [facility] Lymphocytes/100 WBC Auto (Un sp spec)Ordered By: Anum Greene on 04-27-2024 Lymphocytes/100 WBC (Bld) 27.2 % 19-41 [facility] MCV (mean corpuscular volume ) determinationOrdered By: Anum Greene on 04-27-2024 MCV (RBC) [Entitic vol] 93.8 fL 81-99 [facility] Mean corpuscular hemoglobin (MCH) determinationOrdered By: Anum Greene on 04-27-2024 MCH (RBC) [Entitic mass] 31.1 pg 27.0-32.0 [facility] Mean corpuscular hemoglobin concentration (MCHC) determinationOrdered By: Anum Greene on 04-27-2024 MCHC (RBC) [Mass/Vol] 33.1 g/dL 32-36 [facility] Mean platelet volume determi nationOrdered By: Anum Greene on 04-27-2024 Platelet mean volume (Bld) [Entitic vol] 9.9 fL 6.2-12.0 [facility] Monocyte percentageOrdered B y: Anum Greene on 04-27-2024 Monocytes/100 WBC (Bld) 9.7 % 0-10 [facility] Neutrophil percentageOrdered By: Anum Greene on 04-27-2024 Neutrophils/100 WBC (Bld) 59.4 % 47-70 [facility] Nucleated red blood cell per centageOrdered By: Anum Greene on 04-27-2024 Nucleated RBC/100 WBC (Bld) [Ratio] 0 % 0-5 [facility] Oncology Visit Reporton 04-12 Oncology Visit Report [facility] [place] [facility] [address] [place] [address] OFFICE VISIT Date of Service: 04/27/24 1504 MR#: [id number] Acct: [id number] Name: SYLVAIN LAW Rep #: [id number] : 1960 From: Anum Greene MD Age/Sex: 64/F Location: [facility] Status: Signed HPI Subjective Date of Service 04/27/24 Chief Complaint Lymphoma follow-up History of Present Illness Patient is a 63-year-old female who presented with painless enlargement of lymph nodes in the left neck was first noted in the late spring 2017 and did not improve after a course of antibiotics and therefore was referred to Dr. Andre who performed an excision biopsy of the [...] 2. Increased glucose concentration noted in the bilateral-lateral neck, right-left axillary regions fulfills quantitative criteria [...] et al, Clinical Nuclear Medicine 29:161, 2004). She was placed on watchful expectancy. CT scans January 26, 2019; Neck: IMPRESSION: The previously described mass in the left posterior neck musculature is stable. Progressing left level 5 neck adenopathy. Multiple stable indeterminate subcentimeter thyroid nodules. Chest: FINDINGS: When compared to prior study, the extent of a well-defined posterior mediastinal mass has slightly progressed. The lesion now measures 6.7 x 4.5 cm in the transverse plane, as measured on image 72 of series 2. It measures approximately 9 cm craniocaudal. The lesion completely encases the descending thoracic aorta, but no aortic narrowing is seen. The lesion displaces the heart and mediastinum anteriorly. No new mediastinal masses or adenopathy. Incompletely imaged left renal calculus. Left rotator cuff repair. Stable calcified granulomas in the left lower lobe. No new suspicious lung lesions are seen. Stable minimal left lower lobe alveolitis. No destructive osseous lesions are seen. IMPRESSION: Interval progression of a posterior mediastinal mass as described. Stable minimal left lower lobe alveolitis. Abdomen and pelvis: FINDINGS: The visualized lung bases are unremarkable. The visualized portions of the heart are within normal limits. Normal liver. Normal gallbladder and extrahepatic biliary system. Subcentimeter cyst or hemangioma in the spleen too small to accurately (more content not included)... Normal [facility] Platelet countOrdered By: Cipriano Greene on 04-27-2024 Platelets (Bld) [#/Vol] 216 10*3/uL 150-450 [facility] Potassium measurementOrdered By: Anum Greene on 04-27-2024 Potassium [Moles/Vol] 3.7 mmol/L 3.5-5.1 [facility] RBC Auto (Bld) [#/Vol]Ordere d By: Anum Greene on 04-27-2024 RBC (Bld) [#/Vol] 4.38 10*6/uL 4.2-5.4 [facility] Serum albumin measurementOrd ered By: Anum Greene on 04-27-2024 Albumin [Mass/Vol] 3.6 g/dL 3.2-5.0 [facility] Serum anion gap measurementO rdered By: Anum Greene on 04-27-2024 Anion gap [Moles/Vol] 6 mmol/L 5-15 [facility] Serum globulin measurementOr dered By: Anum Flanaganus on 04-27-2024 Globulin (S) [Mass/Vol] 3.2 g/dL 2.2-4.2 [facility] Serum or plasma calcium dana urement (mass/volume)Ordered By: Anum Greene on 04-27-2024 Calcium [Mass/Vol] 9.3 mg/dL 8.5-10.1 [facility] Serum or plasma creatinine m easurement (mass/volume)Ordered By: Anum Greene on 04-27-2024 Creatinine [Mass/Vol] 0.56 mg/dL 0.55-1.02 [facility] Comment on above: The validity of the calculated GFR & GFRAA in patients over 70 years has not been determined. Clinical correlation is essential. Serum or plasma urea nitroge n measurement (mass/volume)Ordered By: Anum Greene on 04-27-2024 Urea nitrogen [Mass/Vol] 13 mg/dL 7-18 [facility] Sodium levelOrdered By: Clay Greene on 04-27-2024 Sodium [Moles/Vol] 140 mmol/L 136-145 [facility] Total proteinOrdered By: Ministerio oseguera Ramona on 04-27-2024 Protein [Mass/Vol] 6.8 g/dL 6.4-8.2 [facility] White blood cell (WBC) count Ordered By: Anum Greene on 04-27-2024 WBC (Bld) [#/Vol] 6.0 10*3/uL 4.4-11.0 [facility] DWAYNE SCREENING W TOMOon 08-08 [facility] Absolute lymphocyte countOrd ered By: Anum Greene on 07-15-2023 Lymphocytes Auto (Unsp spec) [#/Vol] 1.35 10*3/uL 0.83-4.51 [facility] Basophil percentageOrdered B y: Anum Greene on 07-15-2023 Basophil percentage < 1.0 mg/dL 0.55-1.02 [facility] Basophils/100 WBC (Bld) 1.1 % 0-1 [facility] Bilirubin [Mass/Vol] 0.40 mg/dL 0.20-1.[address] [facility] Comment on above: For patients on eltr ombopag therapy, use of Dimension Homer TBIL is not recommended. Chloride [Moles/Vol] 107 mmol/L 98-107 [facility] Eosinophils/100 WBC (Bld) 2.0 % 0-5 [facility] Glucose [Mass/Vol] 109 mg/dL 74-106 [facility] Comment on above: Fasting Glucose resu lt from 100 to 125 mg/dL suggests IMPAIRED HOMEOSTASIS per A.D.A. criteria. LDH [Catalytic activity/Vol] 169 U/L 84-246 [facility] Neutrophils (Bld) [#/Vol] 2.5 10*3/uL 2.0-7.7 [facility] Neutrophils/100 WBC (Bld) 55.7 % 47-70 [facility] Potassium [Moles/Vol] 3.8 mmol/L 3.5-5.1 [facility] Protein [Mass/Vol] 7.1 g/dL 6.4-8.2 [facility] Sodium [Moles/Vol] 139 mmol/L 136-145 [facility] WBC (Bld) [#/Vol] 4.5 10*3/uL 4.4-11.0 [facility] Blood erythrocytes count (nu mber/volume)Ordered By: Anum Greene on 07-15-2023 RBC (Bld) [#/Vol] 4.47 10*6/uL 4.2-5.4 [facility] Blood hemoglobin measurement (mass/volume)Ordered By: Anum Greene on 07-15-2023 Hemoglobin (Bld) [Mass/Vol] 14.2 g/dL 12.0-15.0 [facility] Blood lymphocytes/100 leukoc ytesOrdered By: Anum Greene on 07-15-2023 Lymphocytes/100 WBC (Bld) 30.1 % 19-41 [facility] Blood monocytes/100 leukocyt esOrdered By: Anum Greene on 07-15-2023 Monocytes/100 WBC (Bld) 10.9 % 0-10 [facility] Blood platelet mean volumeOr dered By: Anum Greene on 07-15-2023 Platelet mean volume (Bld) [Entitic vol] 9.8 fL 6.2-12.0 [facility] Determination of erythrocyte mean corpuscular volume (MCV)Ordered By: Anum Greene on 07-15-2023 MCV (RBC) [Entitic vol] 93.5 fL 81-99 [facility] Hematocrit Auto (Bld) [Volum e fraction]Ordered By: [facility] Ramona on 07-15-2023 Hematocrit (Bld) [Volume fraction] 41.8 % 37-47 [facility] - Chemistry and C hemistry - challengeOrdered By: [facility] on 07-15-2023 ALP [Catalytic activity/Vol] 91 U/L 45-117 [facility] ALT [Catalytic activity/Vol] 23 U/L 13-56 [facility] CO2 [Moles/Vol] 30.0 mmol/L 21.0-32.0 [facility] Globulin (S) [Mass/Vol] 3.6 g/dL 2.2-4.2 [facility] Urea nitrogen/Creatinine [Mass ratio] 25.4 mg/mg 10-20 [facility] - Hematology and Cell countsOrdered By: [facility] Ram[facility] on 07-15-2023 Erythrocyte distribution width (RBC) [Entitic vol] 40.1 fL 35.1-43.9 [facility] Erythrocyte distribution width (RBC) [Ratio] 11.7 % 11.6-14.6 [facility] Immature granulocytes/100 WBC (Bld) 0.200 % 0.0-0.9 [facility] Comment on above: IG% - Immature Granu locytes (promyelocytes, myelocytes and metamyelocytes) > 1% indicates that a LEFT SHIFT is Present. MCH (RBC) [Entitic mass] 31.8 pg 27.0-32.0 [facility] Nucleated RBC/100 WBC (Bld) [Ratio] 0 % 0-5 [facility] MCHC Auto (RBC) [Mass/Vol]Or dered By[facility] on 07-15-2023 MCHC (RBC) [Mass/Vol] 34.0 g/dL 32-36 [facility] No Panel InformationOrdered By: [facility] on 07-15-2023 Bedside Estimated GFR (eGFR) > 60.0000 mL/min >60 [facility] Estimated Creatinine Clearance Calc 79.95 ml/min [facility] Estimated GFR (MDRD) Amer 123 mL/min >60 [facility] Comment on above: GFR Calc Estimated GFR (MDRD) Non-Af Amer 102 mL/min >60 [facility] Comment on above: Non- GFR Calc Platelets bldOrdered By: Ministerio oseguera Ramona on 07-15-2023 Platelets (Bld) [#/Vol] 203 10*3/uL 150-450 [facility] Serum or plasma albumin dana urement (mass/volume)Ordered By: Anum Greene on 07-15-2023 Albumin [Mass/Vol] 3.5 g/dL 3.2-5.0 [facility] Serum or plasma albumin/glob ulin mass ratioOrdered By: Anum Greene on 07-15-2023 Albumin/Globulin [Mass ratio] 1.0 {ratio} 0.9-2.4 [facility] Serum or plasma calcium dana urement (mass/volume)Ordered By: Anum Greene on 07-15-2023 Calcium [Mass/Vol] 8.9 mg/dL 8.5-10.1 [facility] Serum or plasma creatinine m easurement (mass/volume)Ordered By: Anum Greene on 07-15-2023 Creatinine [Mass/Vol] 0.63 mg/dL 0.55-1.02 [facility] Comment on above: The validity of the calculated GFR & GFRAA in patients over 70 years has not been determined. Clinical correlation is essential. Serum or plasma urea nitroge n measurement (mass/volume)Ordered By: Anum Greene on 07-15-2023 Urea nitrogen [Mass/Vol] 16 mg/dL 7-18 [facility] Thin prep Papanicolaou smear with manual screeningOrdered By: Anum Greene on 07-15-2023 Thin prep Papanicolaou smear with manual screening 22 U/L 15-37 [facility] Thin prep Papanicolaou smear with manual screening 2 5-15 [facility] Throat specimen bacteria juan ntification by cultureOrdered By: Doc Bose on 02-08-2023 Bacteria identified Cx Nom (Throat) [facility] Absolute lymphocyte countOrd ered By: Anum Greene on 11-19-2022 Lymphocytes Auto (Unsp spec) [#/Vol] 1.36 10*3/uL 0.83-4.51 [facility] Basophil percentageOrdered B y: Anum Greene on 11-19-2022 Basophil percentage < 0.9 mg/dL 0.55-1.02 [facility] Basophils/100 WBC (Bld) 0.7 % 0-1 [facility] Bilirubin [Mass/Vol] 0.50 mg/dL 0.20-1.00 [facility] Comment on above: For patients on eltr ombopag therapy, use of Dimension Homer TBIL is not recommended. Chloride [Moles/Vol] 105 mmol/L 98-107 [facility] Eosinophils/100 WBC (Bld) 1.5 % 0-5 [facility] Glucose [Mass/Vol] 109 mg/dL 74-106 [facility] Comment on above: Fasting Glucose resu lt from 100 to 125 mg/dL suggests IMPAIRED HOMEOSTASIS per A.D.A. criteria. LDH [Catalytic activity/Vol] 171 U/L 84-246 [facility] Neutrophils (Bld) [#/Vol] 5.2 10*3/uL 2.0-7.7 [facility] Neutrophils/100 WBC (Bld) 70.6 % 47-70 [facility] Potassium [Moles/Vol] 3.9 mmol/L 3.5-5.1 [facility] Protein [Mass/Vol] 7.2 g/dL 6.4-8.2 [facility] Sodium [Moles/Vol] 138 mmol/L 136-145 [facility] WBC (Bld) [#/Vol] 7.3 10*3/uL 4.4-11.0 [facility] Blood erythrocytes count (nu mber/volume)Ordered By: Anum Greene on 11-19-2022 RBC (Bld) [#/Vol] 4.55 10*6/uL 4.2-5.4 [facility] Blood hemoglobin measurement (mass/volume)Ordered By: Anum Greene on 11-19-2022 Hemoglobin (Bld) [Mass/Vol] 14.7 g/dL 12.0-15.0 [facility] Blood lymphocytes/100 leukoc ytesOrdered By: [facility] on 11-19-2022 Lymphocytes/100 WBC (Bld) 18.7 % 19-41 [facility] Blood monocytes/100 leukocyt esOrdered By: [facility] on 11-19-2022 Monocytes/100 WBC (Bld) 8.1 % 0-10 [facility] Blood platelet mean volumeOr dered By: Anum Greene on 11-19-2022 Platelet mean volume (Bld) [Entitic vol] 9.7 fL 6.2-12.0 [facility] Determination of erythrocyte mean corpuscular volume (MCV)Ordered By: [facility] on 11-19-2022 MCV (RBC) [Entitic vol] 94.9 fL 81-99 [facility] Hematocrit Auto (Bld) [Volum e fraction]Ordered By: [facility] on 11-19-2022 Hematocrit (Bld) [Volume fraction] 43.2 % 37-47 [facility] - Chemistry and C hemistry - challengeOrdered By: [facility] on 11-19-2022 ALP [Catalytic activity/Vol] 96 U/L 45-117 [facility] ALT [Catalytic activity/Vol] 48 U/L 13-56 [facility] CO2 [Moles/Vol] 29.0 mmol/L 21.0-32.0 [facility] Globulin (S) [Mass/Vol] 3.6 g/dL 2.2-4.2 [facility] Urea nitrogen/Creatinine [Mass ratio] 21.5 mg/mg 10-20 [facility] - Hematology and Cell countsOrdered By: [facility] on 11-19-2022 Erythrocyte distribution width (RBC) [Entitic vol] 41.3 fL 35.1-43.9 [facility] Erythrocyte distribution width (RBC) [Ratio] 11.9 % 11.6-14.6 [facility] Immature granulocytes/100 WBC (Bld) 0.400 % 0.0-0.9 [facility] Comment on above: IG% - Immature Granu locytes (promyelocytes, myelocytes and metamyelocytes) > 1% indicates that a LEFT SHIFT is Present. MCH (RBC) [Entitic mass] 32.3 pg 27.0-32.0 [facility] Nucleated RBC/100 WBC (Bld) [Ratio] 0 % 0-5 [facility] MCHC Auto (RBC) [Mass/Vol]Or dered By: Anum Greene on 11-19-2022 MCHC (RBC) [Mass/Vol] 34.0 g/dL 32-36 [facility] No Panel InformationOrdered By: Anum Grenee on 11-19-2022 Bedside Estimated GFR (eGFR) > 60.0000 mL/min >60 [facility] Estimated Creatinine Clearance Calc 78.49 ml/min [facility] Estimated GFR (MDRD) Amer 119 mL/min >60 [facility] Comment on above: GFR Calc Estimated GFR (MDRD) Non-Af Amer 98 mL/min >60 [facility] Comment on above: Non- GFR Calc Platelets bldOrdered By: Ministerio Greene on 11-19-2022 Platelets (Bld) [#/Vol] 223 10*3/uL 150-450 [facility] Serum or plasma albumin dana urement (mass/volume)Ordered By: Anum Greene on 11-19-2022 Albumin [Mass/Vol] 3.6 g/dL 3.2-5.0 [facility] Serum or plasma albumin/glob ulin mass ratioOrdered By: Anum Greene on 11-19-2022 Albumin/Globulin [Mass ratio] 1.0 {ratio} 0.9-2.4 [facility] Serum or plasma calcium dana urement (mass/volume)Ordered By: Anum Greene on 11-19-2022 Calcium [Mass/Vol] 9.3 mg/dL 8.5-10.1 [facility] Serum or plasma creatinine m easurement (mass/volume)Ordered By: Anum Greene on 11-19-2022 Creatinine [Mass/Vol] 0.65 mg/dL 0.55-1.02 [facility] Comment on above: The validity of the calculated GFR & GFRAA in patients over 70 years has not been determined. Clinical correlation is essential. Serum or plasma urea nitroge n measurement (mass/volume)Ordered By: Anum Greene on 11-19-2022 Urea nitrogen [Mass/Vol] 14 mg/dL 7-18 [facility] Thin prep Papanicolaou smear with manual screeningOrdered By: Anum Greene on 11-19-2022 Thin prep Papanicolaou smear with manual screening 31 U/L 15-37 [facility] Thin prep Papanicolaou smear with manual screening 4 5-15 [facility] Absolute lymphocyte countOrd ered By: Dr. Greene on 08-27-2022 Lymphocytes Auto (Unsp spec) [#/Vol] 1.23 10*3/uL 0.83-4.51 [facility] Basophil percentageOrdered B y: Dr. Greene on 08-27-2022 Basophils/100 WBC (Bld) 0.6 % 0-1 [facility] Bilirubin [Mass/Vol] 0.40 mg/dL 0.20-1.00 [facility] Comment on above: For patients on eltr ombopag therapy, use of Dimension Homer TBIL is not recommended. Chloride [Moles/Vol] 106 mmol/L 98-107 [facility] Eosinophils/100 WBC (Bld) 2.2 % 0-5 [facility] Glucose [Mass/Vol] 107 mg/dL 74-106 [facility] Comment on above: Fasting Glucose resu lt from 100 to 125 mg/dL suggests IMPAIRED HOMEOSTASIS per A.D.A. criteria. LDH [Catalytic activity/Vol] 158 U/L 84-246 [facility] Neutrophils (Bld) [#/Vol] 4.4 10*3/uL 2.0-7.7 [facility] Neutrophils/100 WBC (Bld) 69.6 % 47-70 [facility] Potassium [Moles/Vol] 4.0 mmol/L 3.5-5.1 [facility] Protein [Mass/Vol] 7.5 g/dL 6.4-8.2 [facility] Sodium [Moles/Vol] 141 mmol/L 136-145 [facility] WBC (Bld) [#/Vol] 6.4 10*3/uL 4.4-11.0 [facility] Blood erythrocytes count (nu mber/volume)Ordered By: Dr. Greene on 08-27-2022 RBC (Bld) [#/Vol] 4.56 10*6/uL 4.2-5.4 [facility] Blood hemoglobin measurement (mass/volume)Ordered By: Dr. Greene on 08-27-2022 Hemoglobin (Bld) [Mass/Vol] 14.8 g/dL 12.0-15.0 [facility] Blood lymphocytes/100 leukoc ytesOrdered By: Dr. Greene on 08-27-2022 Lymphocytes/100 WBC (Bld) 19.4 % 19-41 [facility] Blood monocytes/100 leukocyt esOrdered By: Dr. Greene on 08-27-2022 Monocytes/100 WBC (Bld) 7.9 % 0-10 [facility] Blood platelet mean volumeOr dered By: Dr. Greene on 08-27-2022 Platelet mean volume (Bld) [Entitic vol] 10.0 fL 6.2-12.0 [facility] Determination of erythrocyte mean corpuscular volume (MCV)Ordered By: Dr. Greene on 08-27-2022 MCV (RBC) [Entitic vol] 93.4 fL 81-99 [facility] Hematocrit Auto (Bld) [Volum e fraction]Ordered By: Dr. Greene on 08-27-2022 Hematocrit (Bld) [Volume fraction] 42.6 % 37-47 [facility] Laboratory - Chemistry and C hemistry - challengeOrdered By: Dr. Greene on 08-27-2022 ALP [Catalytic activity/Vol] 82 U/L 45-117 [facility] ALT [Catalytic activity/Vol] 30 U/L 13-56 [facility] CO2 [Moles/Vol] 30.0 mmol/L 21.0-32.0 [facility] Globulin (S) [Mass/Vol] 3.7 g/dL 2.2-4.2 [facility] Urea nitrogen/Creatinine [Mass ratio] 17.0 mg/mg 10-20 [facility] Laboratory - Hematology and Cell countsOrdered By: Dr. Greene on 08-27-2022 Erythrocyte distribution width (RBC) [Entitic vol] 40.2 fL 35.1-43.9 [facility] Erythrocyte distribution width (RBC) [Ratio] 11.7 % 11.6-14.6 [facility] Immature granulocytes/100 WBC (Bld) 0.300 % 0.0-0.9 [facility] Comment on above: IG% - Immature Granu locytes (promyelocytes, myelocytes and metamyelocytes) > 1% indicates that a LEFT SHIFT is Present. MCH (RBC) [Entitic mass] 32.5 pg 27.0-32.0 [facility] Nucleated RBC/100 WBC (Bld) [Ratio] 0 % 0-5 [facility] MCHC Auto (RBC) [Mass/Vol]Or dered By: Dr. Greene on 08-27-2022 MCHC (RBC) [Mass/Vol] 34.7 g/dL 32-36 [facility] No Panel InformationOrdered By: Dr. Greene on 08-27-2022 Estimated Creatinine Clearance Calc 72.88 ml/min [facility] Estimated GFR (MDRD) Amer 108 mL/min >60 [facility] Comment on above: GFR Calc Estimated GFR (MDRD) Non-Af Amer 90 mL/min >60 [facility] Comment on above: Non- GFR Calc Platelets bldOrdered By: Dr. Greene on 08-27-2022 Platelets (Bld) [#/Vol] 228 10*3/uL 150-450 [facility] Serum or plasma albumin dana urement (mass/volume)Ordered By: Dr. Greene on 08-27-2022 Albumin [Mass/Vol] 3.8 g/dL 3.2-5.0 [facility] Serum or plasma albumin/glob ulin mass ratioOrdered By: Dr. Greene on 08-27-2022 Albumin/Globulin [Mass ratio] 1.0 {ratio} 0.9-2.4 [facility] Serum or plasma calcium dana urement (mass/volume)Ordered By: Dr. Greene on 08-27-2022 Calcium [Mass/Vol] 9.6 mg/dL 8.5-10.1 [facility] Serum or plasma creatinine m easurement (mass/volume)Ordered By: Dr. Greene on 08-27-2022 Creatinine [Mass/Vol] 0.70 mg/dL 0.55-1.02 [facility] Comment on above: The validity of the calculated GFR & GFRAA in patients over 70 years has not been determined. Clinical correlation is essential. Serum or plasma urea nitroge n measurement (mass/volume)Ordered By: Dr. Greene on 08-27-2022 Urea nitrogen [Mass/Vol] 12 mg/dL 7-18 [facility] Thin prep Papanicolaou smear with manual screeningOrdered By: Dr. Greene on 08-27-2022 Thin prep Papanicolaou smear with manual screening 21 U/L 15-37 [facility] Thin prep Papanicolaou smear with manual screening 5 5-15 [facility] Basic metabolic 2000 panelon 07-20-2022 Anion gap [Moles/Vol] 9 mmol/L 9 - 18 mmol/L [facility] Calcium [Mass/Vol] 9.5 mg/dL 8.5 - 10. 2 mg/dL [facility] Chloride [Moles/Vol] 101 mmol/L 97 - 10 5 mmol/L [facility] CO2 [Moles/Vol] 27 mmol/L 22 - 30 mmol/L [facility] Creatinine [Mass/Vol] 0.64 mg/dL 0.58 - 0.96 mg/dL [facility] Estimated Glomerular Filtration Rate 101 mL/min/1.73m >=60 mL/min[facility]73[facility] Glucose [Mass/Vol] 101 mg/dL High 74 - 99 mg/dL [facility] Potassium [Moles/Vol] 3.9 mmol/L 3.7 - 5.1 mmol/L [facility] Sodium [Moles/Vol] 137 mmol/L 136 - 144 mmol/L [facility] Urea nitrogen [Mass/Vol] 11 mg/dL 7 - 21 mg/d L [facility] DWAYNE SCREENING W TOMOon 07-20 [facility] Absolute lymphocyte counton 05-25-2022 Lymphocytes Auto (Unsp spec) [#/Vol] 0.89 10*3/uL 0.83-4.51 [facility] Work Phone: Basophil percentageon 2021 Basophils/100 WBC (Bld) 0.6 % 0-1 [facility] Work Phone: Chloride [Moles/Vol] 108 mmol/L 98-107 [facility] Work Phone: Eosinophils/100 WBC (Bld) 1.3 % 0-5 [facility] Work Phone: Glucose [Mass/Vol] 113 mg/dL 74-106 [facility] Work Phone: Comment on above: Fasting Glucose resu lt from 100 to 125 mg/dL suggests IMPAIRED HOMEOSTASIS per A.D.A. criteria. Neutrophils (Bld) [#/Vol] 6.1 10*3/uL 2.0-7.7 [facility] Work Phone: Neutrophils/100 WBC (Bld) 78.2 % 47-70 [facility] Work Phone: Potassium [Moles/Vol] 3.9 mmol/L 3.5-5.1 [facility] Work Phone: Sodium [Moles/Vol] 142 mmol/L 136-145 [facility] Work Phone: WBC (Bld) [#/Vol] 7.8 10*3/uL 4.4-11.0 [facility] Work Phone: Blood erythrocytes count (nu mber/volume)on 05-25-2022 RBC (Bld) [#/Vol] 4.32 10*6/uL 4.2-5.4 [facility] Work Phone: Blood hemoglobin measurement (mass/volume)on 05-25-2022 Hemoglobin (Bld) [Mass/Vol] 14.0 g/dL 12.0-15.0 [facility] Work Phone: Blood lymphocytes/100 leukoc yteson 05-25-2022 Lymphocytes/100 WBC (Bld) 11.4 % 19-41 [facility] Work Phone: Blood monocytes/100 leukocyt eson 05-25-2022 Monocytes/100 WBC (Bld) 8.0 % 0-10 [facility] Work Phone: Blood platelet mean volumeon 05-25-2022 Platelet mean volume (Bld) [Entitic vol] 9.9 fL 6.2-12.0 [facility] Work Phone: [phone] Determination of erythrocyte mean corpuscular volume (MCV)on 05-25-2022 MCV (RBC) [Entitic vol] 94.2 fL 81-99 [facility] Work Phone: [phone] Hematocrit Auto (Bld) [Volum e fraction]on 05-25-2022 Hematocrit (Bld) [Volume fraction] 40.7 % 37-47 [facility] Work Phone: [phone] Laboratory - Chemistry and C hemistry - challengeon 05-25-2022 CO2 [Moles/Vol] 27.0 mmol/L 21.0-32.0 [facility] Work Phone: [phone] Urea nitrogen/Creatinine [Mass ratio] 19.0 mg/mg 10-20 [facility] Work Phone: [phone] Laboratory - Hematology and Cell countson 05-25-2022 Erythrocyte distribution width (RBC) [Entitic vol] 40.0 fL 35.1-43.9 [facility] Work Phone: [phone] Erythrocyte distribution width (RBC) [Ratio] 11.6 % 11.6-14.6 [facility] Work Phone: [phone] Immature granulocytes/100 WBC (Bld) 0.500 % 0.0-0.9 [facility] Work Phone: [phone] Comment on above: IG% - Immature Granu locytes (promyelocytes, myelocytes and metamyelocytes) > 1% indicates that a LEFT SHIFT is Present. MCH (RBC) [Entitic mass] 32.4 pg 27.0-32.0 [facility] Work Phone: [phone] Nucleated RBC/100 WBC (Bld) [Ratio] 0 % 0-5 [facility] Work Phone: [phone] MCHC Auto (RBC) [Mass/Vol]on 05-25-2022 MCHC (RBC) [Mass/Vol] 34.4 g/dL 32-36 [facility]: [phone] Panel Informationon 05-25 Estimated Creatinine Clearance Calc 80.98 ml/min [facility] Work Phone: Estimated GFR (MDRD) Amer 123 mL/min >60 [facility] Work Phone: Comment on above: GFR Calc Estimated GFR (MDRD) Non-Af Amer 102 mL/min >60 [facility] Work Phone: Comment on above: Non- GFR Calc Troponin I High Sensitivity 5 pg/mL 3.0-54.0 [facility] Work Phone: Comment on above: Please Note: New Saba t Units and Gender Specific Reference Ranges. For more information see Policy Stat Procedure [place] High Sensitivity Troponin (TNIH) and attachments. Platelets bldon 05-25-2022 Platelets (Bld) [#/Vol] 195 10*3/uL 150-450 [facility] Work Phone: Serum or plasma calcium dana urement (mass/volume)on 05-25-2022 Calcium [Mass/Vol] 9.4 mg/dL 8.5-10.1 [facility] Work Phone: Serum or plasma creatinine m easurement (mass/volume)on 05-25-2022 Creatinine [Mass/Vol] 0.63 mg/dL 0.55-1.02 [facility] Work Phone: Comment on above: The validity of the calculated GFR & GFRAA in patients over 70 years has not been determined. Clinical correlation is essential. Serum or plasma urea nitroge n measurement (mass/volume)on 05-25-2022 Urea nitrogen [Mass/Vol] 12 mg/dL 7-18 [facility] Work Phone: [phone] Thin prep Papanicolaou smear with manual screeningon 05-25-2022 Thin prep Papanicolaou smear with manual screening 7 - [facility] Work Phone: [phone] Absolute lymphocyte counton 05-10-2022 Lymphocytes Auto (Unsp spec) [#/Vol] 0.93 10*3/uL 0.83-4.51 [facility] Work Phone: Basophil percentageon 2021 Basophils/100 WBC (Bld) 0.3 % 0-1 [facility] Work Phone: Bilirubin [Mass/Vol] 0.30 mg/dL 0.20-1.00 [facility] Work Phone: Comment on above: For patients on eltr ombopag therapy, use of Dimension [place] TBIL is not recommended. Chloride [Moles/Vol] 101 mmol/L 98-107 [facility] Work Phone: Eosinophils/100 WBC (Bld) 2.0 % 0-5 [facility] Work Phone: Glucose [Mass/Vol] 106 mg/dL 74-106 [facility] Work Phone: Comment on above: Fasting Glucose resu lt from 100 to 125 mg/dL suggests IMPAIRED HOMEOSTASIS per A.D.A. criteria. Neutrophils (Bld) [#/Vol] 2.0 10*3/uL 2.0-7.7 [facility] Work Phone: Neutrophils/100 WBC (Bld) 56.5 % 47-70 [facility] Work Phone: Potassium [Moles/Vol] 3.5 mmol/L 3.5-5.1 [facility] Work Phone: Protein [Mass/Vol] 5.9 g/dL 6.4-8.2 [facility] Work Phone: Sodium [Moles/Vol] 135 mmol/L 136-145 [facility] Work Phone: WBC (Bld) [#/Vol] 3.5 10*3/uL 4.4-11.0 [facility] Work Phone: Basophil percentage < 0.9 mg/dL 0.55-1.02 [facility] Work Phone: Blood erythrocytes count (nu mber/volume)on 05-10-2022 RBC (Bld) [#/Vol] 3.90 10*6/uL 4.2-5.4 [facility] Work Phone: Blood hemoglobin measurement (mass/volume)on 05-10-2022 Hemoglobin (Bld) [Mass/Vol] 12.5 g/dL 12.0-15.0 [facility] Work Phone: Blood lymphocytes/100 leukoc yteson 05-10-2022 Lymphocytes/100 WBC (Bld) 27.0 % 19-41 [facility] Work Phone: [phone] Blood monocytes/100 leukocyt eson 05-10-2022 Monocytes/100 WBC (Bld) 13.9 % 0-10 [facility] Work Phone: Blood platelet mean volumeon 05-10-2022 Platelet mean volume (Bld) [Entitic vol] 10.0 fL 6.2-12.0 [facility] Work Phone: Determination of erythrocyte mean corpuscular volume (MCV)on 05-10-2022 MCV (RBC) [Entitic vol] 92.8 fL 81-99 [facility] Work Phone: Hematocrit Auto (Bld) [Volum e fraction]on 05-10-2022 Hematocrit (Bld) [Volume fraction] 36.2 % 37-47 [facility] Work Phone: Laboratory - Chemistry and C hemistry - challengeon 05-10-2022 ALP [Catalytic activity/Vol] 64 U/L 45-117 [facility] Work Phone: ALT [Catalytic activity/Vol] 22 U/L 13-56 [facility] Work Phone: [phone] CO2 [Moles/Vol] 27.0 mmol/L 21.0-32.0 [facility] Work Phone: Globulin (S) [Mass/Vol] 3.0 g/dL 2.2-4.2 [facility] Work Phone: [phone] Urea nitrogen/Creatinine [Mass ratio] 20.6 mg/mg 10-20 [facility] Work Phone: Laboratory - Hematology and Cell countson 05-10-2022 Erythrocyte distribution width (RBC) [Entitic vol] 38.9 fL 35.1-43.9 [facility] Work Phone: [phone] Erythrocyte distribution width (RBC) [Ratio] 11.5 % 11.6-14.6 [facility] Work Phone: [phone] Immature granulocytes/100 WBC (Bld) 0.300 % 0.0-0.9 [facility] Work Phone: [phone] Comment on above: IG% - Immature Granu locytes (promyelocytes, myelocytes and metamyelocytes) > 1% indicates that a LEFT SHIFT is Present. MCH (RBC) [Entitic mass] 32.1 pg 27.0-32.0 [facility] Work Phone: [phone] Nucleated RBC/100 WBC (Bld) [Ratio] 0 % 0-5 [facility] Work Phone: [phone] MCHC Auto (RBC) [Mass/Vol]on 05-10-2022 MCHC (RBC) [Mass/Vol] 34.5 g/dL 32-36 [facility] Work Phone: [phone] No Panel Informationon 05-10 Estimated GFR (MDRD) Amer 123 mL/min >60 [facility] Work Phone: [phone] Comment on above: GFR Calc Estimated GFR (MDRD) Non-Af Amer 102 mL/min >60 [facility] Work Phone: [phone] Comment on above: Non- GFR Calc Bedside Estimated GFR (eGFR) > 60.0000 mL/min >60 [facility] Work Phone: [phone] Platelets bldon 05-10-2022 Platelets (Bld) [#/Vol] 176 10*3/uL 150-450 [facility] Work Phone: [phone] Serum or plasma albumin dana urement (mass/volume)on 05-10-2022 Albumin [Mass/Vol] 2.9 g/dL 3.2-5.0 [facility] Work Phone: [phone] Serum or plasma albumin/glob ulin mass ratioon 05-10-2022 Albumin/Globulin [Mass ratio] 1.0 {ratio} 0.9-2.4 [facility] Work Phone: [phone] Serum or plasma calcium dana urement (mass/volume)on 05-10-2022 Calcium [Mass/Vol] 8.1 mg/dL 8.5-10.1 [facility] Work Phone: [phone] Serum or plasma creatinine m easurement (mass/volume)on 05-10-2022 Creatinine [Mass/Vol] 0.63 mg/dL 0.55-1.02 [facility] Work Phone: Comment on above: The validity of the calculated GFR & GFRAA in patients over 70 years has not been determined. Clinical correlation is essential. Serum or plasma urea nitroge n measurement (mass/volume)on 05-10-2022 Urea nitrogen [Mass/Vol] 13 mg/dL 7-18 [facility] Work Phone: Thin prep Papanicolaou smear with manual screeningon 05-10-2022 Thin prep Papanicolaou smear with manual screening 14 U/L 15-37 [facility] Work Phone: [phone] Thin prep Papanicolaou smear with manual screening 7 5-15 [facility] Work Phone: [phone] Thin prep Papanicolaou smear with manual screening 121 U/L 84-246 [facility] Work Phone: [phone] Absolute lymphocyte counton 02-13-2022 Lymphocytes Auto (Unsp spec) [#/Vol] 1.32 10*3/uL 0.83-4.51 [facility] Work Phone: Basophil percentageon 2021 Basophils/100 WBC (Bld) 0.9 % 0-1 [facility] Work Phone: [phone] Bilirubin [Mass/Vol] 0.30 mg/dL 0.20-1.00 [facility] Work Phone: Comment on above: For patients on eltr ombopag therapy, use of Dimension [place] TBIL is not recommended. Chloride [Moles/Vol] 107 mmol/L 98-107 [facility] Work Phone: Eosinophils/100 WBC (Bld) 2.4 % 0-5 [facility] Work Phone: Glucose [Mass/Vol] 102 mg/dL 74-106 [facility] Work Phone: Comment on above: Fasting Glucose resu lt from 100 to 125 mg/dL suggests IMPAIRED HOMEOSTASIS per A.D.A. criteria. Neutrophils (Bld) [#/Vol] 3.4 10*3/uL 2.0-7.7 [facility] Work Phone: Neutrophils/100 WBC (Bld) 63.2 % 47-70 [facility] Work Phone: Potassium [Moles/Vol] 3.7 mmol/L 3.5-5.1 [facility] Work Phone: Protein [Mass/Vol] 7.2 g/dL 6.4-8.2 [facility] Work Phone: Sodium [Moles/Vol] 140 mmol/L 136-145 [facility] Work Phone: WBC (Bld) [#/Vol] 5.3 10*3/uL 4.4-11.0 [facility] Work Phone: Blood erythrocytes count (nu mber/volume)on 02-13-2022 RBC (Bld) [#/Vol] 4.42 10*6/uL 4.2-5.4 [facility] Work Phone: Blood hemoglobin measurement (mass/volume)on 02-13-2022 Hemoglobin (Bld) [Mass/Vol] 14.3 g/dL 12.0-15.0 [facility] Work Phone: Blood lymphocytes/100 leukoc yteson 02-13-2022 Lymphocytes/100 WBC (Bld) 24.7 % 19-41 [facility] Work Phone: Blood monocytes/100 leukocyt eson 02-13-2022 Monocytes/100 WBC (Bld) 8.2 % 0-10 [facility] Work Phone: [phone] Blood platelet mean volumeon 02-13-2022 Platelet mean volume (Bld) [Entitic vol] 9.8 fL 6.2-12.0 [facility] Work Phone: [phone] Determination of erythrocyte mean corpuscular volume (MCV)on 02-13-2022 MCV (RBC) [Entitic vol] 94.3 fL 81-99 [facility] Work Phone: [phone] Hematocrit Auto (Bld) [Volum e fraction]on 02-13-2022 Hematocrit (Bld) [Volume fraction] 41.7 % 37-47 [facility] Work Phone: [phone] Laboratory - Chemistry and C hemistry - challengeon 02-13-2022 ALP [Catalytic activity/Vol] 89 U/L 45-117 [facility] Work Phone: [phone] ALT [Catalytic activity/Vol] 30 U/L 13-56 [facility] Work Phone: [phone] CO2 [Moles/Vol] 31.0 mmol/L 21.0-32.0 [facility] Work Phone: [phone] Globulin (S) [Mass/Vol] 3.5 g/dL 2.2-4.2 [facility] Work Phone: [phone] Urea nitrogen/Creatinine [Mass ratio] 14.6 mg/mg 10-20 [facility] Work Phone: [phone] Laboratory - Hematology and Cell countson 02-13-2022 Erythrocyte distribution width (RBC) [Entitic vol] 39.8 fL 35.1-43.9 [facility] Work Phone: [phone] Erythrocyte distribution width (RBC) [Ratio] 11.4 % 11.6-14.6 [facility] Work Phone: [phone] Immature granulocytes/100 WBC (Bld) 0.600 % 0.0-0.9 [facility] Work Phone: [phone] Comment on above: IG% - Immature Granu locytes (promyelocytes, myelocytes and metamyelocytes) > 1% indicates that a LEFT SHIFT is Present. MCH (RBC) [Entitic mass] 32.4 pg 27.0-32.0 [facility] Work Phone: [phone] Nucleated RBC/100 WBC (Bld) [Ratio] 0 % 0-5 [facility] Work Phone: [phone] MCHC Auto (RBC) [Mass/Vol]on 02-13-2022 MCHC (RBC) [Mass/Vol] 34.3 g/dL 32-36 [facility] Work Phone: [phone] No Panel Informationon 02-13 Estimated Creatinine Clearance Calc 83.32 ml/min [facility] Work Phone: [phone] Estimated GFR (MDRD) Amer 127 mL/min >60 [facility] Work Phone: [phone] Comment on above: GFR Calc Estimated GFR (MDRD) Non-Af Amer 105 mL/min >60 [facility] Work Phone: [phone] Comment on above: Non- GFR Calc Platelets bldon 02-13-2022 Platelets (Bld) [#/Vol] 231 10*3/uL 150-450 [facility] Work Phone: [phone] Serum or plasma albumin dana urement (mass/volume)on 02-13-2022 Albumin [Mass/Vol] 3.7 g/dL 3.2-5.0 [facility] Work Phone: [phone] Serum or plasma albumin/glob ulin mass ratioon 02-13-2022 Albumin/Globulin [Mass ratio] 1.1 {ratio} 0.9-2.4 [facility] Work Phone: [phone] Serum or plasma calcium dana urement (mass/volume)on 02-13-2022 Calcium [Mass/Vol] 9.3 mg/dL 8.5-10.1 [facility] Work Phone: [phone] Serum or plasma creatinine m easurement (mass/volume)on 02-13-2022 Creatinine [Mass/Vol] 0.62 mg/dL 0.55-1.02 [facility] Work Phone: [phone] Comment on above: The validity of the calculated GFR & GFRAA in patients over 70 years has not been determined. Clinical correlation is essential. Serum or plasma urea nitroge n measurement (mass/volume)on 02-13-2022 Urea nitrogen [Mass/Vol] 9 mg/dL 7-18 [facility] Work Phone: Thin prep Papanicolaou smear with manual screeningon 02-13-2022 Thin prep Papanicolaou smear with manual screening 25 U/L 15-37 [facility] Work Phone: Thin prep Papanicolaou smear with manual screening 2 5-15 [facility] Work Phone: Thin prep Papanicolaou smear with manual screening 174 U/L 84-246 [facility] Work Phone: Absolute lymphocyte counton 11-06-2021 Lymphocytes Auto (Unsp spec) [#/Vol] 1.06 10*3/uL 0.83-4.51 [facility] Work Phone: Basophil percentageon 2021 Basophils/100 WBC (Bld) 1.1 % 0-1 [facility] Work Phone: Bilirubin [Mass/Vol] 0.50 mg/dL 0.20-1.00 [facility] Work Phone: Comment on above: For patients on eltr ombopag therapy, use of Dimension [place] TBIL is not recommended. Chloride [Moles/Vol] 105 mmol/L 98-107 [facility] Work Phone: Eosinophils/100 WBC (Bld) 1.7 % 0-5 [facility] Work Phone: Glucose [Mass/Vol] 106 mg/dL 74-106 [facility] Work Phone: Comment on above: Fasting Glucose resu lt from 100 to 125 mg/dL suggests IMPAIRED HOMEOSTASIS per A.D.A. criteria. Neutrophils (Bld) [#/Vol] 1.9 10*3/uL 2.0-7.7 [facility] Work Phone: Neutrophils/100 WBC (Bld) 54.3 % 47-70 [facility] Work Phone: [phone] Potassium [Moles/Vol] 3.8 mmol/L 3.5-5.1 [facility] Work Phone: [phone] Protein [Mass/Vol] 7.2 g/dL 6.4-8.2 [facility] Work Phone: [phone] Sodium [Moles/Vol] 140 mmol/L 136-145 [facility] Work Phone: [phone] WBC (Bld) [#/Vol] 3.6 10*3/uL 4.4-11.0 [facility] Work Phone: [phone] Creatinine [Mass/Vol] 0.7 mg/dL 0.55-1.02 [facility] Work Phone: [phone] Blood erythrocytes count (nu mber/volume)on 11-06-2021 RBC (Bld) [#/Vol] 4.54 10*6/uL 4.2-5.4 [facility]: [phone] Blood hemoglobin measurement (mass/volume)on 11-06-2021 Hemoglobin (Bld) [Mass/Vol] 15.2 g/dL 12.0-15.0 [facility] Work Phone: [phone] Blood lymphocytes/100 leukoc yteson 11-06-2021 Lymphocytes/100 WBC (Bld) 29.9 % 19-41 [facility] Work Phone: [phone] Blood monocytes/100 leukocyt eson 11-06-2021 Monocytes/100 WBC (Bld) 12.7 % 0-10 [facility] Work Phone: [phone] Blood platelet mean volumeon 11-06-2021 Platelet mean volume (Bld) [Entitic vol] 10.3 fL 6.2-12.0 [facility] Work Phone: [phone] Determination of erythrocyte mean corpuscular volume (MCV)on 11-06-2021 MCV (RBC) [Entitic vol] 92.5 fL 81-99 [facility] Work Phone: [phone] Hematocrit Auto (Bld) [Volum e fraction]on 11-06-2021 Hematocrit (Bld) [Volume fraction] 42.0 % 37-47 [facility] Work Phone: [phone] Laboratory - Chemistry and C hemistry - challengeon 11-06-2021 ALP [Catalytic activity/Vol] 82 U/L 45-117 [facility] Work Phone: [phone] ALT [Catalytic activity/Vol] 24 U/L 13-56 [facility] Work Phone: [phone] CO2 [Moles/Vol] 30.0 mmol/L 21.0-32.0 [facility] Work Phone: [phone] Globulin (S) [Mass/Vol] 3.4 g/dL 2.2-4.2 [facility] Work Phone: [phone] Urea nitrogen/Creatinine [Mass ratio] 14.9 mg/mg 10-20 [facility] Work Phone: [phone] Laboratory - Hematology and Cell countson 11-06-2021 Erythrocyte distribution width (RBC) [Entitic vol] 38.3 fL 35.1-43.9 [facility] Work Phone: [phone] Erythrocyte distribution width (RBC) [Ratio] 11.2 % 11.6-14.6 [facility] Work Phone: [phone] Immature granulocytes/100 WBC (Bld) 0.300 % 0.0-0.9 [facility] Work Phone: [phone] Comment on above: IG% - Immature Granu locytes (promyelocytes, myelocytes and metamyelocytes) > 1% indicates that a LEFT SHIFT is Present. MCH (RBC) [Entitic mass] 33.5 pg 27.0-32.0 [facility] Work Phone: [phone] Nucleated RBC/100 WBC (Bld) [Ratio] 0 % 0-5 [facility] Work Phone: [phone] MCHC Auto (RBC) [Mass/Vol]on 11-06-2021 MCHC (RBC) [Mass/Vol] 36.2 g/dL 32-36 [facility] No Panel Informationon 11-06 Estimated GFR (MDRD) Amer 115 mL/min >60 [facility] Work Phone: Comment on above: GFR Calc Estimated GFR (MDRD) Non-Af Amer 95 mL/min >60 [facility] Work Phone: Comment on above: Non- GFR Calc Bedside Estimated GFR (eGFR) > 60.0000 mL/min >60 [facility] Work Phone: Platelets bldon 11-06-2021 Platelets (Bld) [#/Vol] 203 10*3/uL 150-450 [facility] Work Phone: Serum or plasma albumin dana urement (mass/volume)on 11-06-2021 Albumin [Mass/Vol] 3.8 g/dL 3.2-5.0 [facility] Work Phone: Serum or plasma albumin/glob ulin mass ratioon 11-06-2021 Albumin/Globulin [Mass ratio] 1.1 {ratio} 0.9-2.4 [facility] [facility] Work Phone: Serum or plasma calcium dana urement (mass/volume)on 11-06-2021 Calcium [Mass/Vol] 9.3 mg/dL 8.5-10.1 [facility] Work Phone: Serum or plasma creatinine m easurement (mass/volume)on 11-06-2021 Creatinine [Mass/Vol] 0.67 mg/dL 0.55-1.02 [facility] Work Phone: Comment on above: The validity of the calculated GFR & GFRAA in patients over 70 years has not been determined. Clinical correlation is essential. Serum or plasma urea nitroge n measurement (mass/volume)on 11-06-2021 Urea nitrogen [Mass/Vol] 10 mg/dL 7-18 [facility] Work Phone: Thin prep Papanicolaou smear with manual screeningon 11-06-2021 Thin prep Papanicolaou smear with manual screening 18 U/L 15-37 [facility] Work Phone: Thin prep Papanicolaou smear with manual screening 5 5-15 [facility] Work Phone: [phone] Thin prep Papanicolaou smear with manual screening 146 U/L 84-246 [facility] Work Phone: Absolute lymphocyte counton 08-14-2021 Lymphocytes Auto (Unsp spec) [#/Vol] 1.01 10*3/uL 0.83-4.51 [facility] Work Phone: Basophil percentageon 2021 Basophils/100 WBC (Bld) 0.9 % 0-1 [facility] Work Phone: Bilirubin [Mass/Vol] 0.50 mg/dL 0.20-1.00 [facility] Work Phone: Comment on above: For patients on eltr ombopag therapy, use of Dimension [place] TBIL is not recommended. Chloride [Moles/Vol] 105 mmol/L 98-107 [facility] Work Phone: [phone] Eosinophils/100 WBC (Bld) 2.3 % 0-5 [facility] Work Phone: [phone] Glucose [Mass/Vol] 102 mg/dL 74-106 [facility] Work Phone: [phone] Comment on above: Fasting Glucose resu lt from 100 to 125 mg/dL suggests IMPAIRED HOMEOSTASIS per A.D.A. criteria.Please note revised GLUCOSE reference range effective 2017. Neutrophils (Bld) [#/Vol] 2.8 10*3/uL 2.0-7.7 [facility] Work Phone: Neutrophils/100 WBC (Bld) 63.7 % 47-70 [facility] Work Phone: Potassium [Moles/Vol] 3.6 mmol/L 3.5-5.1 [facility] Work Phone: [phone] Protein [Mass/Vol] 7.5 g/dL 6.4-8.2 [facility] Work Phone: Sodium [Moles/Vol] 138 mmol/L 136-145 [facility] Work Phone: WBC (Bld) [#/Vol] 4.4 10*3/uL 4.4-11.0 [facility] Work Phone: [phone] Blood erythrocytes count (nu mber/volume)on 08-14-2021 RBC (Bld) [#/Vol] 4.29 10*6/uL 4.2-5.4 [facility] Work Phone: [phone] Blood hemoglobin measurement (mass/volume)on 08-14-2021 Hemoglobin (Bld) [Mass/Vol] 14.0 g/dL 12.0-15.0 [facility] Work Phone: [phone] Blood lymphocytes/100 leukoc yteson 08-14-2021 Lymphocytes/100 WBC (Bld) 22.7 % 19-41 [facility] Work Phone: [phone] Blood monocytes/100 leukocyt eson 08-14-2021 Monocytes/100 WBC (Bld) 9.9 % 0-10 [facility] Work Phone: Blood platelet mean volumeon 08-14-2021 Platelet mean volume (Bld) [Entitic vol] 9.6 fL 6.2-12.0 [facility] Work Phone: Determination of erythrocyte mean corpuscular volume (MCV)on 08-14-2021 MCV (RBC) [Entitic vol] 95.1 fL 81-99 [facility] Work Phone: [phone] Hematocrit Auto (Bld) [Volum e fraction]on 08-14-2021 Hematocrit (Bld) [Volume fraction] 40.8 % 37-47 [facility] Work Phone: [phone] Laboratory - Chemistry and C hemistry - challengeon 08-14-2021 ALP [Catalytic activity/Vol] 94 U/L 45-117 [facility] Work Phone: ALT [Catalytic activity/Vol] 74 U/L 13-56 [facility] Work Phone: [phone] CO2 [Moles/Vol] 27.0 mmol/L 21.0-32.0 [facility] Work Phone: [phone] Globulin (S) [Mass/Vol] 3.8 g/dL 2.2-4.2 [facility] Work Phone: [phone] Urea nitrogen/Creatinine [Mass ratio] 22.3 mg/mg 10-20 [facility] Work Phone: [phone] Laboratory - Hematology and Cell countson 08-14-2021 Erythrocyte distribution width (RBC) [Entitic vol] 40.8 fL 35.1-43.9 [facility] Work Phone: [phone] Erythrocyte distribution width (RBC) [Ratio] 11.7 % 11.6-14.6 [facility] Work Phone: [phone] Immature granulocytes/100 WBC (Bld) 0.500 % 0.0-0.9 [facility] Work Phone: [phone] Comment on above: IG% - Immature Granu locytes (promyelocytes, myelocytes and metamyelocytes) > 1% indicates that a LEFT SHIFT is Present. MCH (RBC) [Entitic mass] 32.6 pg 27.0-32.0 [facility] Work Phone: [phone] Nucleated RBC/100 WBC (Bld) [Ratio] 0 % 0-5 [facility] Work Phone: [phone] MCHC Auto (RBC) [Mass/Vol]on 08-14-2021 MCHC (RBC) [Mass/Vol] 34.3 g/dL 32-36 [facility] Work Phone: [phone] No Panel Informationon 08-14 Estimated Creatinine Clearance Calc 95.67 ml/min [facility] Work Phone: [phone] Estimated GFR (MDRD) Amer 149 mL/min >60 [facility] Work Phone: [phone] Comment on above: GFR Calc Estimated GFR (MDRD) Non-Af Amer 123 mL/min >60 [facility] Work Phone: [phone] Comment on above: Non- GFR Calc Platelets bldon 08-14-2021 Platelets (Bld) [#/Vol] 224 10*3/uL 150-450 [facility] Work Phone: [phone] Serum or plasma albumin dana urement (mass/volume)on 08-14-2021 Albumin [Mass/Vol] 3.7 g/dL 3.2-5.0 [facility] Work Phone: [phone] Serum or plasma albumin/glob ulin mass ratioon 08-14-2021 Albumin/Globulin [Mass ratio] 1.0 {ratio} 0.9-2.4 [facility] Work Phone: [phone] Serum or plasma calcium dana urement (mass/volume)on 08-14-2021 Calcium [Mass/Vol] 9.5 mg/dL 8.5-10.1 [facility] Work Phone: [phone] Serum or plasma creatinine m easurement (mass/volume)on 08-14-2021 Creatinine [Mass/Vol] 0.54 mg/dL 0.55-1.02 [facility] Work Phone: [phone] Comment on above: The validity of the calculated GFR & GFRAA in patients over 70 years has not been determined. Clinical correlation is essential. Serum or plasma urea nitroge n measurement (mass/volume)on 08-14-2021 Urea nitrogen [Mass/Vol] 12 mg/dL 7-18 [facility] Work Phone: [phone] Thin prep Papanicolaou smear with manual screeningon 08-14-2021 Thin prep Papanicolaou smear with manual screening 29 U/L 15-37 [facility] Work Phone: [phone] Thin prep Papanicolaou smear with manual screening 6 5-15 [facility] Work Phone: [phone] Thin prep Papanicolaou smear with manual screening 171 U/L 84-246 [facility] Work Phone: [phone] Basophil percentageon 2020 Basophil percentage < 0.6 mg/dL 0.55-1.02 [facility] Work Phone: [phone] No Panel Informationon 08-07 Bedside Estimated GFR (eGFR) > 60.0000 mL/min >60 [facility] Work Phone: Pathologist review Juno (Unsp spec) [Interp]on 03-21-2020 Differential Pathologist's Review Reviewed [facility] Comment on above: Previous reported re sult: Barbie bryson Edited by: RGOOD on 03/22/20:1143Leukopenia.Clinical correlation necessary.Donavon Finch M.D. 03/22/20 AMENDED REPORT 03/22/20 1143 PATH REV previously reported as: December braydon Review by pathologiston 03-12 Pathologist review Juno (Unsp spec) [Interp] Reviewed [facility] Comment on above: Previous reported re sult: Barbie bryson Edited by: RGOOD on 03/22/20:1143Leukopenia.Clinical correlation necessary.Donavon Finch M.D. 03/22/20 AMENDED REPORT 03/22/20 1143 PATH REV previously reported as: December braydon Blood platelet adequacy dete ction by light microscopyon 01-25-2020 Platelets LM Ql (Bld) ADEQUATE ADEQ [facility] Platelets LM Ql (Bld)on 01-10 Platelet Estimate [facility] RBC morphologyon 01-25-2020 RBC morphology finding Nom (Bld) NORM C+C NORMAL NORM C&C [facility] RBC morphology finding Nom ( Bld)on 01-25-2020 Red Blood Cell Morphology NORM C+C NORMAL NORM C&C [facility] No Panel Informationon 11-29 Differential Comment SCANNED [facility] Toxic granules LM Ql (Bld)on 06-01-2019 Toxic Granulation RARE [facility] Toxic leukocyte granulation detectionon 06-01-2019 Toxic granules LM Ql (Bld) [facility] Serum or plasma uric acid me asurement (mass/volume)on 03-23-2019 Urate [Mass/Vol] 2.9 mg/dL 2.6-6.0 [facility] Comment on above: The drugs N-Acetylcy steine and Metamizole may falsely depress this assay. HAV Ab IA Ql (S)on 9 Hepatitis A Antibody Total Negative Negative [facility] HAV IgM IA Qlon 02-10-2019 Hepatitis A IgM Antibody Negative Negative [facility] HBV core Ab Ql (S)on 019 Hepatitis B Core Total Antibody Negative Negative [facility] HBV core IgM IA Qlon 019 Hepatitis B Core IgM Antibody Negative Negative [facility] HCV Ab IB Ql (S)on 9 Hepatitis C Antibody Confirmation <0.1 s/co ratio 0.0-0.9 [facility] Laboratory - Microbiology an d Antimicrobial susceptibilityon 02-10-2019 HAV Ab IA Ql (S) Negative Negative [facility] HAV IgM IA Ql Negative Negative [facility] HBV core IgM IA Ql Negative Negative [facility] HCV Ab IB Ql (S) <0.1 s/co ratio 0.0-0.9 [facility] No Panel Informationon 02-10 Hepatitis B Surface Antigen Negative Negative [facility] Hepatitis C Confirmation Comment 1 Comment . [facility] Comment on above: Non reactive HCV ant ibody screen is consistent with no HCVinfection, unless recent infection is suspected or otherevidence exists to indicate HCV infection.Performed at: [email or web address] [id number] Director: Cr Olsen PhD, Phone: [phone] Serum hepatitis B virus core antibody detectionon 02-10-2019 HBV core Ab Ql (S) Negative Negative [facility] Cells counted Molgen (Bld/Ti ss) [#]on 10-30-2018 Differential Total Cells Counted Not Reportable [facility] Erythrocyte distribution wid th (RBC) [Entitic vol]on 10-30-2018 Red Cell Distribution Width Diff 40.5 fl 35.1-43.9 [facility] Erythrocyte distribution wid th standard deviationon 10-30-2018 Erythrocyte distribution width (RBC) [Entitic vol] 40.5 fL 35.1-43.9 [facility] Laboratory - Hematology and Cell countson 10-30-2018 Erythrocyte distribution width (RBC) [Ratio] 12.1 % 11.6-14.6 [facility] Total cell counton 9 Cells counted Molgen (Bld/Tiss) [#] Not Reportable [facility] CT ABDOMEN/PELVIS (OUTSIDE I MAGE)on 07-02-2018 Outside Imaging Study for Support of Clinical Care This study was sent from an outside facility to [facility] for support of clinical care of the patient within the [facility] system. Invalid Interpretation Code [facility] Work Phone: NUC PET (OUTSIDE IMAGE)on Outside Imaging Study for Support of Clinical Care This study was sent from an outside facility to [facility] for support of clinical care of the patient within the [facility] system. Invalid Interpretation Code [facility] Work Phone: No Panel Informationon 03-21 Hepatitis B Surface Antibody Non-Reactive . [facility] Comment on above: Non Reactive: Incons istent with immunity, less than 10 mIU/mL Reactive: Consistent with immunity, greater than 9.9 mIU/mL Hepatitis Be Antibody Negative Negative [facility] Hepatitis Be Antigen Negative Negative [facility] Hepatitis C Comment Comment . [facility] Comment on above: Non reactive HCV ant ibody screen is consistent with no HCVinfection, unless recent infection is suspected or otherevidence exists to indicate HCV infection.Performed at: [email or web address] [id number] Director: Cr Olsen PhD, Phone: [phone] Vital Signs Date Time Vital Sign Value Performing Clinician Bashir painter 01-11-2025 13:38-0400 Body height 162.[address] Cara Stephens DO Work Phone: [facility] 01-11-2025 13:38-0400 Body mass index (BMI) [Ratio] 27.8 kg/m2 Dr. Cara Stephens DO Work Phone: [facility] 01-11-2025 13:38-0400 Body temperature 97.3 [degF] Dr. Cara Stephens DO Work Phone: [facility] 01-11-2025 13:38-0400 Body weight 73.[address] Cara Stephens DO Work Phone: [facility] 01-11-2025 13:38-0400 Diastolic blood pressure 86 mm[Hg] Dr. Cara Stephens DO Work Phone: [facility] 01-11-2025 13:38-0400 Heart rate 80 /min Dr. Cara Stephens DO Work Phone: [facility] 01-11-2025 13:38-0400 Respiratory rate 18 /min Dr. Cara Stephens DO Work Phone: [facility] 01-11-2025 13:38-0400 SaO2% (BldA) [Mass fraction] 96 % Dr. Cara Stephens DO Work Phone: [facility] 01-11-2025 13:38-0400 Systolic blood pressure 146 mm[Hg] Dr. Cara Stephens DO Work Phone: [facility] 08-24-2024 14:50-0500 Body height 162.6 cm Mikayla Garcia MD Work Phone: [facility] 08-24-2024 14:50-0500 Body mass index (BMI) [Ratio] 27.98 kg/m2 Mikayla Garcia MD Work Phone: [facility] 08-24-2024 14:50-0500 Body weight 73.94 kg Mikayla Garcia MD Work Phone: [facility] 08-24-2024 14:50-0500 Diastolic blood pressure 64 mm[Hg] Mikayla Garcia MD Work Phone: [facility] 08-24-2024 14:50-0500 Systolic blood pressure 104 mm[Hg] Mikayla Garcia MD Work Phone: [facility] 07-27-2024 11:00-0500 Body height 162.[address] Cara Stephens DO Work Phone: [facility] 07-27-2024 11:00-0500 Body mass index (BMI) [Ratio] 27.1 kg/m2 Dr. Cara Stephens DO Work Phone: [facility] 07-27-2024 11:00-0500 Body temperature 97.5 [degF] Dr. Cara Stephens DO Work Phone: [facility] 07-27-2024 11:00-0500 Body weight 71.[address] Cara Stephens DO Work Phone: [facility] 07-27-2024 11:00-0500 Diastolic blood pressure 81 mm[Hg] Dr. Cara Stephens DO Work Phone: [facility] 07-27-2024 11:00-0500 Heart rate 71 /min Dr. Cara Stephens DO Work Phone: [facility] 07-27-2024 11:00-0500 Respiratory rate 16 /min Dr. Cara Stephens DO Work Phone: [facility] 07-27-2024 11:00-0500 SaO2% (BldA) [Mass fraction] 96 % Dr. Cara Stephens DO Work Phone: [facility] 07-27-2024 11:00-0500 Systolic blood pressure 144 mm[Hg] Dr. Cara Stephens DO Work Phone: [facility] 07-22-2023 15:04-0500 Body height 162.[address] Cara Stephens Work Phone: [facility] 07-22-2023 15:04-0500 Body mass index (BMI) [Ratio] 26.9 kg/m2 Dr. Cara Stephens Work Phone: [facility] 07-22-2023 15:04-0500 Body temperature 98 [degF] Dr. Cara Stephens Work Phone: [facility] 07-22-2023 15:04-0500 Body weight 71.[address] Cara Stephens Work Phone: [facility] 07-22-2023 15:04-0500 Diastolic blood pressure 85 mm[Hg] Dr. Cara Stephens Work Phone: [facility] 12-11-2023 15:04-0500 Heart rate 70 /min Dr. Cara Stephens Work Phone: [facility] 07-22-2023 15:04-0500 Respiratory rate 18 /min Dr. Cara Stephens Work Phone: [facility] 07-22-2023 15:04-0500 SaO2% (BldA) [Mass fraction] 99 % Dr. Cara Stephens Work Phone: [facility] 07-22-2023 15:04-0500 Systolic blood pressure 144 mm[Hg] Dr. Cara Stephens Work Phone: [facility] 11-26-2022 11:35-0400 Body height 162.[address] Cara Stephens Work Phone: [facility] 11-26-2022 11:33-0400 Body mass index (BMI) [Ratio] 26.5 kg/m2 Dr. Cara Stephens Work Phone: [facility] 11-26-2022 11:33-0400 Body temperature 97.2 [degF] Dr. Cara Stephens Work Phone: [facility] 11-26-2022 11:33-0400 Body weight 70.[address] Cara Stephens Work Phone: [facility] 11-26-2022 11:33-0400 Diastolic blood pressure 83 mm[Hg] Dr. Cara Stephens Work Phone: [facility] 11-26-2022 11:33-0400 Heart rate 68 /min Dr. Cara Stephens Work Phone: [facility] 11-26-2022 11:33-0400 Respiratory rate 16 /min Dr. Cara Stephens Work Phone: [facility] 11-26-2022 11:33-0400 SaO2% (BldA) [Mass fraction] 98 % Dr. Cara Stephens Work Phone: [facility] 11-26-2022 11:33-0400 Systolic blood pressure 131 mm[Hg] Dr. Cara Stephens Work Phone: [facility] 09-26-2022 08:49-0500 Body temperature 98.8 [degF] Dr. Cara Stephens Work Phone: [facility] 09-26-2022 08:49-0500 Diastolic blood pressure 79 mm[Hg] Dr. Cara Stephens Work Phone: [facility] 09-26-2022 08:49-0500 Heart rate 75 /min Dr. Cara Stephens Work Phone: [facility] 09-26-2022 08:49-0500 Respiratory rate 16 /min Dr. Cara Stephens Work Phone: [facility] 09-26-2022 08:49-0500 SaO2% (BldA) [Mass fraction] 99 % Dr. Cara Stephens Work Phone: [facility] 09-26-2022 08:49-0500 Systolic blood pressure 112 mm[Hg] Dr. Cara Stephens Work Phone: [facility] 09-26-2022 07:59-0500 Body height 162.[address] Cara Stephens Work Phone: [facility] 09-26-2022 07:59-0500 Body mass index (BMI) [Ratio] 25.3 kg/m2 Dr. Cara Stephens Work Phone: [facility] 09-26-2022 07:59-0500 Body weight [address] Cara Stephens Work Phone: [facility] 09-05-2022 09:07-0500 Body mass index (BMI) [Ratio] 25.7 kg/m2 Dr. Cara Stephens Work Phone: [facility] 09-05-2022 09:07-0500 Body weight 68.[address] Cara Stephens Work Phone: [facility] 08-27-2022 14:23-0500 Body mass index (BMI) [Ratio] 25.7 kg/m2 Dr. Cara Stephens Work Phone: [facility] 08-27-2022 14:23-0500 Body temperature 98 [degF] Dr. Cara Stephens Work Phone: [facility] 08-27-2022 14:23-0500 Body weight 68.[address] Cara Stephens Work Phone: [facility] 08-27-2022 14:23-0500 Diastolic blood pressure 83 mm[Hg] Dr. Cara Stephens Work Phone: [facility] 08-27-2022 14:23-0500 Heart rate 82 /min Dr. Cara Stephens Work Phone: [facility] 08-27-2022 14:23-0500 Respiratory rate 16 /min Dr. Cara Stephens Work Phone: [facility] 08-27-2022 14:23-0500 SaO2% (BldA) [Mass fraction] 96 % Dr. Cara Stephens Work Phone: [facility] 08-27-2022 14:23-0500 Systolic blood pressure 122 mm[Hg] Dr. Cara Stephens Work Phone: [facility] 07-20-2022 10:47-0500 Body height 162.6 cm Mikayla Garcia MD Work Phone: [facility] 07-20-2022 10:47-0500 Body weight 65.32 kg Mikayla Garcia MD Work Phone: [facility] 07-20-2022 10:47-0500 Diastolic blood pressure 74 mm[Hg] Mikayla Garcia MD Work Phone: [facility] 07-20-2022 10:47-0500 Systolic blood pressure 124 mm[Hg] Mikayla Garcia MD Work Phone: [facility] 05-25-2022 04:58-0400 Diastolic blood pressure 77 mm[Hg] Dr. Cara Stephens Work Phone: [facility] Work Phone: 05-25-2022 04:58-0400 Heart rate 89 /min Dr. Cara Stephens Work Phone: [facility] Work Phone: 05-25-2022 04:58-0400 Respiratory rate 18 /min Dr. Cara Stephens Work Phone: [facility] Work Phone: 05-25-2022 04:58-0400 SaO2% (BldA) [Mass fraction] 97 % Dr. Cara Stephens Work Phone: [facility] Work Phone: 05-25-2022 04:58-0400 Systolic blood pressure 124 mm[Hg] Dr. Cara Stephens Work Phone: [facility] Work Phone: 05-25-2022 03:04-0400 Body temperature 97.4 [degF] Dr. Cara Stephens Work Phone: [facility] Work Phone: 05-25-2022 03:02-0400 Body height 162.[address] Cara Stephens Work Phone: [facility] Work Phone: 05-25-2022 03:02-0400 Body mass index (BMI) [Ratio] 25.7 kg/m2 Dr. Cara Stephens Work Phone: [facility] Work Phone: 05-25-2022 03:02-0400 Body weight [address] Cara Stephens Work Phone: [facility] Work Phone: 05-23-2022 10:11-0400 Body mass index (BMI) [Ratio] 25.2 kg/m2 Dr. Cara Stephens Work Phone: [facility] Work Phone: 05-23-2022 10:11-0400 Body temperature 98.3 [degF] Dr. Cara Stephens Work Phone: [facility] Work Phone: 05-23-2022 10:11-0400 Body weight 66.[address] Cara Stephens Work Phone: [facility] Work Phone: 05-23-2022 10:11-0400 Diastolic blood pressure 82 mm[Hg] Dr. Cara Stephens Work Phone: [facility] Work Phone: 05-23-2022 10:11-0400 Heart rate 77 /min Dr. Cara Stephens Work Phone: [facility] Work Phone: 05-23-2022 10:11-0400 Respiratory rate 16 /min Dr. Cara Stephens Work Phone: [facility] Work Phone: 05-23-2022 10:11-0400 SaO2% (BldA) [Mass fraction] 98 % Dr. Cara Stephens Work Phone: [facility] Work Phone: 05-23-2022 10:11-0400 Systolic blood pressure 128 mm[Hg] Dr. Cara Stephens Work Phone: [facility] Work Phone: 02-13-2022 11:32-0400 Body height 162.[address] Cara Stephens Work Phone: [facility] Work Phone: 02-13-2022 11:32-0400 Body mass index (BMI) [Ratio] 26.1 kg/m2 Dr. Cara Stephens Work Phone: [facility] Work Phone: 02-13-2022 11:32-0400 Body temperature 97.4 [degF] Dr. Cara Stephens Work Phone: [facility] Work Phone: 02-13-2022 11:32-0400 Body weight 68.[address] Cara Stephens Work Phone: [facility] Work Phone: 02-13-2022 11:32-0400 Diastolic blood pressure 80 mm[Hg] Dr. Cara Stephens Work Phone: [facility] Work Phone: 02-13-2022 11:32-0400 Heart rate 71 /min Dr. Cara Stephens Work Phone: [facility] Work Phone: 02-13-2022 11:32-0400 Respiratory rate 18 /min Dr. Cara Stephens Work Phone: [facility] Work Phone: 02-13-2022 11:32-0400 SaO2% (BldA) [Mass fraction] 97 % Dr. Cara Stephens Work Phone: [facility] Work Phone: 02-13-2022 11:32-0400 Systolic blood pressure 135 mm[Hg] Dr. Cara Stephens Work Phone: [facility] Work Phone: 11-13-2021 11:44-0400 Body height 162.[address] Cara Stephens Work Phone: [facility] Work Phone: 11-13-2021 11:44-0400 Body mass index (BMI) [Ratio] 25.7 kg/m2 Dr. Cara Stephens Work Phone: [facility] Work Phone: 11-13-2021 11:44-0400 Body temperature 97.5 [degF] Dr. Cara Stephens Work Phone: [facility] Work Phone: 11-13-2021 11:44-0400 Body weight 68.[address] Cara Stephens Work Phone: [facility] Work Phone: 11-13-2021 11:44-0400 Diastolic blood pressure 83 mm[Hg] Dr. Cara Stephens Work Phone: [facility] Work Phone: 11-13-2021 11:44-0400 Heart rate 73 /min Dr. Cara Stephens Work Phone: [facility] Work Phone: 11-13-2021 11:44-0400 Respiratory rate 16 /min Dr. Cara Stephens Work Phone: [facility] Work Phone: 11-13-2021 11:44-0400 SaO2% (BldA) [Mass fraction] 99 % Dr. Cara Stephens Work Phone: [facility] Work Phone: 11-13-2021 11:44-0400 Systolic blood pressure 135 mm[Hg] Dr. Cara Stephens Work Phone: [facility] Work Phone: 08-14-2021 10:44-0500 Body mass index (BMI) [Ratio] 26.5 kg/m2 Dr. Cara Stephens Work Phone: [facility] Work Phone: 08-14-2021 10:44-0500 Body temperature 97.9 [degF] Dr. Cara Stephens Work Phone: [facility] Work Phone: 08-14-2021 10:44-0500 Body weight 70.[address] Cara Stephens Work Phone: [facility] Work Phone: 08-14-2021 10:44-0500 Diastolic blood pressure 76 mm[Hg] Dr. Cara Stephens Work Phone: [facility] Work Phone: 08-14-2021 10:44-0500 Heart rate 76 /min Dr. Cara Stephens Work Phone: [facility] Work Phone: 08-14-2021 10:44-0500 Respiratory rate 16 /min Dr. Cara Stephens Work Phone: [facility] Work Phone: 08-14-2021 10:44-0500 SaO2% (BldA) [Mass fraction] 97 % Dr. Cara Stephens Work Phone: [facility] Work Phone: 08-14-2021 10:44-0500 Systolic blood pressure 115 mm[Hg] Dr. Cara Stephens Work Phone: [facility] Work Phone: 06-12-2021 10:21-0400 Body mass index (BMI) [Ratio] 25.7 kg/m2 Dr. Cara Stephens Work Phone: [facility] 06-12-2021 10:21-0400 Body weight 68.[address] Cara Stephens Work Phone: [facility] 04-18-2021 12:49-0400 Body temperature 97.7 [degF] Dr. Cara Stephens Work Phone: [facility] 04-18-2021 12:49-0400 Diastolic blood pressure 64 mm[Hg] Dr. Cara Stephens Work Phone: [facility] 04-18-2021 12:49-0400 Heart rate 72 /min Dr. Cara Stephens Work Phone: [facility] 04-18-2021 12:49-0400 Systolic blood pressure 111 mm[Hg] Dr. Cara Stephens Work Phone: [facility] 02-20-2021 13:30-0400 Respiratory rate 16 /min Dr. Cara Stephens Work Phone: [facility] 02-20-2021 13:30-0400 SaO2% (BldA) [Mass fraction] 96 % Dr. Cara Stephens Work Phone: [facility] Encounters Encounter Date Encounter Type Care Provider Facility Start: 02-08-2025 ambulatory Anum Moody ty:[facility] Start: 01-11-[address] Joanna Greene MD -[facility] Start: 01-11-2025 End: 01-11-[address] Anum Greene MD -[facility] Work Phone: Start: 01-11-2025 End: 01-11-[address] Cara Stephens DO Work Phone: [facility] Work Phone: Start: 12-31-2024 End: 12-31-[address] Kristopher Victor MD -[facility] Start: 12-31-2024 End: 12-31-2024 ambulatory Cara Stephens Facility:[facility] Start: 10-19-[address] Joanna Greene MD -[facility] Start: 10-07-2024 End: 10-07-[address] Cara Stephens DO Work Phone: [facility] Work Phone: Start: 10-07-2024 End: 10-07-2024 Patient encounter procedure Stella FRANK -[facility], [place] Work Phone: Start: 10-07-2024 End: 10-07-2024 ambulatory Cara Stephens Facility:[facility] Start: 08-24-2024 End: 08-24-2024 Patient encounter procedure Mikayla Garcia MD Work Phone: OB/Gynecology Comment on above: Encounter for gyneco logical examination (general) (routine) without abnormal findings (Primary Dx); Encounter for screening mammogram for breast cancer Start: 08-24-2024 End: 08-24-2024 ambulatory CARA STEPHENS Facility:[facility] Start: 08-24-2024 Encounter for gynecological examination (general) (routine) without abnormal findings MIKAYLA GARCIA [facility] Start: 08-24-2024 End: 08-24-2024 Patient encounter status Mikayla Garcia MD Work Phone: [facility] Start: 08-24-2024 End: 08-24-2024 Subsequent hospital visit by physician Screen Mammo [facility] Mammogram Comment on above: Encounter for gyneco logical examination (general) (routine) without abnormal findings [Z01.419] Start: 07-27-2024 End: 07-27-[address] Anum Greene MD -[facility] Work Phone: Start: 07-27-2024 End: 07-27-2024 ambulatory Cara Stephens Facility:[facility] Start: 07-20-2024 End: 07-20-[address] Anum Greene MD -[facility], [facility] Work Phone: Start: 07-20-2024 End: 07-20-2024 ambulatory Cara Kat Facility:[facility] Start: 05-19-2024 End: 05-19-2024 ambulatory CARA Veronica STEPHENS Facility:[facility] Start: 05-19-2024 End: 05-19-2024 Patient encounter procedure Lakisha Pandya OD Work Phone: Optometry Comment on above: Hyperopia of both ey es (Primary Dx); Presbyopia Start: 04-27-2024 End: 04-27-2024 ambulatory Cara Kat Facility:[facility] Start: 10-17-2023 End: 10-17-[address] Cara Stephens Work Phone: [facility] Work Phone: Start: 10-17-2023 End: 10-17-[address] [facility] Work Phone: Start: 10-07-[address] Cara Stephens Work Phone: [facility] Start: 08-08-2023 End: 08-08-2023 Subsequent hospital visit by physician Screen Mammo [facility] Mammogram Comment on above: Screening mammogram for breast cancer [Z12.31] Start: 07-22-2023 End: 07-22-[address] Cara Stephens Work Phone: [facility] Work Phone: Start: 07-15-2023 End: 07-15-[address] Cara Stephens Work Phone: [facility] Work Phone: Start: 02-08-2023 End: 02-08-[address] Cara Stephens Work Phone: [facility] Work Phone: Start: 02-08-2023 End: 02-08-[address] [facility] Work Phone: Start: 01-21-[address] Cara Stephens Work Phone: [facility] Start: 11-26-2022 End: 11-26-[address] Cara Stephens Work Phone: [facility] Work Phone: Start: 11-19-2022 End: 11-19-[address] Cara Stephens Work Phone: [facility] Work Phone: Start: 09-26-2022 Non-patient / Non-visit Dr. Arabella Stephens Work Phone: [facility] Start: 09-26-2022 End: 09-26-2022 Admission to same day surgery center Dr. Cara Stephens Work Phone: [facility] Start: 09-26-2022 End: 09-26-[address] Cara Stephens Work Phone: [facility] Work Phone: Start: 09-05-2022 Non-patient / Non-visit Dr. Arabella Stephens Work Phone: [facility] Start: 08-27-[address] Cara Stephens Work Phone: [facility] Start: 08-27-2022 End: 08-27-[address] Cara Stephens Work Phone: [facility] Start: 07-20-2022 End: 07-20-2022 Patient encounter procedure Mikayla Garcia MD Work Phone: OB/Gynecology Comment on above: Encounter for gyneco logical examination (general) (routine) without abnormal findings (Primary Dx); Screening mammogram for breast cancer; Screening cholesterol level; Encounter for vitamin deficiency screening; Encounter for screening for diabetes mellitus; Screening for thyroid disorder Start: 07-20-2022 End: 07-20-2022 Patient encounter status Mikayla Garcia MD Work Phone: OB/Gynecology Start: 07-20-2022 End: 07-20-2022 Subsequent hospital visit by physician Screen Mammo [facility] Mammogram Comment on above: Encounter for screen ing mammogram for malignant neoplasm of breast [Z12.31] Start: 05-25-2022 End: 05-25-2022 Emergency department patient visit Dr. Cara Stephens Work Phone: [facility] Start: 05-23-2022 End: 05-23-[address] Cara Stephens Work Phone: [facility] Start: 05-10-2022 End: 05-10-[address] Cara Stephens Work Phone: [facility] Work Phone: Start: 05-10-2022 End: 05-10-[address] Cara Stephens Work Phone: [facility] Start: 04-30-2022 End: 04-30-2022 Patient encounter procedure Lakisha Pandya OD Work Phone: Optometry Comment on above: Hyperopia of both ey es (Primary Dx); Presbyopia Start: 04-11-[address] Cara Stephens Work Phone: [facility] Start: 02-13-2022 End: 02-13-[address] Cara Stephens Work Phone: [facility] Start: 11-13-2021 End: 11-13-[address] Cara Stephens Work Phone: [facility] Start: 11-06-2021 End: 11-06-[address] Cara Stephens Work Phone: [facility] Start: 09-25-[address] Cara Stephens Work Phone: [facility] Start: 08-14-2021 End: 08-14-[address] Cara Stephens Work Phone: [facility] Start: 08-07-[address] Cara Stephens Work Phone: [facility] Start: 03-31-2018 End: 03-31-2018 Patient encounter procedure Massimo Shirley Work Phone: [facility] Start: 03-21-2018 End: 03-21-2018 Patient encounter procedure Other Other NOTES/RESULTS Start: 03-19-2018 End: 03-19-2018 Patient encounter procedure Other Other NOTES/RESULTS Start: 03-17-2018 End: 03-17-2018 Patient encounter procedure Massimo Mcduffiearnulfo Work Phone: [facility] Start: 03-07-2018 End: 03-07-2018 Patient encounter procedure Other Other NOTES/RESULTS Procedures Date Procedure Procedure Detail Performing Clinician Start: 01-11-[address] Cara Stephens DO Work Phone: Start: 12-31-2024 Complete x-ray serie s of lumbosacral spine including bending views Dr. Cara Stephens DO Work Phone: Start: 12-31-2024 X-ray of thoracic sp ine, three views Dr. Cara Stephens DO Work Phone: Start: 10-07-2024 X-ray of cervical spine Dr. Cara Stephens DO Work Phone: Start: 07-20-2024 CT of soft tissues o f neck with contrast Dr. Cara Stephens DO Work Phone: Start: 07-20-2024 CT of thorax, abdome n and pelvis with contrast Dr. Cara Stpehens DO Work Phone: Start: 04-27-2024 Measurement of renal function Dr. Cara Stephens DO Work Phone: Comment on above: GFR Calc Start: 08-08-2023 Screening digital br east tomosynthesis bi Mikayla Garcia MD Work Phone: Start: 07-15-2023 CT of chest and abdomen Dr. Cara Stephens Work Phone: Start: 07-15-2023 CT of soft tissues o f neck with contrast Dr. Cara Stephens Work Phone: Start: 02-08-2023 Bacteria identificat ion test Dr. Cara Stephens Work Phone: Start: 11-19-2022 CT of chest and abdomen Dr. Cara Stephens Work Phone: Start: 11-19-2022 CT of soft tissues o f neck with contrast Dr. Cara Stephens Work Phone: Start: 09-26-[address] Cara butler Work Phone: Start: 07-20-2022 DWAYNE SCREENING W ANDRZEJ Maza MD Work Phone: Start: 07-20-2022 Lipid 1996 panel - S janiya or Plasma [facility] Start: 05-25-2022 CT angiography of ch est with contrast Dr. Cara Stephens Work Phone: Start: 05-10-2022 CT of chest and abdomen Dr. Cara Stephens Work Phone: Start: 05-10-2022 CT of soft tissues o f neck with contrast Dr. Cara Stephens Work Phone: Start: 11-06-2021 CT of chest and abdomen Dr. Cara Stephens Work Phone: Start: 11-06-2021 CT of soft tissues o f neck with contrast Dr. Cara Stephens Work Phone: Start: 08-07-2021 CT of soft tissues o f neck with contrast Dr. Cara Stephens Work Phone: Start: 08-07-2021 CT Chest, Abd, Pel w/Contrast Dr. Cara Stephens Work Phone: Start: 07-03-2021 Mammography Lakisha [employer] Helper perrider OD Work Phone: Start: 10-25-2020 PET/CT Tumor Base -T high Subs Dr. Cara Stephens Work Phone: Start: 09-07-2019 PET/CT Tumor Base -T high Subs Dr. Cara Stephens Work Phone: Start: 03-12-2019 PET/CT Tumor Base -T high Subs Dr. Cara Stephens Work Phone: Start: 03-31-2018 End: 03-31-2018 NUC PET (OUTSIDE IMAGE) Massimo corbett Work Phone: Start: 03-31-2018 End: 03-31-2018 NUCLEAR MEDICINE (OUTSIDE) Other Other Start: 03-21-2018 End: 03-21-2018 LABS (OUTSIDE) Other Other Start: 03-19-2018 End: 03-19-2018 CT (OUTSIDE) Other Other Start: 03-17-2018 End: 03-17-2018 CT ABDOMEN/PELVIS (OUTSIDE IMAGE) Massimo Shirley Work Phone: Start: 03-17-2018 End: 03-17-2018 CT (OUTSIDE) Other Other Start: 03-07-2018 End: 03-07-2018 OUTSIDE PATHOLOGY REPORTS Other Other Start: 03-07-2018 End: 03-07-2018 OUTSIDE PROCEDURES Other Other Plan of Treatment Date Care Activity Detail Author Start: 2036 RSV Vaccine (1 - 1-d ose 75+ series) RSV Vaccine (1 - 1-dose 75+ series) [facility] Start: 08-08-2028 Screening for malign ant neoplasm of cervix Cervical Cancer Screening [facility] Start: 07-20-2027 Lipid 1996 panel - S janiya or Plasma Lipid Screening [facility] Start: 07-20-2027 Lipid panel Lipid Screening [facility] Start: 07-14-2026 PAP TESTING PAP TESTING [facility] Start: 07-14-2026 Screening for malign ant neoplasm of cervix Pap Testing [facility] Start: 06-04-2026 Urine microalbumin profile DTaP,Tdap,Td Vaccine (3 - Td or Tdap) [facility] Start: 07-20-2025 DIABETES SCREEN DIABETES SCREEN [facility] Start: 07-20-2025 Diabetes Screening Diabetes Screenin g [facility] Start: 05-24-2025 End: 05-24-2025 Patient encounter procedure 05/24/2025 5:00 PM EDT Office Visit [facility] [address] [place] [address] Lakisha Pandya, OD [address] [place] [address] eye exam [facility] Comment on above: eye exam [facility] Start: 05-12-2025 Urine microalbumin profile [facility] Start: 01-11-2025 [facility] Start: 08-26-2024 End: 08-26-2024 Patient encounter procedure Mammogram Comment on above: Encounter for gyneco logical examination (general) (routine) without abnormal findings [Z01.419] Start: 08-08-2024 Screening for malign ant neoplasm of breast Mammogram Screening [facility] Start: 07-20-2024 Venous catheter care management [facility] Start: 06-08-2024 HPV TESTING HPV TESTING [facility] Start: 06-08-2024 Screening for malign ant neoplasm of cervix HPV Testing [facility] Start: 04-12-2024 Covid-19 Vaccine () Covid-19 Vaccine () [facility] Start: 07-20-2023 Mammography Mammogram Screening [facility] Start: 07-15-2023 Venous catheter care management [facility] Start: 11-19-2022 Venous catheter care management [facility] Start: 09-26-2022 Venous catheter care management [facility] Start: 09-26-2022 Patient discharge [facility] Start: 08-12-2022 Depression Assessment Depression Ass essment [facility] Start: 07-20-2022 End: 09-19-2022 25-hydroxyvitamin D3 [Mass/volume] in Serum or Plasma [facility] Work Phone: Comment on above: Expected: 07/20/2022 , Expires: 09/19/2022 Start: 07-20-2022 End: 09-19-2022 Cobalamin (Vitamin B12) [Mass/volume] in Serum or Plasma [facility] Work Phone: Comment on above: Expected: 07/20/2022 , Expires: 09/19/2022 Start: 07-20-2022 End: 09-19-2022 LIPID PANEL, NONFASTING [facility] Work Phone: Comment on above: Expected: 07/20/2022 , Expires: 09/19/2022 Start: 07-20-2022 End: 09-19-2022 Thyrotropin [Units/volume] in Serum or Plasma [facility] Work Phone: Comment on above: Expected: 07/20/2022 , Expires: 09/19/2022 Start: 07-03-2022 Mammography MAMMOGRAM [facility] Start: 05-25-2022 Venous catheter care management [facility] Work Phone: Start: 05-25-2022 [facility] Work Phone: Start: 05-07-2022 Venous catheter care management [facility] Work Phone: Start: 04-12-2022 Influenza vaccination INFLUENZA (#1) [facility] Start: 12-11-2021 Venous catheter care management [facility] Start: 08-12-2021 DEPRESSION ASSESSMENT DEPRESSION ASS ESSMENT [facility] Start: 06-12-2021 Disease process or condition education [facility] Start: 06-12-2021 Medication monitoring [facility] Start: 06-12-2021 Precautionary procedure [facility] Start: 06-12-2021 Vital signs measurements [facility] Start: 06-12-2021 [facility] Start: 04-18-2021 Disease process or condition education [facility] Start: 04-18-2021 Medication monitoring [facility] Start: 04-18-2021 Precautionary procedure [facility] Start: 04-18-2021 Vital signs measurements [facility] Start: 04-18-2021 [facility] Start: 2021 RSV Vaccine (1 - 1-d ose 60+ series) RSV Vaccine (1 - 1-dose 60+ series) [facility] Start: 02-20-2021 Disease process or condition education [facility] Start: 02-20-2021 Medication monitoring [facility] Start: 02-20-2021 Precautionary procedure [facility] Start: 02-20-2021 Vital signs measurements [facility] Start: 02-20-2021 [facility] Start: 12-26-2020 Disease process or condition education [facility] Start: 12-26-2020 Medication monitoring [facility] Start: 12-26-2020 Precautionary procedure [facility] Start: 12-26-2020 Vital signs measurements [facility] Start: 12-26-2020 [facility] Start: 10-31-2020 Disease process or condition education [facility] Start: 10-31-2020 Medication monitoring [facility] Start: 10-31-2020 Precautionary procedure [facility] Start: 10-31-2020 Vital signs measurements [facility] Start: 10-31-2020 [facility] Start: 09-05-2020 Venous catheter care management [facility] Start: 09-05-2020 Disease process or condition education [facility] Start: 09-05-2020 Medication monitoring [facility] Start: 09-05-2020 Precautionary procedure [facility] Start: 09-05-2020 Vital signs measurements [facility] Start: 09-05-2020 [facility] Start: 07-11-2020 Disease process or condition education [facility] Start: 07-11-2020 Medication monitoring [facility] Start: 07-11-2020 Precautionary procedure [facility] Start: 07-11-2020 Vital signs measurements [facility] Start: 07-11-2020 [facility] Start: 05-16-2020 Disease process or condition education [facility] Start: 05-16-2020 Medication monitoring [facility] Start: 05-16-2020 Precautionary procedure [facility] Start: 05-16-2020 Vital signs measurements [facility] Start: 05-16-2020 [facility] Start: 03-21-2020 Disease process or condition education [facility] Start: 03-21-2020 Medication monitoring [facility] Start: 03-21-2020 Precautionary procedure [facility] Start: 03-21-2020 Vital signs measurements [facility] Start: 03-21-2020 [facility] Start: 01-25-2020 Disease process or condition education [facility] Start: 01-25-2020 Medication monitoring [facility] Start: 01-25-2020 Precautionary procedure [facility] Start: 01-25-2020 Vital signs measurements [facility] Start: 01-25-2020 [facility] Start: 11-30-2019 Disease process or condition education [facility] Start: 11-30-2019 Medication monitoring [facility] Start: 11-30-2019 Precautionary procedure [facility] Start: 11-30-2019 Vital signs measurements [facility] Start: 11-30-2019 [facility] Start: 10-05-2019 Disease process or condition education [facility] Start: 10-05-2019 Medication monitoring [facility] Start: 10-05-2019 Precautionary procedure [facility] Start: 10-05-2019 Vital signs measurements [facility] Start: 10-05-2019 [facility] Start: 07-17-2018 End: 07-17-2018 Ambulatory Division of Hematology & Oncology Start: 04-12-2018 Influenza vaccination INFLUENZA VACC INE (#1) [facility] Work Phone: Start: 12-19-2016 LIPID SCREEN LIPID SCREEN [facility] Start: 12-19-2014 DIABETES SCREEN DIABETES SCREEN [facility] Start: 2011 Pneumococcal Vaccine : 50+ (1 of 1 - PCV) Pneumococcal Vaccine: 50+ (1 of 1 - PCV) [facility] Start: 2011 Protein mass conc COLON CANCER SCREENING DISCUSSION [facility] Work Phone: Start: 2011 SHINGRIX VACCINE (1 of 2) SHINGRIX VACCINE (1 of 2) [facility] Start: 2006 COLOGUARD (FIT-DNA) COLOGUARD (FIT-D NA) [facility] Start: 2006 Colonoscopy COLONOSCOPY [facility] Start: 2006 COLORECTAL CANCER SCREENING COLORECTAL CANCER SCREENING [facility] Start: [address] COLONOGRAPHY [facility] Start: 2006 FECAL OCCULT BLOOD FECAL OCCULT BLOO D [facility] Start: 2006 Screening for malign ant neoplasm of colon [facility] Start: 2006 SIGMOIDOSCOPY SIGMOIDOSCOPY [facility] Start: 2001 Fasting lipid profile LIPID SCREENIN G [facility] Work Phone: Start: 2001 Protein mass conc MAMMOGRAM [facility] DISCUSSION [facility] Work Phone: Start: 1982 Screening for malign ant neoplasm of cervix PAP SMEAR DISCUSSION [facility] Work Phone: Start: 1980 Third diphtheria, tetanus and acellular pertussis (DTaP) vaccination TDAP (ADULT) [facility] Work Phone: Start: 1979 Anxiety Screening Anxiety Screening [facility] Start: 1979 Depression Screening Depression Scre [facility] Start: 1979 HEPATITIS C SCREENING HEPATITIS C [facility] Start: 1979 Hepatitis C screening Hepatitis C [facility] Start: 1979 HIV SCREENING HIV SCREENING [facility] Start: 1979 HIV screening HIV Screening [facility] Start: 1979 Tetanus vaccination TETANUS [facility] Work Phone: Start: 1974 HIV screening HIV SCREENING DISCUSSION [facility] Work Phone: Start: 1973 Adult depression screening assessment DEPRESSION SCREENING [facility] Start: 1961 Hepatitis C antibody , confirmatory test HEPATITIS C VIRUS SCREENING [facility] Work Phone: CBC W Auto Different ial panel - Blood [facility] Work Phone: CBC W Auto Different ial panel - Blood [facility] CBC W Auto Different ial panel - Blood [facility] CBC W Auto Different ial panel - Blood [facility] CBC W Auto Different ial panel - Blood [facility] Colonoscopy [facility] Comprehensive metabo lic 2000 panel - Serum or Plasma [facility] CT Abdomen and Pelvi s W contrast IV [facility] CT Neck W contrast IV [facility] End: 09-23-2025 DBT Breast - bilateral screening DWAYNE SCREENING W [facility] Radiology Routine Encounter for screening mammogram for breast cancer 1 Occurrences starting 08/24/2024 until 09/23/2025 [facility] Work Phone: Comment on above: 1 Occurrences starti ng 08/24/2024 until 09/23/2025 DBT Breast - bilater al screening DWAYNE SCREENING W ANDRZEJ Radiology Routine Encounter for gynecological examination (general) (routine) without abnormal findings Encounter for screening mammogram for breast cancer 08/24/2024 2:51 PM EST [facility] Work Phone: Lactate dehydrogenas e measurement [facility] Lactate dehydrogenas e measurement [facility] Lactate dehydrogenas e measurement [facility] Lactate dehydrogenas e measurement [facility] Work Phone: End: 08-19-2023 DWAYNE SCREENING W ANDRZEJ DWAYNE SCREENING W ANDRZEJ Radiology Routine Screening mammogram for breast cancer 1 Occurrences starting 07/20/2022 until 08/19/2023 [facility] Work Phone: Comment on above: 1 Occurrences starti ng 07/20/2022 until 08/19/2023 Patient Education ED Dyspnea ED URI, Viral, No Abx (Adult) [facility] Work Phone: Patient referral [facility] Work Phone: Positron emission tomography with computed tomography [facility] Work Phone: Positron emission tomography with computed tomography [facility] Immunizations Immunization Date Immunization Notes Care Provider [facility] 06-30-2022 Covid (Yi De) Dr. Cara esteves Work Phone: [facility] 02-03-2022 Covid (Pfizer) Dr. Cara esteves Work Phone: [facility] 11-15-2020 Covid (Pfizer) Dr. Cara esteves Work Phone: [facility] 10-25-2020 Covid (Pfizer) Dr. Cara esteves Work Phone: [facility] 06-04-2016 influenza virus vaccine, unspecified formulation Other Other [facility] Work Phone: Payers Date Payer Category Payer Self-pay [id number] 2018 Unknown [id number] 2012 Unknown [id number] 2012 Unknown [id number] Unknown [id number] Unknown [id number] [id number] Unknown [id number] Unknown [id number] 2.16.8 [id number] Unknown [id number] 2.16.8 [id number] Unknown [id number] 2.16.8 [id number] Unknown [id number] 2.16.8 [id number] Unknown [id number] Unknown [id number] Social History Date Type Detail Facility Tobacco smoking stat us NHIS Unknown if ever smoked [facility] Work Phone: Sex Assigned At Not on file [facility] Work Phone: Start: 12-26-2020 End: 09-20-2022 Tobacco smoking status NHIS Unknown if ever smoked [facility] Start: 10-31-2020 Non-smoker [facility] Start: 1960 Sex Assigned At Female [facility] Start: 07-20-2022 End: 09-20-2022 Tobacco smoking status NHIS Never smoked tobacco [facility] Work Phone: Start: 04-30-2022 End: 08-24-2024 Alcohol intake Ex-drinker (finding) [facility] Start: 03-28-2020 History SDOH Alcohol Comment rarely [facility] Start: 04-20-2022 End: 04-30-2022 Exposure to SARS-CoV-2 (event) Not sure [facility] Start: 07-20-2022 Tobacco use and exposure Smokeless tobacco non-user [facility] Start: 07-20-2022 End: 05-13-2023 History of Social function [facility] Start: 07-20-2022 End: 05-13-2023 Tobacco use panel [facility] National Score (1-10 0), lower number is lower risk Not on file [facility] Start: 03-28-2021 Gender identity Identifies as female gender (finding) [facility] Start: 03-28-2021 Sexual orientation Heterosexual (fin lida) [facility] Start: 10-21-2024 Sex Female (finding) [facility] Medical Equipment Procedure Code Equipment Code Equipment Origin al Text Equipment Identifier Dates Insertion, vascular access port PORT,6FR POWER PORT FDA Start: 03-18-2019 Insertion, vascular access port PORT,6FR POWER PORT FDA Start: 03-18-2019 Insertion, vascular access port PORT,6FR POWER PORT FDA Start: 03-18-2019 Insertion, vascular access port PORT,6FR POWER PORT FDA Start: 03-18-2019 Insertion, vascular access port PORT,6FR POWER PORT FDA Start: 03-18-2019 Insertion, vascular access port PORT,6FR POWER PORT FDA Start: 03-18-2019 Insertion, vascular access port PORT,6FR POWER PORT FDA Start: 03-18-2019 Insertion, vascular access port PORT,6FR POWER PORT FDA Start: 03-18-2019 Goals Date Patient Goal Desired Activity /State Mental Status Date Assessment Result Facility 09-26-2022 Cognitive function Voice/Name [facility] Work Phone: 10-05-2019 Cognitive function Mood Descript ion Appropriate;Calm;Cheerful [facility] Work Phone: Clinical Notes 04-30-2022 to 01-11-2025 Note Date & Type Note Facility 01-11-2025 Progress note [facility] 01-11-2025 Progress note Note Date/Time January 11, 2025 1:55pm [facility] [address] [place] [id number] OFFICE VISIT Date of Service: 01/11/25 1332 MR#: [id number] Acct: [id number] Name: SYLVAIN LAW Rep #: [id number] : 1960 From: Anum rivera MD Age/Sex: 64/F Location: [facility] Status: Signed HPI Subjective Date of Service 01/11/25 Chief Complaint Lymphoma follow-up History of Present Illness Patient is a 64-year-old female who presented with painless enlargement of lymphnodes in the left neck was first noted in the late spring 2017 and did not improve after a course of antibiotics and therefore was referred to Dr. Andre who performed an excision biopsy of the [...] 2. Increased glucose concentration noted in the bilateral-lateral neck, right-left axillary regions fulfills quantitative criteria [...] et al, Clinical Nuclear Medicine 29:161, 2004). She was placed on watchful expectancy. CT scans January 26, 2019; Neck: IMPRESSION: The previously described mass in the left posterior neck musculature is stable. Progressing left level 5 neck adenopathy. Multiple stable indeterminate subcentimeter thyroid nodules. Chest: FINDINGS: When compared to prior study, the extent of a well-defined posterior mediastinal mass has slightly progressed. The lesion now measures 6.7 x 4.5 cm in the transverse plane, as measured on image 72 of series 2. It measures approximately 9 cm craniocaudal. The lesion completely encases the descending thoracic aorta, but no aortic narrowing is seen. The lesion displaces the heart and mediastinum anteriorly. No new mediastinal masses or adenopathy. Incompletely imaged left renal calculus. Left rotator cuff repair. Stable calcified granulomas in the left lower lobe. No new suspicious lung lesions are seen. Stable minimal left lower lobe alveolitis. No destructive osseous lesions are seen. IMPRESSION: Interval progression of a posterior mediastinal mass as described. Stable minimal left lower lobe alveolitis. Abdomen and pelvis: FINDINGS: The visualized lung bases are unremarkable. The visualized portions of the heart are within normal limits. Normal liver. Normal gallbladder and extrahepatic biliary system. Subcentimeter cyst or hemangioma in the spleen too small to accurately characterize. Normal pancreas. Normal bilateral adrenal glands. No hydronephrosis. Bilateral renal cysts unchanged. Bilateral nonobstructive renal calculi on the right measuring 3 mm and the left 7 mm x 5 mm. Right paraesophageal lymphadenopathy which represents the inferior extent of mediastinal lymphadenopathy best seen on the CT chest and unchanged, axial image 1 series 4. Abdominal and pelvic lymphadenopathy not significantly changed. Multiple small left para-aortic lymph nodes largest measuring 0.7 cm. 4.8 x 4.1 cm mass at the bifurcation of the right common iliac vein axial image 83. 2.2 x 1.8 cm mass anterior right pelvic sidewall at the level of the acetabulum axial image 90. 1.1cm lymph node adjacent to the left common iliac artery, axial image 65. 1 cm lymph node adjacent to the bifurcation of the left common iliac artery axial image 68. Stable 1.5 x 1.0 cm lymph node adjacent to the left common iliac vein axial image 86. Bilateral inguinal lymph nodes on the right measuring 1.3 cm in length 1.6 cm unchanged. Small mass lateral to the left psoas muscle has resolved axial image 61. Normal visualized stomach. Normal small intestine. Normal colon. Normal appendix. Normal abdominal aorta. Normal inferior vena cava. Normal retroperitoneum. No intra-abdominal free air. Normal urinary bladder. Uterus grossly normal. No adnexal masses seen. Normal abdominal wall. Multilevel degenerative changes of the lower thoracic and lumbar spine. IMPRESSION: Aside from resolution of a small nodule lateral to the left psoas muscle, no significant change in abdominal and pelvic lymphadenopathy since July 2018. Small bilateral nonobstructing renal calculi. Subcentimeter low-attenuation splenic lesion unchanged too small to accurately characterize. Stable bilateral renal cysts. CT scans June 10, 2019: Neck: The left cervical level 5 enlarged lymph node on the prior examination has completely resolved. Marked decrease in the size of the mass of the left posterior neck musculature. Now the density is an indistinct slight enlargement of the lateral border of the left splenius capitis muscle. No additional untoward findings since the prior examination. Chest: Substantial decrease in the ill-defined soft tissue mass of the posterior mediastinum which partially surrounds the aorta. A relative mid level measurements demonstrates a 3.7 x 2.1 cm compared to a prior measurement of 6.7 x 4.5 cm. Negative for any substantial compression or invasion of regional arteries or veins. No additional substantial adenopathy of the mediastinum or axillary areas. No acute pulmonary findings or changes. Stable granuloma of the left upper lobe. Abdomen and pelvis: Substantial reduction in the right so as possible mass and right iliac adenopathy. Decreased left iliac adenopathy. Minimal subcentimeter inguinal lymph nodes decreased in size from prior exam. Minimal periaortic lymph nodes similar to or decreased from the prior exam. No change in the right kidney. Simple renal cysts and 1 mm nonobstructing stones in the upper pole and a 3 mm nonobstructing stone in the lower pole. In the lower pole without hydronephrosis or ureteral stones. Within the left kidney, a 5.7 mm stone which was formerly in the upper pole has now moved into a lower midpole position in the central collecting system. The renal pelvis appears to be slightly more distended than on the prior exam suggesting that the stone may, on occasion fall into the renal pelvis and causes intermittent episodes of obstruction. Currently nonobstructed. An additional 3 mm nonobstructing stone remains in the upper pole. Stable simple cysts of the left kidney. Stable subcentimeter low-density lesion of the spine are seen. Unremarkable liver and a nondistended gallbladder. Unremarkable pancreas. No acute bowel related findings. Negative for hemorrhage, hematoma or mass density. September 07, 2019 PET/CT end of treatment: IMPRESSION: 1. NEGATIVE EXAMINATION. There is no definitive quantitative scintigraphic evidence of recurrent/viable neoplasm. 2. There is interim metabolic resolution of all prior defined hypermetabolic foci. 3. Overall, compared to the prior FDG PET study report dated 03/12/2019, there is current absence of defined viable neoplastic disease with an interim quantitative complete metabolic response relating to all prior defined hypermetabolic abnormalities. March 14, 2020 CT scans: Neck: IMPRESSION: The previously seen left level 5 lymph node has cleared. The previously seen muscular mass in the left deep posterior sternocleidomastoid muscle is not present. Chest: IMPRESSION: Stable examination. Abdomen and pelvis: IMPRESSION: Stable examination except for a 6.1 mm calculus in the left renal pelvis causing mild degree of left hydronephrosis. October 25, 2020 PET/CT: IMPRESSION: 1. NEGATIVE EXAMINATION. There is no definitive quantitative scintigraphic evidence of recurrent/viable neoplasm. 2. Overall, compared to the prior FDG PET study dated 09/07/19, there is current and continued absence of defined viable neoplastic disease. August 07, 2021: CT neck: Negative CT Neck with contrast. CT chest abdomen and pelvis: Negative Contrast-enhanced CT of the Chest, Abdomen, and Pelvis. November 06, 2021 CT neck, chest abdomen and pelvis: IMPRESSION: Stable examination. No acute abnormality is seen. May 10, 2022: CT soft tissues of the neck: IMPRESSION: No evidence of cervical lymphadenopathy. CT chest abdomen and pelvis: IMPRESSION:? 1.? No acute abnormality.? 2.? No evidence of lymphadenopathy within the chest, abdomen and pelvis.? 3.? No interval change. November 20, 2022 : CT soft tissues of the neck: IMPRESSION:? Negative CT Neck with contrast. No cervical lymphadenopathy. IMPRESSION: No lymphadenopathy in the chest, abdomen or pelvis. No acute chest, abdominal or pelvic pathology. July 15, 2023 CT neck, chest, abdomen and pelvis: IMPRESSION: No significant abnormality is seen. Stable examination. January 27, 2024 CT neck chest abdomen and pelvis: IMPRESSION: Stable examination. No acute abnormality is seen. July 20, 2024 CT neck chest abdomen and pelvis: IMPRESSION: Stable examination. No acute abnormality is seen. Treatment summary and responses: Bendamustine Rituxan March 23-August 10, 2019 (6 cycles) CR Rituxan maintenance 10/05/2019-June 12, 2021 (2 years) [facility] Medical History Diverticular disease Oral candidiasis Wears glasses Post-menopausal Arthritis Easy bruising Excessive bleeding History of leukemia Back pain Injury of head and neck History of hiatal hernia Gastric reflux Leg cramps COVID Follicular lymphoma Iron deficiency anemia Neck mass Kidney stone Hypertension GERD (gastroesophageal reflux disease) Surgical History Hx of cystoscopy History of colonoscopy Status post laser lithotripsy of ureteral calculus (~03/28/20) s/p port placement (~03/18/19) ORAL SURGERY PROCEDURE SHOULDER JOINT SURGERY Family History Father Bladder cancer Grandmother Diabetes Sister CAD (coronary artery disease) Adenomatous colon polyp Mother Hypertension CAD (coronary artery disease) Social History Smoking Status: Never smoker second hand exposure: No details: OCCASIONALLY substance use type: does not use diet: Weight Watchers caffeine: Yes Type: coffee Number of servings: 3 frequency: 1-2 times per week duration: 15-30 minutes/day seatbelt use: always do you feel safe at home: Yes ROS Constitutional Constitutional: Reports systems reviewed and no addt'l complaints, except as documented, fatigue and other Details: Not sure whether she snores in her sleep or not, will be asking her partner ; Denies fever(s) or weight loss Eyes Eyes: Reports systems reviewed and no addt'l complaints, except as documented ENT HEENT: Reports systems reviewed and no addt'l complaints, except as documented; Denies headache(s) Cardiovascular Cardiovascular: Reports systems reviewed and no addt'l complaints, except as documented; Denies chest pain with activity or edema Respiratory/Chest Respiratory/Chest: Reports systems reviewed and no addt'l complaints, except as documented; Denies cough or dyspnea on exertion Gastrointestinal Gastrointestinal: Reports systems reviewed and no addt'l complaints, except as documented; Denies change in bowel habits, hematochezia, melena or nausea Genitourinary Genitourinary: Reports systems reviewed and no addt'l complaints, except as documented; Denies dysuria or hematuria Musculoskeletal Musculoskeletal: Reports systems reviewed and no addt'l complaints, except as documented, back pain, muscle cramps and other Details: Chronic back pain, has been gradually increasing, so far manageable Integumentary Integumentary: Reports systems reviewed and no addt'l complaints, except as documented; Denies new lesions Neurologic Neurologic: Reports systems reviewed and no addt'l complaints, except as documented; Denies focal weakness, headache(s) or paresthesias Psychiatric Psychiatric: Reports systems reviewed and no addt'l complaints, except as documented Endocrine Endocrinology: Reports systems reviewed and no addt'l complaints, except as documented Hematologic/Lymphatic Hematologic/Lymphatic: Reports systems reviewed and no addt'l complaints, exceptas documented; Denies easy bleeding, easy bruising or lymphadenopathy Allergic/Immunologic Allergic/Immunologic: Reports systems reviewed and no addt'l complaints, except as documented Intake Vital Signs 07/27/24 11:00 01/11/25 13:33 01/11/25 13:38 Height 5 ft 4 in 5 ft 4 in 5 ft 4 in Weight: 73.482 kg BMI 27.8 BP 146/86 H Blood Pressure Location Rt brachial Position Sitting Respiration 18 Pulse 80 Pulse Source Monitor Temp 97.3 F L Temperature Source Temporal Artery Pulse Oximetry (%) 96 Oxygen Delivery Method room air Intake Is patient in pain?: Yes (neck and back ) Pain scale (1-10): 2 Allergies shellfish derived Allergy (Verified 01/11/25 13:38) Hives JAILYN Inhibitors Adverse Reaction (Intermediate, Verified 01/11/25 13:38) Other barium sulfate Adverse Reaction (Intermediate, Verified 01/11/25 13:38) Hives guaifenesin (From Mucinex) Adverse Reaction (Intermediate, Verified 01/11/25 13:38) Hives Penicillins Adverse Reaction (Intermediate, Verified 01/11/25 13:38) Unknown adhesive Adverse Reaction (Verified 01/11/25 13:38) Rash, Welts Medications ?Medication ?Instructions ?Recorded ?Confirmed ?Type valsartan 160 mg tablet 80 mg PO DAILY 11/01/1310/06 History cholecalciferol (vitamin D3) 125 5,000 unit PO DAILY 0 03/03/18 01/11/25 History mcg (5,000 unit) capsule Central Venous Access Central Venous Access: No January 11, 2025 chemistry panel reviewed, CBC pending Exam Physical Exam Narrative ECOG 0 Const alert, oriented x3 and no apparent distress General Appearance: cooperative and comfortable HEENT normocephalic Head and Scalp: normal to inspection Face and Sinus: normal facial exam Mouth: oral and palatal mucosa normal Eyes General Eye: normal appearance of both eyes Conjunctiva: conjunctiva normal Sclera: sclera normal Neck no lymphadenopathy and no JVD Lymph Lymphatic: no lymphadenopathy noted Chest Chest: symmetrical chest wall rise and vascular access Resp normal respiratory effort, normal air movement and clear to auscultation bilaterally Cardio regular rate and regular rhythm Jugular Venous Distention: Negative for JVD GI soft to palpation, non-tender and non-distended; Negative for hepatosplenomegaly no CVA tenderness Back/Spine no thoracic nor lumbar tenderness Extremity no clubbing, cyanosis or edema Skin no rashes or lesions noted Neuro oriented x3, CN's II-XII intact bilaterally and no focal motor deficits Coordination / Balance: [id number] test normal Speech: speech normal Gait (Neuro): normal gait Psych mental status grossly normal, thought process normal, cooperative and affect normal Coding Level of Care Code Off vis,est,level 4 Exam Problem Focused Diagnoses 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, unspecified follicular lymphoma type C82.98 Follicular lymphoma type: unspecified follicular type Lymphoma site: multiple regions Assessment and Plan Assessment and Plan (1) Follicular lymphoma: Status: Chronic Qualifiers: Follicular lymphoma type: unspecified follicular type Lymphoma site: multiple regions Qualified Code(s): C82.98 - Follicular lymphoma, unspecified, lymph nodes of multiple sites Plan 64-year-old female with clinical stage ANN MARIE grade 2 follicular lymphoma presenting with generalized lymphadenopathy and abnormal bone/bone marrow on PETCT March 2018 consistent with bone marrow involvement. FLIPI score 2 (for stage and more than 4 negro areas involved), intermediate risk group. Patients in this risk group have a 94% 2-year overall survival, 72% 2-year progression free survival and a median progression free survival of 70 months. She did not fulfill the GELF criteria for high tumor burden in July 2018. Since the time of diagnosis she has had slow progression of her disease, still asymptomatic, and by January 2019 with the largest lymph node mass in the chest now measuring 6.7 in transverse diameter, completely encases the descending thoracic aorta, but no aortic narrowing is seen and displaces the heart and mediastinum anteriorly. With these findings I advised initiating systemic therapy with combination bendamustine Rituxan before symptoms of vascular compression develop. She started treatment March 2019 , tolerated treatment without excessive toxicities and achieved complete remission of her disease after 6 cycles by July 2019. Received 2 years Rituxan maintenance September-June 2021. Continues to be in CR with last evaluation by CT July 2023. Follicular lymphoma is a second most common lymphoma in the [place] and [place], often presenting in middle age Caucasians with painless peripheral adenopathy which may wax and wane. Widespread disseminated disease is usually present at baseline and patients are typically asymptomatic aside from that her lymphadenopathy. Molecular genetics can confirm the diagnosis butthey are not specific for follicular lymphoma (immunoglobulin gene rearrangementand t(14;18). Although the course of follicular lymphoma is quite variable many patients will have a waxing and waning course for years without therapy. Patient's was disseminated disease and rapid tumor growth are candidates for active treatment. Small subset of patients will undergo transformation to a more aggressive lymphoma in those patients will have a worse prognosis and require aggressive therapy. Chronic comorbid conditions: Diverticular disease, degenerative joint disease ofthe spine and hypertension. Plan: 1. Continue surveillance with watchful expectancy follow-up in 3 months. 2. Live virus vaccines are contraindicated. 3. Elective imaging with CT to schedule / 6 months next will be due January 2025. Impression and plan discussed with patient . Anmu Greene MD Farm Management Professor, [facility] Divisions of Medical Oncology & Hematology Department of Internal Medicine [place] [id number] This note was generated using a voice recognition system software. Although itwas reviewed by the author prior to finalization, it may still contain incorrectwords, spelling, and punctuation that were not noted when reviewing prior to saving. If a clinically significant typo or inaccurately typed phrase is noted, please notify the author. 01/11/25 [id number] <Electronically signed by Anum garcia MD> Date _ Anum Greene MD Cosigner Signature: Date (if applicable) CC: ~ [facility] Work Phone: [phone]) 972-337602-26-2025 Radiology Diagnostic study note [facility] Imaging Services [address] [place] [address] Cerv Spine 4 or 5 Views MR#: [id number] Acct: [id number] Name: SYLVAIN LAW Rep #: [id number] : 1960 F 64 From: Jose Kowalski MD PCP: Dr. Cara Stephens DO Status: REG CLI Study:Cerv Spine 4 or 5 Views Date of Exam: 10/07/24 Exam# [id number] Ordering Dr: Ra marco Mtz LOGISTICS LOSS PREVENTION MANAGER-C PROCEDURE: CERV SPINE 4 OR 5 VIEWS REASON FOR EXAM: Cervical pain. Spasms in the right upper extremity. TECHNIQUE: 5 views of the cervical spine including oblique views.. COMPARISON: None. FINDINGS: Normal vertebral body heights. No visible fracture. Multilevel disc space narrowing and spondylosis worse at the C4-C5, C5-C6 and C6-C7 levels. Findings suggestive of right neural foraminal stenosis. Normal alignment. Prevertebral soft tissues are unremarkable. RAD/Cerv Spine 4 or 5 Views IMPRESSION: MODERATE CERVICAL DEGENERATIVE CHANGES. Findings suggestive of right neural foraminal stenosis. Reading Location: [id number] CC: LOGISTICS LOSS PREVENTION MANAGER-C Stella Mtz; Dr. Cara Stephens DO ~ Skull Chopper: Signed [facility]01-13-2025 NoteHNO ID: [id number] Author: MIKAYLA MICHELLE MD Service: ? Author Type: Physician Type: Progress Notes Filed: 08/24/2024 16:42 Note Text: Cellular Biologist offered: Patient declinesBlack Morrison is a 64 year old who presents for an annual gynecologic exam without complaints. Postmenopausal: Yes HRT use: No. Contraception: Vasectomy Last pap smear: 2022 History of abnormal pap: No Last mammogram: 2024 pending History of abnormal mammogram: No Sexually active: Yes Pain with intercourse: Yes Postcoital bleeding: No Pain only if not using lubrication. OB History T0 L0 SAB0 IAB0 Ectopic0 Multiple0 Live Births0 Direct Support Staff History LMP: 12/24/2012, Postmenopausal Age at Menarche: Age at First : Age at Menopause: Direct Support Staff History Comments: Sexual Activity: Not Asked; Male; Not asked Contraception: Vasectomy PAST MEDICAL HISTORY Diagnosis Date Degeneration of intervertebral disc, site unspecified Follicular non-Hodgkin's lymphoma (HCC) 2018 Frozen shoulder left shoulder Hypertension Kidney stones Lymph node enlargement Renal cyst, acquired, left 12/20/2011 PAST SURGICAL HISTORY Procedure Laterality Date EGD LYMPH NODE BIOPSY (SPECIFY LOCATION) HX 03/2018 Removed from neck PORT ROTATOR CUFF REPAIR 01/08/2014 Left shoulder SKIN BX, 1 LESION 2023 FAMILY HISTORY Problem Relation Age of Onset Cancer Father from bladder cancer Hypertension Mother Lipids Mother Hypertension Maternal Grandmother Breast Cancer Maternal Grandmother Diabetes Paternal Grandmother Stroke Paternal Grandfather Arthritis Sister Arthritis Brother SOCIAL HISTORY Social History Tobacco Use Smoking status: Never Smokeless tobacco: Never Vaping Use Vaping status: Never Used Substance Use Topics Alcohol use: Not Currently Comment: rarely Drug use: No REVIEW OF SYSTEMS Abdomen: No abdominal pain, nausea, vomiting, diarrhea, or constipation. No bloating, early satiety, indigestion, or increased flatulence. Bladder: No dysuria, gross hematuria, urinary frequency, urinary urgency, or incontinence Breast: No breast lumps, nipple d/c, overlying skin changes, redness or skin retraction Allergies and current medication updated:Yes SENSITIVE EXAM: The sensitive examination was discussed with the Patient or Patient's Authorized Health And Safety Specialist. As applicable, any other physician, advance practice provider, medical student, or other health professional student that will be observing or involved in the sensitive examination for educational or training purposes was discussed with the Patient or Authorized Health And Safety Specialist. The Patient or Authorized Health And Safety Specialist has agreed to proceed with the sensitive examination. (Sensitive examination includes inspection and/or palpation of the breasts, pelvis, prostate and anorectal regions). EXAM: BP 104/64 Ht 5' 4 (1.63m) Wt 163 lb (73.9kg) LMP 12/24/2012 BMI 27.97 kg/(m2). GENERAL: pleasant, female in no apparent distress HEENT: Normocephalic, atraumatic, mucus membranes moist, and no lesions NECK: Supple, full range of motion, no adenopathy, and thyroid normal DERMATOLOGY: Normal, without lesions, non-icteric, and non-hirsute BREAST: soft, non-tender, symmetric, no dominant mass, normal nipple-areolar complex, no lymphadenopathy, and no nipple discharge CHEST: Normal inspiratory effort ABDOMEN: soft, non-tender, and no masses PELVIC: external genitalia normal, normal Bartholin's glands, urethra, Pinopolis's glands, no vulvar lesions, no cervical lesions, good vaginal support, physiologic discharge present, normal appearing perineal body and perianal region BIMANUAL: uterus normal size, shape and consistency, no adnexal masses, and non-tender RECTOVAGINAL: deferred. NEURO: alert and oriented x3,exam grossly non-focal EXTREMITIES: normal ASSESSMENT/PLAN: 1) Health maintenance: Pap/HPV up to date. Nutrition, exercise and routine health maintenance exams reviewed. Calcium/Vitamin D supplementation information provided. Colon cancer screening: up to date with screening BMD: N/A 2) Follow up one year or sooner as needed Mikayla Tom [facility]01-13-2025 History of Present illness Narrative* Mikayla Michelle MD - 08/24/2024 2:48 PM EST Cellular Biologist offered: Patient declines. Sylvain is a 64 year old who presents for an annual gynecologic exam without complaints. Postmenopausal: Yes HRT use: No. Contraception: Vasectomy Last pap smear: 2022 History of abnormal pap: No Last mammogram: 2024 pending History of abnormal mammogram: No Sexually active: Yes Pain with intercourse: Yes Postcoital bleeding: No Pain only if not using lubrication. OB History T0 L0 SAB0 IAB0 Ectopic0 Multiple0 Live Births0 Direct Support Staff History LMP: 12/24/2012, Postmenopausal Age at Menarche: Age at First : Age at Menopause: Direct Support Staff History Comments: Sexual Activity: Not Asked; Male; Not asked Contraception: Vasectomy PAST MEDICAL HISTORY Diagnosis Date Degeneration of intervertebral disc, site unspecified Follicular non-Hodgkin's lymphoma (HCC) 2018 Frozen shoulder left shoulder Hypertension Kidney stones Lymph node enlargement Renal cyst, acquired, left 12/20/2011 PAST SURGICAL HISTORY Procedure Laterality Date EGD LYMPH NODE BIOPSY (SPECIFY LOCATION) HX 03/2018 Removed from neck PORT ROTATOR CUFF REPAIR 01/08/2014 Left shoulder SKIN BX, 1 LESION 2023 FAMILY HISTORY Problem Relation Age of Onset Cancer Father from bladder cancer Hypertension Mother Lipids Mother Hypertension Maternal Grandmother Breast Cancer Maternal Grandmother Diabetes Paternal Grandmother Stroke Paternal Grandfather Arthritis Sister Arthritis Brother SOCIAL HISTORY Social History Tobacco Use Smoking status: Never Smokeless tobacco: Never Vaping Use Vaping status: Never Used Substance Use Topics Alcohol use: Not Currently Comment: rarely Drug use: No REVIEW OF SYSTEMS Abdomen: No abdominal pain, nausea, vomiting, diarrhea, or constipation. No bloating, early satiety, indigestion, or increased flatulence. Bladder: No dysuria, gross hematuria, urinary frequency, urinary urgency, or incontinence Breast: No breast lumps, nipple d/c, overlying skin changes, redness or skin retraction Allergies and current medication updated:Yes SENSITIVE EXAM: The sensitive examination was discussed with the Patient or Patient's Authorized Health And Safety Specialist. As applicable, any other physician, advance practice provider, medical student, or other health professional student that will be observing or involved in the sensitive examination for educational or training purposes was discussed with the Patient or Authorized Health And Safety Specialist. The Patient or Authorized Health And Safety Specialist has agreed to proceed with the sensitive examination. (Sensitive examination includes inspection and/or palpation of the breasts, pelvis, prostate and anorectal regions). EXAM: BP 104/64 Ht 5' 4 (1.63m) Wt 163 lb (73.9kg) LMP 12/24/2012 BMI 27.97 kg/(m^2). GENERAL: pleasant, female in no apparent distress HEENT: Normocephalic, atraumatic, mucus membranes moist, and no lesions NECK: Supple, full range of motion, no adenopathy, and thyroid normal DERMATOLOGY: Normal, without lesions, non-icteric, and non-hirsute BREAST: soft, non-tender, symmetric, no dominant mass, normal nipple-areolar complex, no lymphadenopathy, and no nipple discharge CHEST: Normal inspiratory effort ABDOMEN: soft, non-tender, and no masses PELVIC: external genitalia normal, normal Bartholin's glands, urethra, Pinop[place]'s glands, no vulvar lesions, no cervical lesions, good vaginal support, physiologic discharge present, normal appearing perineal body and perianal region BIMANUAL: uterus normal size, shape and consistency, no adnexal masses, and non-tender RECTOVAGINAL: deferred. NEURO: alert and oriented x3,exam grossly non-focal EXTREMITIES: normal ASSESSMENT/PLAN: 1) Health maintenance: Pap/HPV up to date. Nutrition, exercise and routine health maintenance exams reviewed. Calcium/Vitamin D supplementation information provided. Colon cancer screening: up to date with screening BMD: N/A 2) Follow up one year or sooner as needed [facility]ayla Tom MD [facility] History of Present illness Narrative* Florecita Sneed Mammo Tech - 08/24/2024 2:30 PM EST Radiology Service Progress Note PATIENT NAME: Sylvain Law DATE OF SERVICE: August 24, 2024 TIME: 2:23 PM PATIENT IDENTITY VERIFICATION COMPLETED USING TWO (2) IDENTIFIERS: Name and Date of confirmedby patient verbally. FALL SCREENING: Has the patient had 2 falls in the last year or 1 fall with injury or currently using an Ambulatory Assistive Device (Walker, Cane, Wheelchair, Crutches, etc.)? No PATIENT GENDER DATA: Assigned female at . status: : No status:NO. PATIENT RELEVANT IMPLANT DATA REVIEWED: Not Applicable PATIENT PRESENTS WITH AN IMPLANTABLE OR ATTACHED CLEANING PROFESSIONAL: No RADIOLOGY DEPARTMENT: Mammography PERIPHERAL IV DATA: Not applicable SIGNED BY: Ami Ovalle August 24, 2024 2:23 PM documented [facility]2025 NoteHNO ID: [id number] Author: FLORECITA SNEED Mammo Tech Service: ? Author Type: Desk Reporter Type: Progress Notes Filed: 08/24/2024 14:24 Note Text: Radiology Service Progress Note PATIENT NAME: Sylvain Law DATE OF SERVICE: August 24, 2024 TIME: 2:23 PM PATIENT IDENTITY VERIFICATION COMPLETED USING TWO (2) IDENTIFIERS: Name and Date of confirmed by patient verbally. FALL SCREENING: Has the patient had 2 falls in the last year or 1 fall with injury or currently using an Ambulatory Assistive Device (Walker, Cane, Wheelchair, Crutches, etc.)? No PATIENT GENDER DATA: Assigned female at . status: : No status: NO. PATIENT RELEVANT IMPLANT DATA REVIEWED: Not Applicable PATIENT PRESENTS WITH AN IMPLANTABLE OR ATTACHED CLEANING PROFESSIONAL: No RADIOLOGY DEPARTMENT: Mammography PERIPHERAL IV DATA: Not applicable SIGNED BY: Florecita Sneed PlaceBlogger August 24, 2024 2:23 [facility]12-16-2024 Evaluation note* Diagnosis Onset Date Resolution Status Admit Date Follicular lymphoma chronic Decem 2023 10:50am Follicular lymphoma chronic October 19, 2024 3:00pm Chemotherapy management, encounter for resolved October 19, 2024 3:00pm Encounter for education resolved M 2024 3:00pm Fatigue resolved October 19 3:00pm Oral candidiasis resolved October 192024 3:00pm [facility] Work Phone: 1(433) 498-339310-08-2024 Instructions* Patient Instructions* Lakisha Pandya OD - 05/19/2024 4:35 PM EDT ASSESSMENT/PLAN: 1. Hyperopia of both eyes - ICD9: 367.0, ICD10: H52.03 (primary diagnosis) 2. Presbyopia - ICD9: 367.4, ICD10: H52.4 Continue to wear her glasses with the as desired. Continue to monitor her ocular health . Recommended yearly exams. [facility]-2024 NoteHNO ID: [id number] Author: LAKISHA PANDYA OD Service: ? Author Type: APPLICATION PROGRAMMER ANALYST Type: Progress Notes Filed: 05/19/2024 16:38 Note Text: ASSESSMENT/PLAN: 1. Hyperopia of both eyes - ICD9: 367.0, ICD10: H52.03 (primary diagnosis) 2. Presbyopia - ICD9: 367.4, ICD10: H52.4 Continue to wear her glasses with the as desired. Continue to monitor her ocular health . Recommended yearly exams. Lakisha Pandya, OPAL I have confirmed and edited as necessary the relevant ophthalmic history, ROS, and the neuro exam findings as obtained by others.[facility] 05-19-2024 History of Present illness Narrative* Lakisha Pandya OD - 05/19/2024 4:33 PM EDT ASSESSMENT/PLAN: 1. Hyperopia of both eyes - ICD9: 367.0, ICD10: H52.03 (primary diagnosis) 2. Presbyopia - ICD9: 367.4, ICD10: H52.4 Continue to wear her glasses with the as desired. Continue to monitor her ocular health . Recommended yearly exams. Lakisha Pandya OD I have confirmed and edited as necessary the relevant ophthalmic history, ROS, and the neuro exam findings as obtained by others. documented [facility]12-28-2023 History of Present illness Narrative* Edna Dominguez Mammo Tech - 08/08/2023 12:30 PM EST Radiology Service Progress Note PATIENT NAME: Sylvain Law DATE OF SERVICE: August 08, 2023 TIME: 12:32 PM PATIENT IDENTITY VERIFICATION COMPLETED USING TWO (2) IDENTIFIERS: Name and Date of confirmedby patient verbally. FALL SCREENING: Has the patient had 2 falls in the last year or 1 fall with injury or currently using an Ambulatory Assistive Device (Walker, Cane, Wheelchair, Crutches, etc.)? No PATIENT GENDER DATA: Female. status: status: NO. PATIENT RELEVANT IMPLANT DATA REVIEWED: Not Applicable RADIOLOGY DEPARTMENT: Mammography PERIPHERAL IV DATA: Not applicable SIGNED BY: Ami Alcantara August 08, 2023 12:32 PM documented in [facility]Ge[facility]02-[facility]23 Procedure [facility]02-15-2023 Procedure [facility]12-09-2022 History of Present illness Narrative* Mikayla Garcia MD - 07/20/2022 10:46 AM EST Cellular Biologist offered: Patient declines. Sylvain is a 62 year old who presents for an annual gynecologic exam without complaints. Doing well still off all immunosuppression. Feeling fatigued. Counts are good. Went to [employer]- got caught in donald perez. Postmenopausal: Yes HRT use: No. Last Pap: 07/21/2021 normal HPV: 06/10/2019 negative History of abnormal pap: yes- 20s Last mammogram: bnormal, pending today History of abnormal mammogram: No Sexually active: Yes History of STDS: None Patient concerns for STD exposure: No. Hot flashes: No Night sweats: No Vaginal dryness: Yes Exercise: active Diet:balanced OB History T0 L0 SAB0 IAB0 Ectopic0 Multiple0 Live Births0 Direct Support Staff History LMP: 12/24/2012, Postmenopausal Age at Menarche: Age at First : Age at Menopause: Direct Support Staff History Comments: Sexual Activity: Not Asked; Male; Not asked Contraception: Vasectomy PAST MEDICAL HISTORY Diagnosis Date Degeneration of intervertebral disc, site unspecified Follicular non-Hodgkin's lymphoma (HCC) 2018 Frozen shoulder left shoulder Hypertension Kidney stones Lymph node enlargement Renal cyst, acquired, left 12/20/2011 PAST SURGICAL HISTORY Procedure Laterality Date EGD LYMPH NODE BIOPSY (SPECIFY LOCATION) HX 03/2018 Removed from neck PORT ROTATOR CUFF REPAIR 01/08/2014 Left shoulder FAMILY HISTORY Problem Relation Age of Onset Cancer Father from bladder cancer Hypertension Mother Lipids Mother Hypertension Maternal Grandmother Breast Cancer Maternal Grandmother Diabetes Paternal Grandmother Stroke Paternal Grandfather Arthritis Sister Arthritis Brother SOCIAL HISTORY Social History Tobacco Use Smoking status: Never Smokeless tobacco: Never Vaping Use Vaping Use: Never used Substance Use Topics Alcohol use: Not Currently Comment: rarely Drug use: No REVIEW OF SYSTEMS Abdomen: No abdominal pain, nausea, vomiting, diarrhea, or constipation. No bloating, early satiety, indigestion, or increased flatulence. Bladder: No dysuria, gross hematuria, urinary frequency, urinary urgency, or incontinence Breast: No breast lumps, nipple d/c, overlying skin changes, redness or skin retraction Allergies and current medication updated:Yes EXAM: BP 124/74 Ht 5' 4 (1.63m) Wt 144 lb (65.3kg) LMP 12/24/2012 BMI 24.71 kg/(m^2). GENERAL: pleasant, female in no apparent distress HEENT: Normocephalic, atraumatic, mucus membranes moist, and no lesions NECK: Supple, full range of motion, no adenopathy, and thyroid normal DERMATOLOGY: Normal, without lesions, non-icteric, and non-hirsute BREAST: soft, non-tender, symmetric, no dominant mass, normal nipple-areolar complex, no lymphadenopathy, and no nipple discharge ABDOMEN: soft, non-tender, and no masses PELVIC: external genitalia normal, normal Bartholin's glands, urethra, Pinopolis's glands, no vulvar lesions, no cervical lesions, good vaginal support, physiologic discharge present, normal appearing perineal body and perianal region BIMANUAL: uterus normal size, shape and consistency, no adnexal masses, and non-tender RECTOVAGINAL: deferred. NEURO: alert and oriented x3,exam grossly non-focal EXTREMITIES: normal ASSESSMENT/PLAN: 1) Health maintenance: Pap/HPV up to date. Mammogram ordered Mammogram up to date Nutrition, exercise and routine health maintenance exams reviewed. Calcium/Vitamin D supplementation information provided. Colon cancer screening: will call for Screening Dr. Castellon TSH/lipids/glucose: ordered Vitamin D: ordered 2) Follow up one year or sooner as needed Mikayla Tom MD documented [facility]12-09-2022 History of Present illness Narrative* Kayleigh Flaherty RT(R) - 07/20/2022 10:10 AM EST Radiology Service Progress Note PATIENT NAME: Sylvain Law DATE OF SERVICE: July 20, 2022 TIME: 10:06 AM PATIENT IDENTITY VERIFICATION COMPLETED USING TWO (2) IDENTIFIERS: Name and Date of confirmedby patient verbally. FALL SCREENING: Has the patient had 2 falls in the last year or 1 fall with injury or currently using an Ambulatory Assistive Device (Walker, Cane, Wheelchair, Crutches, etc.)? No PATIENT GENDER DATA: Female. status: : No status: NO. PATIENT RELEVANT IMPLANT DATA REVIEWED: Not Applicable RADIOLOGY DEPARTMENT: Mammography PERIPHERAL IV DATA: Not applicable SIGNED BY: RT Deborah(R) July 20, 2022 10:06 AM documented in this encounterGe[facility]09-19-2022 Instructions* Patient Instructions* Lakisha Pandya, OD - 04/30/2022 5:39 PM EDT ASSESSMENT/PLAN: 1. Hyperopia of both eyes - ICD9: 367.0, ICD10: H52.03 (primary diagnosis) 2. Presbyopia - ICD9: 367.4, ICD10: H52.4 Continue to wear her glasses with the update. Early cataracts not clinically significant. Recommended yearly exams. documented in [facility]Ge[facility]09-19-2022 History of Present illness Narrative* Lakisha Pandya, OD - 04/30/2022 5:38 PM EDT ASSESSMENT/PLAN: 1. Hyperopia of both eyes - ICD9: 367.0, ICD10: H52.03 (primary diagnosis) 2. Presbyopia - ICD9: 367.4, ICD10: H52.4 Continue to wear her glasses with the update. Early cataracts not clinically significant. Recommended yearly exams. Lakisha Pandya, OD I have confirmed and edited as necessary the relevant ophthalmic history, ROS, and the neuro exam findings as obtained by others. I have seen and examined this patient. documented in [facility] encounterGe[facility] HospitalEvaluation [facility]* Diagnosis Onset Date Resolution Status Follicular lymphoma chronic Chemotherapy management, encounter for acute Encounter for education acut e Follicular lymphoma chronic Fatigue resolved Oral candidiasis resolved Follicular lymphoma chronic [facility] Work Phone: evaluation note* Diagnosis Hyperopia of both eyes- Primary Presbyopia [facility] encounter [facility]* Diagnosis Onset Date Resolution Status Follicular lymphoma chronic Chemotherapy management, encounter for acute Encounter for education acut e Follicular lymphoma chronic Fatigue resolved Oral candidiasis resolved [facility] Work Phone: evaluation note* Diagnosis Encounter for gynecological examination (general) (routine) without abnormal findings- Primary Screening mammogram for breast cancer Screening cholesterol level Screening for lipoid disorders Encounter for vitamin deficiency screening Screening for other and unspecified endocrine, nutritional, metabolic, and immunity disorders Encounter for screening for diabetes mellitus Screening for diabetes mellitus Screening for thyroid disorder documented [facility] this encounter [facility]* Diagnosis Onset Date Resolution Status Follicular lymphoma chronic Chemotherapy management, encounter for acute Encounter for education acut e Follicular lymphoma chronic Fatigue resolved Oral candidiasis resolved Encounter for screening for malignant neoplasm of colon acute [facility] Work Phone: evaluation note* Diagnosis Encounter for screening mammogram for malignant neoplasm of breast Other screening mammogram documented [facility] this encounter [facility]* Diagnosis Screening mammogram for breast cancer documented [facility] this encounter [facility]* Diagnosis Hyperopia of both eyes- Primary Presbyopia [facility]* Diagnosis Encounter for gynecological examination (general) (routine) without abnormal findings- Primary Encounter for screening mammogram for breast cancer [facility]* Diagnosis Encounter for gynecological examination (general) (routine) without abnormal findings Encounter for screening mammogram for breast cancer [facility]* Diagnosis Onset Date Resolution Status Admit Date Follicular lymphoma chronic January 11, 2025 12:38pm Follicular lymphoma chronic January 11, 2025 12:45pm Chemotherapy management, encounter for resolved January 11, 2025 1 2:45pm Encounter for education resolved J 2024 12:45pm Fatigue resolved January 11, 2025 12:45pm Oral candidiasis resolved January 12:45pm [facility] Work Phone: History and physical note Author Morgan Friend [facility] September 26, 2022 7:29am Note Date/Time September 26, 2022 7:29am [facility] Medical Records Department [address] [place] [address] History & Physical Exam 09/26/22726 MR#: [id number] Acct: [id number] Name: SYLVAIN LAW Rep #:[id number] 1 : 1960 62 From: Morgan Friend DO PCP: Dr. Cara Stephens, DO Status:[facility] Location: [place] [id number] HPI - General General Date of Admission: 09/26/22 Date of Service: 09/26/22 Chief Complaint: Screening colonoscopy HPI Narrative SYLVAIN LAW, is a 62 F who presents today for screening colonoscopy. She had acolonoscopy approximately 11 years ago. There were no abnormalities found on that colonoscopy. She is not having abdominal pain. She did not have any nausea, vomiting or diarrhea. She does have family history of adenomatous polyps but no colon cancer. [facility] Medical History (Updated 09/20/22 @ 14:46 by Kimberly Cisneros) Arthritis Back pain COVID Easy bruising Excessive bleeding Follicular lymphoma Gastric reflux GERD (gastroesophageal reflux disease) History of hiatal hernia History of leukemia Hypertension Injury of head and neck Iron deficiency anemia Kidney stone Leg cramps Neck mass Post-menopausal Wears glasses Home Medications valsartan 160 mg tablet 80 mg PO DAILY 11/01/13 [History Last Taken 04/08/20 06:30] cholecalciferol (vitamin D3) 125 mcg (5,000 unit) capsule 5,000 unit PO DAILY 03/03/18 [History Last Taken Unknown] Allergy/AdvReac Type Severity Reaction Status Date / Time shellfish derived Allergy Hives Verified 09/20/22 14:33 JAILYN Inhibitors AdvReac Intermediate Other Verified 09/20/22 14:30 barium sulfate AdvReac Intermediate Hives Verified 09/20/22 14:30 guaifenesin [From Mucinex] AdvReac Intermediate Hives Verified 09/20/22 14:30 Penicillins AdvReac Intermediate Unknown Verified 09/20/22 14:30 adhesive AdvReac Rash, Welts Verified 09/20/22 14:30 CRUSTACEAN Allergy Hives Uncoded 09/20/22 14:33 Family History (Updated 09/05/22 @ 08:58 by Dang Castaneda) Father Bladder cancer Grandmother Diabetes Sister CAD (coronary artery disease) Adenomatous colon polyp Mother Hypertension CAD (coronary artery disease) Surgical History (Updated 09/20/22 @ 14:46 by Kimberly Cisneros) History of colonoscopy Hx of cystoscopy ORAL SURGERY PROCEDURE s/p port placement (~03/18/19) SHOULDER JOINT SURGERY Status post laser lithotripsy of ureteral calculus (~03/28/20) Social History Smoking Status: Never smoker second hand exposure: No details: OCCASIONALLY substance use type: does not use diet: Weight Watchers caffeine: Yes Type: coffee Number of servings: 3 frequency: 1-2 times per week duration: 15-30 minutes/day seatbelt use: always do you feel safe at home: Yes ROS Constitutional Constitutional: Reports systems reviewed and no addt'l complaints, except as documented; Denies fatigue, fever(s) or weight loss Eyes Eyes: Reports systems reviewed and no addt'l complaints, except as documented ENT HEENT: Reports systems reviewed and no addt'l complaints, except as documented; Denies headache(s) Cardiovascular Cardiovascular: Reports systems reviewed and no addt'l complaints, except as documented; Denies chest pain with activity or edema Respiratory/Chest Respiratory/Chest: Reports systems reviewed and no addt'l complaints, except as documented; Denies cough or dyspnea on exertion Gastrointestinal Gastrointestinal: Reports systems reviewed and no addt'l complaints, except as documented; Denies change in bowel habits, hematochezia, melena or nausea Genitourinary Genitourinary: Reports systems reviewed and no addt'l complaints, except as documented; Denies dysuria or hematuria Musculoskeletal Musculoskeletal: Reports systems reviewed and no addt'l complaints, except as documented; Denies back pain Integumentary Integumentary: Reports systems reviewed and no addt'l complaints, except as documented Neurologic Neurologic: Reports systems reviewed and no addt'l complaints, except as documented, dizziness and other Details: Dizzy spells every few months, chronic unexplained ; Denies focal weakness, headache(s) or syncope Psychiatric Psychiatric: Reports systems reviewed and no addt'l complaints, except as documented Endocrine Endocrinology: Reports systems reviewed and no addt'l complaints, except as documented Hematologic/Lymphatic Hematologic/Lymphatic: Reports systems reviewed and no addt'l complaints, exceptas documented; Denies easy bleeding, easy bruising or lymphadenopathy Allergic/Immunologic Allergic/Immunologic: Reports systems reviewed and no addt'l complaints, except as documented Physical Exam Narrative ECOG 0 Const alert, oriented x3 and no apparent distress General Appearance: cooperative and comfortable HEENT normocephalic Head and Scalp: normal to inspection Face and Sinus: normal facial exam Mouth: oral and palatal mucosa normal Eyes General Eye: normal appearance of both eyes Conjunctiva: conjunctiva normal Sclera: sclera normal Neck no lymphadenopathy and no JVD Lymph Lymphatic: no lymphadenopathy noted Chest Chest: symmetrical chest wall rise and vascular access Resp normal respiratory effort, normal air movement and clear to auscultation bilaterally Cardio regular rate and regular rhythm Jugular Venous Distention: Negative for JVD GI soft to palpation, non-tender and non-distended; Negative for hepatosplenomegaly no CVA tenderness Back/Spine no thoracic nor lumbar tenderness Extremity no clubbing, cyanosis or edema Skin no rashes or lesions noted Neuro oriented x3, CN's II-XII intact bilaterally and no focal motor deficits Coordination / Balance: [id number] test normal Speech: speech normal Gait (Neuro): normal gait Psych mental status grossly normal, thought process normal, cooperative and affect normal Assessment & Plan Assessment/Plan (1) Encounter for screening for malignant neoplasm of colon: PLAN: She will undergo screening colonoscopy. She was explained alternatives, risk, benefits including not withstanding bleeding, infection, sepsis, perforation, need for emergent surgery and . She will have an ASA of 1. 09/26/22 0729 <Electronically signed by Morgan Zuniga DO> Cosigner Signature (if applicable): CC: Dr. Cara Stephens DO; Morgan Zuniga DO~ Signed [facility] Work Phone: Hospital Discharge instructionsAmbulatory Orders* ONC Referral: Surgery Time Frame: 0 Days, Location: None Selected [facility] Work Phone: Reason for referral (narrative)* Diagnostic Procedure Only (Routine) - Pending Review Specialty Diagnoses / Procedures Referred By Fab t Referred To Contact [facility] Diagnoses Screening mammogram for breast cancer Procedures DWAYNE SCREENING W ANDRZEJ SCREENING DIGITAL BREAST TOMOSYNTHESIS BI SCREENING MAMMOGRAPHY BI 2-VIEW BREAST INC CAD Mikayla Michelle MD [address] [place] [address] [facility] [address] [phone] Referral ID Status Reason Start Date Expiration Date Visits Requested Visits Authorized [id number] Pending Review Auto-Generat ed Referral 07/20/2022 08/19/2023 1 1 [facility] for referral (narrative)* Diagnostic Procedure Only (Routine) - Closed Specialty Diagnoses / Procedures Referred By Fab t Referred To Contact [facility] Diagnoses Encounter for screening mammogram for malignant neoplasm of breast Procedures DWAYNE SCREENING W ANDRZEJ SCREENING BREAST DGTL ANDRZEJ UNI/BILAT ADD ON SCREENING MAMMOGRAPHY BI 2-VIEW BREAST INC CAD Mikayla Michelle MD [address] [place] [address] [facility] [address] [phone] Referral ID Status Reason Start Date Expiration Date V isits Requested Visits Authorized [id number] Closed Auto-Generate d Referral 07/14/2021 08/13/2022 1 1 [facility] for referral (narrative)* Diagnostic Procedure Only (Routine) - Closed Specialty Diagnoses / Procedures Referred By Contac t Referred To Contact [facility] Diagnoses Screening mammogram for breast cancer Procedures DWAYNE SCREENING W ANDRZEJ SCREENING DIGITAL BREAST TOMOSYNTHESIS BI SCREENING MAMMOGRAPHY BI 2-VIEW BREAST INC CAD Mikayla Michelle MD [address] [place] [address] [facility] [address] [place] [phone] Referral ID Status Reason Start Date Expiration Date V isits Requested Visits Authorized [id number] Closed Auto-Generate d Referral 07/20/2022 08/19/2023 1 1 [facility] for referral (narrative)* Diagnostic Procedure Only (Routine) - New Request Specialty Diagnoses / Procedures Referred By Fab weinstein Referred To Contact [facility] Diagnoses Encounter for screening mammogram for breast cancer Procedures DWAYNE SCREENING W ANDRZEJ SCREENING DIGITAL BREAST TOMOSYNTHESIS BI SCREENING MAMMOGRAPHY BI 2-VIEW BREAST INC CAD Mikayla Michelle MD [address] [place] [address] [facility] [address] [place] [phone] Referral ID Status Reason Start Date Expiration Date Visits Requested Visits Authorized [id number] New Request Auto-Generat ed Referral 08/24/2024 09/23/2025 1 1 [facility] for referral (narrative)No reason for referral information availableWKettering Health Work Phone: [facility] Narrative* Diagnostic Procedure Only (Routine) - Closed Specialty Diagnoses / Procedures Referred By Fab weinstein Referred To Contact [facility] Diagnoses Encounter for screening mammogram for malignant neoplasm of breast Procedures DWAYNE SCREENING W ANDRZEJ SCREENING BREAST DGTL ANDRZEJ UNI/BILAT ADD ON SCREENING MAMMOGRAPHY BI 2-VIEW BREAST INC CAD Mikayla Michelle MD [address] [place] [address] [facility] [address] [place], [place] [phone] Referral ID Status Reason Start Date Expiration Date V isits Requested Visits Authorized [id number] Closed Auto-Generate d Referral 07/14/2021 08/13/2022 1 1 [facility] for visit Narrative* Diagnostic Procedure Only (Routine) - Closed Specialty Diagnoses / Procedures Referred By Fab weinstein Referred To Contact [facility] Diagnoses Screening mammogram for breast cancer Procedures DWAYNE SCREENING W ANDRZEJ SCREENING DIGITAL BREAST TOMOSYNTHESIS BI SCREENING MAMMOGRAPHY BI 2-VIEW BREAST INC CAD Mikayla Michelle MD [address] [place] [address] [facility] [address] [address] Referral ID Status Reason Start Date Expiration Date V isits Requested Visits Authorized [id number] Closed Auto-Generate d Referral 07/20/2022 08/19/2023 [facility] Diagnostic Procedure Only (Routine) - Closed Specialty Diagnoses / Procedures Referred By Contac t Referred To Contact [facility] Diagnoses Encounter for gynecological examination (general) (routine) without abnormal findings Encounter for screening mammogram for breast cancer Procedures DWAYNE SCREENING W ANDRZEJ SCREENING DIGITAL BREAST TOMOSYNTHESIS BI SCREENING MAMMOGRAPHY BI 2-VIEW BREAST INC CAD Mikayla Michelle MD [address] [place] [address] [facility] [address] [place] [address] Referral ID Status Reason Start Date Expiration Date V isits Requested Visits Authorized [id number] Closed Auto-Generate d Referral 08/08/2023 09/06/2024 1 1 [facility] Chief Complaint and Reason for Visit Chief Complaint LYMPHOMA 2 MO - LABS - REVIEW CT SCANS FOLLLICULAR LYMPHOMA LYMPHOMA 3 MO - LABS (DOING WITH CT) REVIEW CT RESULTS Reason for Visit Follicular lymphoma Chemotherapy management, encounter for Encounter for education Follicular lymphoma Fatigue Oral candidiasis Follicular lymphoma Chief Complaint 3MO - LABS FOLLLICULAR LYMPHOMA LYMPHOMA Reason for Visit Follicular lymphoma Chemotherapy management, encounter for Encounter for education Follicular lymphoma Fatigue Oral candidiasis Chief Complaint 3MO - LABS FOLLLICULAR LYMPHOMA LYMPHOMA 3 MO - DOING LABS WITH CT - REVIEW CT sob Reason for Visit Follicular lymphoma Chemotherapy management, encounter for Encounter for education Follicular lymphoma Fatigue Oral candidiasis Follicular lymphoma Chief Complaint 3 MO - LABS FOLLLICULAR LYMPHOMA Amb Documentation Reason for Visit Follicular lymphoma Chemotherapy management, encounter for Encounter for education Follicular lymphoma Fatigue Oral candidiasis Encounter for screening for malignant neoplasm of colon Chief Complaint F/U LYMPHOMA 3 MO - LABS PRIOR - REVEW CT FOLLLICULAR LYMPHOMA Reason for Visit Follicular lymphoma Chemotherapy management, encounter for Encounter for education Follicular lymphoma Fatigue Oral candidiasis Chief Complaint Follicular lymphoma, unspecified, unspecified site 5 MO - LABS (DOING PRIOR) - REVIEW CT FOLLLICULAR LYMPHOMA Reason for Visit Follicular lymphoma Chemotherapy management, encounter for Encounter for education Follicular lymphoma Fatigue Oral candidiasis Chief Complaint Admit Date Follicular lymphoma, unspecified, unspec ified site July 20, 2024 6:45am 3 MO, LABS PRIOR, REVIEW CT July 10:50am Cervicalgia October 07, 2024 11:28am FOLLLICULAR LYMPHOMA October 19, 2024 3: 00pm Reason for Visit Admit Date Follicular lymphoma July 27, 2024 10:50am Follicular lymphoma October 19, 2024 3:0 0pm Chemotherapy management, encounter for M arch 2024 3:00pm Encounter for education October 19, 2024 3:00pm Fatigue October 19, 2024 3:0 0pm Oral candidiasis October 19, 2024 3:0 0pm Chief Complaint Admit Date Cervicalgia October 07, 2024 11:28am XRAY December 31, 2024 8:36a m 6 MO - LABS January 11, 2025 12:38 pm FOLLLICULAR LYMPHOMA January 11, 2025 12:4 5pm Reason for Visit Admit Date Follicular lymphoma January 11, 2025 12:38 pm Follicular lymphoma January 11, 2025 12:45 pm Chemotherapy management, encounter for J une 2024 12:45pm Encounter for education January 11, 2025 1 2:45pm Fatigue January 11, 2025 12:45 pm Oral candidiasis January 11, 2025 12:45 pm Family History No Family History Records Found Relationship Condition Age at Onset Recorded Date/T gómez father Malignant neoplasm of urinary bladder Unk nown grandmother Diabetes mellitus Unknown sister Coronary artery disease Unknown mother Hypertension Unknown Coronary artery disease Unknown Relationship Condition Age at Onset Recorded Date/T gómez father Malignant neoplasm of urinary bladder Unk nown grandmother Diabetes mellitus Unknown sister Coronary artery disease Unknown Adenomatous polyp of colon Unknown mother Hypertension Unknown Coronary artery disease Unknown Advance Directives No Advanced Directives Records Found Advance Directive Response Recorded Date/ Time Advance Directives Yes June 12, 2021 10:37am Living Will Yes June 12 10:37am Power of Flexo Operator Yes June 12, 2021 10:37am Advance Directive Response Recorded Date/ Time Advance Directives on File Yes Novem 2020 10:37am Name of Medical Power of Flexo Operator Steve Mckenzie June 12, 2021 10:37am Advance Directives Yes June 12, 2021 10:37am Living Will Yes June 12 10:37am Power of Flexo Operator Yes June 12, 2021 10:37am Advance Directive Response Recorded Date/ Time Advance Directives on File Yes 2020 10:37am Name of Medical Power of Flexo Operator Steve Charleser June 12, 2021 10:37am Advance Directives Yes June 12, 2021 10:37am Living Will Yes May 25 3:05am Power of Flexo Operator No May 25, 2022 3:05am Advance Directive Response Recorded Date/ Time Advance Directives on File Yes 2020 9:37am Name of Medical Power of Flexo Operator Steve Charleser June 12, 2021 9:37am Name of Medical Power of Flexo Operator STEVE CHARLESER September 20, 2022 2:46pm Advance Directives Yes June 12, 2021 9:37am Living Will Yes September 20 2:46pm Power of Flexo Operator Yes September 20, 2022 2:46pm Advance Directive Response Recorded Date/ Time Advance Directives on File Yes 2020 10:37am Name of Medical Power of Flexo Operator Steve Charleser June 12, 2021 10:37am Advance Directives Yes June 12, 2021 10:37am Living Will Yes September 20 3:46pm Power of Flexo Operator Yes September 20, 2022 3:46pm Advance Directive Response Recorded Date/ Time Living Will Yes September 20 3:46pm Power of Flexo Operator Yes September 20, 2022 3:46pm Advance Directives on File Yes 2020 10:37am Living Will Yes June 12 10:37am Power of Flexo Operator Yes June 12, 2021 10:37am Name of Medical Power of Flexo Operator Steve Charleser June 12, 2021 10:37am Advance Directives Yes June 12, 2021 10:37am Advance Directive Response Recorded Date/ Time Advance Directives on File Yes 2020 10:37am Living Will Yes June 12 10:37am Do you have a Healthcare Power of Flexo Operator? Yes June 12, 2021 10:37am Name of Medical Power of Flexo Operator Steve Charleser June 12, 2021 10:37am Advance Directives Yes June 12, 2021 10:37am Medications Administered Section Inactive Administered Medications - up to 3 most recent administrations Medication Order MAR Action Action Date Dose Rate Site tropicamide 1 % 1 Drop (MYDRIACYL) 1 Drop, BOTH EYES, ONCE, 1 dose, On 04/30/22 at 1730, FOR THE EYE Given 04/30/2022 5:30 PM EDT 1 Drop Summary Purpose Additional Source Comments Goals (unrecognized section and content) Goals may be documented in a n alternate sectionGoals may be documented in an alternate sectionGoals may be documented in an alternate sectionGoals may be documented in an alternate sectionGoals may be documented in an alternate sectionGoals may be documented in an alternate sectionGoals may be documented in an alternate section Source Comments (unrecognize d section and content) In the event this informatio n is protected by the Federal Confidentiality of Alcohol and Drug Abuse Patient Records regulations: The Federal rules restrict any use of the information to criminally investigate or prosecute any alcohol or drug abuse patient.[facility] the event this information is protected by the Federal Confidentiality of Alcohol and Drug Abuse Patient Records regulations: The Federal rules restrict any use of the information to criminally investigate or prosecute any alcohol or drug abuse patient.[facility] the event this information is protected by the Federal Confidentiality of Alcohol and Drug Abuse Patient Records regulations: The Federal rules restrict any use of the information to criminally investigate or prosecute any alcohol or drug abuse patient.[facility] the event this information is protected by the Federal Confidentiality of Alcohol and Drug Abuse Patient Records regulations: The Federal rules restrict any use of the information to criminally investigate or prosecute any alcohol or drug abuse patient.[facility] the event this information is protected by the Federal Confidentiality of Alcohol and Drug Abuse Patient Records regulations: The Federal rules restrict any use of the information to criminally investigate or prosecute any alcohol or drug abuse patient.[facility] the event this information is protected by the Federal Confidentiality of Alcohol and Drug Abuse Patient Records regulations: The Federal rules restrict any use of the information to criminally investigate or prosecute any alcohol or drug abuse patient.[facility] the event this information is protected by the Federal Confidentiality of Alcohol and Drug Abuse Patient Records regulations: The Federal rules restrict any use of the information to criminally investigate or prosecute any alcohol or drug abuse patient.[facility] Reason for Visit (unrecogniz ed section and content) Reason Comments Yearly Exam Reason Comments Yearly Exam Care Teams (unrecognized sec tion and content) Gis Analyst Developer Relationship Specialty Start Date End Date Cara Stephens DO PCP - General Family Practice 07/18/15 Gis Analyst Developer Relationship Specialty Start Date End Date Cara Stephens DO PCP - General Family Medicine 07/18/15 Team Status: Active Member Role Status Dates Dr. Cara Stephens DO Family Provider Active Dr. Cara Stephens DO Primary Care Provider Active Team Status: Inactive Member Role Status Dates Dr. Cara Stephens DO Primary Care Provider, Referring P rovider Active Dr. Anum Greene MD Attending Provider Active Team Status: Active Member Role Status Dates Dr. Cara Stephens DO Primary Care Provider Active Dang Castaneda Attending Provider Active Team Status: Active Member Role Status Dates Dr. Cara Stephens DO Primary Care Provider, Referring P rovider Active Dr. Morgan Zuniga DO Attending Provider, Other Prov ider Active Team Status: Active Member Role Status Dates Dr. Cara Stephens DO Primary Care Provider, Family Prov ider Active Dr. Anum Greene MD Attending Provider, Referrin g Provider Active Team Status: Inactive Member Role Status Dates Dr. Cara Stephens DO Primary Care Provider, Referring P rovider Active Dr. Morgan Zuniga DO Attending Provider Active Team Status: Inactive Member Role Status Dates Dr. Cara Stephens DO Primary Care Provider Active Dr. Anum Greene MD Attending Provider, Referrin g Provider Active Team Status: Inactive Member Role Status Dates Dr. Cara Stephens DO Primary Care Provider Active Dr. Doc Bose DO Attending Provider Active Gis Analyst Developer Relationship Specialty Start Date End Date Cara Stephens DO PCP - General Family Medicine 07/18/15 Gis Analyst Developer Relationship Specialty Start Date End Date Cara Stephens DO PCP - General Family Medicine 07/18/15 Team Status: Inactive Member Role Status Dates Dr. Cara Stephens DO Primary Care Provider, Attending Phong rodgers Active Gis Analyst Developer Relationship Specialty Start Date End Date Cara Stephens DO PCP - General Family Medicine 07/18/15 Gis Analyst Developer Relationship Specialty Start Date End Date Cara Stephens DO PCP - General Family Medicine 07/18/15 Gis Analyst Developer Relationship Specialty Start Date End Date Cara Stephens DO PCP - General Family Medicine 07/18/15 Team Status: Inactive Member Role Status Dates Dr. Cara Stephens DO Primary Care Provider Active Start: July 20, 2024 End: July 20, 2024 Dr. Anum Greene MD Attending Provider Active Start: July 20, 2024 End: July 20, 2024 Dr. Anum Greene MD Referring Provider Active Start: July 20, 2024 End: July 20, 2024 Team Status: Inactive Member Role Status Dates Dr. Cara Stephens DO Primary Care Provider Active Start: July 27, 2024 End: July 27, 2024 Dr. Cara Stephens DO Referring Provider Active St art: July 27, 2024 End: July 27, 2024 Dr. Anum Greene MD Attending Provider Active Start: July 27, 2024 End: July 27, 2024 Team Status: Inactive Member Role Status Dates Dr. Cara Stephens DO Primary Care Provider Active Start: October 07, 2024 End: October 07, 2024 MONIKA Dodd Attending Provider Active St art: October 07, 2024 End: October 07, 2024 MONIKA Dodd Referring Provider Active St art: October 07, 2024 End: October 07, 2024 Team Status: Active Member Role Status Dates Dr. Cara Stephens DO Primary Care Provider Active Start: October 19, 2024 Dr. Cara Stephens DO Family Provider Active Start : October 19, 2024 Dr. Anum Greene MD Attending Provider Active Start: October 19, 2024 Dr. Anum Greene MD Referring Provider Active Start: October 19, 2024 Team Status: Active Member Role Status Dates Dr. Cara Stephens DO Primary Care Provider Active Team Status: Inactive Member Role Status Dates Dr. Cara Stephens DO Primary Care Provider Active Start: December 31, 2024 End: December 31, 2024 Dr. Kristopher Victor MD Attending Provider Active S tart: December 31, 2024 End: December 31, 2024 Team Status: Inactive Member Role Status Dates Dr. Cara Stephens DO Primary Care Provider Active Start: January 11, 2025 End: January 11, 2025 Dr. Cara Stephens DO Referring Provider Active St art: January 11, 2025 End: January 11, 2025 Dr. Anum Greene MD Attending Provider Active Start: January 11, 2025 End: January 11, 2025 Team Status: Active Member Role Status Dates Dr. Cara Stephens DO Primary Care Provider Active Start: January 11, 2025 Dr. Cara Stephens DO Family Provider Active Start : January 11, 2025 Dr. Anum Greene MD Attending Provider Active Start: January 11, 2025 Dr. Anum Greene MD Referring Provider Active Start: January 11, 2025 INFORMATION SOURCE (unrecogn ized section and content) DATE CREATED AUTHOR 08/30/2024 [facility] DATE CREATED AUTHOR AUTHOR'S ORGANIZ ATION 02/06/2025 [facility] FOR RECORDS PERTAINING TO PATIENTS WHO ARE OR HAVE BEEN ENROLLED IN A CHEMICAL DEPENDENCY/SUBSTANCEABUSE PROGRAM, SOME INFORMATION MAY BE OMITTED. This clinical summary was aggregated from multiple sources. Caution should be exercised in using it in the provision of clinical care. This summary normalizes information from multiple sources, and as a consequence, information in this document may materially change the coding, format and clinical context of patient data. In addition, data may be omitted in some cases. CLINICAL DECISIONS SHOULD BE BASED ON THE PRIMARY CLINICAL RECORDS. [employer] [facility]. provides no warranty or guarantee of the accuracy or completeness of information in this document.
[2025-02-08] MEDS: 0.9% Saline Lock 10 ML Syringe IV (07:43)
== END | disposition home or self-care (01) ==
LOC: CT 06:55
PROVIDERS: PCP Family Medicine; Referring Provider Internal Medicine Hematology & Oncology; Visit Provider Internal Medicine Hematology & Oncology
DX: C82.98 Follicular lymphoma, unspecified, lymph nodes of multiple sites (principal)
CPT/HCPCS: 71260; 74177; Q9967; A4216